=== PATIENT | female | born 1940 | race Caucasian/White ===

== ENCOUNTER → 2016-07-21 | Outpatient (CLI) | payer MEDICARE, BC ==
[2016-07-21 13:58] LABS: Anisocytosis Moderate; CH 28.4; CHCM 31.3; HCT 41.1 % (34.0-46.0); HGB 12.7 gm/dL (11.4-16.0); Hypochromasia Slight; MCH 28.1 pg (25.0-35.0); Mean Platelet Volume 7.2; RBC 4.53 m/uL (3.80-5.40); RDW 21.1 % (11.5-15.5); WBC 4.5 k/uL (3.8-10.6)
[2016-07-21 14:01] LABS: MCV 90.6 fL (80.0-100.0)
[2016-07-21 14:02] LABS: Appearance,Urine Clear (Clear); Bilirubin,Urine Negative (Negative); Glucose,Urine (UA) Negative (Negative); Ketones,Urine Negative (Negative); Leukocyte Esterase,Urine Negative (Negative); Nitrite,Urine Negative (Negative); PH, Urine 5.5 (5.0-8.0); Protein,Urine Trace (Negative); Specific Gravity,Urine 1.018 (1.001-1.035); UA Billing (MACRO vs. MICRO) CHEM; Urobilinogen,Urine <2.0 mg/dL (<2.0)
[2016-07-21 14:42] LABS: Anion Gap 10 mmol/L; Blood Urea Nitrogen 15 mg/dL (7-17); Calcium 9.6 mg/dL (8.4-10.2); Carbon Dioxide 27 mmol/L (22-30); Chloride 108 mmol/L (98-107); Glucose 127 mg/dL (74-99); Iron 68 ug/dL (37-170); Magnesium 2.1 mg/dL (1.6-2.3); Non-African American GFR(MDRD) >60 (>60 ml/min/1.73 sqM); Phosphorous 3.3 mg/dL (2.5-4.5); Sodium 145 mmol/L (137-145); Uric Acid 4.8 mg/dL (3.7-7.4)
[2016-07-21 14:51] LABS: Total Iron Binding Capacity 200 ug/dL (265-497)
== END | disposition home or self-care (01) ==
LOC: LABWHC1 13:11
PROVIDERS: ATTEND Internal Medicine Nephrology
DX: I50.22 Chronic systolic (congestive) heart failure (principal); N18.3 Chronic kidney disease, stage 3 (moderate); N25.81 Secondary hyperparathyroidism of renal origin; N39.0 Urinary tract infection, site not specified; E55.9 Vitamin D deficiency, unspecified; M10.9 Gout, unspecified
CPT/HCPCS: 36415; 80048; 81003; 82306; 82728; 83540; 83550; 83735; 83970; 84100; 84550; 85027

== ENCOUNTER → 2016-08-09 | Outpatient (CLI) | payer MEDICARE, BC ==
[2016-08-09 14:51] LABS: Anion Gap 8 mmol/L; Blood Urea Nitrogen 15 mg/dL (7-17); Calcium 8.7 mg/dL (8.4-10.2); Carbon Dioxide 29 mmol/L (22-30); Chloride 108 mmol/L (98-107); Glucose 129 mg/dL (74-99); Non-African American GFR(MDRD) >60 (>60 ml/min/1.73 sqM); Potassium 4.2 mmol/L (3.5-5.1); Sodium 145 mmol/L (137-145)
== END | disposition home or self-care (01) ==
LOC: LABWHC1 14:22
PROVIDERS: ATTEND Internal Medicine Cardiovascular Disease
DX: I50.32 Chronic diastolic (congestive) heart failure (principal)
CPT/HCPCS: 36415; 80048

== ENCOUNTER → 2016-09-13 | Outpatient (CLI) | payer MEDICARE, BC ==
[2016-09-13 12:28] LABS: Anion Gap 8 mmol/L; Blood Urea Nitrogen 16 mg/dL (7-17); Calcium 9.1 mg/dL (8.4-10.2); Carbon Dioxide 28 mmol/L (22-30); Chloride 106 mmol/L (98-107); Glucose 147 mg/dL (74-99); Non-African American GFR(MDRD) 58 (>60 ml/min/1.73 sqM); Potassium 4.6 mmol/L (3.5-5.1); Sodium 142 mmol/L (137-145)
== END | disposition home or self-care (01) ==
LOC: LABWHC1 11:22
PROVIDERS: ATTEND Nurse Practitioner Adult Health
DX: I50.32 Chronic diastolic (congestive) heart failure (principal)
CPT/HCPCS: 36415; 80048

== ENCOUNTER → 2016-10-06 | Outpatient (CLI) | payer MEDICARE, BC ==
[2016-10-06 16:35] LABS: Anion Gap 8 mmol/L; Blood Urea Nitrogen 13 mg/dL (7-17); Carbon Dioxide 28 mmol/L (22-30); Chloride 103 mmol/L (98-107); Glucose 176 mg/dL (74-99); Non-African American GFR(MDRD) 54 (>60 ml/min/1.73 sqM); Potassium 4.5 mmol/L (3.5-5.1); Sodium 139 mmol/L (137-145)
== END | disposition home or self-care (01) ==
LOC: LABWHC1 15:42
PROVIDERS: ATTEND Internal Medicine Cardiovascular Disease
DX: I50.32 Chronic diastolic (congestive) heart failure (principal)
CPT/HCPCS: 36415; 80048

== ENCOUNTER → 2016-11-04 | Outpatient (CLI) | payer MEDICARE, BC ==
[2016-11-04 12:41] LABS: Anion Gap 6 mmol/L; Blood Urea Nitrogen 15 mg/dL (7-17); Carbon Dioxide 28 mmol/L (22-30); Chloride 107 mmol/L (98-107); Glucose 119 mg/dL (74-99); Non-African American GFR(MDRD) >60 (>60 ml/min/1.73 sqM); Potassium 4.1 mmol/L (3.5-5.1); Sodium 141 mmol/L (137-145)
== END ==
LOC: LABWHC1 12:08
PROVIDERS: ATTEND Internal Medicine Cardiovascular Disease
DX: I50.32 Chronic diastolic (congestive) heart failure (principal)
CPT/HCPCS: 36415; 80048

== ENCOUNTER 2016-11-21 15:37 | Emergency (ER) | payer MEDICARE, BC ==
[2016-11-21] MEDS ORDERED: HYDROcodone/APAP 5-325MG 1 EACH TAB PO STA (16:43)
[2016-11-21 17:12] LABS: Basophils % (A) 1 %; CH 32.7; CHCM 34.7; Eosinophils # (A) 0.2 k/uL (0-0.7); Eosinophils % (A) 2 %; HCT 38.8 % (34.0-46.0); HGB 13.2 gm/dL (11.4-16.0); Luc # (Auto) 0.15; Luc % (Auto) 2; Lymphocytes # (A) 1.2 k/uL (1.0-4.8); Lymphocytes % (A) 20 %; MCH 32.3 pg (25.0-35.0); MCHC 34.1 g/dL (31.0-37.0); MCV 94.6 fL (80.0-100.0); Mean Platelet Volume 7.1; Monocytes # (A) 0.4 k/uL (0-1.0); Monocytes % (A) 6 %; Neutrophils # (A) 4.4 k/uL (1.3-7.7); Neutrophils % (A) 69 %; RDW 14.8 % (11.5-15.5); WBC 6.3 k/uL (3.8-10.6); WBC (Perox) 5.73
[2016-11-21 17:21] LABS: Calcium 8.8 mg/dL (8.4-10.2); Potassium 4.2 mmol/L (3.5-5.1)
--- NOTE | 2016-11-21 17:48 | XR ---
EXAMINATION TYPE: XR chest 2V DATE OF EXAM: 11/21/2016 5:35 PM COMPARISON: 03/06/2016 HISTORY: Chest pain TECHNIQUE: Frontal and lateral views of the chest are obtained. FINDINGS: Heart is enlarged. There is mild pulmonary congestion. There are no hilar masses. Thoracic aorta is atheromatous. There is no pleural effusion. IMPRESSION: Cardiomegaly with mild congestion. No overt heart failure. No change compared to last ex am.
[2016-11-21 18:16] VITALS: BP 179/83
[2016-11-21] MEDS ORDERED: CIPROFLOXACIN HCL 500 MG TAB PO STA (19:30)
[2016-11-21 19:33] VITALS: PULSE 65; RESP 16; TEMP 97.8
--- NOTE | 2016-11-21 19:33 | ED ---
General Adult HPI - General Chief complaint: Skin/Abscess/Foreign Body Stated complaint: R leg irritation Source: patient Mode of arrival: ambulatory Limitations: no limitations - History of Present Illness Initial comments: 76-year-old female with a past medical history of atrial flutter, asthma, heart failure, COPD, CVA/TIA, DM, fiber myalgia, HTN, thyroid disorder, psoriasis on scalp, migraines, constipation, gout, anemia, cholecystectomy, heart catheterization, hysterectomy, Arnaud-en-Y presented for evaluation of right lower extremity discomfort and erythema. She states that this is been developing over the last 2-3 days and is worse when palpated and improved when left alone. She states a history of recurrent lower extremity cellulitis and that this feels similar. However there has been more swelling and she feels as though there may be some deeper symptoms as well. She went online improvement in her symptoms and is concerned that there may also be a blood clot. She denies any breaks in the skin that could lead to the cellulitis and that she has been treated previously with Cipro with good effect. - Related Data Home Medications Medication Instructions Recorded Confirmed Allopurinol [Zyloprim] 100 mg PO BID 10/19/14 11/21/16 Clopidogrel [Plavix] 75 mg PO DAILY 10/19/14 11/21/16 HYDROcodone/APAP 5-325MG [[place] 1 tab PO Q6HR PRN 10/19/14 11/21/16 5-325] Levothyroxine Sodium [Synthroid] 175 mcg PO DAILY 10/19/14 11/21/16 Temazepam [Restoril] 15 mg PO HS 10/19/14 11/21/16 Ergocalciferol [Vitamin D2 50,000 units PO MOFR 03/06/16 11/21/16 (DRISDOL)] Gabapentin 600 mg PO HS 03/06/16 11/21/16 Furosemide 240 mg IVP TH 03/07/16 11/21/16 Furosemide [Lasix] 40 mg PO DAILY PRN 03/07/16 11/21/16 Gabapentin [Neurontin] 300 mg PO QAM 04/28/16 11/21/16 Sertraline [Zoloft] 150 mg PO QAM 04/28/16 11/21/16 rOPINIRole HCL [Requip] 0.25 mg PO HS PRN 04/28/16 11/21/16 Calcitriol [Rocaltrol] 0.25 mcg PO MO 11/21/16 11/21/16 Insulin Detemir [Levemir] 19 unit SQ HS 11/21/16 11/21/16 Isosorbide Mononitrate ER [Imdur] 30 mg PO DAILY 11/21/16 11/21/16 Lisinopril [Zestril] 10 mg PO BID 11/21/16 11/21/16 Nitroglycerin Sl Tabs [Nitrostat] 0.4 mg SUBLINGUAL Q5M PRN 11/21/16 11/21/16 Ondansetron [Zofran ODT] 4 mg PO Q8HR PRN 11/21/16 11/21/16 Potassium Chloride ER [K-Dur 10] 5 meq PO W/BRKFST 11/21/16 11/21/16 Potassium Chloride ER [K-Dur 10] 10 meq PO W/SUPPER 11/21/16 11/21/16 Sennosides-Docusate Sodium 2 tab PO BID 11/21/16 11/21/16 [Senokot-S] amLODIPine [Norvasc] 5 mg PO DAILY 11/21/16 11/21/16 lamoTRIgine [LaMICtal] 25 mg PO BID 11/21/16 11/21/16 oxyCODONE ER [OxyCONTIN 15MG E.R] 15 mg PO Q12HR 11/21/16 11/21/16 rOPINIRole HCL [Requip] 0.5 mg PO HS PRN 11/21/16 11/21/16 Previous Rx's Medication Instructions Recorded Ciprofloxacin HCl [Cipro] 500 mg PO Q12HR #20 tablet 11/21/16 Allergies Allergy/AdvReac Type Severity Reaction Status Date / Time Penicillins Allergy Rash/Hives Verified 11/21/16 16:29 metolazone [From Zaroxolyn] AdvReac Severe Vertigo Verified 11/21/16 16:57 celecoxib [From Celebrex] AdvReac Nausea & Verified 11/21/16 16:29 Vomiting colchicine AdvReac Nausea & Verified 11/21/16 16:29 Vomiting Review of Systems ROS Statement: Those systems with pertinent positive or pertinent negative responses have been documented in the HPI. ROS Other: All systems not noted in ROS Statement are negative. Constitutional: Denies: fever, chills Eyes: Denies: eye pain, eye discharge, vision change ENT: Denies: ear pain, throat pain Respiratory: Denies: cough, dyspnea Cardiovascular: Denies: chest pain, palpitations, dyspnea on exertion, orthopnea Endocrine: Denies: fatigue, polydipsia, polyuria Gastrointestinal: Denies: abdominal pain, nausea, vomiting Genitourinary: Denies: urgency, dysuria Musculoskeletal: Denies: back pain, arthralgia, myalgia Skin: Reports: lesions. Denies: rash Neurological: Denies: headache, weakness Psychiatric: Denies: anxiety, depression Hematological/Lymphatic: Denies: easy bleeding, easy bruising Past Medical History Past Medical History: Atrial Flutter, Asthma, Heart Failure, COPD, CVA/TIA, Diabetes Mellitus, Fibromyalgia, Hypertension, Sleep Apnea/CPAP/BIPAP, Thyroid Disorder Additional Past Medical History / Comment(s): neuropathy, ENLARGED HEART, heart MURMUR,TIA'S, psoriasis ON SCALP, hx migraines, constipation, gout, anemia History of Any Multi-Drug Resistant Organisms: None Reported Past Surgical History: Cholecystectomy, Heart Catheterization, Hysterectomy, Orthopedic Surgery Additional Past Surgical History / Comment(s): gastroplasty THEN 4 YEARS LATER HAS ROUEN Y,vein stripping, LASER SX for glaucoma and denton CATRARACT, PARATHYRODECTOMY heel spur left foot Past Anesthesia/Blood Transfusion Reactions: No Reported Reaction Past Psychological History: Anxiety Smoking Status: Former smoker Past Alcohol Use History: None Reported Additional Past Alcohol Use History / Comment(s): STARTED TO SMOKE AT AGE 36 QUIT AT AGE 27 Past Drug Use History: None Reported - Past Family History Father Family Medical History: CVA/TIA, Myocardial Infarction ([place]) Additional Family Medical History / Comment(s): AT AGE 59 Mother Family Medical History: No Reported History Additional Family Medical History / Comment(s): AT AGE 85 General Exam Limitations: no limitations General appearance: alert, in no apparent distress Head exam: Present: atraumatic, normocephalic, normal inspection Eye exam: Present: normal appearance, PERRL, EOMI. Absent: scleral icterus, conjunctival injection, periorbital swelling ENT exam: Present: normal exam, mucous membranes moist Neck exam: Present: normal inspection. Absent: tenderness, meningismus, lymphadenopathy Respiratory exam: Present: normal lung sounds bilaterally. Absent: respiratory distress, wheezes, rales, rhonchi, stridor Cardiovascular Exam: Present: regular rate, normal rhythm, normal heart sounds. Absent: systolic murmur, diastolic murmur, rubs, gallop, clicks GI/Abdominal exam: Present: soft, normal bowel sounds. Absent: distended, tenderness, guarding, rebound, rigid Rectal exam: Present: deferred Extremities exam: Present: normal inspection, full ROM, normal capillary refill , calf tenderness (right-sided). Absent: tenderness, pedal edema, joint swelling Back exam: Present: normal inspection Neurological exam: Present: alert, oriented X3, CN II-XII intact Psychiatric exam: Present: normal affect, normal mood Skin exam: Present: warm, dry, intact, erythema (with associated warmth to palpation). Absent: rash Course Vital Signs 11/21/16 11/21/16 11/21/16 15:39 16:42 18:00 Temperature 98.1 F Pulse Rate 72 63 61 Respiratory 20 18 18 Rate Blood Pressure 140/62 179/75 179/83 O2 Sat by Pulse 98 99 99 Oximetry 11/21/16 19:32 Temperature 97.8 F Pulse Rate 65 Respiratory 16 Rate Blood Pressure 179/83 O2 Sat by Pulse 100 Oximetry EKG Findings - EKG Comments: EKG Findings:: Assessment urticaria with ventricular rate of 58, BACILIO 208, QRS 94 , QT/QTc 446/437. Medical Decision Making - Medical Decision Making 76-year-old female presented for evaluation of right lower extremity erythema developing over the last 2-3 days. She has a history of recurrent cellulitis and believes that this is the likely etiology although she has had deeper pain into the leg and is concerned about a DVT. On physical examination she does have erythema to the leg with some overlying skin changes but there is no definitive induration. The remainder of her physical exam is benign. Given that the patient is markedly obese and ultrasound will be technically difficult. We'll obtain a d-dimer initially as well as basic labs. labs revealed no significant abnormalities including a negative d-dimer.chest x- ray showed mild congestion but unchanged since previous exam. The patient was reevaluated and had no change in her exam. SHe was given cipro for cellulitis and informed she would be discharged with a prescription for Cipro and instructions to follow-up with her primary care physician for cellulitis. She was further advised to return to this facility if her symptoms should worsen or persist. She acknowledged an understanding of this information and agreed with this plan of care. - Lab Data Result diagrams: 11/21/16 17:04 11/21/16 17:04 Lab Results 11/21/16 11/21/16 11/21/16 Range/Units 17:04 17:04 17:04 WBC 6.3 (3.8-10.6) k/uL RBC 4.10 (3.80-5.40) m/uL Hgb 13.2 (11.4-16.0) gm/dL Hct 38.8 (34.0-46.0) % MCV 94.6 (80.0-100.0) fL MCH 32.3 (25.0-35.0) pg MCHC 34.1 (31.0-37.0) g/dL RDW 14.8 (11.5-15.5) % Plt Count 154 (150-450) k/uL Neutrophils % 69 % Lymphocytes % 20 % Monocytes % 6 % Eosinophils % 2 % Basophils % 1 % Neutrophils # 4.4 (1.3-7.7) k/uL Lymphocytes # 1.2 (1.0-4.8) k/uL Monocytes # 0.4 (0-1.0) k/uL Eosinophils # 0.2 (0-0.7) k/uL Basophils # 0.0 (0-0.2) k/uL D-Dimer (<0.60) mg/L FEU Sodium 140 (137-145) mmol/L Potassium 4.2 (3.5-5.1) mmol/L Chloride 103 (98-107) mmol/L Carbon Dioxide 28 (22-30) mmol/L Anion Gap 9 mmol/L BUN 16 (7-17) mg/dL Creatinine 1.10 H (0.52-1.04) mg/dL Est GFR (MDRD) Af Amer 59 (>60 ml/min/1.73 sqM) Est GFR (MDRD) Non-Af 49 (>60 ml/min/1.73 sqM) Glucose 172 H (74-99) mg/dL Calcium 8.8 (8.4-10.2) mg/dL Troponin I (0.000-0.034) ng/mL NT-Pro-B Natriuret Pep 173 pg/mL 11/21/16 11/21/16 Range/Units 17:04 17:04 WBC (3.8-10.6) k/uL RBC (3.80-5.40) m/uL Hgb (11.4-16.0) gm/dL Hct (34.0-46.0) % MCV (80.0-100.0) fL MCH (25.0-35.0) pg MCHC (31.0-37.0) g/dL RDW (11.5-15.5) % Plt Count (150-450) k/uL Neutrophils % % Lymphocytes % % Monocytes % % Eosinophils % % Basophils % % Neutrophils # (1.3-7.7) k/uL Lymphocytes # (1.0-4.8) k/uL Monocytes # (0-1.0) k/uL Eosinophils # (0-0.7) k/uL Basophils # (0-0.2) k/uL D-Dimer 0.33 (<0.60) mg/L FEU Sodium (137-145) mmol/L Potassium (3.5-5.1) mmol/L Chloride (98-107) mmol/L Carbon Dioxide (22-30) mmol/L Anion Gap mmol/L BUN (7-17) mg/dL Creatinine (0.52-1.04) mg/dL Est GFR (MDRD) Af Amer (>60 ml/min/1.73 sqM) Est GFR (MDRD) Non-Af (>60 ml/min/1.73 sqM) Glucose (74-99) mg/dL Calcium (8.4-10.2) mg/dL Troponin I <0.012 (0.000-0.034) ng/mL NT-Pro-B Natriuret Pep pg/mL Disposition Clinical Impression: Cellulitis Disposition: HOME SELF-CARE Instructions: Cellulitis (ED) Additional Instructions: Please use medication as discussed. Please follow up with family doctor if symptoms have not improved over the next two days. Please return to the emergency room if your symptoms increase or worsen or for any other concerns. Prescriptions: Ciprofloxacin HCl [Cipro] 500 mg PO Q12HR #20 tablet Referrals: Taran Julian MD [Primary Care Provider] - 1-2 days Time of Disposition: 19:32
== END 2016-11-21 19:45 | disposition home or self-care (01) ==
LOC: EC 15:37
DX: L03.115 Cellulitis of right lower limb (principal); I11.0 Hypertensive heart disease with heart failure; I50.9 Heart failure, unspecified; E07.9 Disorder of thyroid, unspecified; E11.9 Type 2 diabetes mellitus without complications; M79.7 Fibromyalgia; M10.9 Gout, unspecified; F41.9 Anxiety disorder, unspecified; Z86.73 Personal history of transient ischemic attack (TIA), and cerebral infarction without residual deficits; Z87.891 Personal history of nicotine dependence; Z79.01 Long term (current) use of anticoagulants; Z79.4 Long term (current) use of insulin; Z79.891 Long term (current) use of opiate analgesic; Z79.899 Other long term (current) drug therapy; Z88.0 Allergy status to penicillin; Z88.6 Allergy status to analgesic agent; Z88.8 Allergy status to other drugs, medicaments and biological substances
CPT/HCPCS: 36415; 71020; 80048; 83880; 84484; 85025; 85379; 93005; 99284

== ENCOUNTER → 2016-12-15 | Outpatient (CLI) | payer MEDICARE, BC ==
[2016-12-15 13:53] LABS: Anion Gap 8 mmol/L; Blood Urea Nitrogen 16 mg/dL (7-17); Calcium 8.7 mg/dL (8.4-10.2); Carbon Dioxide 26 mmol/L (22-30); Chloride 105 mmol/L (98-107); Glucose 325 mg/dL (74-99); Non-African American GFR(MDRD) 52 (>60 ml/min/1.73 sqM); Potassium 4.2 mmol/L (3.5-5.1); Sodium 139 mmol/L (137-145)
== END | disposition home or self-care (01) ==
LOC: LABWHC1 13:15
PROVIDERS: ATTEND Nurse Practitioner Adult Health
DX: I50.32 Chronic diastolic (congestive) heart failure (principal)
CPT/HCPCS: 36415; 80048

== ENCOUNTER → 2016-12-30 | Outpatient (CLI) | payer MEDICARE, BC ==
[2016-12-30 12:54] LABS: Anion Gap 8 mmol/L; Blood Urea Nitrogen 17 mg/dL (7-17); Carbon Dioxide 29 mmol/L (22-30); Chloride 105 mmol/L (98-107); Glucose 130 mg/dL (74-99); Non-African American GFR(MDRD) 58 (>60 ml/min/1.73 sqM); Potassium 4.5 mmol/L (3.5-5.1); Sodium 142 mmol/L (137-145)
== END | disposition home or self-care (01) ==
LOC: LABWHC1 12:03
PROVIDERS: ATTEND Internal Medicine Cardiovascular Disease
DX: I50.32 Chronic diastolic (congestive) heart failure (principal)
CPT/HCPCS: 36415; 80048

== ENCOUNTER → 2017-01-24 | Outpatient (CLI) | payer MEDICARE, BC ==
[2017-01-24 08:38] LABS: CH 32.3; CHCM 33.6; HCT 42.5 % (34.0-46.0); HDW 3.12; HGB 14.1 gm/dL (11.4-16.0); MCH 32.2 pg (25.0-35.0); MCHC 33.3 g/dL (31.0-37.0); MCV 96.7 fL (80.0-100.0); RBC 4.39 m/uL (3.80-5.40); RDW 14.8 % (11.5-15.5); WBC 6.7 k/uL (3.8-10.6)
[2017-01-24 09:00] LABS: Anion Gap 8 mmol/L; Blood Urea Nitrogen 18 mg/dL (7-17); Calcium 8.9 mg/dL (8.4-10.2); Carbon Dioxide 31 mmol/L (22-30); Chloride 102 mmol/L (98-107); Glucose 146 mg/dL (74-99); Magnesium 1.9 mg/dL (1.6-2.3); Non-African American GFR(MDRD) 52 (>60 ml/min/1.73 sqM); Phosphorous 3.4 mg/dL (2.5-4.5); Potassium 3.9 mmol/L (3.5-5.1); Sodium 141 mmol/L (137-145); Uric Acid 5.4 mg/dL (3.7-7.4)
[2017-01-24 09:31] LABS: Hepatitis B Surface Ag Index 0.08
[2017-01-24 09:37] LABS: Hepatitis B Core IgM Index 0.05
[2017-01-24 09:49] LABS: Hepatitis C Virus IgG Ab Negative (Negative); Hepatitis C Virus IgG Index 0.02
[2017-01-24 12:03] LABS: Iron 71 ug/dL (37-170)
[2017-01-24 12:14] LABS: % Iron Saturation 33.3 % (20-50); Total Iron Binding Capacity 213 ug/dL (265-497)
[2017-01-24 13:37] LABS: ALT 29 U/L (9-52); AST 26 U/L (14-36); Alkaline Phosphatase 113 U/L (38-126); Total Bilirubin 0.5 mg/dL (0.2-1.3); Total Protein 5.9 g/dL (6.3-8.2)
[2017-01-24 13:44] LABS: Prealbumin 19 mg/dL (18-36)
[2017-01-24 16:35] LABS: ANA w/Reflex to Titer POSITIVE (NEGATIVE)
[2017-01-25 14:31] LABS: C-ANCA <1:20 Titer (<1:20); P-ANCA <1:20 Titer (<1:20)
[2017-01-26 06:30] LABS: Complement Total (CH50) 92 U/mL (42 - 95)
== END | disposition home or self-care (01) ==
LOC: LABWHC1 08:08
PROVIDERS: ATTEND Nurse Practitioner Family
DX: N18.3 Chronic kidney disease, stage 3 (moderate) (principal); R80.9 Proteinuria, unspecified; D64.9 Anemia, unspecified; N39.0 Urinary tract infection, site not specified; E21.3 Hyperparathyroidism, unspecified; E55.9 Vitamin D deficiency, unspecified; M10.9 Gout, unspecified
CPT/HCPCS: 36415; 80053; 80074; 82306; 82728; 83516; 83540; 83550; 83735; 83883; 83970; 84100; 84134; 84550; 85027; 86038; 86039; 86160; 86162; 86225; 86255; 86334

== ENCOUNTER → 2017-02-15 | Outpatient (CLI) | payer MEDICARE, BC ==
--- NOTE | 2017-02-15 23:01 | US ---
EXAMINATION TYPE: US kidneys/renal and bladder DATE OF EXAM: 02/15/2017 COMPARISON: NONE CLINICAL HISTORY: 76-year-old female N18.3 Chronic Kidney Disease Stage 3. TECHNIQUE: Multiple sonographic images of the kidneys and bladder were obtained. FINDINGS: Right Kidney: 8.2 x 3.8 x 4.6 cm Left Kidney: 9.3 x 4.6 x 4.0 cm No hydronephrosis on either side. There is bilateral renal cortical thinning. Nondistention of the bladder limits evaluation. Incidentally, there is echogenic appearance to the liver. IMPRESSION: 1. No hydronephrosis. 2. Changes of chronic medical renal disease. 3. Incidental: Suspect underlying hepatic steatosis.
== END ==
LOC: RADUSMAIN 17:27
PROVIDERS: ATTEND Nurse Practitioner Family
DX: N18.3 Chronic kidney disease, stage 3 (moderate) (principal)
CPT/HCPCS: 76770

== ENCOUNTER → 2017-03-17 | Outpatient (CLI) | payer MEDICARE, BC ==
[2017-03-17 17:34] LABS: Calcium 9.3 mg/dL (8.4-10.2); Potassium 5.3 mmol/L (3.5-5.1)
== END | disposition home or self-care (01) ==
LOC: LABWHC1 16:53
PROVIDERS: ATTEND Internal Medicine Cardiovascular Disease
DX: I50.32 Chronic diastolic (congestive) heart failure (principal)
CPT/HCPCS: 36415; 80048; 83880

== ENCOUNTER → 2017-04-07 | Outpatient (CLI) | payer MEDICARE, BC ==
[2017-04-07 15:50] LABS: Calcium 8.9 mg/dL (8.4-10.2); Potassium 4.7 mmol/L (3.5-5.1)
== END | disposition home or self-care (01) ==
LOC: LABWHC1 15:14
PROVIDERS: ATTEND Internal Medicine Cardiovascular Disease
DX: I50.32 Chronic diastolic (congestive) heart failure (principal)
CPT/HCPCS: 36415; 80048

== ENCOUNTER 2017-04-09 13:27 | Emergency (ER) | payer MEDICARE, BC ==
[2017-04-09] MEDS ORDERED: ONDANSETRON 4 MG/2 ML VIAL IVP STA ×2 (13:56→15:42)
[2017-04-09] MEDS ORDERED: SODIUM CHLORIDE 0.9% 500 ML IV STA ×2 (13:56→15:40)
--- NOTE | 2017-04-09 14:10 | ED ---
General Adult HPI - General Chief complaint: Nausea/Vomiting/Diarrhea Stated complaint: N & V Time Seen by Provider: 04/09/17 13:46 Source: patient, RN notes reviewed Mode of arrival: wheelchair Limitations: no limitations - History of Present Illness Initial comments: 76-year-old female presents to the emergency department with a chief complaint of nausea. Patient states she's had nausea and dry heaves for the past 3 or 4 days. She went to his doctor prescribed Reglan meet her feel her to stop taking it. Patient states that she goes in weekly to have IV Lasix help it some fluid off because she cannot tolerate oral Lasix. Patient states she did skip this due to dehydration as well. Patient states that she has been more short of breath over the last month or so but not worse over the last few days. Patient states she is here because she just did not feel like she is getting better so she thought that she should be evaluated. Patient denies any recent fever, chills, shortness of breath, chest pain, back pain, abdominal pain, vomiting, numbness or tingling, dysuria or hematuria, constipation or diarrhea, headaches or visual changes, or any other current symptoms. - Related Data Home Medications Medication Instructions Recorded Confirmed Allopurinol [Zyloprim] 100 mg PO BID 10/19/14 04/09/17 Clopidogrel [Plavix] 75 mg PO DAILY 10/19/14 04/09/17 HYDROcodone/APAP 5-325MG [[place] 1 tab PO Q6HR PRN 10/19/14 04/09/17 5-325] Levothyroxine Sodium [Synthroid] 175 mcg PO DAILY 10/19/14 04/09/17 Temazepam [Restoril] 15 mg PO HS 10/19/14 04/09/17 Ergocalciferol [Vitamin D2 50,000 units PO MOFR 03/06/16 04/09/17 (DRISDOL)] Gabapentin 600 mg PO HS 03/06/16 04/09/17 Furosemide 250 mg IVP TH 03/07/16 04/09/17 Gabapentin [Neurontin] 300 mg PO QAM 04/28/16 04/09/17 rOPINIRole HCL [Requip] 0.25 mg PO HS 04/28/16 04/09/17 Calcitriol [Rocaltrol] 0.25 mcg PO MOFR 11/21/16 04/09/17 Insulin Detemir [Levemir] 19 unit SQ HS 11/21/16 04/09/17 Isosorbide Mononitrate ER [Imdur] 30 mg PO DAILY 11/21/16 04/09/17 Lisinopril [Zestril] 10 mg PO BID 11/21/16 04/09/17 Nitroglycerin Sl Tabs [Nitrostat] 0.4 mg SUBLINGUAL Q5M PRN 11/21/16 04/09/17 Ondansetron [Zofran ODT] 4 mg PO Q8HR PRN 11/21/16 04/09/17 amLODIPine [Norvasc] 5 mg PO DAILY 11/21/16 04/09/17 oxyCODONE ER [OxyCONTIN 15MG E.R] 15 mg PO Q12HR 11/21/16 04/09/17 Atorvastatin Calcium [Lipitor] 20 mg PO HS 04/09/17 04/09/17 Metoclopramide [Reglan] 10 mg PO TID PRN 04/09/17 04/09/17 Sennosides [Senna] 8.6 mg PO QAM 04/09/17 04/09/17 Sennosides [Senna] 17.2 mg PO HS 04/09/17 04/09/17 Spironolactone [Aldactone] 12.5 mg PO Q48H 04/09/17 04/09/17 Spironolactone [Aldactone] 25 mg PO Q48H 04/09/17 04/09/17 lamoTRIgine [LaMICtal] 150 mg PO BID 04/09/17 04/09/17 Previous Rx's Medication Instructions Recorded Ondansetron Odt [Zofran ODT] 4 mg PO Q8HR PRN #20 tab 04/09/17 Allergies Allergy/AdvReac Type Severity Reaction Status Date / Time Penicillins Allergy Rash/Hives Verified 04/09/17 14:32 metolazone [From Zaroxolyn] AdvReac Severe Vertigo Verified 04/09/17 14:32 celecoxib [From Celebrex] AdvReac Nausea & Verified 04/09/17 14:32 Vomiting colchicine AdvReac Nausea & Verified 04/09/17 14:32 Vomiting metoclopramide [From Reglan] AdvReac TREMORS Verified 04/09/17 14:32 Review of Systems ROS Statement: Those systems with pertinent positive or pertinent negative responses have been documented in the HPI. ROS Other: All systems not noted in ROS Statement are negative. Past Medical History Past Medical History: Atrial Fibrillation, Heart Failure, COPD, CVA/TIA, Diabetes Mellitus, Fibromyalgia, Hypertension, Skin Disorder, Sleep Apnea/CPAP/ BIPAP, Thyroid Disorder Additional Past Medical History / Comment(s): WOUND ON ABDOMINAL FLAP, ALSO "BOIL" ON RT BUTTOCK, HAS HAD LARGE AMOUNT OF DRAINAGE IN PAST, OPEN HOLE IN ABDOMEN, neuropathy, ENLARGED HEART, heart MURMUR,TIA'S, states no residual effects, psoriasis ON SCALP, hx migraines, constipation, gout, HX anemia, SEE DR ARTEAGA TO WATCH KIDNEYS R/T LARGE AMT OF LASIX GIVEN FOR CHF History of Any Multi-Drug Resistant Organisms: None Reported Past Surgical History: Bariatric Surgery, Cholecystectomy, Heart Catheterization , Hysterectomy, Orthopedic Surgery Additional Past Surgical History / Comment(s): gastroplasty THEN 4 YEARS LATER HAS BECCA-N-Y,vein stripping, LASER SX for glaucoma and denton CATRARACT, PARATHYRODECTOMY, heel spur left foot Past Anesthesia/Blood Transfusion Reactions: No Reported Reaction Past Psychological History: Anxiety, Depression Smoking Status: Never smoker Past Alcohol Use History: None Reported Past Drug Use History: None Reported - Past Family History Sister(s) Family Medical History: Deep Vein Thrombosis (DVT) Father Family Medical History: CVA/TIA, Myocardial Infarction ([place]) Additional Family Medical History / Comment(s): AT AGE 59 Mother Family Medical History: No Reported History Additional Family Medical History / Comment(s): AT AGE 85 General Exam - General Exam Comments Initial Comments: General: The patient is awake and alert, in no distress, and does not appear acutely ill. Eye: Pupils are equal, round and reactive to light, extra-ocular movements are intact; there is normal conjunctiva bilaterally. No signs of icterus. Ears, nose, mouth and throat: There are moist mucous membranes and no oral lesions. Neck: The neck is supple, there is no tenderness. Cardiovascular: There is a regular rate and rhythm. No murmur, rub or gallop is appreciated. Respiratory: Lungs are clear to auscultation, respirations are non-labored, breath sounds are equal. No wheezes, stridor, rales, or rhonchi. Gastrointestinal: Soft, non-distended, non-tender abdomen without masses or organomegaly noted. There is no rebound or guarding present. No CVA tenderness. Bowel sounds are unremarkable. Back: There is no tenderness to palpation in the midline. There is no obvious deformity. No rashes noted. Musculoskeletal: Normal ROM, no tenderness, There is no pedal edema. There is no calf tenderness or swelling. Sensation intact. Pulses equal bilaterally 2+. Neurological: CN II-XII intact, There are no obvious motor or sensory deficits. Coordination appears grossly intact. Speech is normal. Skin: Skin is warm and dry and no rashes or lesions are noted. Psychiatric: Cooperative, appropriate mood & affect, normal judgment. Limitations: no limitations Course Vital Signs 04/09/17 04/09/17 04/09/17 13:32 14:45 15:45 Temperature 97.9 F Pulse Rate 55 L 55 L 62 Respiratory 18 20 20 Rate Blood Pressure 134/63 156/67 148/67 O2 Sat by Pulse 97 100 100 Oximetry EKG Findings - EKG Comments: EKG Findings:: Sinus bradycardia 52 bpm, normal axis, no atopy, no S-T depressions or elevations, Medical Decision Making - Medical Decision Making 76-year-old female presents to the emergency department with a chief complaint of nausea and dry heaves of dehydration. This time patient's lab work is been reviewed. BNP is stable and does not appear to be fluid on the lungs. This time patient has had no dry heaving here and is feeling better. We will switch the patient to [facility] for home. We did discuss follow-up and return parameters for the patient and close follow-up with her doctor this week. Patient stated that she understood and she is in agreement with plan. All questions have been answered. She'll be discharged. - Lab Data Result diagrams: 04/09/17 14:40 04/09/17 14:40 Lab Results 04/09/17 04/09/17 04/09/17 Range/Units 14:40 14:40 14:40 WBC 6.5 (3.8-10.6) k/uL RBC 3.87 (3.80-5.40) m/uL Hgb 13.0 (11.4-16.0) gm/dL Hct 39.2 (34.0-46.0) % MCV 101.5 H (80.0-100.0) fL MCH 33.6 (25.0-35.0) pg MCHC 33.1 (31.0-37.0) g/dL RDW 15.8 H (11.5-15.5) % Plt Count 167 (150-450) k/uL Neutrophils % 65 % Lymphocytes % 24 % Monocytes % 5 % Eosinophils % 4 % Basophils % 1 % Neutrophils # 4.2 (1.3-7.7) k/uL Lymphocytes # 1.6 (1.0-4.8) k/uL Monocytes # 0.3 (0-1.0) k/uL Eosinophils # 0.3 (0-0.7) k/uL Basophils # 0.0 (0-0.2) k/uL Macrocytosis Slight PT (9.0-12.0) sec INR (<1.2) APTT (22.0-30.0) sec Sodium 140 (137-145) mmol/L Potassium 4.3 (3.5-5.1) mmol/L Chloride 106 (98-107) mmol/L Carbon Dioxide 26 (22-30) mmol/L Anion Gap 8 mmol/L BUN 15 (7-17) mg/dL Creatinine 1.08 H (0.52-1.04) mg/dL Est GFR (MDRD) Af Amer >60 (>60 ml/min/1.73 sqM) Est GFR (MDRD) Non-Af 50 (>60 ml/min/1.73 sqM) Glucose 164 H (74-99) mg/dL Calcium 8.5 (8.4-10.2) mg/dL Magnesium 1.8 (1.6-2.3) mg/dL Total Bilirubin 0.4 (0.2-1.3) mg/dL AST 27 (14-36) U/L ALT 29 (9-52) U/L Alkaline Phosphatase 88 (38-126) U/L Total Creatine Kinase <20 L (30-135) U/L CK-MB (CK-2) 0.3 (0.0-2.4) ng/mL CK-MB (CK-2) Rel Index Troponin I <0.012 (0.000-0.034) ng/mL NT-Pro-B Natriuret Pep pg/mL Total Protein 5.7 L (6.3-8.2) g/dL Albumin 2.8 L (3.5-5.0) g/dL Amylase <30 L (30-110) U/L Lipase 57 (23-300) U/L Urine Color Urine Appearance (Clear) Urine pH (5.0-8.0) Ur Specific [place] (1.001-1.035) Urine Protein (Negative) Urine Glucose (UA) (Negative) Urine Ketones (Negative) Urine Blood (Negative) Urine Nitrite (Negative) Urine Bilirubin (Negative) Urine Urobilinogen (<2.0) mg/dL Ur Leukocyte Esterase (Negative) 04/09/17 04/09/17 04/09/17 Range/Units 14:40 14:40 17:01 WBC (3.8-10.6) k/uL RBC (3.80-5.40) m/uL Hgb (11.4-16.0) gm/dL Hct (34.0-46.0) % MCV (80.0-100.0) fL MCH (25.0-35.0) pg MCHC (31.0-37.0) g/dL RDW (11.5-15.5) % Plt Count (150-450) k/uL Neutrophils % % Lymphocytes % % Monocytes % % Eosinophils % % Basophils % % Neutrophils # (1.3-7.7) k/uL Lymphocytes # (1.0-4.8) k/uL Monocytes # (0-1.0) k/uL Eosinophils # (0-0.7) k/uL Basophils # (0-0.2) k/uL Macrocytosis PT 10.7 (9.0-12.0) sec INR 1.1 (<1.2) APTT 25.8 (22.0-30.0) sec Sodium (137-145) mmol/L Potassium (3.5-5.1) mmol/L Chloride (98-107) mmol/L Carbon Dioxide (22-30) mmol/L Anion Gap mmol/L BUN (7-17) mg/dL Creatinine (0.52-1.04) mg/dL Est GFR (MDRD) Af Amer (>60 ml/min/1.73 sqM) Est GFR (MDRD) Non-Af (>60 ml/min/1.73 sqM) Glucose (74-99) mg/dL Calcium (8.4-10.2) mg/dL Magnesium (1.6-2.3) mg/dL Total Bilirubin (0.2-1.3) mg/dL AST (14-36) U/L ALT (9-52) U/L Alkaline Phosphatase (38-126) U/L Total Creatine Kinase (30-135) U/L CK-MB (CK-2) (0.0-2.4) ng/mL CK-MB (CK-2) Rel Index Troponin I (0.000-0.034) ng/mL NT-Pro-B Natriuret Pep 471 pg/mL Total Protein (6.3-8.2) g/dL Albumin (3.5-5.0) g/dL Amylase (30-110) U/L Lipase (23-300) U/L Urine Color Yellow Urine Appearance Clear (Clear) Urine pH 5.5 (5.0-8.0) Ur Specific [place] 1.016 (1.001-1.035) Urine Protein Trace H (Negative) Urine Glucose (UA) Negative (Negative) Urine Ketones Negative (Negative) Urine Blood Negative (Negative) Urine Nitrite Negative (Negative) Urine Bilirubin Negative (Negative) Urine Urobilinogen 2.0 (<2.0) mg/dL Ur Leukocyte Esterase Negative (Negative) - Radiology Data Radiology results: report reviewed, image reviewed Disposition Clinical Impression: Dehydration, Nausea Disposition: HOME SELF-CARE Condition: Stable Instructions: Dehydration (ED) Additional Instructions: Please use medication as discussed. Please follow up with family doctor if symptoms have not improved over the next two days. Please return to the emergency room if your symptoms increase or worsen or for any other concerns. Prescriptions: Ondansetron Odt [Zofran ODT] 4 mg PO Q8HR PRN #20 tab PRN Reason: Nausea Referrals: Taran Julian MD [Primary Care Provider] - 1-2 days Time of Disposition: 17:15
--- NOTE | 2017-04-09 14:42 | XR ---
EXAMINATION TYPE: XR chest 2V DATE OF EXAM: 04/09/2017 COMPARISON: NONE INDICATION: Chest pain dry heaves dehydration TECHNIQUE: Frontal and lateral views of the chest are obtained. FINDINGS: The heart size is enlarged. The pulmonary vasculature is normal. There is streak opacity in the right base compatible some right atelectasis. Lungs are otherwise asa r. The right perihilar infiltrate is not excluded. Follow-up is recommended. IMPRESSION: 1. Plate atelectasis right midlung. 2. Right perihilar infiltrate. Follow-up chest study is recommended.
[2017-04-09 14:56] LABS: Basophils % (A) 1 %; CH 34.1; CHCM 33.8; Eosinophils # (A) 0.3 k/uL (0-0.7); Eosinophils % (A) 4 %; HCT 39.2 % (34.0-46.0); Luc % (Auto) 2; Lymphocytes # (A) 1.6 k/uL (1.0-4.8); Lymphocytes % (A) 24 %; MCH 33.6 pg (25.0-35.0); MCHC 33.1 g/dL (31.0-37.0); MCV 101.5 fL (80.0-100.0); Macrocytosis Slight; Mean Platelet Volume 7.4; Monocytes # (A) 0.3 k/uL (0-1.0); Monocytes % (A) 5 %; Neutrophils # (A) 4.2 k/uL (1.3-7.7); Neutrophils % (A) 65 %; RBC 3.87 m/uL (3.80-5.40); RDW 15.8 % (11.5-15.5); WBC 6.5 k/uL (3.8-10.6); WBC (Perox) 6.58
[2017-04-09 15:05] LABS: ALT 29 U/L (9-52); AST 27 U/L (14-36); Alkaline Phosphatase 88 U/L (38-126); Amylase <30 U/L (30-110); Anion Gap 8 mmol/L; Blood Urea Nitrogen 15 mg/dL (7-17); Calcium 8.5 mg/dL (8.4-10.2); Carbon Dioxide 26 mmol/L (22-30); Chloride 106 mmol/L (98-107); Glucose 164 mg/dL (74-99); Magnesium 1.8 mg/dL (1.6-2.3); Non-African American GFR(MDRD) 50 (>60 ml/min/1.73 sqM); Potassium 4.3 mmol/L (3.5-5.1); Sodium 140 mmol/L (137-145); Total Bilirubin 0.4 mg/dL (0.2-1.3); Total Protein 5.7 g/dL (6.3-8.2)
[2017-04-09 15:08] LABS: INR 1.1 (<1.2); Partial Thromboplastin Time 25.8 sec (22.0-30.0); Prothrombin Time 10.7 sec (9.0-12.0)
[2017-04-09 15:18] LABS: Creatine Kinase <20 U/L (30-135)
[2017-04-09 15:31] LABS: Creatine Kinase MB 0.3 ng/mL (0.0-2.4); Troponin I <0.012 ng/mL (0.000-0.034)
[2017-04-09 16:30] VITALS: RESP 20
[2017-04-09 17:10] LABS: Appearance,Urine Clear (Clear); Bilirubin,Urine Negative (Negative); Glucose,Urine (UA) Negative (Negative); Ketones,Urine Negative (Negative); Leukocyte Esterase,Urine Negative (Negative); Nitrite,Urine Negative (Negative); PH, Urine 5.5 (5.0-8.0); Protein,Urine Trace (Negative); Specific Gravity,Urine 1.016 (1.001-1.035); UA Billing (MACRO vs. MICRO) CHEM
[2017-04-09 17:29] VITALS: BP 153/68; PULSE 55; TEMP 97.4
== END 2017-04-09 17:45 | disposition home or self-care (01) ==
LOC: EC 13:27
DX: E86.0 Dehydration (principal); R11.0 Nausea; R06.02 Shortness of breath; I11.0 Hypertensive heart disease with heart failure; I50.9 Heart failure, unspecified; E11.40 Type 2 diabetes mellitus with diabetic neuropathy, unspecified; K59.00 Constipation, unspecified; M10.9 Gout, unspecified; E07.9 Disorder of thyroid, unspecified; M79.7 Fibromyalgia; F32.9 Major depressive disorder, single episode, unspecified; F41.9 Anxiety disorder, unspecified; Z79.02 Long term (current) use of antithrombotics/antiplatelets; Z79.4 Long term (current) use of insulin; Z79.891 Long term (current) use of opiate analgesic; Z79.899 Other long term (current) drug therapy; Z88.0 Allergy status to penicillin; Z88.6 Allergy status to analgesic agent; Z88.8 Allergy status to other drugs, medicaments and biological substances; Z86.73 Personal history of transient ischemic attack (TIA), and cerebral infarction without residual deficits
CPT/HCPCS: 36415; 93005; 83880; 80053; 82150; 82550; 82553; 83690; 83735; 84484; 85025; 85610; 85730; 81003; 71020; 99284; 96374; 96376; 96361 ×3; J2405

== ENCOUNTER 2017-04-16 04:10 | Observation (INO) | payer MEDICARE, BC ==
--- NOTE | 2017-04-16 04:55 | ED ---
Chest Pain HPI - General Chief Complaint: Chest Pain Stated Complaint: Chest Pain Time Seen by Provider: 04/16/17 04:11 Source: EMS Mode of arrival: EMS Limitations: physical limitation - History of Present Illness Initial Comments: This patient is a 76-year-old woman who presents to be evaluated for nausea, dry heaves, and substernal chest pain. The patient relates that she has been having episodes of nausea and dry heaves going back for years intermittently. She states she occasionally goes a few months without having symptoms but this episode is definitely been present a little over 2 weeks now. Tonight about 8: 00 she developed some pressure in the upper substernal area. She describes as moderate, constant, she has not noted any worsening or relieving factors. She did try nitroglycerin but it didn't change this after one tablet. The patient has not had any symptoms associated with the chest pain. MD Complaint: chest pain Onset/Timin -: hour(s) (9) Onset: during rest Pain Location: substernal Pain Radiation: none Severity: moderate Quality: heaviness Consistency: constant Improves With: nothing Worsens With: nothing Anginal Symptoms: nausea, vomiting Treatments Prior to Arrival: nitroglycerin, oxygen - Related Data Home Medications Medication Instructions Recorded Confirmed Allopurinol [Zyloprim] 100 mg PO BID 10/19/14 04/09/17 Clopidogrel [Plavix] 75 mg PO DAILY 10/19/14 04/09/17 HYDROcodone/APAP 5-325MG [[place] 1 tab PO Q6HR PRN 10/19/14 04/09/17 5-325] Levothyroxine Sodium [Synthroid] 175 mcg PO DAILY 10/19/14 04/09/17 Temazepam [Restoril] 15 mg PO HS 10/19/14 04/09/17 Ergocalciferol [Vitamin D2 50,000 units PO MOFR 03/06/16 04/09/17 (DRISDOL)] Gabapentin 600 mg PO HS 03/06/16 04/09/17 Furosemide 250 mg IVP TH 03/07/16 04/09/17 Gabapentin [Neurontin] 300 mg PO QAM 04/28/16 04/09/17 rOPINIRole HCL [Requip] 0.25 mg PO HS 04/28/16 04/09/17 Calcitriol [Rocaltrol] 0.25 mcg PO MOFR 11/21/16 04/09/17 Insulin Detemir [Levemir] 19 unit SQ HS 11/21/16 04/09/17 Isosorbide Mononitrate ER [Imdur] 30 mg PO DAILY 11/21/16 04/09/17 Lisinopril [Zestril] 10 mg PO BID 11/21/16 04/09/17 Nitroglycerin Sl Tabs [Nitrostat] 0.4 mg SUBLINGUAL Q5M PRN 11/21/16 04/09/17 Ondansetron [Zofran ODT] 4 mg PO Q8HR PRN 11/21/16 04/09/17 amLODIPine [Norvasc] 5 mg PO DAILY 11/21/16 04/09/17 oxyCODONE ER [OxyCONTIN 15MG E.R] 15 mg PO Q12HR 11/21/16 04/09/17 Atorvastatin Calcium [Lipitor] 20 mg PO HS 04/09/17 04/09/17 Metoclopramide [Reglan] 10 mg PO TID PRN 04/09/17 04/09/17 Sennosides [Senna] 8.6 mg PO QAM 04/09/17 04/09/17 Sennosides [Senna] 17.2 mg PO HS 04/09/17 04/09/17 Spironolactone [Aldactone] 12.5 mg PO Q48H 04/09/17 04/09/17 Spironolactone [Aldactone] 25 mg PO Q48H 04/09/17 04/09/17 lamoTRIgine [LaMICtal] 150 mg PO BID 04/09/17 04/09/17 Previous Rx's Medication Instructions Recorded Ondansetron Odt [Zofran ODT] 4 mg PO Q8HR PRN #20 tab 04/09/17 Allergies Allergy/AdvReac Type Severity Reaction Status Date / Time Penicillins Allergy Rash/Hives Verified 04/09/17 14:32 metolazone [From Zaroxolyn] AdvReac Severe Vertigo Verified 04/09/17 14:32 celecoxib [From Celebrex] AdvReac Nausea & Verified 04/09/17 14:32 Vomiting colchicine AdvReac Nausea & Verified 04/09/17 14:32 Vomiting metoclopramide [From Reglan] AdvReac TREMORS Verified 04/09/17 14:32 Review of Systems ROS Statement: Those systems with pertinent positive or pertinent negative responses have been documented in the HPI. ROS Other: All systems not noted in ROS Statement are negative. Constitutional: Denies: fever, chills Respiratory: Denies: cough, dyspnea Cardiovascular: Reports: as per HPI, chest pain. Denies: palpitations, edema, syncope Gastrointestinal: Reports: as per HPI, nausea, vomiting. Denies: abdominal pain , diarrhea, melena, hematochezia Genitourinary: Denies: dysuria Musculoskeletal: Denies: back pain Skin: Denies: rash Neurological: Denies: headache EKG Findings - EKG Results: EKG: interpreted by BECK, sinus rhythm, normal axis, normal QRS EKG shows: bradycardia (Rate 58 bpm) - Blocks, [place], Hypertrophy, ST Abn: Repolarization changes or abnormalities: nonspecific abnormality, ST segment, and/or T wave Past Medical History Past Medical History: Atrial Fibrillation, Heart Failure, COPD, CVA/TIA, Diabetes Mellitus, Fibromyalgia, Hypertension, Skin Disorder, Sleep Apnea/CPAP/ BIPAP, Thyroid Disorder Additional Past Medical History / Comment(s): WOUND ON ABDOMINAL FLAP, ALSO "BOIL" ON RT BUTTOCK, HAS HAD LARGE AMOUNT OF DRAINAGE IN PAST, OPEN HOLE IN ABDOMEN, neuropathy, ENLARGED HEART, heart MURMUR,TIA'S, states no residual effects, psoriasis ON SCALP, hx migraines, constipation, gout, HX anemia, SEE DR ARTEAGA TO WATCH KIDNEYS R/T LARGE AMT OF LASIX GIVEN FOR CHF History of Any Multi-Drug Resistant Organisms: None Reported Past Surgical History: Bariatric Surgery, Cholecystectomy, Heart Catheterization , Hysterectomy, Orthopedic Surgery Additional Past Surgical History / Comment(s): gastroplasty THEN 4 YEARS LATER HAS BECCA-N-Y,vein stripping, LASER SX for glaucoma and [place]on CATRARACT, PARATHYRODECTOMY, heel spur left foot Past Anesthesia/Blood Transfusion Reactions: No Reported Reaction Past Psychological History: Anxiety, Depression Smoking Status: Never smoker Past Alcohol Use History: None Reported Past Drug Use History: None Reported - Past Family History Sister(s) Family Medical History: Deep Vein Thrombosis (DVT) Father Family Medical History: CVA/TIA, Myocardial Infarction ([place]) Additional Family Medical History / Comment(s): AT AGE 59 Mother Family Medical History: No Reported History Additional Family Medical History / Comment(s): AT AGE 85 General Exam Limitations: physical limitation General appearance: alert, in no apparent distress, obese Head exam: Present: atraumatic, normocephalic Eye exam: Present: normal appearance. Absent: scleral icterus, conjunctival injection Respiratory exam: Present: normal lung sounds bilaterally. Absent: respiratory distress, wheezes, rales, rhonchi, stridor, chest wall tenderness Cardiovascular Exam: Present: regular rate, normal rhythm, systolic murmur ( Grade 2/6 systolic ejection murmur, consistent with aortic stenosis.). Absent: normal heart sounds, diastolic murmur, rubs, gallop GI/Abdominal exam: Present: soft. Absent: distended, tenderness, guarding, rebound, mass Extremities exam: Present: normal inspection, normal capillary refill. Absent: pedal edema, calf tenderness Skin exam: Present: warm, dry, intact, normal color. Absent: rash Course Vital Signs 04/16/17 04/16/17 04/16/17 04:16 04:25 04:59 Temperature 99.2 F Pulse Rate 80 58 L Respiratory 22 18 18 Rate Blood Pressure 135/62 135/62 O2 Sat by Pulse 94 L 98 Oximetry 04/16/17 06:12 Temperature Pulse Rate 61 Respiratory 18 Rate Blood Pressure 138/64 O2 Sat by Pulse 98 Oximetry Disposition Clinical Impression: Chest pain Disposition: HOME SELF-CARE Condition: Fair
[2017-04-16] MEDS ORDERED: MAG HYDROX/AL HYDROX/SIMETH 30 ML, HYOSCYAMINE ELIXIR 10 ML, CIMETIDINE HCL 300 MG, LID... PO STA ×4 (05:21)
[2017-04-16 05:23] LABS: Basophils % (A) 0 %; CH 33.7; CHCM 33.1; Eosinophils # (A) 0.3 k/uL (0-0.7); Eosinophils % (A) 4 %; HCT 40.8 % (34.0-46.0); HDW 2.83; HGB 13.3 gm/dL (11.4-16.0); Luc % (Auto) 3; Lymphocytes # (A) 1.9 k/uL (1.0-4.8); Lymphocytes % (A) 29 %; MCH 33.4 pg (25.0-35.0); MCHC 32.6 g/dL (31.0-37.0); MCV 102.4 fL (80.0-100.0); Macrocytosis Slight; Mean Platelet Volume 6.9; Monocytes # (A) 0.4 k/uL (0-1.0); Monocytes % (A) 5 %; Neutrophils # (A) 3.8 k/uL (1.3-7.7); Neutrophils % (A) 58 %; RBC 3.98 m/uL (3.80-5.40); WBC 6.5 k/uL (3.8-10.6); WBC (Perox) 6.92
[2017-04-16 05:27] LABS: INR 1.1 (<1.2); Partial Thromboplastin Time 25.6 sec (22.0-30.0); Prothrombin Time 10.9 sec (9.0-12.0)
--- NOTE | 2017-04-16 05:29 | XR ---
EXAM: XR Chest, 1 View CLINICAL HISTORY: Chest pain TECHNIQUE: Frontal view of the chest. COMPARISON: 04/09/2017. FINDINGS: Lungs: Minimal/mild bilateral perihilar infiltrates are seen suggesting minimal/mild CHF, interval improvement since prior study is suggested. Right basilar linear atelectasis is again seen, interval improvement since prior study. Pleural space: Unremarkable. No pneumothorax. Heart: The heart is again noted to be enlarged, stable from prior study. Mediastinum: Unchanged Bones/joints: Unchanged IMPRESSION: Cardiomegaly with findings suggestive of minimal/mild CHF, interval improvement since prior study. Interval improvement of right basilar linear atelectasis.
[2017-04-16 05:42] LABS: ALT 31 U/L (9-52); AST 21 U/L (14-36); Alkaline Phosphatase 114 U/L (38-126); Amylase <30 U/L (30-110); Anion Gap 8 mmol/L; Blood Urea Nitrogen 24 mg/dL (7-17); Carbon Dioxide 27 mmol/L (22-30); Chloride 104 mmol/L (98-107); Glucose 118 mg/dL (74-99); Magnesium 1.4 mg/dL (1.6-2.3); Non-African American GFR(MDRD) 40 (>60 ml/min/1.73 sqM); Potassium 4.3 mmol/L (3.5-5.1); Sodium 139 mmol/L (137-145); Total Bilirubin 0.5 mg/dL (0.2-1.3); Total Protein 5.4 g/dL (6.3-8.2)
[2017-04-16 05:51] LABS: Creatine Kinase <20 U/L (30-135)
[2017-04-16 06:03] LABS: Creatine Kinase MB 0.3 ng/mL (0.0-2.4); Troponin I <0.012 ng/mL (0.000-0.034)
[2017-04-16] MEDS ORDERED: NITROGLYCERIN SL TABS 0.4 MG TAB SUBLINGUAL PRN ×2 (06:25→08:55)
[2017-04-16 07:52] VITALS: BMI 52.1
[2017-04-16] MEDS ORDERED: HYDROcodone/APAP 5-325MG 1 EACH TAB PO PRN (08:55)
[2017-04-16] MEDS ORDERED: oxyCODONE ER 15 MG TAB.ER.12H PO SCH (09:00)
[2017-04-16] MEDS: oxyCODONE ER 15 MG TAB.ER.12H PO SCH ×2 (09:08→20:28)
[2017-04-16] MEDS ORDERED: ISOSORBIDE MONONITRATE ER 30 MG TAB.ER.24H PO SCH (09:15)
--- NOTE | 2017-04-16 10:10 | CONS ---
CONSULTATION Mrs. Abel is a 76-year-old female with a known history of diastolic dysfunction, heart failure, history of aortic stenosis, history of diabetes, hypertension, hyperlipidemia, who has been followed by Dr. Crystal on a regular basis, received intravenous IV Lasix on a weekly basis and that has stabilized her status. She has nausea and dry heaves going on for the last few months. She had similar finding about a year ago. She has been followed by Dr. Sara Vazquez in that regard and she is scheduled to see her again soon. She presented with symptoms of chest discomfort going on for the last couple days, yesterday worse. The discomfort is a trist and substernal, lasting for 15-20 minutes and not associated with any other symptoms. The patient has underwent cardiac catheterization in the past, most recently in 2004 and had no evidence of significant obstructive disease. She has underwent an echocardiogram in December of this year that revealed a preserved ventricular size and systolic function with moderate aortic stenosis with a mean gradient of 27 mm Hg with mild to moderate tricuspid regurgitation and right-sided pressure of 42 mmHg. She is quite limited in her physical activity. She has peripheral edema depending on her Lasix dose. She has no clear symptoms of PND. No dizziness or palpitation or syncope. Her coronary risk factors are positive for history of hypertension, hyperlipidemia, and diabetes. She is a non smoker. MEDICATION: Include: 1. Ropinirole. 2. OxyContin. 3. Lamictal. 4. Norvasc. 5. Aldactone. 6. Zofran. 7. Zestril 10 mg twice a day. 8. Isosorbide mononitrate 30 mg daily. 9. Insulin. 10.Gabapentin. 11.Furosemide on once a week 250 mg a day. 12.Plavix 75 mg daily. 13.Lipitor 20 mg daily. 14.Zyloprim. 15.In addition to calcitriol. REVIEW OF SYSTEMS: RESPIRATORY system: She has chronic dyspnea on exertion. Occasional wheezing. No recent fever or cough. GI system she had the nausea, the dry heaves, the abdominal pain, but no GI bleeding. System: No dysuria, hematuria. Nervous system she has a remote history of TIA. PHYSICAL EXAMINATION: She is a 76-year-old female, alert, oriented, in no apparent distress. Morbidly obese. Blood pressure 154/60, earlier in the 130s, heart rate in 60s. HEAD: Normocephalic. Eyes sclerae anicteric. Neck good upstroke. No bruit. No jugular venous distention. LUNGS: Clear to auscultation. HEART: Regular rhythm S1, S2. No S3 with systolic murmur 3/6 heard at the base, mid peaking. No diastolic murmur. No rub. ABDOMEN: Soft, obese, nontender. Positive bowel sounds. Extremities no significant edema. LAB DATA: BUN creatinine 24 and 1.3. Troponin less than 0.012. Amylase less than 30. Lipase 45, potassium 4.3, hemoglobin 13.3, white blood cell of 6.5. Her magnesium is 1.4. Her D-dimer is 0.66. EKG revealed a sinus mechanism, rate of 58, normal axis and intervals and with nonspecific ST changes. IMPRESSION: 1. Chest discomfort of unclear etiology. No clear evidence to suggest acute coronary syndrome. Patient has no prior history of ischemic heart disease. Could be related to gastrointestinal tract. 2. History of chronic diastolic heart failure, receiving intravenous diuretic infusion once a week. 3. History of morbid obesity. 4. Aortic stenosis, moderate by recent echocardiogram. 5. Hypertension. 6. Hyperlipidemia. 7. Diabetes mellitus. 8. Renal function abnormality. RECOMMENDATION: From the cardiac standpoint, I will increase her dose of nitrate for possible disease. We will review the rest of her cardiac enzymes. If there is no evidence of significant abnormality, then I expect she should be able to be discharged home and follow up as an outpatient with Dr. Crystal. If she has abnormal cardiac enzymes, then further cardiac workup will be needed. Thank you for this consult. We will follow with you. MMODL / IJN: [id number] /
--- NOTE | 2017-04-16 12:00 | NM ---
EXAMINATION TYPE: NM pul vent and perfuse DATE OF EXAM: 04/16/2017 COMPARISON: NONE HISTORY: Chest pain TECHNIQUE: Utilizing inhalation of 72.3 mCi Tc 99m DTPA aerosol and intravenous injection of 5.5 mCi of Tc 99m MAA, ventilation and perfusion images are acquired post injection in multiple projections. FINDINGS: Normal radiotracer distribution is noted in the lungs. There is no evidence of mismatched defects. IMPRESSION: THIS EXAMINATION IS LOW PROBABILITY FOR PULMONARY EMBOLUS.
[2017-04-16 12:01] LABS: Glucose,Whole Blood 162 mg/dL (75-99)
[2017-04-16] MEDS: ALLOPURINOL 100 MG TAB PO SCH ×2 (12:15→20:27)
[2017-04-16] MEDS: amLODIPine 5 MG TAB PO SCH (12:15)
[2017-04-16] MEDS: CLOPIDOGREL 75 MG TAB PO SCH (12:15)
[2017-04-16] MEDS: GABAPENTIN 300 MG CAP PO SCH ×2 (12:16→20:28)
[2017-04-16] MEDS: lamoTRIgine 100 MG TAB PO SCH ×2 (12:17→20:28)
[2017-04-16] MEDS: LEVOTHYROXINE 100 MCG TAB PO SCH (12:18)
[2017-04-16] MEDS: SENNOSIDES 8.6 MG TAB PO SCH (12:18)
[2017-04-16] MEDS: LISINOPRIL 10 MG TAB PO SCH ×2 (12:18→20:28)
[2017-04-16] MEDS: SPIRONOLACTONE 25 MG TAB PO SCH (12:19)
[2017-04-16] MEDS: ISOSORBIDE MONONITRATE ER 60 MG TAB.ER.24H PO SCH (12:19)
[2017-04-16] MEDS: LEVOTHYROXINE 75 MCG TAB PO SCH (12:20)
[2017-04-16] MEDS: ONDANSETRON 4 MG/2 ML VIAL IVP PRN (12:21)
[2017-04-16 12:44] LABS: Creatine Kinase <20 U/L (30-135)
--- NOTE | 2017-04-16 12:49 | HP ---
HISTORY AND PHYSICAL CHIEF COMPLAINT: Chest pain. HISTORY OF PRESENT ILLNESS: 76-year-old female presents to the emergency room by ambulance with complaint of severe chest pain across the low back. It felt like somebody was sitting on her chest, tightness sensation. No associated diaphoresis or shortness of breath. She had some associated dry heaves and retching off and on and some nausea. The patient for the past couple weeks has been having some episodes of increased nausea, retching, and occasional vomiting. The patient was placed on Reglan in the outpatient to which she did not feel well. She was seen in the emergency room. Evaluation negative and was subsequently placed on Zofran with some help. The patient was seen a couple days prior to this admission. The patient was feeling better. The patient also does follow with a hardware trainer. She gets weekly IV Lasix for chronic right-sided failure with diastolic dysfunction. The patient is also noted to have aortic stenosis, moderate to severe and planned for further evaluation. The patient has had no history of coronary artery disease. She does follow with a hardware trainer as mentioned above. She also has recently had some bleeding from under her fat abdominal apron where she had an abrasion from friction as well as a friction blood blister which bled. The patient had significant bleeding probably related to venous hypertension in the lower extremities. The patient was seen in the wound center and this is almost healed. The patient denied any other associated symptoms of cough, hemoptysis. PAST MEDICAL HISTORY: Significant for obesity, hypertension, chronic kidney disease, stage 3 due to diabetes mellitus and history of diabetes mellitus. History of morbid obesity. She has chronic venous and lymphangitic stasis in both upper and lower extremities with intermittent admissions with cellulitis. The patient also has history of obstructive sleep apnea. She uses CPAP at night. She does use oxygen intermittently. PAST SURGICAL HISTORY: Significant for gastric bypass surgery. Has a failed surgery. This was done many years ago. PERSONAL HISTORY: Nonsmoker. No alcohol. Diet: She has been eating a significant amount of tomatoes lately. SOCIAL HISTORY: Patient is , lives with spouse. FAMILY MEDICAL HISTORY: Noncontributory. MEDICATIONS AT HOME: 1. Requip 0.25 mg bedtime. 2. OxyContin 15 mg b.i.d. 3. Lamictal 150 mg b.i.d. 4. Norvasc 5 mg daily. 5. Restoril 15 mg at bedtime. 6. Aldactone 25 mg every other day and 12.5 mg every other day. 7. Senna S one in the morning, two at night. 8. Zofran p.r.n. 4 mg q.8 hours. 9. Nitroglycerin sublingual p.r.n. 10.Reglan she is not taking. 11.Lisinopril 10 mg b.i.d. 12.Levothyroxine 175 mcg daily. 13.Isosorbide 30 mg daily. 14.Levemir 19 units at bedtime. 15.[place] 05/325 q6h p.r.n. 16.Neurontin 300 mg in the morning and 600 at bedtime. 17.Lasix 250 mg IV push every . 18.Vitamin D2 04777 units on Mondays and Fridays. 19.Plavix 75 mg daily. 20.Rocaltrol 0.25 mcg p.o. every Tuesday and Tuesday. 21.Lipitor 20 mg at bedtime. 22.Allopurinol 100 mg b.i.d. ALLERGIES: PENICILLIN, CELEBREX. NON TOLERANT TO METOLAZONE, COLCHICINE, METOPROLOL and REGLAN. REVIEW OF SYSTEMS: Neuro: Denies any headaches, dizziness. No double vision, blurred vision. No symptoms of TIA, syncope, seizures. Psych no anxiety, depression. Cardiac: Present complaint of chest pain. No palpitation, shortness of breath, PND or orthopnea. GI nausea, intermittent dry heaves, epigastric pain at times. No diarrhea, constipation, hematochezia, melena. no symptoms of dysuria, hematuria, urgency, frequency. Extremities chronic edema, chronic pain. Constitutional: No fever or chills. PHYSICAL EXAMINATION: Pleasant 76-year-old present. VITAL SIGNS: Temperature 97.6, pulse 54, respirations 18, blood pressure 136/75, pulse ox 96% on 2 L. HEENT: Normocephalic. NECK: Supple. Pupils reactive nostrils clear. Oral cavity is moist. Neck reveals no JVD, carotid bruits, or thyromegaly. Chest examination is clear to auscultation percussion. Cardiac normal S1, S2 with no gallops. Systolic murmur 2/6 right 2nd intercostal space in apex, no diastolic murmur appreciated. Abdomen grossly obese, nontender. Bowel sounds are active. Extremities reveal significant 4 to 5+ nonpitting edema both lower legs. Neurological awake, alert, oriented x3 with well-coordinated movements. She was able to stand up out of her wheelchair on her own and with the help of a walker walk to the bed and laid down. LABORATORY ASSESSMENT: CBC which was essentially normal. PT/PTT is normal. D-dimer was elevated at 2.66. Electrolytes normal. BUN 24, creatinine 1.3, GFR 40, blood sugar 162. Magnesium was low at 1.4. CPK is normal. Troponins normal. Albumin 2.7. Amylase less than 30. Lipase 45. Chest x-ray reveals cardiomegaly. Mild CHF interval improvement compared to prior study. EKG reveals nonspecific changes with sinus bradycardia. ASSESSMENT: 1. Chest pain, suspect most likely gastric or esophageal pain with other associated symptoms. 2. History of aortic stenosis and chronic congestive cardiac failure secondary to diastolic dysfunction, predominantly right-sided. 3. Low probability of pulmonary embolism. 4. Diabetes mellitus. 5. Chronic kidney disease Stage 3 associated with diabetes mellitus. 6. Depression. 7. Obstructive sleep apnea. PLAN: The patient at present stable. If the cardiac enzymes are negative, I will request Gastroenterology to do an upper endoscopy. She did have a V/Q scan which suggests low probability. She has been seen by Cardiology. The patient's condition discussed with the patient and spouse. Recommended to modify diet with diet has suggested. MMODL / IJN: [id number] /
[2017-04-16 12:56] LABS: Creatine Kinase MB 0.3 ng/mL (0.0-2.4); Troponin I <0.012 ng/mL (0.000-0.034)
[2017-04-16] MEDS: HEPARIN SODIUM,PORCINE 5,000 UNIT/ML 1 ML VIAL SQ SCH ×2 (16:19→18:17)
[2017-04-16 17:30] LABS: Creatine Kinase <20 U/L (30-135)
[2017-04-16 17:44] LABS: Creatine Kinase MB 0.3 ng/mL (0.0-2.4); Troponin I <0.012 ng/mL (0.000-0.034)
[2017-04-16] MEDS: ATORVASTATIN 20 MG TAB PO SCH (20:27)
[2017-04-16] MEDS: INSULIN DETEMIR 100 UNIT/ML 10 ML VIAL SQ SCH (20:28)
[2017-04-16] MEDS: TEMAZEPAM 15 MG CAP PO SCH (20:30)
[2017-04-16] MEDS: PANTOPRAZOLE 40 MG/10 ML VIAL IVP SCH (21:22)
[2017-04-17] MEDS: HEPARIN SODIUM,PORCINE 5,000 UNIT/ML 1 ML VIAL SQ SCH ×3 (01:48→17:29)
[2017-04-17 03:31] LABS: Cholesterol 111 mg/dL (<200); HDL Cholesterol 36 mg/dL (40-60)
[2017-04-17] MEDS: ONDANSETRON 4 MG/2 ML VIAL IVP PRN ×2 (04:18→10:58)
[2017-04-17] MEDS: LEVOTHYROXINE 100 MCG TAB PO SCH (05:57)
[2017-04-17] MEDS: LEVOTHYROXINE 75 MCG TAB PO SCH (05:57)
[2017-04-17 06:26] LABS: CH 34.3; CHCM 32.9; HCT 36.9 % (34.0-46.0); HDW 2.81; HGB 11.7 gm/dL (11.4-16.0); MCH 33.1 pg (25.0-35.0); MCHC 31.6 g/dL (31.0-37.0); MCV 104.8 fL (80.0-100.0); Macrocytosis Moderate; Mean Platelet Volume 7.7; RBC 3.52 m/uL (3.80-5.40); RDW 15.7 % (11.5-15.5); WBC 7.7 k/uL (3.8-10.6)
[2017-04-17 06:34] LABS: Calcium 8.3 mg/dL (8.4-10.2); Potassium 4.6 mmol/L (3.5-5.1)
[2017-04-17] MEDS: oxyCODONE ER 15 MG TAB.ER.12H PO SCH ×2 (08:20→22:00)
[2017-04-17] MEDS: LISINOPRIL 10 MG TAB PO SCH ×2 (08:24→22:00)
[2017-04-17] MEDS: PANTOPRAZOLE 40 MG/10 ML VIAL IVP SCH (08:24)
[2017-04-17] MEDS: ALLOPURINOL 100 MG TAB PO SCH ×2 (08:24→21:59)
[2017-04-17] MEDS: lamoTRIgine 100 MG TAB PO SCH ×2 (08:25→21:59)
[2017-04-17] MEDS: ASPIRIN 325 MG TAB PO SCH (08:25)
[2017-04-17] MEDS: CLOPIDOGREL 75 MG TAB PO SCH ×2 (08:25→09:07)
[2017-04-17] MEDS: amLODIPine 5 MG TAB PO SCH (08:25)
[2017-04-17] MEDS: ISOSORBIDE MONONITRATE ER 60 MG TAB.ER.24H PO SCH (08:26)
[2017-04-17] MEDS: GABAPENTIN 300 MG CAP PO SCH ×2 (08:26→21:59)
[2017-04-17] MEDS: SENNOSIDES 8.6 MG TAB PO SCH (08:27)
[2017-04-17] MEDS ORDERED: SCOPOLAMINE 1.5MG/72HR PATCH TRANSDERM SCH (10:30)
--- NOTE | 2017-04-17 11:01 | P.PN ---
Subjective Progress Note Date: 04/17/17 Principal diagnosis: Chest pain This 76-year-old female was admitted to the hospital with chest pain. Pain is retrosternal heaviness and tightness with significant discomfort associated with retching and nausea. DC has been ruled out patient does have a history of aortic stenosis. Is moderate in nature. She does have a history of previous gastric bypass surgeries twice and has had recurrent symptoms of her upper GI. She was seen by GI yesterday consultation report pending recommended by them to stop the Plavix so that he could subsequently do an EGD. Meanwhile patient did well yesterday however during the night she had again some retching and felt pretty sick. She has Zofran on board. We will attach trans-scopolamine patch. Pulmonary embolism was ruled out myocardial infarction was ruled out. She is in no arrhythmia. She is morbidly obese has a history of obstructive sleep apnea. She spends more time in bed or up in the chair. REVIEW OF SYSTEMS: Neuro: Denies any headaches dizziness. Psych: Denies anxiety depression feels oriented. Cardiac: Intermittent chest pain retrosternal Elian Respiratory: Denies shortness of breath cough. GI: Persistent nausea with intermittent retching but no true vomiting : Denies dysuria hematuria. Extremities: Chronic nonpitting edema both legs Skin: Intact. Constitutional: No fever, chills. Objective - Vital Signs Vital signs: Vital Signs Temp 98 F 04/17/17 08:00 Pulse 64 04/17/17 08:00 Resp 18 04/17/17 08:00 BP 126/74 04/17/17 08:00 Pulse Ox 95 04/17/17 08:00 Intake & Output 04/16/17 04/17/17 04/17/17 18:59 06:59 18:59 Intake Total 660 120 236 Balance 660 120 236 Weight 123.6 kg 127 kg Intake: Oral 660 120 236 Other: Voiding Method Toilet Toilet # Voids 1 PHYSICAL EXAMINATION: Cooperative, at present in no acute distress. HEENT: Neck supple. No JVD. Chest: Clear to auscultation percussion. Cardiac: Normal S1-S2 no gallops no murmur . Abdomen: Soft morbidly obese abdomen bowel sounds present. Extremities: Chronic nonpitting edema no tenderness Neurologically: Awake, alert, oriented with well-coordinated movements. - Labs CBC & Chem 7: 04/17/17 05:36 04/17/17 05:36 Labs: Abnormal Lab Results - Last 24 Hours (Table) 04/16/17 04/16/17 04/16/17 Range/Units 04:43 11:56 12:01 RBC (3.80-5.40) m/uL MCV (80.0-100.0) fL RDW (11.5-15.5) % BUN (7-17) mg/dL Creatinine (0.52-1.04) mg/dL Glucose (74-99) mg/dL POC Glucose (mg/dL) 162 H (75-99) mg/dL Calcium (8.4-10.2) mg/dL Total Creatine Kinase <20 L (30-135) U/L HDL Cholesterol 36 L (40-60) mg/dL 04/16/17 04/17/17 04/17/17 Range/Units 16:43 05:36 05:36 RBC 3.52 L (3.80-5.40) m/uL MCV 104.8 H (80.0-100.0) fL RDW 15.7 H (11.5-15.5) % BUN 25 H (7-17) mg/dL Creatinine 1.60 H (0.52-1.04) mg/dL Glucose 140 H (74-99) mg/dL POC Glucose (mg/dL) (75-99) mg/dL Calcium 8.3 L (8.4-10.2) mg/dL Total Creatine Kinase <20 L (30-135) U/L HDL Cholesterol (40-60) mg/dL Assessment and Plan Plan: ASSESSMENT: 1. Chest pain, gastroesophageal symptoms. 2. [Intermittent nausea and retching]. 3. [Morbid obesity]. 4. [Failed gastric bypass]. 5. [Diabetes mellitus]. 6. [Chronic kidney disease stage III]. 7. [Chronic lymph /venous stasis lower legs]. 8. [Obstructive sleep apnea]. PLAN: [Continue present medical regimen Plavix be held patient is seen by GI again trans-scopolamine patch to help symptoms of nausea and retching. The patient be continued on protonix].
--- NOTE | 2017-04-17 12:22 | P.PN ---
Subjective Progress Note Date: 04/17/17 The patient has a known history of congestive heart failure with diastolic dysfunction, chronic kidney disease as well as aortic valve disease. She presented with abdominal pain, retching and nausea. She has no further chest pain since yesterday but continues to be retching and nauseated. She has no dizziness or palpitation. She feels dyspneic. Her Plavix was stopped for possible endoscopy by Dr. Davidson. On the monitor she has no evidence of tachycardia or bradycardia arrhythmia. Objective - Vital Signs Vital signs: Vital Signs Temp 98 F 04/17/17 08:00 Pulse 64 04/17/17 08:00 Resp 18 04/17/17 08:00 BP 126/74 04/17/17 08:00 Pulse Ox 95 04/17/17 08:00 Intake & Output 04/16/17 04/17/17 04/17/17 18:59 06:59 18:59 Intake Total 660 120 236 Balance 660 120 236 Weight 123.6 kg 127 kg Intake: Oral 660 120 236 Other: Voiding Method Toilet Toilet # Voids 1 2 - Exam Head: Normocephalic. Eyes: Sclerae nonicteric . Neck: Good carotid upstroke, no bruit, . Lungs: Clear to auscultation. Heart: Regular rate and rhythm, S1-S2, no S3, systolic murmur at the base, 3/6, mid peaking. Abdomen: Soft nontender, positive bowel sounds obese. Extremities: No edema, intact distal pulses. - Labs CBC & Chem 7: 04/17/17 05:36 04/17/17 05:36 Labs: Abnormal Lab Results - Last 24 Hours (Table) 04/16/17 04/16/17 04/16/17 Range/Units 04:43 12:01 16:43 RBC (3.80-5.40) m/uL MCV (80.0-100.0) fL RDW (11.5-15.5) % BUN (7-17) mg/dL Creatinine (0.52-1.04) mg/dL Glucose (74-99) mg/dL Calcium (8.4-10.2) mg/dL Total Creatine Kinase <20 L <20 L (30-135) U/L HDL Cholesterol 36 L (40-60) mg/dL 04/17/17 04/17/17 Range/Units 05:36 05:36 RBC 3.52 L (3.80-5.40) m/uL MCV 104.8 H (80.0-100.0) fL RDW 15.7 H (11.5-15.5) % BUN 25 H (7-17) mg/dL Creatinine 1.60 H (0.52-1.04) mg/dL Glucose 140 H (74-99) mg/dL Calcium 8.3 L (8.4-10.2) mg/dL Total Creatine Kinase (30-135) U/L HDL Cholesterol (40-60) mg/dL Assessment and Plan Plan: Impression: 1. Abdominal pain with nausea and retching, etiology unclear. 2. Congestive heart failure with preserved systolic function. 3. Chronic kidney disease. 4. Aortic stenosis, moderate 5. Morbid obesity. Plan: We will continue on the present medical regimen, followed the renal function and await further input from the GI service.
[2017-04-17] MEDS: INSULIN DETEMIR 100 UNIT/ML 10 ML VIAL SQ SCH (21:59)
[2017-04-17] MEDS: ATORVASTATIN 20 MG TAB PO SCH (21:59)
[2017-04-17] MEDS: TEMAZEPAM 15 MG CAP PO SCH (22:01)
[2017-04-18] MEDS: PANTOPRAZOLE 40 MG/10 ML VIAL IVP SCH ×3 (00:06→13:28)
[2017-04-18] MEDS: HEPARIN SODIUM,PORCINE 5,000 UNIT/ML 1 ML VIAL SQ SCH ×3 (00:06→18:26)
--- NOTE | 2017-04-18 01:30 | P.CONS ---
History of Present Illness - Reason for Consult Consult date: 04/16/17 Nausea, chest pain - History of Present Illness The patient is a 76-year-old female who was admitted to the hospital because of chest pain as well as dry heaves/retching and occasional vomiting. The patient was evaluated in the emergency room April 09 for nausea and has not been feeling well for around 2 weeks with nausea, dry heaves and occasional vomiting. Her cardiac enzymes where not elevated and a NM ventilation/perfusion scan showed low probability for PE. We were asked to see the patient for consideration for an upper endoscopy. The patient has multiple medical problems including diabetes mellitus and secondary stage III chronic kidney disease, obesity, hypertension, chronic venous and lymphangitic stasis in both lower extremities and obstructive sleep apnea. She also has congestive heart failure with diastolic dysfunction and aortic valve disease. She has been maintained on Plavix. The patient had gastric bypass surgery years back and in April of last year she underwent upper endoscopy that showed mild esophagitis. She denied dysphagia, odynophagia or any hematemesis. No change of the color of her stools. No hemoptysis. Review of Systems 12-point review of systems is otherwise not revealing except as mentioned under present illness above. Past Medical History Past Medical History: Atrial Fibrillation, Heart Failure, COPD, CVA/TIA, Diabetes Mellitus, Fibromyalgia, Hypertension, Skin Disorder, Sleep Apnea/CPAP/ BIPAP, Thyroid Disorder Additional Past Medical History / Comment(s): WOUND ON ABDOMINAL FLAP, ALSO "BOIL" ON RT BUTTOCK, HAS HAD LARGE AMOUNT OF DRAINAGE IN PAST, OPEN HOLE IN ABDOMEN, neuropathy, ENLARGED HEART, heart MURMUR,TIA'S, states no residual effects, psoriasis ON SCALP, hx migraines, constipation, gout, HX anemia, SEE DR ARTEAGA TO WATCH KIDNEYS R/T LARGE AMT OF LASIX GIVEN FOR CHF History of Any Multi-Drug Resistant Organisms: None Reported Past Surgical History: Bariatric Surgery, Cholecystectomy, Heart Catheterization , Hysterectomy, Orthopedic Surgery Additional Past Surgical History / Comment(s): gastroplasty THEN 4 YEARS LATER HAS BECCA-N-Y,vein stripping, LASER SX for glaucoma and denton CATRARACT, PARATHYRODECTOMY, heel spur left foot Past Anesthesia/Blood Transfusion Reactions: No Reported Reaction Past Psychological History: Anxiety, Depression Smoking Status: Never smoker Past Alcohol Use History: None Reported Additional Past Alcohol Use History / Comment(s): STARTED TO SMOKE AT AGE 36 QUIT AT AGE 27 Past Drug Use History: None Reported - Past Family History Sister(s) Family Medical History: Deep Vein Thrombosis (DVT) Father Family Medical History: CVA/TIA, Myocardial Infarction (DE) Additional Family Medical History / Comment(s): AT AGE 59 Mother Family Medical History: No Reported History Additional Family Medical History / Comment(s): AT AGE 85 Medications and Allergies Home Medications Medication Instructions Recorded Confirmed Type Allopurinol [Zyloprim] 100 mg PO BID 10/19/14 04/16/17 History Clopidogrel [Plavix] 75 mg PO DAILY 10/19/14 04/16/17 History HYDROcodone/APAP 5-325MG [[place] 1 tab PO Q6HR PRN 10/19/14 04/16/17 History 5-325] Levothyroxine Sodium [Synthroid] 175 mcg PO DAILY 10/19/14 04/16/17 History Temazepam [Restoril] 15 mg PO HS 10/19/14 04/16/17 History Ergocalciferol [Vitamin D2 50,000 units PO MOFR 03/06/16 04/16/17 History (DRISDOL)] Gabapentin 600 mg PO HS 03/06/16 04/16/17 History Furosemide 250 mg IVP TH 03/07/16 04/16/17 History Gabapentin [Neurontin] 300 mg PO QAM 04/28/16 04/16/17 History rOPINIRole HCL [Requip] 0.25 mg PO HS 04/28/16 04/16/17 History Calcitriol [Rocaltrol] 0.25 mcg PO MOFR 11/21/16 04/16/17 History Insulin Detemir [Levemir] 19 unit SQ HS 11/21/16 04/16/17 History Isosorbide Mononitrate ER [Imdur] 30 mg PO DAILY 11/21/16 04/16/17 History Lisinopril [Zestril] 10 mg PO BID 11/21/16 04/16/17 History Nitroglycerin Sl Tabs [Nitrostat] 0.4 mg SUBLINGUAL Q5M PRN 11/21/16 04/16/17 History amLODIPine [Norvasc] 5 mg PO DAILY 11/21/16 04/16/17 History oxyCODONE ER [OxyCONTIN 15MG E.R] 15 mg PO Q12HR 11/21/16 04/16/17 History Atorvastatin Calcium [Lipitor] 20 mg PO HS 04/09/17 04/16/17 History Ondansetron Odt [Zofran ODT] 4 mg PO Q8HR PRN #20 tab 04/09/17 04/16/17 Rx Sennosides [Senna] 8.6 mg PO QAM 04/09/17 04/16/17 History Sennosides [Senna] 17.2 mg PO HS 04/09/17 04/16/17 History Spironolactone [Aldactone] 12.5 mg PO Q48H 04/09/17 04/16/17 History Spironolactone [Aldactone] 25 mg PO Q48H 04/09/17 04/16/17 History lamoTRIgine [LaMICtal] 150 mg PO BID 04/09/17 04/16/17 History Sertraline [Zoloft] 100 mg PO DAILY 04/16/17 04/16/17 History Allergies Allergy/AdvReac Type Severity Reaction Status Date / Time Penicillins Allergy Rash/Hives Verified 04/16/17 12:13 metolazone [From Zaroxolyn] AdvReac Severe Vertigo Verified 04/16/17 12:13 celecoxib [From Celebrex] AdvReac Nausea & Verified 04/16/17 12:13 Vomiting colchicine AdvReac Nausea & Verified 04/16/17 12:13 Vomiting metoclopramide [From Reglan] AdvReac TREMORS Verified 04/16/17 12:13 Physical Exam Vitals: Vital Signs Temp Pulse Pulse Pulse Resp BP BP 04/16/17 16:01 04/16/17 16:00 69 04/16/17 15:37 98.0 F 69 18 04/16/17 12:05 97.6 F 56 L 18 136/75 04/16/17 10:04 80 18 04/16/17 08:00 98.1 F 64 18 04/16/17 07:20 62 18 04/16/17 06:12 61 18 138/64 04/16/17 04:59 58 L 18 135/62 04/16/17 04:25 18 04/16/17 04:16 99.2 F 80 22 135/62 BP Pulse Ox 10/07/17 16:01 96 04/16/17 16:00 04/16/17 15:37 109/53 96 04/16/17 12:05 96 04/16/17 10:04 04/16/17 08:00 154/65 100 04/16/17 07:20 04/16/17 06:12 98 04/16/17 04:59 98 04/16/17 04:25 04/16/17 04:16 94 L Intake and Output 04/16/17 04/16/17 04/16/17 06:59 14:59 22:59 Intake Total 660 Balance 660 Intake: Oral 660 Other: Weight 129.274 kg 123.6 kg Patient Weight 04/17/17 06:59 Weight 123.6 kg General: Appeared stated age, very pleasant in no acute distress Head and neck: Normocephalic and atraumatic, conjunctivae pink and sclerae not icteric. Mucous membranes moist and pink. No masses and an echo tracheal shifts Lungs: Clear to auscultation with no dullness to percussion Heart: Regular, grade 2/6 systolic murmur no gallops or friction rubs Abdomen: Obese but soft no masses or organomegalies or tenderness bowel sounds present Extremities: 3+ pretibial and pedal edema Neurologic: Alert and oriented 3, cranial nerves grossly intact, no gross sensory or motor abnormalities Results CBC & Chem 7: 04/17/17 05:36 04/17/17 05:36 Labs: Abnormal Lab Results - Last 24 Hours (Table) 04/16/17 04/16/17 04/16/17 Range/Units 04:43 04:43 04:43 MCV 102.4 H (80.0-100.0) fL D-Dimer (<0.60) mg/L FEU BUN 24 H (7-17) mg/dL Creatinine 1.30 H (0.52-1.04) mg/dL Glucose 118 H (74-99) mg/dL POC Glucose (mg/dL) (75-99) mg/dL Calcium 8.0 L (8.4-10.2) mg/dL Magnesium 1.4 L (1.6-2.3) mg/dL Total Creatine Kinase <20 L (30-135) U/L Total Protein 5.4 L (6.3-8.2) g/dL Albumin 2.7 L (3.5-5.0) g/dL Amylase <30 L (30-110) U/L 04/16/17 04/16/17 04/16/17 Range/Units 04:43 11:56 12:01 MCV (80.0-100.0) fL D-Dimer 0.66 H (<0.60) mg/L FEU BUN (7-17) mg/dL Creatinine (0.52-1.04) mg/dL Glucose (74-99) mg/dL POC Glucose (mg/dL) 162 H (75-99) mg/dL Calcium (8.4-10.2) mg/dL Magnesium (1.6-2.3) mg/dL Total Creatine Kinase <20 L (30-135) U/L Total Protein (6.3-8.2) g/dL Albumin (3.5-5.0) g/dL Amylase (30-110) U/L 04/16/17 Range/Units 16:43 MCV (80.0-100.0) fL D-Dimer (<0.60) mg/L FEU BUN (7-17) mg/dL Creatinine (0.52-1.04) mg/dL Glucose (74-99) mg/dL POC Glucose (mg/dL) (75-99) mg/dL Calcium (8.4-10.2) mg/dL Magnesium (1.6-2.3) mg/dL Total Creatine Kinase <20 L (30-135) U/L Total Protein (6.3-8.2) g/dL Albumin (3.5-5.0) g/dL Amylase (30-110) U/L Assessment and Plan Plan: 76-year-old female with multiple medical problems presenting with chest pains and other upper GI complaints including nausea, dry heaving and vomiting. The possibility of esophagitis or other gastrointestinal and upper abdominal issues would be considered in the absence of new cardiac findings. Agree with your suggestion for an upper endoscopy. I will hold her plavix over the weekend and consider upper endoscopy early in the week after I discuss with you and cardiology. Further plans can be made based on the findings.
--- NOTE | 2017-04-18 01:39 | P.PN ---
Progress Note - Text Progress Note Date: 04/17/17 Patient is feeling fine at this time. She was feeling sick and was retching overnight. On PPI and trans-scopolamine patch. Will be off plavix day 3 tomorrow. I will be planning an EGD tomorrow. I will discuss with you.
[2017-04-18 06:52] LABS: Calcium 7.9 mg/dL (8.4-10.2); Potassium 4.4 mmol/L (3.5-5.1)
[2017-04-18] MEDS ORDERED: CALCITRIOL 0.25 MCG CAP PO SCH (12:00)
[2017-04-18] MEDS ORDERED: ERGOCALCIFEROL 50,000 UNIT CAP PO SCH (12:00)
--- NOTE | 2017-04-18 12:56 | P.PN ---
Subjective Progress Note Date: 04/18/17 Principal diagnosis: nausea, vomiting, abdominal pain This is a pleasant 76-year-old female who follows with Dr. Crystal in the office. She has a known history of diastolic congestive heart failure, hypertension, hypothyroidism, diabetes and neuropathy. Presented to the hospital with complaints of abdominal pain with nausea and vomiting. Her abdominal pain has subsided however she continues to have the retching and nausea. She is anticipating upper endoscopy by Dr. Davidson today. Objective - Vital Signs Vital signs: Vital Signs Temp 98 F 04/18/17 08:00 Pulse 52 L 04/18/17 08:00 Resp 18 04/18/17 08:00 BP 118/88 04/18/17 08:00 Pulse Ox 98 04/18/17 08:00 Intake & Output 04/17/17 04/18/17 04/18/17 18:59 06:59 18:59 Intake Total 652 120 Output Total 300 Balance 652 120 -300 Weight 129 kg Intake: Oral 652 120 Output: Urine 300 Other: Voiding Method Toilet Toilet # Voids 1 1 # Bowel Movements 1 - Exam PHYSICAL EXAMINATION: HEENT: Head is atraumatic, normocephalic. Pupils equal, round. Neck is supple. There is no elevated jugular venous pressure. HEART EXAMINATION: Heart sounds regular, S1 and S2 with a systolic murmur. CHEST EXAMINATION: Lungs are clear to auscultation and precussion. No chest wall tenderness is noted on palpation or with deep breathing. ABDOMEN: Soft, obese. Bowel sounds are heard. No organomegaly noted. EXTREMITIES: 1+ peripheral pulses with evidence of +1 peripheral edema and no calf tenderness noted. NEUROLOGIC patient is awake, alert and oriented x3. . - Labs CBC & Chem 7: 04/17/17 05:36 04/18/17 05:38 Labs: Abnormal Lab Results - Last 24 Hours (Table) 04/18/17 Range/Units 05:38 BUN 27 H (7-17) mg/dL Creatinine 1.54 H (0.52-1.04) mg/dL Glucose 102 H (74-99) mg/dL Calcium 7.9 L (8.4-10.2) mg/dL Assessment and Plan Plan: Assessment and plan #1 abdominal pain with nausea and vomiting #2 chronic diastolic congestive heart failure #3 aortic valve disease #4 diabetes #5 hypertension #6 hyperlipidemia From cardiology's perspective , medications were reviewed will continue the same. Further recommendations to follow depending on outcome of EGD. DIRECTOR MOBILE note has been reviewed, I agree with a documented findings and plan of care. Patient was seen and examined.
[2017-04-18] MEDS: ONDANSETRON 4 MG/2 ML VIAL IVP PRN (14:00)
[2017-04-18] MEDS: ALLOPURINOL 100 MG TAB PO SCH ×2 (14:20→20:26)
[2017-04-18] MEDS: LISINOPRIL 10 MG TAB PO SCH ×2 (14:21→20:27)
[2017-04-18] MEDS: lamoTRIgine 100 MG TAB PO SCH ×2 (14:21→20:27)
[2017-04-18] MEDS: GABAPENTIN 300 MG CAP PO SCH ×2 (14:22→20:26)
[2017-04-18] MEDS ORDERED: IV FLUID CONTINUATION 1,000 ML IV ONE (15:15)
[2017-04-18] MEDS ORDERED: PROPOFOL 10 MG/ML 20 ML VIAL IV ONE (15:19)
[2017-04-18] MEDS: LEVOTHYROXINE 75 MCG TAB PO SCH (15:44)
[2017-04-18] MEDS: LEVOTHYROXINE 100 MCG TAB PO SCH (15:44)
--- NOTE | 2017-04-18 15:46 | P.PCN ---
Date of Procedure: 04/18/17 Procedure(s) Performed: Procedure: Esophagogastroduodenoscopy and biopsy. Preoperative diagnosis: Chest pain and GERD and recurrent nausea and dry heaving. Postoperative diagnosis: 1. S/P prior gastric bypass surgery with no obvious abnormalities in the esophagus, gastric remnant or small intestine. 2. Multiple biopsies obtained. Preparation and sedation: Was provided by anesthesia. Brief clinical history: The patient is a 76-year-old female who was admitted to the hospital because of chest pain as well as dry heaves/retching and occasional vomiting. The patient was evaluated in the emergency room April 09 for nausea and has not been feeling well for around 2 weeks with nausea, dry heaves and occasional vomiting. Her cardiac enzymes where not elevated and a NM ventilation/perfusion scan showed low probability for PE. We were asked to see the patient for consideration for an upper endoscopy. The patient has multiple medical problems including diabetes mellitus and secondary stage III chronic kidney disease, obesity, hypertension, chronic venous and lymphangitic stasis in both lower extremities and obstructive sleep apnea. She also has congestive heart failure with diastolic dysfunction and aortic valve disease. She has been maintained on Plavix. The patient had gastric bypass surgery years back and in April of last year she underwent upper endoscopy that showed mild esophagitis. She denied dysphagia, odynophagia or any hematemesis. No change of the color of her stools. No hemoptysis. Other details as summarized in the history and physical and dictated consultation and progress notes. Procedure: With the patient on her left lateral decubitus position and after informed consent and adequate sedation, I passed the Olympus-GIF 160 video upper endoscope through the cricopharyngeus down the esophagus. GE junction was around 40 cm from the incisors. The esophagus did not show any obvious inflammation or any strictures or Pierce's esophagus. The endoscope was then passed into the gastric remnant and into the small intestine. The patient had prior Arnaud-en-Y anastomosis and there was no evidence of bile reflux or any significant secretions in the intestine, gastric remnant or the esophagus. There was no stricture at the anastomotic site or any marginal ulcers or other pathology. I obtained biopsies from the small intestine, gastric remnant and esophagus then the endoscope was withdrawn. The patient tolerated the procedure well. Plan: The patient was reassured. Will await biopsy results. Further plans will be made based on her course and biopsy results.
[2017-04-18] MEDS: SENNOSIDES 8.6 MG TAB PO SCH (17:30)
[2017-04-18] MEDS: PANTOPRAZOLE 40 MG TABLET PO SCH (18:25)
[2017-04-18] MEDS: ISOSORBIDE MONONITRATE ER 60 MG TAB.ER.24H PO SCH (18:33)
[2017-04-18] MEDS: oxyCODONE ER 15 MG TAB.ER.12H PO SCH ×2 (18:33→20:28)
[2017-04-18] MEDS: SPIRONOLACTONE 25 MG TAB PO SCH (18:33)
[2017-04-18] MEDS: amLODIPine 5 MG TAB PO SCH (18:33)
[2017-04-18] MEDS: ATORVASTATIN 20 MG TAB PO SCH (20:26)
[2017-04-18] MEDS: TEMAZEPAM 15 MG CAP PO SCH (20:36)
[2017-04-18 20:40] VITALS: RESP 18
[2017-04-18] MEDS: INSULIN DETEMIR 100 UNIT/ML 10 ML VIAL SQ SCH (22:06)
[2017-04-18 22:16] LABS: Glucose,Whole Blood 213 mg/dL (75-99)
[2017-04-19] MEDS: ONDANSETRON 4 MG/2 ML VIAL IVP PRN (00:19)
[2017-04-19] MEDS: HEPARIN SODIUM,PORCINE 5,000 UNIT/ML 1 ML VIAL SQ SCH ×2 (00:20→08:11)
[2017-04-19 05:48] LABS: Glucose,Whole Blood 84 mg/dL (75-99)
[2017-04-19] MEDS: LEVOTHYROXINE 100 MCG TAB PO SCH (05:54)
[2017-04-19] MEDS: LEVOTHYROXINE 75 MCG TAB PO SCH (05:54)
[2017-04-19] MEDS: PANTOPRAZOLE 40 MG TABLET PO SCH (05:55)
--- NOTE | 2017-04-19 06:13 | PN ---
PROGRESS NOTE ATTENDING PHYSICIAN: Dr. Julain CHIEF COMPLAINT: Re-evaluation. HISTORY OF PRESENT ILLNESS: This is an elderly female, 76-year-old who was admitted to the hospital with chest pain. Acute cardiac insult been ruled out. No pulmonary embolism. The patient's symptoms are strongly suggestive of GI etiology. She gets retching and some discomfort. The patient has problems with esophageal spasms. She has been seen by Cardiology and GI. The patient is scheduled for an EGD today. REVIEW OF SYSTEMS: NEURO: Denies any headaches, dizziness. PSYCH: No anxiety. Did sleep through the night. GI: Did have some nausea. Patient's nausea has been adequately controlled. She did have some retching, which is better. No diarrhea, constipation. : No dysuria, hematuria, urgency, frequency. EXTREMITIES: No pain. Does have chronic edema. CONSTITUTIONAL: No fever, chills. PHYSICAL EXAMINATION: This is an elderly female, 76-year-old at present in no distress. Vital signs of temperature 98, pulse 52, respirations 18, blood pressure 118/88, pulse ox 98% on 3 L. HEENT: Normocephalic. NECK: Difficult to assess for any JVD. CHEST: Clear to auscultation. CARDIAC: Normal S1, S2 with no gallops. Systolic murmur 2/6 left sternal border. ABDOMEN: Soft. Bowel sounds present. EXTREMITIES: Reveal chronic edema with no tenderness. NEUROLOGICAL: Awake, alert, oriented with well-coordinated movements. LABORATORY ASSESSMENT: Electrolytes normal. BUN 27, creatinine 1.54. ASSESSMENT: 1. Chest pain. 2. Aortic stenosis. 3. Chronic congestive cardiac failure secondary to diastolic dysfunction. 4. Pulmonary hypertension. 5. Diabetes mellitus. 6. Chronic kidney disease stage 3. 7. Morbid obesity. 8. Previous history of gastric bypass surgeries. PLAN: Patient is stable. Continue present medical regimen. Patient is scheduled for EGD. The patient did have an EGD according to the report everything seemed to be adequately unremarkable. The patient's condition will be discussed with the patient and potential discharge with reassurance and continued antiemetics at home. MMODL / IJN: [id number] /
[2017-04-19] MEDS: amLODIPine 5 MG TAB PO SCH (08:11)
[2017-04-19] MEDS: SENNOSIDES 8.6 MG TAB PO SCH (08:11)
[2017-04-19] MEDS: GABAPENTIN 300 MG CAP PO SCH (08:11)
[2017-04-19] MEDS: ISOSORBIDE MONONITRATE ER 60 MG TAB.ER.24H PO SCH (08:11)
[2017-04-19] MEDS: LISINOPRIL 10 MG TAB PO SCH (08:11)
[2017-04-19] MEDS: ASPIRIN 325 MG TAB PO SCH (08:11)
[2017-04-19] MEDS: lamoTRIgine 100 MG TAB PO SCH (08:11)
[2017-04-19] MEDS: oxyCODONE ER 15 MG TAB.ER.12H PO SCH (08:12)
[2017-04-19] MEDS: ALLOPURINOL 100 MG TAB PO SCH (08:12)
[2017-04-19 08:57] VITALS: TEMP 97.2
[2017-04-19 11:19] VITALS: BP 117/55; PULSE 61
[2017-04-19 11:23] LABS: Glucose,Whole Blood 178 mg/dL (75-99)
--- NOTE | 2017-04-19 15:26 | P.PN ---
Subjective Progress Note Date: 04/19/17 Principal diagnosis: Nausea and vomiting, abdominal pain The patient has a known history of congestive heart failure with diastolic dysfunction, chronic kidney disease as well as aortic valve disease. She presented with abdominal pain, retching and nausea. She has no further chest pain since yesterday but continues to be retching and nauseated. She has no dizziness or palpitation. She feels dyspneic. She underwent a endoscopy by Dr. Padron which did not have any significant findings. Biopsies were obtained. Patient will be discharged today. She will come to her weekly appointments at the office for IV Lasix injections and follow-up with Dr. israel Tellez. Objective - Vital Signs Vital signs: Vital Signs Temp 97.2 F L 04/19/17 08:00 Pulse 61 04/19/17 11:18 Resp 18 04/19/17 11:18 BP 117/55 04/19/17 11:18 Pulse Ox 95 04/19/17 11:18 Intake & Output 04/18/17 04/19/17 04/19/17 18:59 06:59 18:59 Intake Total 150 100 660 Output Total 300 Balance -150 100 660 Weight 123 kg Intake: IV 150 Oral 100 660 Output: Urine 300 Other: Voiding Method Toilet Toilet Bedside Commode # Voids 1 1 # Bowel Movements 0 - Exam PHYSICAL EXAMINATION: HEENT: Head is atraumatic, normocephalic. Pupils equal, round. Neck is supple. There is no elevated jugular venous pressure. HEART EXAMINATION: Heart S1, S2 normal. No murmur or gallop heard.] CHEST EXAMINATION:[ Lungs are clear to auscultation and precussion. No chest wall tenderness is noted on palpation or with deep breathing.] ABDOMEN: [ Soft, nontender. Bowel sounds are heard. No organomegaly noted]. EXTREMITIES:[ 2+ peripheral pulses with no evidence of peripheral edema and no calf tenderness noted]. NEUROLOGIC [patient is awake, alert and oriented -3.] . - Labs CBC & Chem 7: 04/17/17 05:36 04/18/17 05:38 Labs: Abnormal Lab Results - Last 24 Hours (Table) 04/18/17 04/19/17 Range/Units 22:06 11:19 POC Glucose (mg/dL) 213 H 178 H (75-99) mg/dL Assessment and Plan Plan: Assessment and Plan Plan: Impression: 1. Abdominal pain with nausea and retching, etiology unclear. 2. Congestive heart failure with preserved systolic function. 3. Chronic kidney disease. 4. Aortic stenosis, moderate 5. Morbid obesity. Follow-up appointment will be made with Dr. Crystal in the office. DNP note has been reviewed, I agree with a documented findings and plan of care. Patient was seen and examined.
[2017-04-21] MEDS ORDERED: FUROSEMIDE 10 MG/ML 10 ML VIAL IVP SCH (12:00)
== END 2017-04-19 13:20 | disposition home or self-care (01) ==
LOC: EC 04:10 → 3OBS 06:26 → 6SEL 18:13
PROVIDERS: ADMIT Internal Medicine; ATTEND Internal Medicine
DX: R07.89 Other chest pain (principal); K21.9 Gastro-esophageal reflux disease without esophagitis; E11.22 Type 2 diabetes mellitus with diabetic chronic kidney disease; I13.0 Hypertensive heart and chronic kidney disease with heart failure and stage 1 through stage 4 chronic kidney disease, or unspecified chronic kidney disease; N18.3 Chronic kidney disease, stage 3 (moderate); I50.32 Chronic diastolic (congestive) heart failure; M79.7 Fibromyalgia; J44.9 Chronic obstructive pulmonary disease, unspecified; I48.91 Unspecified atrial fibrillation; G47.33 Obstructive sleep apnea (adult) (pediatric); E11.40 Type 2 diabetes mellitus with diabetic neuropathy, unspecified; E03.9 Hypothyroidism, unspecified; L40.9 Psoriasis, unspecified; G43.909 Migraine, unspecified, not intractable, without status migrainosus; M10.9 Gout, unspecified; F41.9 Anxiety disorder, unspecified; F32.9 Major depressive disorder, single episode, unspecified; R11.2 Nausea with vomiting, unspecified; R01.1 Cardiac murmur, unspecified; I27.20 Pulmonary hypertension, unspecified; I87.8 Other specified disorders of veins; I89.8 Other specified noninfective disorders of lymphatic vessels and lymph nodes; E66.01 Morbid (severe) obesity due to excess calories; E78.5 Hyperlipidemia, unspecified; I35.0 Nonrheumatic aortic (valve) stenosis; Z98.84 Bariatric surgery status; Z99.89 Dependence on other enabling machines and devices; Z79.02 Long term (current) use of antithrombotics/antiplatelets; Z79.899 Other long term (current) drug therapy; Z79.4 Long term (current) use of insulin; Z79.891 Long term (current) use of opiate analgesic; Z88.0 Allergy status to penicillin; Z88.8 Allergy status to other drugs, medicaments and biological substances; Z86.73 Personal history of transient ischemic attack (TIA), and cerebral infarction without residual deficits; Z82.49 Family history of ischemic heart disease and other diseases of the circulatory system; Z68.42 Body mass index [BMI] 45.0-49.9, adult; Z87.891 Personal history of nicotine dependence
CPT/HCPCS: 96376 ×3; 96372 ×3; 96374; 96375; 99285; 36415; 94760; 93005; 85379; 88305; 80061; 80053; 80048 ×2; 82150; 82550; 82553; 83690; 83735; 84484; 85025; 85027; 85610; 85730; 71010; 78582; 43239; G0378 ×4; A9540; A9567; J1644 ×3; J2405 ×4; J2704; C9113 ×3

== ENCOUNTER 2017-08-29 12:01 | Emergency (ER) | payer MEDICARE, BC ==
[2017-08-29] MEDS ORDERED: SODIUM CHLORIDE 0.9% 1,000 ML IV ONE (12:55)
--- NOTE | 2017-08-29 13:00 | ED ---
General Adult HPI - General Chief complaint: Recheck/Abnormal Lab/Rx Stated complaint: Weakness Time Seen by Provider: 08/29/17 12:01 Source: patient, family, RN notes reviewed Mode of arrival: EMS Limitations: no limitations - History of Present Illness Initial comments: This is a 77-year-old female who presents by EMS with complaints of weakness some confusion. She states that she had a low blood sugar last night and 73 she also states however that she's had shaking for last several days in fact she did spill or is used on her apparently twice in last couple days because of the shaking of her hands. Per her she was confused last evening he would talk to her and she was started talking about other subjects that nothing to do with her conversation. She denies any headache dizziness or blurry vision. She states she is thirsty all time she denies any polyuria. Denies any head neck chest and abdominal pain no focal loss of function to her upper or lower extremities. She has of a history of TIAs she is not believe she has any issues with that at this time she states her last episode was 12 years ago. She does have chronic numbness to her feet she states from her neuropathy. - Related Data Home Medications Medication Instructions Recorded Confirmed Clopidogrel [Plavix] 75 mg PO HS 10/19/14 08/29/17 HYDROcodone/APAP 5-325MG [[place] 1 tab PO Q6HR PRN 10/19/14 08/29/17 5-325] Levothyroxine Sodium [Synthroid] 175 mcg PO DAILY 10/19/14 08/29/17 Temazepam [Restoril] 15 mg PO HS 10/19/14 08/29/17 Ergocalciferol [Vitamin D2 50,000 units PO MOFR 03/06/16 08/29/17 (DRISDOL)] Gabapentin 600 mg PO DAILY 03/06/16 08/29/17 rOPINIRole HCL [Requip] 0.25 mg PO BID 04/28/16 08/29/17 Calcitriol [Rocaltrol] 0.25 mcg PO MOFR 11/21/16 08/29/17 Insulin Detemir [Levemir] 15 unit SQ HS 11/21/16 08/29/17 oxyCODONE ER [OxyCONTIN] 15 mg PO BID 11/21/16 08/29/17 Sennosides [Senna] 17.2 mg PO BID 04/09/17 08/29/17 Spironolactone [Aldactone] 25 mg PO DAILY 04/09/17 08/29/17 DULoxetine HCL [Cymbalta] 30 mg PO BID 08/29/17 08/29/17 Furosemide [Lasix] 20 mg PO DAILY 08/29/17 08/29/17 Gabapentin [Neurontin] 300 mg PO HS 08/29/17 08/29/17 Ondansetron [Zofran ODT] 8 mg PO Q8HR PRN 08/29/17 08/29/17 Pantoprazole Sodium [Protonix] 40 mg PO DAILY 08/29/17 08/29/17 Potassium Chloride ER [K-Dur 10] 10 meq PO DAILY 08/29/17 08/29/17 Allergies Allergy/AdvReac Type Severity Reaction Status Date / Time Penicillins Allergy Rash/Hives Verified 08/29/17 12:33 metolazone [From Zaroxolyn] AdvReac Severe Vertigo Verified 08/29/17 12:33 celecoxib [From Celebrex] AdvReac Nausea & Verified 08/29/17 12:33 Vomiting colchicine AdvReac Nausea & Verified 08/29/17 12:33 Vomiting metoclopramide [From Reglan] AdvReac TREMORS Verified 08/29/17 12:33 Review of Systems ROS Statement: Those systems with pertinent positive or pertinent negative responses have been documented in the HPI. ROS Other: All systems not noted in ROS Statement are negative. Past Medical History Past Medical History: Atrial Fibrillation, Heart Failure, COPD, CVA/TIA, Diabetes Mellitus, Fibromyalgia, Hypertension, Skin Disorder, Sleep Apnea/CPAP/ BIPAP, Thyroid Disorder Additional Past Medical History / Comment(s): WOUND ON ABDOMINAL FLAP, ALSO "BOIL" ON RT BUTTOCK, HAS HAD LARGE AMOUNT OF DRAINAGE IN PAST, OPEN HOLE IN ABDOMEN, neuropathy, ENLARGED HEART, heart MURMUR,TIA'S, states no residual effects, psoriasis ON SCALP, hx migraines, constipation, gout, HX anemia, SEE DR ARTEAGA TO WATCH KIDNEYS R/T LARGE AMT OF LASIX GIVEN FOR CHF History of Any Multi-Drug Resistant Organisms: None Reported Past Surgical History: Bariatric Surgery, Cholecystectomy, Heart Catheterization , Hysterectomy, Orthopedic Surgery Additional Past Surgical History / Comment(s): gastroplasty THEN 4 YEARS LATER HAS BECCA-N-Y,vein stripping, LASER SX for glaucoma and denton CATRARACT, PARATHYRODECTOMY, heel spur left foot Past Anesthesia/Blood Transfusion Reactions: No Reported Reaction Past Psychological History: Anxiety, Depression Smoking Status: Never smoker Past Alcohol Use History: None Reported Past Drug Use History: None Reported - Past Family History Sister(s) Family Medical History: Deep Vein Thrombosis (DVT) Father Family Medical History: CVA/TIA, Myocardial Infarction ([place]) Additional Family Medical History / Comment(s): AT AGE 59 Mother Family Medical History: No Reported History Additional Family Medical History / Comment(s): AT AGE 85 General Exam - General Exam Comments Initial Comments: This a well-developed well-nourished awake alert oriented 3 female Limitations: no limitations General appearance: alert, in no apparent distress Head exam: Present: atraumatic, normocephalic, normal inspection Eye exam: Present: normal appearance, PERRL, EOMI. Absent: scleral icterus, conjunctival injection, periorbital swelling ENT exam: Present: mucous membranes dry Neck exam: Present: normal inspection. Absent: tenderness, meningismus, lymphadenopathy Respiratory exam: Present: normal lung sounds bilaterally. Absent: respiratory distress, wheezes, rales, rhonchi, stridor Cardiovascular Exam: Present: regular rate, normal rhythm, normal heart sounds. Absent: systolic murmur, diastolic murmur, rubs, gallop, clicks GI/Abdominal exam: Present: soft, normal bowel sounds, other (Obese abdomen no bruits no pulsatile masses). Absent: distended, tenderness, guarding, rebound, rigid Extremities exam: Present: normal inspection, full ROM, normal capillary refill. Absent: tenderness, pedal edema, joint swelling, calf tenderness Back exam: Present: normal inspection Neurological exam: Present: alert, oriented X3, CN II-XII intact, other (During the exam the patient was noted have several episodes of generalized muscle twitching to the upper back and shoulders.) Psychiatric exam: Present: normal affect, normal mood Skin exam: Present: warm, dry, intact, normal color. Absent: rash Course Vital Signs 08/29/17 08/29/17 12:13 14:47 Temperature 97.0 F L Pulse Rate 94 92 Respiratory 18 20 Rate Blood Pressure 129/67 124/60 O2 Sat by Pulse 95 100 Oximetry - Reevaluation(s) Reevaluation #1: 08/29/17 16:17 Reevaluation patient I did discuss the findings with the family the patient's states she still having episodes where she is answering appropriately EKG Findings - EKG Results: EKG: interpreted by BECK, sinus rhythm (EKG shows normal sinus rhythm a rate 92. Interval 184 QRS duration 86 daily since QTC of 394/[address]-T wave changes.) Medical Decision Making - Medical Decision Making I did discuss the findings with Dr. Julian and with the family the patient is demonstrating some dehydration her glucose maintains within normal limits at this time. She'll be discharged home she is be followed up by the visiting physician. - Lab Data Result diagrams: 08/29/17 13:04 08/29/17 13:04 Lab Results 08/29/17 08/29/17 08/29/17 Range/Units 13:04 13:04 13:04 WBC 18.1 H (3.8-10.6) k/uL RBC 5.08 (3.80-5.40) m/uL Hgb 15.8 (11.4-16.0) gm/dL Hct 47.3 H (34.0-46.0) % MCV 93.2 (80.0-100.0) fL MCH 31.1 (25.0-35.0) pg MCHC 33.4 (31.0-37.0) g/dL RDW 12.6 (11.5-15.5) % Plt Count 208 (150-450) k/uL Neutrophils % 85 % Lymphocytes % 8 % Monocytes % 4 % Eosinophils % 1 % Basophils % 0 % Neutrophils # 15.4 H (1.3-7.7) k/uL Lymphocytes # 1.5 (1.0-4.8) k/uL Monocytes # 0.7 (0-1.0) k/uL Eosinophils # 0.2 (0-0.7) k/uL Basophils # 0.1 (0-0.2) k/uL PT (9.0-12.0) sec INR (<1.2) APTT (22.0-30.0) sec Sodium 137 (137-145) mmol/L Potassium 4.7 (3.5-5.1) mmol/L Chloride 97 L (98-107) mmol/L Carbon Dioxide 30 (22-30) mmol/L Anion Gap 10 mmol/L BUN 29 H (7-17) mg/dL Creatinine 1.40 H (0.52-1.04) mg/dL Est GFR (MDRD) Af Amer 44 (>60 ml/min/1.73 sqM) Est GFR (MDRD) Non-Af 37 (>60 ml/min/1.73 sqM) Glucose 93 (74-99) mg/dL POC Glucose (mg/dL) (75-99) mg/dL POC Glu Slitter Scorer ID Calcium 9.1 (8.4-10.2) mg/dL Magnesium 1.8 (1.6-2.3) mg/dL Total Bilirubin 0.7 (0.2-1.3) mg/dL AST 54 H (14-36) U/L ALT 33 (9-52) U/L Alkaline Phosphatase 116 (38-126) U/L Total Creatine Kinase <20 L (30-135) U/L CK-MB (CK-2) 1.1 (0.0-2.4) ng/mL CK-MB (CK-2) Rel Index Troponin I 0.020 (0.000-0.034) ng/mL Total Protein 5.6 L (6.3-8.2) g/dL Albumin 2.7 L (3.5-5.0) g/dL TSH 0.581 (0.465-4.680) mIU/L Urine Color Urine Appearance (Clear) Urine pH (5.0-8.0) Ur Specific Br[place] (1.001-1.035) Urine Protein (Negative) Urine Glucose (UA) (Negative) Urine Ketones (Negative) Urine Blood (Negative) Urine Nitrite (Negative) Urine Bilirubin (Negative) Urine Urobilinogen (<2.0) mg/dL Ur Leukocyte Esterase (Negative) Urine RBC (0-5) /hpf Urine WBC (0-5) /hpf Hyaline Casts (0-2) /lpf Urine Mucus (None) /hpf Urine Opiates Screen (NotDetected) Ur Oxycodone Screen (NotDetected) Urine Methadone Screen (NotDetected) Ur Propoxyphene Screen (NotDetected) Ur Barbiturates Screen (NotDetected) U Tricyclic Antidepress (NotDetected) Ur Phencyclidine Scrn (NotDetected) Ur Amphetamines Screen (NotDetected) U Methamphetamines Scrn (NotDetected) U Benzodiazepines Scrn (NotDetected) Urine Cocaine Screen (NotDetected) U Marijuana (THC) Screen (NotDetected) 08/29/17 08/29/17 08/29/17 Range/Units 13:04 13:09 15:00 WBC (3.8-10.6) k/uL RBC (3.80-5.40) m/uL Hgb (11.4-16.0) gm/dL Hct (34.0-46.0) % MCV (80.0-100.0) fL MCH (25.0-35.0) pg MCHC (31.0-37.0) g/dL RDW (11.5-15.5) % Plt Count (150-450) k/uL Neutrophils % % Lymphocytes % % Monocytes % % Eosinophils % % Basophils % % Neutrophils # (1.3-7.7) k/uL Lymphocytes # (1.0-4.8) k/uL Monocytes # (0-1.0) k/uL Eosinophils # (0-0.7) k/uL Basophils # (0-0.2) k/uL PT 11.2 (9.0-12.0) sec INR 1.2 H (<1.2) APTT 24.3 (22.0-30.0) sec Sodium (137-145) mmol/L Potassium (3.5-5.1) mmol/L Chloride (98-107) mmol/L Carbon Dioxide (22-30) mmol/L Anion Gap mmol/L BUN (7-17) mg/dL Creatinine (0.52-1.04) mg/dL Est GFR (MDRD) Af Amer (>60 ml/min/1.73 sqM) Est GFR (MDRD) Non-Af (>60 ml/min/1.73 sqM) Glucose (74-99) mg/dL POC Glucose (mg/dL) 96 (75-99) mg/dL POC Glu Slitter Scorer ID Dorothea Welsh Calcium (8.4-10.2) mg/dL Magnesium (1.6-2.3) mg/dL Total Bilirubin (0.2-1.3) mg/dL AST (14-36) U/L ALT (9-52) U/L Alkaline Phosphatase (38-126) U/L Total Creatine Kinase (30-135) U/L CK-MB (CK-2) (0.0-2.4) ng/mL CK-MB (CK-2) Rel Index Troponin I (0.000-0.034) ng/mL Total Protein (6.3-8.2) g/dL Albumin (3.5-5.0) g/dL TSH (0.465-4.680) mIU/L Urine Color Yellow Urine Appearance Clear (Clear) Urine pH 5.5 (5.0-8.0) Ur Specific [place] 1.016 (1.001-1.035) Urine Protein Negative (Negative) Urine Glucose (UA) Negative (Negative) Urine Ketones Negative (Negative) Urine Blood Negative (Negative) Urine Nitrite Negative (Negative) Urine Bilirubin Negative (Negative) Urine Urobilinogen 3.0 (<2.0) mg/dL Ur Leukocyte Esterase Trace H (Negative) Urine RBC <1 (0-5) /hpf Urine WBC 1 (0-5) /hpf Hyaline Casts 14 H (0-2) /lpf Urine Mucus Rare H (None) /hpf Urine Opiates Screen Not Detected (NotDetected) Ur Oxycodone Screen Detected H (NotDetected) Urine Methadone Screen Not Detected (NotDetected) Ur Propoxyphene Screen Not Detected (NotDetected) Ur Barbiturates Screen Not Detected (NotDetected) U Tricyclic Antidepress Not Detected (NotDetected) Ur Phencyclidine Scrn Not Detected (NotDetected) Ur Amphetamines Screen Not Detected (NotDetected) U Methamphetamines Scrn Not Detected (NotDetected) U Benzodiazepines Scrn Detected H (NotDetected) Urine Cocaine Screen Not Detected (NotDetected) U Marijuana (THC) Screen Not Detected (NotDetected) - Radiology Data Radiology results: report reviewed (Did review the imaging and reports no acute findings.), image reviewed Disposition Clinical Impression: Dehydration, Hypoglycemia Disposition: HOME SELF-CARE Condition: Good Instructions: Dehydration (ED), Hypoglycemia in a Person with Diabetes (ED) Referrals: Taran Julian MD [Primary Care Provider] - 1-2 days
[2017-08-29 13:12] LABS: Glucose,Whole Blood 96 mg/dL (75-99)
[2017-08-29 13:18] LABS: Basophils # (A) 0.1 k/uL (0-0.2); Basophils % (A) 0 %; Eosinophils # (A) 0.2 k/uL (0-0.7); Eosinophils % (A) 1 %; HCT 47.3 % (34.0-46.0); HGB 15.8 gm/dL (11.4-16.0); Lymphocytes # (A) 1.5 k/uL (1.0-4.8); Lymphocytes % (A) 8 %; MCH 31.1 pg (25.0-35.0); MCHC 33.4 g/dL (31.0-37.0); MCV 93.2 fL (80.0-100.0); Mean Platelet Volume 7.2; Monocytes # (A) 0.7 k/uL (0-1.0); Monocytes % (A) 4 %; Neutrophils # (A) 15.4 k/uL (1.3-7.7); Neutrophils % (A) 85 %; Platelet Count 208 k/uL (150-450); RBC 5.08 m/uL (3.80-5.40); RDW 12.6 % (11.5-15.5); WBC 18.1 k/uL (3.8-10.6)
[2017-08-29 13:26] LABS: Albumin 2.7 g/dL (3.5-5.0); Calcium 9.1 mg/dL (8.4-10.2); INR 1.2 (<1.2); Magnesium 1.8 mg/dL (1.6-2.3); Partial Thromboplastin Time 24.3 sec (22.0-30.0); Potassium 4.7 mmol/L (3.5-5.1); Prothrombin Time 11.2 sec (9.0-12.0); Total Bilirubin 0.7 mg/dL (0.2-1.3); Total Protein 5.6 g/dL (6.3-8.2)
[2017-08-29 13:39] LABS: Creatine Kinase <20 U/L (30-135)
[2017-08-29 13:51] LABS: Creatine Kinase MB 1.1 ng/mL (0.0-2.4)
--- NOTE | 2017-08-29 14:29 | XR ---
EXAMINATION TYPE: XR chest 2V DATE OF EXAM: 08/29/2017 COMPARISON: 04/16/2017 TECHNIQUE: PA and lateral views submitted. HISTORY: Altered mental status FINDINGS: Heart is enlarged and there is right basilar subsegmental consolidation similar appearance to the zac or exam. Atherosclerotic change aorta. No pneumothorax. Diffuse osteopenia and arthropathy of the natalie ulder. IMPRESSION: 1. Cardiomegaly with stable right basilar atelectasis or infiltrate unchanged from exam of 04/16/2017.
--- NOTE | 2017-08-29 14:36 | CT ---
EXAMINATION TYPE: CT brain wo con DATE OF EXAM: 08/29/2017 COMPARISON: 10/15/2010 HISTORY: Patient complains of generalized weakness. CT DLP: 835.8 mGycm Automated exposure control for dose reduction was used. FINDINGS: Mild to moderate generalized degenerative change. Faint periventricular low attenuation is nonspecifi c. No acute intracranial hemorrhage or mass effect. No midline shift. IMPRESSION: DEGENERATIVE AND NONSPECIFIC WHITE MATTER CHANGES. REMOTE MICROVASCULAR ISCHEMIA MOST LIKELY ETIOLOGY . IF THERE IS CONCERN FOR ACUTE ISCHEMIA CORRELATE WITH MRI CLINICALLY WARRANTED.
[2017-08-29 15:10] LABS: Appearance,Urine Clear (Clear); Bilirubin,Urine Negative (Negative); Blood,Urine Negative (Negative); Color,Urine Yellow; Glucose,Urine (UA) Negative (Negative); Hyaline Casts,Urine 14 /lpf (0-2); Ketones,Urine Negative (Negative); Leukocyte Esterase,Urine Trace (Negative); Mucus,Urine Rare /hpf; Nitrite,Urine Negative (Negative); PH, Urine 5.5 (5.0-8.0); Protein,Urine Negative (Negative); RBC,Urine <1 /hpf (0-5); Specific Gravity,Urine 1.016 (1.001-1.035); WBC,Urine 1 /hpf (0-5)
[2017-08-29 15:34] LABS: Amphetamine Screen,Urine Not Detected (NotDetected); Barbiturate Screen,Urine Not Detected (NotDetected); Benzodiazepines Screen,Urine Detected (NotDetected); Cocaine Screen,Urine Not Detected (NotDetected); Methadone Screen, Urine Not Detected (NotDetected); Opiate Screen,Urine Not Detected (NotDetected); Oxycodone Screen, Urine Detected (NotDetected); Phencyclidine Screen,Urine Not Detected (NotDetected); Tricyclic Antidepressant,Urine Not Detected (NotDetected); Urn Cannabinoid Scrn Not Detected (NotDetected)
[2017-08-29] MEDS ORDERED: SODIUM CHLORIDE 0.9% 1,000 ML IV STA (16:30)
[2017-08-29 17:33] VITALS: BP 144/64; PULSE 96; RESP 18; TEMP 99
== END 2017-08-29 18:23 | disposition home or self-care (01) ==
LOC: EC 12:01
DX: E86.0 Dehydration (principal); E11.649 Type 2 diabetes mellitus with hypoglycemia without coma; R25.3 Fasciculation; I11.0 Hypertensive heart disease with heart failure; I50.9 Heart failure, unspecified; E11.40 Type 2 diabetes mellitus with diabetic neuropathy, unspecified; E07.9 Disorder of thyroid, unspecified; G47.30 Sleep apnea, unspecified; M79.7 Fibromyalgia; F32.9 Major depressive disorder, single episode, unspecified; Z79.02 Long term (current) use of antithrombotics/antiplatelets; Z79.4 Long term (current) use of insulin; Z79.891 Long term (current) use of opiate analgesic; Z79.899 Other long term (current) drug therapy; Z88.0 Allergy status to penicillin; Z88.6 Allergy status to analgesic agent; Z88.8 Allergy status to other drugs, medicaments and biological substances; Z86.73 Personal history of transient ischemic attack (TIA), and cerebral infarction without residual deficits; Z99.89 Dependence on other enabling machines and devices; Z87.19 Personal history of other diseases of the digestive system
CPT/HCPCS: 36415; 70450; 71046; 80053; 80306; 81001; 82550; 82553; 83735; 84443; 84484; 85025; 85610; 85730; 93005; 96360; 96361; 99285

== ENCOUNTER 2017-12-08 10:51 | Inpatient (IN) | payer MEDICARE, BC ==
--- NOTE | 2017-12-08 11:08 | ED ---
General Adult HPI - General Chief complaint: Weakness Stated complaint: SOB Time Seen by Provider: 12/08/17 10:52 Source: patient, EMS, RN notes reviewed Mode of arrival: EMS Limitations: physical limitation - History of Present Illness Initial comments: 77-year-old female with history of both COPD and congestive heart failure presents with a one-week history of worsening dyspnea. Patient does wear supplement oxygen at home, she wears a CPAP machine at night which she has been wearing it during the day secondary to her worsening dyspnea. She does have a baseline cough which is unchanged. No fever or chills. No significant chest pain. She reports that her legs are more swollen and this has been progressive over approximately one week. She is bed bound, she was evaluated by her in- home physician today and sent to the emergency department for evaluation. - Related Data Home Medications Medication Instructions Recorded Confirmed Clopidogrel [Plavix] 75 mg PO HS 10/19/14 12/08/17 HYDROcodone/APAP 5-325MG [[place] 1 tab PO Q6HR PRN 10/19/14 12/08/17 5-325] Levothyroxine Sodium [Synthroid] 175 mcg PO DAILY 10/19/14 12/08/17 Temazepam [Restoril] 15 mg PO HS 10/19/14 12/08/17 Ergocalciferol [Vitamin D2 50,000 units PO MO 03/06/16 12/08/17 (DRISDOL)] Gabapentin 300 mg PO BID 03/06/16 12/08/17 rOPINIRole HCL [Requip] 0.25 - 0.5 mg PO HS 04/28/16 12/08/17 Insulin Detemir [Levemir] 5 unit SQ HS 11/21/16 12/08/17 oxyCODONE ER [OxyCONTIN] 15 mg PO BID 11/21/16 12/08/17 Sennosides [Senna] 17.2 mg PO BID 04/09/17 12/08/17 Spironolactone [Aldactone] 25 mg PO Q48H 04/09/17 12/08/17 Furosemide [Lasix] 20 mg PO Q48H 08/29/17 12/08/17 Pantoprazole Sodium [Protonix] 40 mg PO DAILY 08/29/17 12/08/17 Potassium Chloride ER [K-Dur 10] 10 meq PO DAILY 08/29/17 12/08/17 DULoxetine HCL [Cymbalta] 60 mg PO BID 12/08/17 12/08/17 Midodrine HCl [ProAmatine] 10 mg PO TID 12/08/17 12/08/17 Ondansetron HCl [Zofran] 8 mg PO BID 12/08/17 12/08/17 Ondansetron Odt [Zofran Odt] 4 mg PO Q8H PRN 12/08/17 12/08/17 Allergies Allergy/AdvReac Type Severity Reaction Status Date / Time Penicillins Allergy Rash/Hives Verified 12/08/17 11:48 metolazone [From Zaroxolyn] AdvReac Severe Vertigo Verified 12/08/17 11:48 celecoxib [From Celebrex] AdvReac Nausea & Verified 12/08/17 11:48 Vomiting colchicine AdvReac Nausea & Verified 12/08/17 11:48 Vomiting metoclopramide [From Reglan] AdvReac TREMORS Verified 12/08/17 11:48 Review of Systems ROS Statement: Those systems with pertinent positive or pertinent negative responses have been documented in the HPI. ROS Other: All systems not noted in ROS Statement are negative. Past Medical History Past Medical History: Atrial Fibrillation, Heart Failure, COPD, CVA/TIA, Diabetes Mellitus, Fibromyalgia, Hypertension, Skin Disorder, Sleep Apnea/CPAP/ BIPAP, Thyroid Disorder Additional Past Medical History / Comment(s): WOUND ON ABDOMINAL FLAP, ALSO "BOIL" ON RT BUTTOCK, HAS HAD LARGE AMOUNT OF DRAINAGE IN PAST, OPEN HOLE IN ABDOMEN, neuropathy, ENLARGED HEART, heart MURMUR,TIA'S, states no residual effects, psoriasis ON SCALP, hx migraines, constipation, gout, HX anemia, SEE DR ARTEAGA TO WATCH KIDNEYS R/T LARGE AMT OF LASIX GIVEN FOR CHF History of Any Multi-Drug Resistant Organisms: None Reported Past Surgical History: Bariatric Surgery, Cholecystectomy, Heart Catheterization , Hysterectomy, Orthopedic Surgery Additional Past Surgical History / Comment(s): gastroplasty THEN 4 YEARS LATER HAS BECCA-N-Y,vein stripping, LASER SX for glaucoma and denton CATRARACT, PARATHYRODECTOMY, heel spur left foot Past Anesthesia/Blood Transfusion Reactions: No Reported Reaction Past Psychological History: Anxiety, Depression Smoking Status: Never smoker Past Alcohol Use History: None Reported Past Drug Use History: None Reported - Past Family History Sister(s) Family Medical History: Deep Vein Thrombosis (DVT) Father Family Medical History: CVA/TIA, Myocardial Infarction ([place]) Additional Family Medical History / Comment(s): AT AGE 59 Mother Family Medical History: No Reported History Additional Family Medical History / Comment(s): AT AGE 85 General Exam Limitations: physical limitation General appearance: alert, in no apparent distress Head exam: Present: atraumatic, normocephalic Eye exam: Present: normal appearance. Absent: PERRL, EOMI Neck exam: Present: normal inspection. Absent: tenderness, meningismus Respiratory exam: Present: rales, decreased breath sounds, prolonged expiratory. Absent: respiratory distress Cardiovascular Exam: Present: regular rate, normal rhythm GI/Abdominal exam: Present: soft. Absent: distended, tenderness, guarding Extremities exam: Present: pedal edema Neurological exam: Present: alert, oriented X3, CN II-XII intact. Absent: motor sensory deficit Psychiatric exam: Present: normal affect, normal mood Skin exam: Present: warm, dry. Absent: cyanosis, diaphoretic Course Vital Signs 12/08/17 12/08/17 10:53 12:28 Temperature 97.7 F 97.8 F Pulse Rate 66 62 Respiratory 22 20 Rate Blood Pressure 154/87 159/72 O2 Sat by Pulse 100 100 Oximetry EKG Findings - EKG Comments: EKG Findings:: EKG: Normal sinus rhythm, ventricular rate is 61, CT interval 170 , QRS duration 80, QTc 477, no definitive signs of acute ischemia Medical Decision Making - Medical Decision Making 77-year-old female with history of congestive heart failure presenting with worsening dyspnea and increasing need for supplemental oxygen as well as bilateral lower extremity pain and swelling. On exam patient has bilateral Rales and scattered wheezing. She has diminished bilaterally. She has 2+ pitting edema in the lower extremities. Laboratory studies reveal normal CBC, normal CMP. Troponin is negative. BNP is elevated at 1930 which is increased from previous of 471. Chest x-ray bilateral basilar atelectasis. No emma congestive heart failure. Given the elevated BNP, worsening dyspnea and requirements of increased respiratory support including CPAP patient will be admitted for IV diuresis. Case discussed with Dr. Morales will accept admission - Lab Data Result diagrams: 12/08/17 11:23 12/08/17 11:23 Lab Results 12/08/17 12/08/17 12/08/17 Range/Units 11:23 11:23 11:23 WBC 5.8 (3.8-10.6) k/uL RBC 4.90 (3.80-5.40) m/uL Hgb 15.5 (11.4-16.0) gm/dL Hct 44.5 (34.0-46.0) % MCV 90.8 (80.0-100.0) fL MCH 31.6 (25.0-35.0) pg MCHC 34.8 (31.0-37.0) g/dL RDW 14.3 (11.5-15.5) % Plt Count 183 (150-450) k/uL Neutrophils % 64 % Lymphocytes % 28 % Monocytes % 5 % Eosinophils % 1 % Basophils % 1 % Neutrophils # 3.7 (1.3-7.7) k/uL Lymphocytes # 1.6 (1.0-4.8) k/uL Monocytes # 0.3 (0-1.0) k/uL Eosinophils # 0.1 (0-0.7) k/uL Basophils # 0.0 (0-0.2) k/uL PT (9.0-12.0) sec INR (<1.2) APTT (22.0-30.0) sec Sodium 141 (137-145) mmol/L Potassium 4.3 (3.5-5.1) mmol/L Chloride 104 (98-107) mmol/L Carbon Dioxide 29 (22-30) mmol/L Anion Gap 8 mmol/L BUN 14 (7-17) mg/dL Creatinine 0.98 (0.52-1.04) mg/dL Est GFR (CKD-EPI)AfAm 65 (>60 ml/min/1.73 sqM) Est GFR (CKD-EPI)NonAf 57 (>60 ml/min/1.73 sqM) Glucose 89 (74-99) mg/dL Calcium 8.7 (8.4-10.2) mg/dL Magnesium 1.7 (1.6-2.3) mg/dL Total Bilirubin 1.0 (0.2-1.3) mg/dL AST 47 H (14-36) U/L ALT 39 (9-52) U/L Alkaline Phosphatase 96 (38-126) U/L Total Creatine Kinase 22 L (30-135) U/L CK-MB (CK-2) 1.2 (0.0-2.4) ng/mL CK-MB (CK-2) Rel Index 5.5 Troponin I <0.012 (0.000-0.034) ng/mL NT-Pro-B Natriuret Pep pg/mL Total Protein 5.0 L (6.3-8.2) g/dL Albumin 2.4 L (3.5-5.0) g/dL 12/08/17 12/08/17 Range/Units 11:23 11:23 WBC (3.8-10.6) k/uL RBC (3.80-5.40) m/uL Hgb (11.4-16.0) gm/dL Hct (34.0-46.0) % MCV (80.0-100.0) fL MCH (25.0-35.0) pg MCHC (31.0-37.0) g/dL RDW (11.5-15.5) % Plt Count (150-450) k/uL Neutrophils % % Lymphocytes % % Monocytes % % Eosinophils % % Basophils % % Neutrophils # (1.3-7.7) k/uL Lymphocytes # (1.0-4.8) k/uL Monocytes # (0-1.0) k/uL Eosinophils # (0-0.7) k/uL Basophils # (0-0.2) k/uL PT 10.8 (9.0-12.0) sec INR 1.1 (<1.2) APTT 23.5 (22.0-30.0) sec Sodium (137-145) mmol/L Potassium (3.5-5.1) mmol/L Chloride (98-107) mmol/L Carbon Dioxide (22-30) mmol/L Anion Gap mmol/L BUN (7-17) mg/dL Creatinine (0.52-1.04) mg/dL Est GFR (CKD-EPI)AfAm (>60 ml/min/1.73 sqM) Est GFR (CKD-EPI)NonAf (>60 ml/min/1.73 sqM) Glucose (74-99) mg/dL Calcium (8.4-10.2) mg/dL Magnesium (1.6-2.3) mg/dL Total Bilirubin (0.2-1.3) mg/dL AST (14-36) U/L ALT (9-52) U/L Alkaline Phosphatase (38-126) U/L Total Creatine Kinase (30-135) U/L CK-MB (CK-2) (0.0-2.4) ng/mL CK-MB (CK-2) Rel Index Troponin I (0.000-0.034) ng/mL NT-Pro-B Natriuret Pep 1930 pg/mL Total Protein (6.3-8.2) g/dL Albumin (3.5-5.0) g/dL Disposition Clinical Impression: CHF exacerbation Disposition: ADMITTED IP TO THIS HOSP Condition: Stable Is patient prescribed a controlled substance at d/c from ED?: No Referrals: David Acevedo MD [Primary Care Provider] - 1-2 days Decision to Admit Reason: Admit from EC Decision Date: 12/08/17 Decision Time: 12:56
[2017-12-08 11:41] LABS: Basophils % (A) 1 %; Eosinophils # (A) 0.1 k/uL (0-0.7); Eosinophils % (A) 1 %; HCT 44.5 % (34.0-46.0); HGB 15.5 gm/dL (11.4-16.0); Lymphocytes # (A) 1.6 k/uL (1.0-4.8); Lymphocytes % (A) 28 %; MCH 31.6 pg (25.0-35.0); MCHC 34.8 g/dL (31.0-37.0); MCV 90.8 fL (80.0-100.0); Mean Platelet Volume 6.6; Monocytes # (A) 0.3 k/uL (0-1.0); Monocytes % (A) 5 %; Neutrophils # (A) 3.7 k/uL (1.3-7.7); Neutrophils % (A) 64 %; Platelet Count 183 k/uL (150-450); RDW 14.3 % (11.5-15.5); WBC 5.8 k/uL (3.8-10.6)
[2017-12-08 11:48] LABS: Albumin 2.4 g/dL (3.5-5.0); Calcium 8.7 mg/dL (8.4-10.2); Magnesium 1.7 mg/dL (1.6-2.3); Potassium 4.3 mmol/L (3.5-5.1)
--- NOTE | 2017-12-08 11:50 | XR ---
EXAMINATION TYPE: XR chest 2V DATE OF EXAM: 12/08/2017 COMPARISON: 08/29/2017 HISTORY: Weakness and shortness of breath TECHNIQUE: Frontal and lateral views of the chest are obtained. FINDINGS: Bibasilar subsegmental linear platelike atelectasis is seen. There is persistent right hem idiaphragm elevation in comparison to the prior. Cardia mediastinal fluid is enlarged. Degenerative c hanges of the shoulders are noted. No pneumothorax. IMPRESSION: Similar-appearing bibasilar atelectasis in comparison the prior of 08/29/2017. No new foc al consolidation.
[2017-12-08 12:02] LABS: Creatine Kinase 22 U/L (30-135)
[2017-12-08 12:13] LABS: INR 1.1 (<1.2); Partial Thromboplastin Time 23.5 sec (22.0-30.0); Prothrombin Time 10.8 sec (9.0-12.0)
[2017-12-08 12:15] LABS: Creatine Kinase MB 1.2 ng/mL (0.0-2.4); Troponin I <0.012 ng/mL (0.000-0.034)
[2017-12-08] MEDS ORDERED: FUROSEMIDE 10 MG/ML 4 ML VIAL IV STA (12:46)
[2017-12-08] MEDS ORDERED: IPRATROPIUM-ALBUTEROL 3 ML NEB INHALATION STA (12:46)
[2017-12-08] MEDS ORDERED: ACETAMINOPHEN TAB 325 MG TAB PO PRN (12:52)
[2017-12-08] MEDS ORDERED: NALOXONE 0.4 MG/ML 1 ML VIAL IV PRN (12:52)
[2017-12-08] MEDS ORDERED: MORPHINE SULFATE 2 MG/ML SYRINGE IV PRN (12:52)
[2017-12-08] MEDS ORDERED: ONDANSETRON ODT 4 MG TAB PO PRN (17:04)
[2017-12-08 17:33] LABS: Glucose,Whole Blood 102 mg/dL (75-99)
[2017-12-08 20:40] LABS: Glucose,Whole Blood 202 mg/dL (75-99)
[2017-12-08] MEDS: MIDODRINE 5 MG TAB PO SCH (20:44)
[2017-12-08] MEDS: SENNOSIDES 8.6 MG TAB PO SCH (20:53)
[2017-12-08] MEDS: DULoxetine HCL 60 MG CAPSULE.DR PO SCH (20:53)
[2017-12-08] MEDS: CLOPIDOGREL 75 MG TAB PO SCH (20:53)
[2017-12-08] MEDS: FUROSEMIDE 10 MG/ML 4 ML VIAL IV SCH (20:54)
[2017-12-08] MEDS: oxyCODONE ER 15 MG TAB.ER.12H PO SCH (20:55)
[2017-12-08] MEDS: TEMAZEPAM 15 MG CAP PO SCH (20:57)
[2017-12-08] MEDS: ONDANSETRON 4 MG TAB PO SCH (20:59)
[2017-12-08] MEDS ORDERED: GABAPENTIN 300 MG CAP PO SCH (21:00)
[2017-12-08] MEDS ORDERED: INSULIN DETEMIR 100 UNIT/ML 10 ML VIAL SQ SCH (21:00)
[2017-12-08] MEDS: PREGABALIN 75 MG CAP PO SCH (23:49)
[2017-12-09] MEDS: HYDROcodone/APAP 5-325MG 1 EACH TAB PO PRN ×2 (00:43→17:01)
--- NOTE | 2017-12-09 00:48 | CT ---
EXAMINATION TYPE: CT angio chest DATE OF EXAM: 12/09/2017 12:39 AM COMPARISON: NONE HISTORY: sob, r/o pe CT DLP: 653.60 mGycm Automated exposure control for dose reduction was used. CONTRAST: CTA scan of the thorax is performed with IV Contrast, patient injected with 70 mL of Isovue 370, pulm onary embolism protocol. There are 3-D post processed images.. FINDINGS: There is mild linear density in the right middle lobe. There are small areas of linear density at the posterior lung bases. There is no evidence of a pulmonary mass. There is atelectasis at the right nola ng base. There is small pericardial effusion. I see no filling defect in the pulmonary arteries. There is no mediastinal adenopathy. Thoracic aorta is atheromatous. There is no evidence of aneurysm or dissection. The ascending aorta measures 3.5 cm . Bony thorax is intact. There is no mediastinal adenopathy. IMPRESSION: MILD ATELECTASIS AT THE LUNG BASES. SMALL PERICARDIAL EFFUSION. NO EVIDENCE OF PULMONARY EMBOLISM.
--- NOTE | 2017-12-09 03:11 | HP ---
HISTORY AND PHYSICAL DATE OF ADMISSION: 12/08/17 PRESENTING COMPLAINT: Short of breath. HISTORY OF PRESENTING COMPLAINT: Pleasant 77-year-old patient of Dr. Acevedo from [facility]. The patient has rather extensive medical history. Chronic stable medical conditions include aortic stenosis, congestive heart failure from diastolic dysfunction, atrial fibrillation, COPD, fibromyalgia, GERD, hypertension, hyperlipidemia, osteoarthritis, obstructive sleep apnea, home oxygen 3-4 L, painful peripheral neuropathy, venous insufficiency. The patient presented with worsening short of breath for 1 week. Slight cough, decreased appetite, some edema. No fever, chills, tired and run down. The patient also being bothered by her feet gets really painful at times and cold a number of times. The patient has seen vascular in the remote past. First saw Dr. Wong and then saw Dr. Hatch. Does not remember what she was told. The patient normally uses a scooter to get about. The patient is felt to have CHF exacerbation when she presented. REVIEW OF SYSTEMS: Constitutional: Tired. HEENT none. Respiratory as above. Cardiovascular: No chest pain. Gastrointestinal: As above. Genitourinary none. Musculoskeletal: Aches and pains in the joints. Dermatological and hematologic, lymphatic none. Psychiatry none. Neurological: Numbness and tingling in the feet. PAST MEDICAL HISTORY: Atrial fibrillation, heart failure, COPD, diabetes, fibromyalgia, GERD, hyperlipidemia, hypertension, osteoarthritis, sleep apnea, chronic hypoxic respiratory failure on 3-4 L at home, obstructive sleep apnea with CPAP, enlarged heart 2005, stroke with no residual, diabetes type 2, neuropathy hand and feet, sometimes difficulty swallowing, CKD, anemia, of the buttocks, chronic venous and lymphangitis stasis of the arms and legs. Cellulitis in the legs, ulcerative colitis, psoriasis scalp, migraines, constipation, vertebral fracture, bilateral eye glaucoma. PAST SURGICAL HISTORY: Bariatric surgery, cholecystectomy, cardiac catheterization, hysterectomy, gastroplasty, then Arnaud-en-Y, cardiac cath intervention, laser eye surgery, bilateral eyes glaucoma, cataract removal with lens implants bilaterally, EGD, colonoscopy, rectal fissure repair, D and C, right leg mole removal, left heel spur surgery, varicose vein stripping. PSYCH HISTORY: Anxiety and depression. SOCIAL HISTORY: Lives with his spouse. Has a caregiver. assist to walk with, walk 1 step, has a scooter. The patient smoked for 12 years, stopped in 1967. Alcohol none. FAMILY HISTORY: Myocardial infarction. Father at age of 59 from a stroke. HOME MEDICATIONS: 1. Requip 0.25-0.5 p.o. q.h.s. 2. OxyContin 50 mg p.o. b.i.d. 3. Restoril 50 mg q.h.s. 4. Aldactone 25 p.o. q.48 hours. 5. Senna 17.2 p.o. b.i.d. 6. Potassium 10 mEq a day. 7. Protonix 40 mg a day. 8. Zofran 4 mg q.8h p.r.n. 8 mg b.i.d. 9. Midodrine 10 mg p.o. t.i.d. 10.Synthroid 125 mcg a day. 11.Levemir 5 units subcu q.h.s. 12.Porum 5 one tab q.6h p.r.n. 13.Neurontin 300 mg b.i.d. 14.Lasix 20 mg q.48 hours. 15.Vitamin D2 50,000 units subcu Tuesday. 16.Cymbalta 60 mg p.o. b.i.d. 17.Plavix 75 mg p.o. q.h.s. ALLERGIES: PENICILLIN, ZAROXOLYN, CELEBREX, COLCHICINE, REGLAN. PHYSICAL EXAMINATION: VITAL SIGNS: On examination temperature 97.4, pulse 87, respirations 16, blood pressure 154/79, pulse ox 99% on 2 L. GENERAL APPEARANCE: Well built, BMI 47.9, lying in bed, using a BiPAP. EYES: Pupils are equal. Conjunctivae normal. HEENT: External appearance of nose and ears normal. Oral cavity normal. NECK: JVD not raised. Mass not palpable. RESPIRATORY: Effort increased. LUNGS: Decreased breath sounds. CARDIOVASCULAR: 1st and second sounds normal. Some nonpitting edema. ABDOMEN: Soft, nontender. Liver and spleen not palpable. LYMPHATICS: No lymph nodes palpable in the neck and axilla. PSYCHIATRY: Alert and oriented x3. Mood and affect anxious-appearing. NEUROLOGICAL: Pupils equal. Cranial nerves grossly intact. Power: Decreased sensation distally. INVESTIGATIONS: White count 5.8, hemoglobin 15.5, potassium 4.3. ProBNP 1930. Chest x-ray cardiomegaly. Right diaphragm elevated. ASSESSMENT: 1. Possible acute on chronic congestive heart failure exacerbation. 2. Paroxysmal atrial fibrillation currently in sinus rhythm. 3. Chronic fibromyalgia. 4. Gastroesophageal reflux disease. 5. Hyperlipidemia. 6. Essential hypertension. 7. Obstructive sleep apnea. 8. Painful peripheral neuropathy. 9. Chronic lower extremity venous insufficiency. 10.Primary osteoarthritis multiple joints. 11.Diabetes mellitus type 2, chronically on insulin. 12.Morbid obesity, BMI 40.7. 13.Medical debility, uses a scooter to get about. PLAN: Home medications are resumed. Cardiology was consulted. Will order a chest CTA to rule out any PE. The patient also put on IV Lasix. We will get a vascular opinion. Will DC patient's Neurontin, switch to Lyrica as that has not been very helpful. Care was discussed with the patient. Questions were answered. Copy to visiting physician Dr. Acevedo. LEROY / LILY: [id number] /
[2017-12-09] MEDS: LEVOTHYROXINE 75 MCG TAB PO SCH (06:24)
[2017-12-09] MEDS: PANTOPRAZOLE 40 MG TABLET PO SCH (06:24)
[2017-12-09] MEDS: MIDODRINE 5 MG TAB PO SCH ×3 (06:24→16:58)
[2017-12-09] MEDS: LEVOTHYROXINE 100 MCG TAB PO SCH (06:24)
[2017-12-09 06:43] LABS: Glucose,Whole Blood 90 mg/dL (75-99)
[2017-12-09] MEDS: ONDANSETRON 4 MG TAB PO SCH ×2 (08:11→21:32)
[2017-12-09] MEDS: POTASSIUM CHLORIDE ER 10 MEQ TAB.ER.PRT PO SCH (08:11)
[2017-12-09] MEDS: DULoxetine HCL 60 MG CAPSULE.DR PO SCH ×3 (08:11→20:41)
[2017-12-09] MEDS: SENNOSIDES 8.6 MG TAB PO SCH ×3 (08:12→20:41)
[2017-12-09] MEDS: oxyCODONE ER 15 MG TAB.ER.12H PO SCH ×2 (08:12→20:47)
[2017-12-09] MEDS: FUROSEMIDE 10 MG/ML 4 ML VIAL IV SCH ×2 (08:12→19:50)
[2017-12-09] MEDS: PREGABALIN 75 MG CAP PO SCH ×2 (08:13→21:28)
[2017-12-09] MEDS ORDERED: SPIRONOLACTONE 25 MG TAB PO SCH (09:00)
[2017-12-09 11:26] LABS: Glucose,Whole Blood 104 mg/dL (75-99)
[2017-12-09 13:07] VITALS: BMI 43.9
[2017-12-09 16:44] LABS: Glucose,Whole Blood 100 mg/dL (75-99)
[2017-12-09] MEDS: CLOPIDOGREL 75 MG TAB PO SCH (19:49)
[2017-12-09 20:50] LABS: Glucose,Whole Blood 106 mg/dL (75-99)
[2017-12-09 20:59] LABS: Calcium 8.2 mg/dL (8.4-10.2); Potassium 3.7 mmol/L (3.5-5.1)
--- NOTE | 2017-12-09 21:09 | PN ---
PROGRESS NOTE DATE OF SERVICE: 12/09/2017 PRESENTING COMPLAINT: Short of breath. INTERVAL HISTORY: This patient presented with CHF exacerbation. Breathing is doing much better. The patient has also got painful peripheral neuropathy, was started on Lyrica last night, which she is doing much better. The patient's was present and the nurse from [facility] is also present, sent in by her visiting physician, Dr. Acevedo. The patient overall looks more perky. Breathing is better. REVIEW OF SYSTEMS: Done for constitutional, cardiovascular, GI, pulmonary, neuro; relevant findings as above. CURRENT MEDICATIONS: Reviewed that include: 1. IV Lasix. 2. Lyrica. EXAMINATION: Temperature 97.5 pulse 71, respirations 18, blood pressure 177/73, pulse ox 99% on 2L. GENERAL APPEARANCE: Lying in bed, awake, more perky. EYES: Pupils equal. Conjunctivae normal. HEENT: External nose and ears normal. Oral cavity normal. NECK: JVD unable to assess. Mass not palpable. RESPIRATORY: Effort increased. LUNGS: Decreased breath sounds. CARDIOVASCULAR: First and second heart sounds normal. Some nonpitting edema. ABDOMEN: Soft, nontender. Liver and spleen not palpable. PSYCHIATRY: Alert and oriented x3. Mood and affect anxious. INVESTIGATIONS: Accu-Cheks are noted. ASSESSMENT: 1. Acute on chronic congestive heart failure exacerbation. 2D pending. Clinically improved. 2. Paroxysmal atrial fibrillation, currently in sinus rhythm. 3. Chronic fibromyalgia. 4. Gastroesophageal reflux disease. 5. Hyperlipidemia. 6. Essential hypertension. 7. Obstructive sleep apnea. 8. Painful peripheral neuropathy, responding well to Lyrica. 9. Chronic lower extremity venous insufficiency. 10.Primary osteoarthritis on multiple joints. 11.Diabetes mellitus type 2, chronically on insulin. 12.Morbid obesity, BMI 40.7. 13.Medical debility, uses a scooter to get about. PLAN: I had a lengthy talk with the patient's , patient and the nurse from [facility]. The patient's pain in lower extremity is much improved. I also discussed with Dr. Hatch from vascular. Nothing at present to be done. Patient had followup with Dr. Wong in the past. We will get PT, OT involved, cut back in diuretics, get a 2D echocardiogram, repeat electrolytes. Total time spent today was about 40 minutes with over 25 minutes of discussion. MMODL / IJN: [id number] /
[2017-12-09] MEDS: TEMAZEPAM 15 MG CAP PO SCH (21:28)
[2017-12-09 23:31] LABS: Glucose,Whole Blood 140 mg/dL (75-99)
[2017-12-10 06:06] LABS: Glucose,Whole Blood 112 mg/dL (75-99)
[2017-12-10] MEDS: LEVOTHYROXINE 75 MCG TAB PO SCH (06:06)
[2017-12-10] MEDS: LEVOTHYROXINE 100 MCG TAB PO SCH (06:07)
[2017-12-10] MEDS: PANTOPRAZOLE 40 MG TABLET PO SCH (06:35)
[2017-12-10] MEDS: MIDODRINE 5 MG TAB PO SCH ×3 (06:35→17:10)
[2017-12-10 07:00] LABS: Calcium 8.6 mg/dL (8.4-10.2); Potassium 3.4 mmol/L (3.5-5.1)
[2017-12-10] MEDS: DULoxetine HCL 60 MG CAPSULE.DR PO SCH ×2 (08:14→19:56)
[2017-12-10] MEDS: POTASSIUM CHLORIDE ER 10 MEQ TAB.ER.PRT PO SCH (08:15)
[2017-12-10] MEDS: SENNOSIDES 8.6 MG TAB PO SCH ×2 (08:15→19:57)
[2017-12-10] MEDS: SPIRONOLACTONE 25 MG TAB PO SCH (08:15)
[2017-12-10] MEDS ORDERED: FUROSEMIDE 40 MG TAB PO SCH (09:00)
[2017-12-10] MEDS: oxyCODONE ER 15 MG TAB.ER.12H PO SCH ×2 (09:06→21:11)
[2017-12-10] MEDS: ONDANSETRON 4 MG TAB PO SCH ×2 (09:07→20:00)
[2017-12-10] MEDS: PREGABALIN 75 MG CAP PO SCH ×2 (09:07→19:55)
--- NOTE | 2017-12-10 11:45 | ECHOF ---
Referral Reason:chf MEASUREMENTS -------- HEIGHT: 157.5 cm WEIGHT: 104.8 kg BP: 141/93 IVSd: 1.2 cm (0.6 - 1.1) LVIDd: 4.0 cm (3.9 - 5.3) LVPWd: 1.8 cm (0.6 - 1.1) IVSs: 2.0 cm LVIDs: 1.7 cm LVPWs: 1.9 cm Ao Diam: 2.8 cm (2.0 - 3.7) AV Cusp: 1.5 cm (1.5 - 2.6) LA Diam: 2.8 cm (2.7 - 3.8) MV EXCURSION: 10.759 mm (> 18.000) MV EF SLOPE: 38 mm/s (70 - 150) EPSS: 0.3 cm MV E Roderick: 0.53 m/s MV DecT: 218 ms MV A Roderick: 1.10 m/s MV E/A Ratio: 0.48 AV maxP.81 mmHg AV meanP.11 mmHg RAP: 5.00 mmHg RVSP: 10.17 mmHg FINDINGS -------- Sinus rhythm with extra systolic beats. This was a technically adequate study. The left ventricular size is normal. There is moderate concentric left ventricular hypertrophy. O verall left ventricular systolic function is normal with, an EF between 55 - 60 %. The right ventricle is normal in size and function. The left atrial size is normal. The right atrium is normal in size. Aortic valve is trileaflet and is moderately thickened. There is moderate aortic stenosis present. Peak/mean gradient across the Aortic Valve is 35.81mmHg / 20.11mmHg. The mitral valve leaflets are mildly thickened. Mild mitral annular calcification present. Mild m itral regurgitation is present. Mild tricuspid regurgitation present. The right ventricular systolic pressure, as measured by Doppl er, is 10.17mmHg. Pulmonic valve appears structurally normal. The aortic root size is normal. Normal inferior vena cava with normal inspiratory collapse consistent with estimated right atrial pre ssure of 5 mmHg. Echo free space indicative of a pericardial fat pad. CONCLUSIONS -------- 1. Sinus rhythm with extra systolic beats. 2. This was a technically adequate study. 3. The left ventricular size is normal. 4. There is moderate concentric left ventricular hypertrophy. 5. Overall left ventricular systolic function is normal with, an EF between 55 - 60 %. 6. The right ventricle is normal in size and function. 7. The left atrial size is normal. 8. The right atrium is normal in size. 9. Aortic valve is trileaflet and is moderately thickened. 10. There is moderate aortic stenosis present. 11. Peak/mean gradient across the Aortic Valve is 35.81mmHg / 20.11mmHg. 12. The mitral valve leaflets are mildly thickened. 13. Mild mitral annular calcification present. 14. Mild mitral regurgitation is present. 15. Mild tricuspid regurgitation present. 16. The right ventricular systolic pressure, as measured by Doppler, is 10.17mmHg. 17. Pulmonic valve appears structurally normal. 18. The aortic root size is normal. 19. Normal inferior vena cava with normal inspiratory collapse consistent with estimated right atrial pressure of 5 mmHg. 20. Echo free space indicative of a pericardial fat pad. RATING SPECIALIST: Zoey Elena RDCS
[2017-12-10 12:26] LABS: Glucose,Whole Blood 126 mg/dL (75-99)
[2017-12-10 16:43] LABS: Glucose,Whole Blood 101 mg/dL (75-99)
[2017-12-10] MEDS: CLOPIDOGREL 75 MG TAB PO SCH (19:55)
[2017-12-10 21:04] LABS: Glucose,Whole Blood 179 mg/dL (75-99)
[2017-12-10] MEDS: TEMAZEPAM 15 MG CAP PO SCH (22:30)
[2017-12-11 06:06] LABS: Glucose,Whole Blood 93 mg/dL (75-99)
[2017-12-11 06:19] LABS: Potassium 4.2 mmol/L (3.5-5.1)
[2017-12-11] MEDS: MIDODRINE 5 MG TAB PO SCH ×3 (06:44→17:28)
[2017-12-11] MEDS: LEVOTHYROXINE 100 MCG TAB PO SCH (06:44)
[2017-12-11] MEDS: PANTOPRAZOLE 40 MG TABLET PO SCH (06:44)
[2017-12-11] MEDS: LEVOTHYROXINE 75 MCG TAB PO SCH (06:44)
[2017-12-11] MEDS: oxyCODONE ER 15 MG TAB.ER.12H PO SCH ×2 (09:00→21:24)
[2017-12-11] MEDS: PREGABALIN 75 MG CAP PO SCH ×2 (09:01→20:04)
[2017-12-11] MEDS: SENNOSIDES 8.6 MG TAB PO SCH ×2 (09:02→20:04)
[2017-12-11] MEDS: ONDANSETRON 4 MG TAB PO SCH ×2 (09:02→21:20)
[2017-12-11] MEDS: POTASSIUM CHLORIDE ER 10 MEQ TAB.ER.PRT PO SCH (09:02)
[2017-12-11] MEDS: SPIRONOLACTONE 25 MG TAB PO SCH (09:02)
[2017-12-11] MEDS: DULoxetine HCL 60 MG CAPSULE.DR PO SCH ×2 (09:02→20:04)
[2017-12-11 12:07] LABS: Glucose,Whole Blood 115 mg/dL (75-99)
--- NOTE | 2017-12-11 14:22 | PN ---
PROGRESS NOTE DATE OF SERVICE: 12/11/2017. PRESENTING COMPLAINT: Short of breath. INTERVAL HISTORY: The patient admitted with CHF exacerbation, painful peripheral neuropathy, and also got orthostatic hypertension. The patient does get bouts of perspiration and it is all fitting into the picture, having autonomic dysfunction, tolerating a diet well. REVIEW OF SYSTEMS: Done for constitutional, cardiovascular, GI, pulmonary; relevant findings as above. CURRENT MEDICATIONS: Reviewed. The patient is on Aldactone 50. Lasix was discontinued. PHYSICAL EXAMINATION: Temperature 98.3, pulse 81, respiratory 20, blood pressure 138/77, pulse ox 97% on 2 L. GENERAL APPEARANCE: Sitting up, awake. EYES: Pupils are equal. Conjunctivae normal. HEENT: External appearance of nose and ears normal. Oral cavity normal. NECK: JVD not raised. Mass not palpable. RESPIRATORY: Effort normal. LUNGS: Decreased breath sounds. CARDIOVASCULAR: 1st and second sounds normal. Nonpitting edema. ABDOMEN: Soft, nontender. Liver and spleen not palpable. PSYCHIATRY: Alert and oriented x3. Mood and affect normal. INVESTIGATIONS: Accu-Cheks 106, 140, 112, proBNP 1740. ASSESSMENT: 1. Acute on chronic congestive heart failure from diastolic dysfunction. Ejection fraction 55-60%. 2. Hypertensive heart disease. 3. Moderate aortic stenosis, nonrheumatic. 4. Paroxysmal atrial fibrillation currently in sinus rhythm. 5. Chronic fibromyalgia. 6. Gastroesophageal reflux disease. 7. Hyperlipidemia. 8. Essential hypertension. 9. Obstructive sleep apnea. 10.Painful peripheral neuropathy, responding to Lyrica. 11.Autonomic dysfunction. 12.Chronic lower extremity venous insufficiency. 13.Primary osteoarthritis in multiple joints. 14.Diabetes mellitus type 2, chronically on insulin. 15.Morbid obesity BMI 40.7. 16.Medical debility. Patient uses a scooter to get about. PLAN: Romulo wrap is in place. We will add Florinef for orthostatic hypertension. Overall, patient is doing better. Looking at probably the patient to go home with physical therapy support. MMODL / IJN: [id number] /
--- NOTE | 2017-12-11 14:37 | PN ---
PROGRESS NOTE DATE OF SERVICE: 12/10/17 PRESENTING COMPLAINT: Short of breath. INTERVAL HISTORY: This patient presented with CHF exacerbation. Seen by me yesterday. Breathing has gotten better. Also had painful peripheral neuropathy. Started on Lyrica. Somewhat better. The patient did work with physical therapy. The patient also got orthostatic hypertension. Romulo wraps were ordered. REVIEW OF SYSTEMS: Done for constitutional, cardiovascular, GI, pulmonary; relevant findings as above. CURRENT MEDICATIONS: Reviewed. EXAMINATION: Temperature 97.2, pulse 74, respiration 16, blood pressure 142/80, pulse ox 100% on 3 L. GENERAL APPEARANCE: Sitting in bed, awake. EYES: Pupils equal. Conjunctivae normal. HEENT: External nose and ears normal. Oral cavity normal. NECK: JVD not raised. Mass not palpable. RESPIRATORY: Effort increased. Lungs, decreased breath sounds. CARDIOVASCULAR: First and second sounds normal. Nonpitting edema. ABDOMEN: Soft, nontender. Liver and spleen not palpable. PSYCHIATRY: Alert and oriented x3. Mood and affect normal. INVESTIGATIONS: Potassium 3.4, BUN 13, creatinine 1.10. ASSESSMENT: 1. Acute on chronic congestive heart failure exacerbation from diastolic dysfunction. Ejection fraction 55-60%. 2. Moderate aortic stenosis, nonrheumatic. 3. Hypertensive heart disease. 4. Paroxysmal atrial fibrillation in sinus rhythm. 5. Chronic fibromyalgia. 6. Gastroesophageal reflux disease. 7. Hyperlipidemia. 8. Essential hypertension. 9. Obstructive sleep apnea. 10.Painful peripheral neuropathy started on Lyrica. 11.Chronic lower extremity venous insufficiency. 12.Primary osteoarthritis multiple joints. 13.Diabetes mellitus type 2, chronically on insulin. 14.Morbid obesity, BMI 40.7. 15.Medical debility, uses a scooter to get about. PLAN: Care was discussed the patient. Insulin was discontinued. We will see how the sugars do. Await input from physical therapy. Follow. MMODL / IJN: [id number] /
[2017-12-11] MEDS: FLUDROCORTISONE 0.1 MG TAB PO SCH ×2 (15:44→20:04)
[2017-12-11] MEDS: PYRIDOXINE 50 MG TAB PO SCH (15:45)
[2017-12-11 17:24] LABS: Glucose,Whole Blood 109 mg/dL (75-99)
[2017-12-11] MEDS: CLOPIDOGREL 75 MG TAB PO SCH (20:04)
[2017-12-11 20:44] LABS: Glucose,Whole Blood 157 mg/dL (75-99)
[2017-12-11] MEDS: TAMSULOSIN 0.4 MG CAP.ER.24H PO SCH (21:25)
[2017-12-11] MEDS: TEMAZEPAM 15 MG CAP PO SCH (23:33)
[2017-12-12] MEDS: LEVOTHYROXINE 100 MCG TAB PO SCH (05:48)
[2017-12-12] MEDS: LEVOTHYROXINE 75 MCG TAB PO SCH (05:48)
[2017-12-12 05:52] LABS: Glucose,Whole Blood 125 mg/dL (75-99)
[2017-12-12 06:33] LABS: Calcium 8.2 mg/dL (8.4-10.2); Potassium 3.6 mmol/L (3.5-5.1)
[2017-12-12] MEDS: MIDODRINE 5 MG TAB PO SCH ×3 (06:35→17:15)
[2017-12-12] MEDS: PANTOPRAZOLE 40 MG TABLET PO SCH (06:35)
[2017-12-12] MEDS: DULoxetine HCL 60 MG CAPSULE.DR PO SCH ×2 (08:25→20:18)
[2017-12-12] MEDS: FLUDROCORTISONE 0.1 MG TAB PO SCH ×2 (08:26→20:19)
[2017-12-12] MEDS: SPIRONOLACTONE 25 MG TAB PO SCH (08:27)
[2017-12-12] MEDS: PYRIDOXINE 50 MG TAB PO SCH (08:27)
[2017-12-12] MEDS: SENNOSIDES 8.6 MG TAB PO SCH ×2 (08:27→20:19)
[2017-12-12] MEDS: POTASSIUM CHLORIDE ER 10 MEQ TAB.ER.PRT PO SCH (08:27)
[2017-12-12] MEDS: ONDANSETRON 4 MG TAB PO SCH ×2 (08:31→20:23)
[2017-12-12] MEDS: PREGABALIN 75 MG CAP PO SCH ×2 (08:31→20:20)
[2017-12-12] MEDS: oxyCODONE ER 15 MG TAB.ER.12H PO SCH ×2 (08:31→20:20)
[2017-12-12 11:35] LABS: Glucose,Whole Blood 207 mg/dL (75-99)
[2017-12-12 16:18] LABS: Glucose,Whole Blood 135 mg/dL (75-99)
[2017-12-12] MEDS: TAMSULOSIN 0.4 MG CAP.ER.24H PO SCH (17:15)
--- NOTE | 2017-12-12 17:35 | PN ---
PROGRESS NOTE DATE OF SERVICE: December 12, 2017. PRESENTING COMPLAINT: Dizzy. INTERVAL HISTORY: This patient presented with CHF exacerbation, painful peripheral neuropathy, and patient is now found to have severe autonomic dysfunction manifesting as severe bouts of perspiration, orthostatic. The patient also having trouble with urine retention, started on Flomax. Wishes to have a urological opinion before she gets discharged. REVIEW OF SYSTEMS: Done for constitutional, cardiovascular, GI, pulmonary, relevant findings as above. CURRENT MEDICATIONS: Reviewed. EXAMINATION: Temperature 97.6, pulse 96, respiratory 20, blood pressure 98/50, pulse ox 99% on room air. GENERAL APPEARANCE: Lying in bed awake. EYES: Pupils are equal. Conjunctivae normal. HEENT: External appearance of nose and ears normal. Oral oral cavity normal. NECK: JVD not raised. Mass not palpable. RESPIRATORY: Effort normal. Lungs fair entry. CARDIOVASCULAR: 1st and second sounds normal. Nonpitting edema. ABDOMEN: Soft, nontender. Liver and spleen not palpable. PSYCHIATRY: Alert and oriented x3. Mood and affect normal. INVESTIGATIONS: Potassium 3.6, BUN and creatinine normal. Accu-Cheks are noted. ASSESSMENT: 1. Acute on chronic congestive heart failure exacerbation from diastolic dysfunction. Ejection fraction 55-60% stabilized. 2. Hypertensive heart disease. 3. Moderate aortic stenosis, nonrheumatic. 4. Paroxysmal atrial fibrillation currently in sinus rhythm. 5. Chronic fibromyalgia. 6. Gastroesophageal reflux disease. 7. Hyperlipidemia. 8. Essential hypertension. 9. Obstructive sleep apnea. 10.Painful peripheral neuropathy on Lasix. Pain is better controlled. 11.Severe autonomic dysfunction, getting episodes of severe orthostatic hypotension, bouts of perspiration. 12.Chronic lower extremity venous insufficiency. 13.Primary osteoarthritis multiple joints. 14.Diabetes mellitus type 2, chronically on insulin now discontinued because sugars are better controlled. 15.Morbid obesity BMI 40.7. 16.Medical debility. Patient uses a scooter to get about. PLAN: The patient is already on Florinef and Romulo wraps. I did tell the patient that she has rather severe autonomic dysfunction and she just has to remain careful about the same. Because of urine retention, she wants to get a urological opinion. sees Dr. Jenkins. She would like to see him. Hence a consult is being put in for the same. In the meantime, patient has also been put on Flomax. Did tell the nurse to check residuals, one time it came back to be high. The patient's discharge has been held for that reason. MMODL / IJN: [id number] /
[2017-12-12] MEDS: CLOPIDOGREL 75 MG TAB PO SCH (20:18)
[2017-12-12] MEDS: TEMAZEPAM 15 MG CAP PO SCH (20:20)
[2017-12-12 20:35] LABS: Glucose,Whole Blood 150 mg/dL (75-99)
[2017-12-12] MEDS: INSULIN ASPART 100 UNIT/ML 1 ML 10 ML VIAL SQ SCH (20:41)
[2017-12-13] MEDS: LEVOTHYROXINE 100 MCG TAB PO SCH (06:21)
[2017-12-13] MEDS: LEVOTHYROXINE 75 MCG TAB PO SCH (06:21)
[2017-12-13 07:11] LABS: Glucose,Whole Blood 102 mg/dL (75-99)
[2017-12-13] MEDS: INSULIN ASPART 100 UNIT/ML 1 ML 10 ML VIAL SQ SCH ×3 (07:15→17:31)
[2017-12-13] MEDS: MIDODRINE 5 MG TAB PO SCH ×3 (07:53→17:32)
[2017-12-13] MEDS: PANTOPRAZOLE 40 MG TABLET PO SCH (07:53)
[2017-12-13 08:01] LABS: Calcium 8.3 mg/dL (8.4-10.2)
[2017-12-13 08:15] LABS: Potassium 4.1 mmol/L (3.5-5.1)
[2017-12-13] MEDS: POTASSIUM CHLORIDE ER 10 MEQ TAB.ER.PRT PO SCH (08:41)
[2017-12-13] MEDS: PYRIDOXINE 50 MG TAB PO SCH (08:41)
[2017-12-13] MEDS: PREGABALIN 75 MG CAP PO SCH (08:41)
[2017-12-13] MEDS: oxyCODONE ER 15 MG TAB.ER.12H PO SCH (08:41)
[2017-12-13] MEDS: SPIRONOLACTONE 25 MG TAB PO SCH (08:41)
[2017-12-13] MEDS: DULoxetine HCL 60 MG CAPSULE.DR PO SCH (08:41)
[2017-12-13] MEDS: FLUDROCORTISONE 0.1 MG TAB PO SCH (08:41)
[2017-12-13] MEDS: ONDANSETRON 4 MG TAB PO SCH (08:41)
[2017-12-13] MEDS: SENNOSIDES 8.6 MG TAB PO SCH (08:41)
[2017-12-13 11:08] LABS: Glucose,Whole Blood 162 mg/dL (75-99)
[2017-12-13 14:32] VITALS: BP 121/66; PULSE 71; RESP 20; TEMP 97.7
--- NOTE | 2017-12-13 16:27 | DS ---
DISCHARGE SUMMARY DATE OF ADMISSION: 12/08/17. DATE OF DISCHARGE: 12/13/17. FINAL DIAGNOSES: 1. Acute on chronic congestive heart failure exacerbation from diastolic dysfunction. Ejection fraction 55-60%. 2. Hypertensive heart disease. 3. Moderate aortic stenosis, nonrheumatic. 4. Paroxysmal atrial fibrillation currently in sinus rhythm. High risk of fall. 5. Chronic fibromyalgia. 6. Gastroesophageal reflux disease. 7. Hyperlipidemia. 8. Essential hypertension. 9. Obstructive sleep apnea, apnea. 10.Painful peripheral neuropathy on Lyrica. 11.Severe autonomic dysfunction getting episodes of severe orthostatic hypertension, bouts of perspiration, chronic lower extremity venous insufficiency. 12.Primary osteoarthritis, multiple joints. 13.Diabetes mellitus type 2, chronically on insulin, now discontinued because sugars of better control off the same. 14.Morbid obesity, BMI 40.7. 15.Medical debility. Patient uses a wheelchair/scooter. 16.Urine retention, bladder dysfunction, could be a part of autonomic dysfunction. Patient requiring a Kimble catheter. HOSPITAL COURSE: This patient presents with CHF exacerbation, received Lasix. 2D echo showed preserved LV function. The patient has severe autonomic dysfunction. On standing up, gets dizzy lightheaded, perspires. Florinef and midodrine were added. The patient will remain a risk fall at all times. The patient also got urinary retention and Dr. Damon ordered a Kimble catheter to be discharged on. I had a long talk with the patient and today stating that some of these problems from autonomic dysfunction really cannot be treated. Symptoms often times have to be dealt with understanding the condition. I did explain about the Romulo wrap and medications that she is on and how the fall risk. The patient has decided to go to rehab. EXAM: Lungs are clear. Cardiovascular: First and second sounds normal. Psych: AO x3. Discussion and discharge planning more than 35 minutes. DISCHARGE MEDICATIONS: 1. Plavix 75 mg q.h.s. 2. Synthroid 135 mcg p.o. daily. 3. Senna 17.2 mg p.o. b.i.d. 4. Protonix 40 mg p.o. daily. 5. Cymbalta 60 mg b.i.d. 6. Midodrine 10 mg p.o. t.i.d. 7. Zofran 4 mg q.8h p.r.n. 8. Florinef 0.1 mg p.o. b.i.d. 9. [place] 5 one tablet q.6h p.r.n. 10.Lyrica 75 mg p.o. b.i.d., new medication started. 11.Vitamin B6 50 mg p.o. daily, new medication. 12.Aldactone 50 mg p.o. daily, new dose. 13.Flomax 0.4 mg with supper, new medication. 14.Restoril 50 mg q.h.s. 15.OxyContin ER 50 mg p.o. b.i.d. 16.Requip 0.5 mg p.o. q.h.s. Follow up with Dr. Davis at the [facility], follow with Dr. Jenkins in 10 days. Follow up with Dr. Acevedo from [facility] after discharge from [facility]. DISPOSITION: [facility]. Kimble catheter has been placed and will be followed up by Dr. Jenkins. The patient to institute fall precautions. Accu-Chek daily in the morning. Copy to visiting physician, Dr. Acevedo. MMMATEO / LILY: [id number] /
[2017-12-13] MEDS: TAMSULOSIN 0.4 MG CAP.ER.24H PO SCH (17:32)
== END 2017-12-13 18:31 | DRG 291 ==
LOC: SUPCPDRO 10:51 → EC 10:51 → 6SEL 12:52 → 5MS5E 12-12 21:35
PROVIDERS: ADMIT Hospitalist; ATTEND Hospitalist
DX: I13.0 Hypertensive heart and chronic kidney disease with heart failure and stage 1 through stage 4 chronic kidney disease, or unspecified chronic kidney disease (principal); I50.33 Acute on chronic diastolic (congestive) heart failure; J96.11 Chronic respiratory failure with hypoxia; J98.11 Atelectasis; K51.90 Ulcerative colitis, unspecified, without complications; Z68.41 Body mass index [BMI] 40.0-44.9, adult; E11.22 Type 2 diabetes mellitus with diabetic chronic kidney disease; E11.43 Type 2 diabetes mellitus with diabetic autonomic (poly)neuropathy; E66.01 Morbid (severe) obesity due to excess calories; E78.5 Hyperlipidemia, unspecified; G47.33 Obstructive sleep apnea (adult) (pediatric); H40.9 Unspecified glaucoma; I35.0 Nonrheumatic aortic (valve) stenosis; I48.0 Paroxysmal atrial fibrillation; I87.2 Venous insufficiency (chronic) (peripheral); I95.1 Orthostatic hypotension; J44.9 Chronic obstructive pulmonary disease, unspecified; K21.9 Gastro-esophageal reflux disease without esophagitis; M15.9 Polyosteoarthritis, unspecified; M79.7 Fibromyalgia; N18.9 Chronic kidney disease, unspecified; Z74.01 Bed confinement status; Z79.4 Long term (current) use of insulin; Z79.899 Other long term (current) drug therapy; Z82.3 Family history of stroke; Z82.49 Family history of ischemic heart disease and other diseases of the circulatory system; Z86.73 Personal history of transient ischemic attack (TIA), and cerebral infarction without residual deficits; Z87.891 Personal history of nicotine dependence; Z90.710 Acquired absence of both cervix and uterus; Z91.81 History of falling; Z96.1 Presence of intraocular lens; Z99.81 Dependence on supplemental oxygen; Z98.42 Cataract extraction status, left eye; Z98.41 Cataract extraction status, right eye; Z98.84 Bariatric surgery status; R13.10 Dysphagia, unspecified; Z79.02 Long term (current) use of antithrombotics/antiplatelets; Z79.891 Long term (current) use of opiate analgesic; R33.9 Retention of urine, unspecified; G43.909 Migraine, unspecified, not intractable, without status migrainosus
CPT/HCPCS: 36415; 71046; 71275; 80048; 80053; 82550; 82553; 83735; 83880; 84484; 85025; 85610; 85730; 87040; 93306; 94640; 94760; 96374; 99285

== ENCOUNTER 2018-03-29 22:24 | Emergency (ER) | payer MEDICARE, BC ==
[2018-03-29] MEDS ORDERED: MORPHINE SULFATE 4 MG/ML SYRINGE IVP STA (22:47)
--- NOTE | 2018-03-29 23:21 | ED ---
Fall HPI - General Chief Complaint: Fall Stated Complaint: FALL Time Seen by Provider: 03/29/18 22:34 Source: patient, EMS, RN notes reviewed Mode of arrival: EMS Limitations: physical limitation - History of Present Illness Initial Comments: 77-year-old female presents emergency from via EMS from [facility] for a fall. She states that she was on her scooter went to lean forward to pecan picker a bag and states that she fell. Patient went of right knee right foot pain, low back pain and neck discomfort. She states that she did not hit her head or pass out. Patient denies any patient denies any upper extremity injury. Patient states she does take Gaviscon for chronic pain states that she still is in severe pain. Patient denies any blurred vision, focal weakness. - Related Data Home Medications Medication Instructions Recorded Confirmed Clopidogrel [Plavix] 75 mg PO HS@2100 10/19/14 03/29/18 Levothyroxine Sodium [Synthroid] 175 mcg PO MOWEFR@0600 10/19/14 03/29/18 Sennosides [Senna] 17.2 mg PO BID@04/09/17 03/29/18 DULoxetine HCL [Cymbalta] 60 mg PO BID@,12/08/17 03/29/18 Allopurinol [Zyloprim] 200 mg PO DAILY@89903/29/18 03/29/18 Bethanechol Chloride [Urecholine] 25 mg PO QID@00,06,,03/29/18 03/29/18 Fludrocortisone [Florinef] 0.1 mg PO BID@,03/29/18 03/29/18 Furosemide [Lasix] 40 mg PO BID@,03/29/18 03/29/18 HYDROcodone/APAP 5-325MG [[place] 1 tab PO Q6HR PRN 03/29/18 03/29/18 5-325] Levothyroxine Sodium [Synthroid] 150 mcg PO SUTUTHSA@59903/29/18 03/29/18 Midodrine HCl [ProAmatine] 10 mg PO TID@,,03/29/18 03/29/18 Ondansetron [Zofran] 4 mg PO DAILY@59903/29/18 03/29/18 Ondansetron [Zofran] 4 mg PO Q8H PRN 03/29/18 03/29/18 Pantoprazole Sodium [Protonix] 20 mg PO DAILY@89903/29/18 03/29/18 Potassium Chloride ER [K-Dur 10] 10 meq PO HS@209903/29/18 03/29/18 Potassium Chloride ER [K-Dur 10] 20 meq PO DAILY@89903/29/18 03/29/18 Pregabalin [Lyrica] 75 mg PO BID@03/29/18 03/29/18 Pyridoxine [Vitamin B-6] 50 mg PO DAILY@89903/29/18 03/29/18 Spironolactone [Aldactone] 50 mg PO DAILY@59903/29/18 03/29/18 Tamsulosin [Flomax] 0.4 mg PO HS@209903/29/18 03/29/18 Temazepam 7.5 mg PO HS@229903/29/18 03/29/18 methylPREDNISolone Dose Pack See Taper PO DIRECTED 03/29/18 03/29/18 [Medrol Dose Pack] oxyCODONE ER [OxyCONTIN] 15 mg PO BID@03/29/18 03/29/18 rOPINIRole HCL [Requip] 0.75 mg PO HS@209903/29/18 03/29/18 Allergies Allergy/AdvReac Type Severity Reaction Status Date / Time Penicillins Allergy Rash/Hives Verified 03/29/18 22:29 metolazone [From Zaroxolyn] AdvReac Severe Vertigo Verified 03/29/18 22:29 celecoxib [From Celebrex] AdvReac Nausea & Verified 03/29/18 22:29 Vomiting colchicine AdvReac Nausea & Verified 03/29/18 22:29 Vomiting metoclopramide [From Reglan] AdvReac TREMORS Verified 03/29/18 22:29 Review of Systems ROS Statement: Those systems with pertinent positive or pertinent negative responses have been documented in the HPI. ROS Other: All systems not noted in ROS Statement are negative. Past Medical History Past Medical History: Atrial Fibrillation, Asthma, Heart Failure, COPD, CVA/TIA , Diabetes Mellitus, Fibromyalgia, GERD/Reflux, Hyperlipidemia, Hypertension, Osteoarthritis (OA), Pneumonia, Renal Disease, Respiratory Disorder, Skin Disorder, Sleep Apnea/CPAP/BIPAP, Syncope, Thyroid Disorder Additional Past Medical History / Comment(s): Chronic respiratory failure with home O2 at 3-4L/NC, CAMILA with CPap, enlarged heart, murmur, 2004 CVA-no residual , TIAs, IDDM type II, neuropathy bilateral hands at times and feet, difficulty swallowing and has had testing done-told d/t prior gastroplasty, CKD-has seen Dr. Meyer in the past, anemia, past abdominal flap wound recently healed, gets "blood blisters" on buttocks, chronic venous and lymphagitis stasis arms/legs with recurrent cellulitis in legs-worse on R leg, ulcerative colitis, psoriaisis R scalp, migraines, constipation-takes Rx, past low back vertebral fracture, bilateral eye glaucoma with laser surgery. History of Any Multi-Drug Resistant Organisms: MRSA Date of last positivie culture/infection: 01/09/18 MDRO Source:: MRSA URINE Past Surgical History: Bariatric Surgery, Cholecystectomy, Heart Catheterization , Hysterectomy, Orthopedic Surgery Additional Past Surgical History / Comment(s): Gastroplasty, then Arnaud-en-Y, cardiac cath-no intervention, laser eye surgery bilateral eyes for glaucoma, cataracts removed with lens implants bilaterally, EGDs, colonoscopies-benign polypectomy, rectal fissure repair, D&C x2, R leg mole removal, L heel spur surgery, varicose vein stripping. Past Anesthesia/Blood Transfusion Reactions: No Reported Reaction Past Psychological History: Anxiety, Depression Smoking Status: Former smoker - Past Family History Sister(s) Family Medical History: Deep Vein Thrombosis (DVT) Father Family Medical History: CVA/TIA, Myocardial Infarction ([place]) Additional Family Medical History / Comment(s): Father of a [place] at the age of 59yrs. Mother Family Medical History: No Reported History Additional Family Medical History / Comment(s): AT AGE 85 General Exam Limitations: physical limitation General appearance: alert, in no apparent distress Eye exam: Present: normal appearance, PERRL, EOMI. Absent: scleral icterus, conjunctival injection, periorbital swelling ENT exam: Present: normal exam, normal oropharynx, mucous membranes moist Neck exam: Present: normal inspection, tenderness, full ROM. Absent: meningismus, lymphadenopathy Respiratory exam: Present: normal lung sounds bilaterally. Absent: respiratory distress, wheezes, rales, rhonchi, stridor, chest wall tenderness Cardiovascular Exam: Present: regular rate, normal rhythm, normal heart sounds. Absent: systolic murmur, diastolic murmur, rubs, gallop, clicks GI/Abdominal exam: Present: soft, normal bowel sounds. Absent: distended, tenderness, guarding, rebound, rigid Extremities exam: Present: normal inspection, tenderness (Tenderness to the right knee, right foot in the last deformity neurovascular intact, upper extremity exam within normal limits). Absent: full ROM Back exam: Present: normal inspection, tenderness, paraspinal tenderness. Absent: full ROM, vertebral tenderness Neurological exam: Present: alert, oriented X3, CN II-XII intact, reflexes normal. Absent: motor sensory deficit Skin exam: Present: warm, dry, intact, normal color. Absent: rash Course Vital Signs 03/29/18 03/30/18 22:30 00:37 Temperature 98.3 F Pulse Rate 75 76 Respiratory 17 18 Rate Blood Pressure 208/97 194/92 O2 Sat by Pulse 100 100 Oximetry Medical Decision Making - Medical Decision Making 77-year-old female presented emergency department chief complaint of fall. Patient had CT of brain, C-spine, lumbar spine, lower extremities. Patient images were reviewed there are no acute fractures. Patient is stable to be discharged back to [facility] and return parameters were discussed. Disposition Clinical Impression: Fall, Back pain, Leg pain Disposition: HOME SELF-CARE Condition: Stable Instructions: Fall Prevention for Older Adults (ED) Additional Instructions: Please return to the Emergency Department if symptoms worsen or any other concerns. Is patient prescribed a controlled substance at d/c from ED?: No Referrals: Luke Davis MD [Primary Care Provider] - 1-2 days Time of Disposition: 00:50
--- NOTE | 2018-03-30 00:06 | CT ---
EXAMINATION TYPE: CT lumbar spine wo con DATE OF EXAM: 03/29/2018 11:50 PM COMPARISON: None HISTORY: fall from wheelchair, evaluate for trauma, most pain to back near waist CT DLP: 2609.60 mGycm Automated exposure control for dose reduction was used. Unenhanced CT of the lumbar spine was performed. Bone and soft tissue window settings are submitted as well as coronal and sagittal reconstructions. There is osteopenia. There is narrowing of the L4-5 disc space. Abdominal aorta is atheromatous. Ther e is no compression fracture. The sacroiliac joints appear intact. Exam is limited slightly by motion artifact. There is probably L4-5 bony spinal stenosis. There is probably L3-4 bony spinal stenosis. There is no lumbar paraspinal mass. IMPRESSION: Moderate spondylosis at L4-5. There is probably some bony spinal stenosis at L3-4 L4-5. No compressio n fracture seen.
--- NOTE | 2018-03-30 00:10 | CT ---
EXAMINATION TYPE: CT brain howie durand DATE OF EXAM: 03/29/2018 COMPARISON: 08/29/2017 HISTORY: fall from wheelchair, evaluate for trauma, most pain to back near waist CT DLP: 1605.60 mGycm Automated exposure control for dose reduction was used. TECHNIQUE: CT scan of the head and cervical spine are performed without contrast. FINDINGS: There is cerebral cortical atrophy. There is no mass effect nor midline shift. There is n o sign of intracranial hemorrhage. The calvarium is intact. There is some straightening of the cervical spine. There is disc space narrowing at C4-5 C5-6 C6-7 wi th spurring of the endplates. There is hypertrophic facet arthropathy throughout the cervical spine. The skull base appears intact. IMPRESSION: Moderate spondylosis in the mid and lower cervical spine. No fracture. Cerebral cortical atrophy. No acute intracranial abnormality. Brain appears unchanged compared to 08/11.
--- NOTE | 2018-03-30 00:11 | XR ---
EXAMINATION TYPE: XR foot complete RT DATE OF EXAM: 03/29/2018 COMPARISON: NONE HISTORY: Right foot pain TECHNIQUE: 3 views FINDINGS: There is soft tissue swelling of the forefoot. There is a plantar calcaneal spur. There is mild hammertoe deformity. I see no fracture nor dislocation. IMPRESSION: Soft tissue swelling. No fracture seen.
--- NOTE | 2018-03-30 00:13 | XR ---
EXAMINATION TYPE: XR knee limited bilateral DATE OF EXAM: 03/29/2018 COMPARISON: NONE HISTORY: Knee pain TECHNIQUE: 4 views 2 views each knee. FINDINGS: There is moderate narrowing of the medial joint space. There is spurring of the medial femo ral and tibial condyles. There is more severe narrowing of the medial joint space of the right knee. I see no fracture. There is no sign of a joint effusion. There is narrowing of patellofemoral joint s pace. IMPRESSION: Osteoarthritic hypertrophic changes that are worse in the right knee. No fracture.
[2018-03-30 00:39] VITALS: BP 194/92; PULSE 76; RESP 18
[2018-03-30] MEDS ORDERED: MORPHINE SULFATE 4 MG/ML SYRINGE IVP STA (00:52)
[2018-03-30 01:27] VITALS: TEMP 97.9
== END 2018-03-30 01:26 | disposition home or self-care (01) ==
LOC: EC 22:24
DX: M54.5 Low back pain (principal); M25.561 Pain in right knee; M79.671 Pain in right foot; N18.9 Chronic kidney disease, unspecified; I13.0 Hypertensive heart and chronic kidney disease with heart failure and stage 1 through stage 4 chronic kidney disease, or unspecified chronic kidney disease; I50.9 Heart failure, unspecified; E11.22 Type 2 diabetes mellitus with diabetic chronic kidney disease; J96.10 Chronic respiratory failure, unspecified whether with hypoxia or hypercapnia; E11.40 Type 2 diabetes mellitus with diabetic neuropathy, unspecified; K51.90 Ulcerative colitis, unspecified, without complications; K21.9 Gastro-esophageal reflux disease without esophagitis; E07.9 Disorder of thyroid, unspecified; F32.9 Major depressive disorder, single episode, unspecified; G47.33 Obstructive sleep apnea (adult) (pediatric); M19.90 Unspecified osteoarthritis, unspecified site; F41.9 Anxiety disorder, unspecified; Z87.891 Personal history of nicotine dependence; Z88.0 Allergy status to penicillin; Z88.6 Allergy status to analgesic agent; Z88.8 Allergy status to other drugs, medicaments and biological substances; Z79.02 Long term (current) use of antithrombotics/antiplatelets; Z79.52 Long term (current) use of systemic steroids; Z79.891 Long term (current) use of opiate analgesic; Z79.899 Other long term (current) drug therapy; Z86.14 Personal history of Methicillin resistant Staphylococcus aureus infection; Z86.73 Personal history of transient ischemic attack (TIA), and cerebral infarction without residual deficits; Z99.81 Dependence on supplemental oxygen; Z99.89 Dependence on other enabling machines and devices; W05.0XXA Fall from non-moving wheelchair, initial encounter; Y93.89 Activity, other specified; Y92.129 Unspecified place in nursing home as the place of occurrence of the external cause
CPT/HCPCS: 73560; 73630; 72125; 72131; 70450; 99284; 96374; 96376; J2270 ×2

== ENCOUNTER 2018-06-15 07:39 | Emergency (ER) | payer MEDICARE, BC ==
[2018-06-15 07:44] LABS: Glucose,Whole Blood 92 mg/dL (75-99)
[2018-06-15 07:53] VITALS: RESP 20
--- NOTE | 2018-06-15 07:54 | ED ---
General Adult HPI - General Stated complaint: hypoglycemia Time Seen by Provider: 06/15/18 07:40 Source: RN notes reviewed - History of Present Illness Initial comments: This is a 77-year-old female who presents to the emergency department by EMS. Patient was at a us[facility] when she was found unresponsive they did a blood sugar and it was extremely low at which point in time she was given a glucagon injection and by the time EMS arrived she was alert and oriented 4 with a sugar of 69. Patient in route had a repeat sugar goes over 100. Patient currently has no complaints however EMS thought she had a little gargling and because she was foaming at the mouth according to the staff they were concerned that she had aspiration. Patient currently denies any chest pain difficulty breathing or shortness of breath. Patient denies any cough. Patient states lying in bed here she has no complaints at all. Patient denies any abdominal pain. Patient denies nausea vomiting diarrhea. Patient states she did not eat a snack last night after dinner and that is why she probably has a little sugar according to her. - Related Data Home Medications Medication Instructions Recorded Confirmed Clopidogrel [Plavix] 75 mg PO HS@209910/19/14 06/15/18 Sennosides [Senna] 17.2 mg PO BID@0900,2100 04/09/17 06/15/18 DULoxetine HCL [Cymbalta] 60 mg PO BID@0900,1700 12/08/17 06/15/18 Allopurinol [Zyloprim] 200 mg PO DAILY@0900 03/29/18 06/15/18 Bethanechol Chloride [Urecholine] 25 mg PO QID@00,0600,,03/29/18 06/15/18 Fludrocortisone [Florinef] 0.1 mg PO BID@0900,1700 03/29/18 06/15/18 Furosemide [Lasix] 40 mg PO BID@0900,1400 03/29/18 06/15/18 HYDROcodone/APAP 5-325MG [[place] 1 tab PO Q6HR PRN 03/29/18 06/15/18 5-325] Levothyroxine Sodium [Synthroid] 150 mcg PO SUTUTHSA@0600 03/29/18 06/15/18 Midodrine HCl [ProAmatine] 10 mg PO TID@0900,1300,2100 19/18 12/06/18 Ondansetron [Zofran] 4 mg PO DAILY@59903/29/18 06/15/18 Ondansetron [Zofran] 4 mg PO Q8H PRN 03/29/18 06/15/18 Pantoprazole Sodium [Protonix] 20 mg PO DAILY@89903/29/18 06/15/18 Potassium Chloride ER [K-Dur 10] 10 meq PO HS@209903/29/18 06/15/18 Potassium Chloride ER [K-Dur 10] 20 meq PO DAILY@89903/29/18 06/15/18 Pregabalin [Lyrica] 75 mg PO BID@09,209903/29/18 06/15/18 Pyridoxine [Vitamin B-6] 50 mg PO DAILY@89903/29/18 06/15/18 Spironolactone [Aldactone] 50 mg PO DAILY@59903/29/18 06/15/18 Tamsulosin [Flomax] 0.4 mg PO HS@209903/29/18 06/15/18 Temazepam 7.5 mg PO HS@229903/29/18 06/15/18 INSULIN LISPRO (HumaLOG) [HumaLOG] 3 unit SQ BID 06/15/18 06/15/18 Insulin Detemir [Levemir] 12 unit SQ HS@209906/15/18 06/15/18 Levothyroxine Sodium [Synthroid] 125 mcg PO MOWEFR@59906/15/18 06/15/18 Morphine Sulfate ER [Ms Contin] 15 mg PO BID@09,209906/15/18 06/15/18 rOPINIRole HCL [Requip] 1 mg PO HS@209906/15/18 06/15/18 Allergies Allergy/AdvReac Type Severity Reaction Status Date / Time Penicillins Allergy Rash/Hives Verified 06/15/18 08:22 metolazone [From Zaroxolyn] AdvReac Severe Vertigo Verified 06/15/18 08:22 celecoxib [From Celebrex] AdvReac Nausea & Verified 06/15/18 08:22 Vomiting colchicine AdvReac Nausea & Verified 06/15/18 08:22 Vomiting metoclopramide [From Reglan] AdvReac TREMORS Verified 06/15/18 08:22 Review of Systems ROS Statement: Those systems with pertinent positive or pertinent negative responses have been documented in the HPI. ROS Other: All systems not noted in ROS Statement are negative. Past Medical History Past Medical History: Atrial Fibrillation, Asthma, Heart Failure, COPD, CVA/TIA , Diabetes Mellitus, Fibromyalgia, GERD/Reflux, Hyperlipidemia, Hypertension, Osteoarthritis (OA), Pneumonia, Renal Disease, Respiratory Disorder, Skin Disorder, Sleep Apnea/CPAP/BIPAP, Syncope, Thyroid Disorder Additional Past Medical History / Comment(s): Chronic respiratory failure with home O2 at 3-4L/NC, CAMILA with CPap, enlarged heart, murmur, 2004 CVA-no residual , TIAs, IDDM type II, neuropathy bilateral hands at times and feet, difficulty swallowing and has had testing done-told d/t prior gastroplasty, CKD-has seen Dr. Meyer in the past, anemia, past abdominal flap wound recently healed, gets "blood blisters" on buttocks, chronic venous and lymphagitis stasis arms/legs with recurrent cellulitis in legs-worse on R leg, ulcerative colitis, psoriaisis R scalp, migraines, constipation-takes Rx, past low back vertebral fracture, bilateral eye glaucoma with laser surgery. History of Any Multi-Drug Resistant Organisms: MRSA Date of last positivie culture/infection: 01/09/18 MDRO Source:: MRSA URINE Past Surgical History: Bariatric Surgery, Cholecystectomy, Heart Catheterization , Hysterectomy, Orthopedic Surgery Additional Past Surgical History / Comment(s): Gastroplasty, then Arnaud-en-Y, cardiac cath-no intervention, laser eye surgery bilateral eyes for glaucoma, cataracts removed with lens implants bilaterally, EGDs, colonoscopies-benign polypectomy, rectal fissure repair, D&C x2, R leg mole removal, L heel spur surgery, varicose vein stripping. Past Anesthesia/Blood Transfusion Reactions: No Reported Reaction Past Psychological History: Anxiety, Depression Smoking Status: Former smoker - Past Family History Sister(s) Family Medical History: Deep Vein Thrombosis (DVT) Father Family Medical History: CVA/TIA, Myocardial Infarction ([place]) Additional Family Medical History / Comment(s): Father of a [place] at the age of 59yrs. Mother Family Medical History: No Reported History Additional Family Medical History / Comment(s): AT AGE 85 General Exam - General Exam Comments Initial Comments: GENERAL: Patient is well-developed and well-nourished. Patient is nontoxic and well- hydrated and is in no acute distress. ENT: Neck is soft and supple. No significant lymphadenopathy is noted. Oropharynx is clear. Moist mucous membranes. Neck has full range of motion without eliciting any pain. EYES: The sclera were anicteric and conjunctiva were pink and moist. Extraocular movements were intact and pupils were equal round and reactive to light. Eyelids were unremarkable. PULMONARY: Unlabored respirations. Good breath sounds bilaterally. No audible rales rhonchi or wheezing was noted. CARDIOVASCULAR: There is a regular rate and rhythm without any murmurs gallops or rubs. ABDOMEN: Soft and nontender with normal bowel sounds. Morbidly obese SKIN: Skin is clear with no lesions or rashes and otherwise unremarkable. NEUROLOGIC: Patient is alert and oriented x3. Cranial nerves II through XII are grossly intact. Patient moves both of her legs and states this is her baseline movement. Normal speech, volume and content. Symmetrical smile. MUSCULOSKELETAL: Patient moves all 4 extremities. 2+ edema LYMPHATICS: No significant lymphadenopathy is noted PSYCHIATRIC: Normal psychiatric evaluation. Course Vital Signs 06/15/18 06/15/18 07:45 08:19 Temperature 97.1 F L Pulse Rate 70 Respiratory 20 20 Rate Blood Pressure 116/71 O2 Sat by Pulse 97 Oximetry Medical Decision Making - Medical Decision Making EKG shows a sinus rhythm at 70 bpm RI interval is 186 QRS is 94 Q-T intervals 428 QTC is 487. Patient's EKG shows occasional PACs. Chest x-ray shows no acute abnormality. Patient remained asymptomatic throughout the ED stay. - Lab Data Result diagrams: 06/15/18 08:05 06/15/18 08:05 Lab Results 06/15/18 06/15/18 06/15/18 Range/Units 07:42 08:05 08:05 WBC 9.5 (3.8-10.6) k/uL RBC 4.35 (3.80-5.40) m/uL Hgb 12.8 (11.4-16.0) gm/dL Hct 40.3 (34.0-46.0) % MCV 92.5 (80.0-100.0) fL MCH 29.3 (25.0-35.0) pg MCHC 31.7 (31.0-37.0) g/dL RDW 16.0 H (11.5-15.5) % Plt Count 182 (150-450) k/uL Neutrophils % 85 % Lymphocytes % 9 % Monocytes % 3 % Eosinophils % 1 % Basophils % 0 % Neutrophils # 8.1 H (1.3-7.7) k/uL Lymphocytes # 0.9 L (1.0-4.8) k/uL Monocytes # 0.3 (0-1.0) k/uL Eosinophils # 0.1 (0-0.7) k/uL Basophils # 0.0 (0-0.2) k/uL PT (9.0-12.0) sec INR (<1.2) APTT (22.0-30.0) sec Sodium (137-145) mmol/L Potassium (3.5-5.1) mmol/L Chloride (98-107) mmol/L Carbon Dioxide (22-30) mmol/L Anion Gap mmol/L BUN (7-17) mg/dL Creatinine (0.52-1.04) mg/dL Est GFR (CKD-EPI)AfAm (>60 ml/min/1.73 sqM) Est GFR (CKD-EPI)NonAf (>60 ml/min/1.73 sqM) Glucose (74-99) mg/dL POC Glucose (mg/dL) 92 (75-99) mg/dL POC Glu Stuffed Casing Tier ID Braden Bensonn Calcium (8.4-10.2) mg/dL Magnesium (1.6-2.3) mg/dL Total Bilirubin (0.2-1.3) mg/dL AST (14-36) U/L ALT (9-52) U/L Alkaline Phosphatase (38-126) U/L Total Creatine Kinase <20 L (30-135) U/L CK-MB (CK-2) 0.9 (0.0-2.4) ng/mL CK-MB (CK-2) Rel Index Troponin I <0.012 (0.000-0.034) ng/mL NT-Pro-B Natriuret Pep pg/mL Total Protein (6.3-8.2) g/dL Albumin (3.5-5.0) g/dL Urine Color Urine Appearance (Clear) Urine pH (5.0-8.0) Ur Specific [place] (1.001-1.035) Urine Protein (Negative) Urine Glucose (UA) (Negative) Urine Ketones (Negative) Urine Blood (Negative) Urine Nitrite (Negative) Urine Bilirubin (Negative) Urine Urobilinogen (<2.0) mg/dL Ur Leukocyte Esterase (Negative) 06/15/18 06/15/18 06/15/18 Range/Units 08:05 08:05 08:05 WBC (3.8-10.6) k/uL RBC (3.80-5.40) m/uL Hgb (11.4-16.0) gm/dL Hct (34.0-46.0) % MCV (80.0-100.0) fL MCH (25.0-35.0) pg MCHC (31.0-37.0) g/dL RDW (11.5-15.5) % Plt Count (150-450) k/uL Neutrophils % % Lymphocytes % % Monocytes % % Eosinophils % % Basophils % % Neutrophils # (1.3-7.7) k/uL Lymphocytes # (1.0-4.8) k/uL Monocytes # (0-1.0) k/uL Eosinophils # (0-0.7) k/uL Basophils # (0-0.2) k/uL PT 10.6 (9.0-12.0) sec INR 1.0 (<1.2) APTT 27.3 (22.0-30.0) sec Sodium 139 (137-145) mmol/L Potassium 3.8 (3.5-5.1) mmol/L Chloride 104 (98-107) mmol/L Carbon Dioxide 30 (22-30) mmol/L Anion Gap 5 mmol/L BUN 30 H (7-17) mg/dL Creatinine 1.08 H (0.52-1.04) mg/dL Est GFR (CKD-EPI)AfAm 58 (>60 ml/min/1.73 sqM) Est GFR (CKD-EPI)NonAf 50 (>60 ml/min/1.73 sqM) Glucose 99 (74-99) mg/dL POC Glucose (mg/dL) (75-99) mg/dL POC Glu Stuffed Casing Tier ID Calcium 8.4 (8.4-10.2) mg/dL Magnesium 1.5 L (1.6-2.3) mg/dL Total Bilirubin 0.6 (0.2-1.3) mg/dL AST 29 (14-36) U/L ALT 36 (9-52) U/L Alkaline Phosphatase 114 (38-126) U/L Total Creatine Kinase (30-135) U/L CK-MB (CK-2) (0.0-2.4) ng/mL CK-MB (CK-2) Rel Index Troponin I (0.000-0.034) ng/mL NT-Pro-B Natriuret Pep 840 pg/mL Total Protein 5.3 L (6.3-8.2) g/dL Albumin 2.3 L (3.5-5.0) g/dL Urine Color Urine Appearance (Clear) Urine pH (5.0-8.0) Ur Specific [place] (1.001-1.035) Urine Protein (Negative) Urine Glucose (UA) (Negative) Urine Ketones (Negative) Urine Blood (Negative) Urine Nitrite (Negative) Urine Bilirubin (Negative) Urine Urobilinogen (<2.0) mg/dL Ur Leukocyte Esterase (Negative) 06/15/18 Range/Units 08:05 WBC (3.8-10.6) k/uL RBC (3.80-5.40) m/uL Hgb (11.4-16.0) gm/dL Hct (34.0-46.0) % MCV (80.0-100.0) fL MCH (25.0-35.0) pg MCHC (31.0-37.0) g/dL RDW (11.5-15.5) % Plt Count (150-450) k/uL Neutrophils % % Lymphocytes % % Monocytes % % Eosinophils % % Basophils % % Neutrophils # (1.3-7.7) k/uL Lymphocytes # (1.0-4.8) k/uL Monocytes # (0-1.0) k/uL Eosinophils # (0-0.7) k/uL Basophils # (0-0.2) k/uL PT (9.0-12.0) sec INR (<1.2) APTT (22.0-30.0) sec Sodium (137-145) mmol/L Potassium (3.5-5.1) mmol/L Chloride (98-107) mmol/L Carbon Dioxide (22-30) mmol/L Anion Gap mmol/L BUN (7-17) mg/dL Creatinine (0.52-1.04) mg/dL Est GFR (CKD-EPI)AfAm (>60 ml/min/1.73 sqM) Est GFR (CKD-EPI)NonAf (>60 ml/min/1.73 sqM) Glucose (74-99) mg/dL POC Glucose (mg/dL) (75-99) mg/dL POC Glu Stuffed Casing Tier ID Calcium (8.4-10.2) mg/dL Magnesium (1.6-2.3) mg/dL Total Bilirubin (0.2-1.3) mg/dL AST (14-36) U/L ALT (9-52) U/L Alkaline Phosphatase (38-126) U/L Total Creatine Kinase (30-135) U/L CK-MB (CK-2) (0.0-2.4) ng/mL CK-MB (CK-2) Rel Index Troponin I (0.000-0.034) ng/mL NT-Pro-B Natriuret Pep pg/mL Total Protein (6.3-8.2) g/dL Albumin (3.5-5.0) g/dL Urine Color Yellow Urine Appearance Clear (Clear) Urine pH 5.0 (5.0-8.0) Ur Specific [place] 1.010 (1.001-1.035) Urine Protein Negative (Negative) Urine Glucose (UA) Negative (Negative) Urine Ketones Negative (Negative) Urine Blood Negative (Negative) Urine Nitrite Negative (Negative) Urine Bilirubin Negative (Negative) Urine Urobilinogen <2.0 (<2.0) mg/dL Ur Leukocyte Esterase Negative (Negative) Disposition Clinical Impression: Hypoglycemia Disposition: HOME SELF-CARE Condition: Good Instructions: Hypoglycemia in a Person with Diabetes (ED) Additional Instructions: Patient needs to eat meals on a regular basis and snacks as scheduled. Is patient prescribed a controlled substance at d/c from ED?: No Referrals: Luke Davis MD [Primary Care Provider] - 1-2 days Time of Disposition: 09:32
[2018-06-15 08:41] LABS: Basophils % (A) 0 %; Eosinophils # (A) 0.1 k/uL (0-0.7); Eosinophils % (A) 1 %; HCT 40.3 % (34.0-46.0); HGB 12.8 gm/dL (11.4-16.0); Lymphocytes # (A) 0.9 k/uL (1.0-4.8); Lymphocytes % (A) 9 %; MCH 29.3 pg (25.0-35.0); MCHC 31.7 g/dL (31.0-37.0); MCV 92.5 fL (80.0-100.0); Monocytes # (A) 0.3 k/uL (0-1.0); Monocytes % (A) 3 %; Neutrophils # (A) 8.1 k/uL (1.3-7.7); Neutrophils % (A) 85 %; Platelet Count 182 k/uL (150-450); RBC 4.35 m/uL (3.80-5.40); WBC 9.5 k/uL (3.8-10.6)
[2018-06-15 08:42] LABS: Appearance,Urine Clear (Clear); Bilirubin,Urine Negative (Negative); Blood,Urine Negative (Negative); Color,Urine Yellow; Glucose,Urine (UA) Negative (Negative); Ketones,Urine Negative (Negative); Leukocyte Esterase,Urine Negative (Negative); Nitrite,Urine Negative (Negative); Protein,Urine Negative (Negative); Urobilinogen,Urine <2.0 mg/dL (<2.0)
[2018-06-15 08:51] LABS: Partial Thromboplastin Time 27.3 sec (22.0-30.0); Prothrombin Time 10.6 sec (9.0-12.0)
[2018-06-15 08:52] LABS: Albumin 2.3 g/dL (3.5-5.0); Calcium 8.4 mg/dL (8.4-10.2); Magnesium 1.5 mg/dL (1.6-2.3); Potassium 3.8 mmol/L (3.5-5.1); Total Bilirubin 0.6 mg/dL (0.2-1.3); Total Protein 5.3 g/dL (6.3-8.2)
[2018-06-15 09:01] LABS: Creatine Kinase <20 U/L (30-135)
--- NOTE | 2018-06-15 09:09 | XR ---
EXAMINATION TYPE: XR chest 2V DATE OF EXAM: 06/15/2018 COMPARISON: Prior chest x-ray 12/08/2017 HISTORY: Difficulty breathing TECHNIQUE: Frontal and lateral views of the chest are obtained. FINDINGS: The heart is enlarged. Patient is rotated. No evident pleural effusion or pneumothorax. Pa tchy basilar density is present, interstitium is prominent. IMPRESSION: Correlate to exclude interstitial edema. Rotated exam, cardiomegaly. Probable basilar at electasis. Follow-up PA and lateral chest x-ray may be of benefit.
[2018-06-15 09:14] LABS: Creatine Kinase MB 0.9 ng/mL (0.0-2.4); Troponin I <0.012 ng/mL (0.000-0.034)
[2018-06-15 10:16] VITALS: BP 122/61; PULSE 82; TEMP 97.2
== END 2018-06-15 10:45 | disposition home or self-care (01) ==
LOC: EC 07:39
DX: E11.649 Type 2 diabetes mellitus with hypoglycemia without coma (principal); I48.91 Unspecified atrial fibrillation; I13.0 Hypertensive heart and chronic kidney disease with heart failure and stage 1 through stage 4 chronic kidney disease, or unspecified chronic kidney disease; N18.9 Chronic kidney disease, unspecified; E11.22 Type 2 diabetes mellitus with diabetic chronic kidney disease; I50.9 Heart failure, unspecified; J44.9 Chronic obstructive pulmonary disease, unspecified; M79.7 Fibromyalgia; K21.9 Gastro-esophageal reflux disease without esophagitis; E78.5 Hyperlipidemia, unspecified; M19.90 Unspecified osteoarthritis, unspecified site; E11.40 Type 2 diabetes mellitus with diabetic neuropathy, unspecified; G43.909 Migraine, unspecified, not intractable, without status migrainosus; F41.9 Anxiety disorder, unspecified; F32.9 Major depressive disorder, single episode, unspecified; G47.33 Obstructive sleep apnea (adult) (pediatric); Z99.89 Dependence on other enabling machines and devices; Z86.73 Personal history of transient ischemic attack (TIA), and cerebral infarction without residual deficits; Z86.14 Personal history of Methicillin resistant Staphylococcus aureus infection; Z95.818 Presence of other cardiac implants and grafts; Z87.891 Personal history of nicotine dependence; Z79.02 Long term (current) use of antithrombotics/antiplatelets; Z79.52 Long term (current) use of systemic steroids; Z79.4 Long term (current) use of insulin; Z79.891 Long term (current) use of opiate analgesic; Z88.0 Allergy status to penicillin; Z88.6 Allergy status to analgesic agent; Z88.8 Allergy status to other drugs, medicaments and biological substances
CPT/HCPCS: 36415; 71046; 80053; 81003; 82550; 82553; 83735; 83880; 84484; 85025; 85610; 85730; 93005; 99284

== ENCOUNTER 2018-07-11 04:25 | Inpatient (IN) | payer MEDICARE, BC ==
--- NOTE | 2018-07-11 04:39 | ED ---
Altered Mental Status HPI - General Stated Complaint: altered LOC Time Seen by Provider: 07/11/18 04:32 - History of Present Illness Initial Comments: This is a 77-year-old female with a history of CHF, chronic hypoxic respiratory failure on 3-4 L nasal cannula, CPAP dependence at night with CAMILA, paroxysmal A. fib on Plavix who presents emergency department for mental status changes. The patient reportedly had a fall yesterday however refused any imaging. She has gradually become more altered and lethargic throughout the day. Apparently around 2:30 this morning the patient stopped responding to staff and would not answer questions. The patient did not reportedly have any complaints throughout the day otherwise. She had some type of x-ray of her spine which was reportedly negative. Blood sugar in route was 120s. The patient would arouse to sternal rub per EMS and follow some commands. Patient will not respond to questioning at this time and no other history is able to be obtained. The patient is a DO NOT RESUSCITATE. - Related Data Home Medications Medication Instructions Recorded Confirmed Clopidogrel [Plavix] 75 mg PO HS@209910/19/14 06/15/18 Sennosides [Senna] 17.2 mg PO BID@0900,2100 04/09/17 06/15/18 DULoxetine HCL [Cymbalta] 60 mg PO BID@0900,1700 12/08/17 06/15/18 Allopurinol [Zyloprim] 200 mg PO DAILY@0900 03/29/18 06/15/18 Bethanechol Chloride [Urecholine] 25 mg PO QID@00,0600,,03/29/18 06/15/18 Fludrocortisone [Florinef] 0.1 mg PO BID@0900,1700 03/29/18 06/15/18 Furosemide [Lasix] 40 mg PO BID@0900,1400 03/29/18 06/15/18 HYDROcodone/APAP 5-325MG [Sidney 1 tab PO Q6HR PRN 03/29/18 06/15/18 5-325] Levothyroxine Sodium [Synthroid] 150 mcg PO SUTUTHSA@0600 03/29/18 06/15/18 Midodrine HCl [ProAmatine] 10 mg PO TID@0900,1300,2100 03/29/18 06/15/18 Ondansetron [Zofran] 4 mg PO DAILY@59903/29/18 06/15/18 Ondansetron [Zofran] 4 mg PO Q8H PRN 03/29/18 06/15/18 Pantoprazole Sodium [Protonix] 20 mg PO DAILY@89903/29/18 06/15/18 Potassium Chloride ER [K-Dur 10] 10 meq PO HS@209903/29/18 06/15/18 Potassium Chloride ER [K-Dur 10] 20 meq PO DAILY@89903/29/18 06/15/18 Pregabalin [Lyrica] 75 mg PO BID@899,209903/29/18 06/15/18 Pyridoxine [Vitamin B-6] 50 mg PO DAILY@89903/29/18 06/15/18 Spironolactone [Aldactone] 50 mg PO DAILY@59903/29/18 06/15/18 Tamsulosin [Flomax] 0.4 mg PO HS@209903/29/18 06/15/18 Temazepam 7.5 mg PO HS@229903/29/18 06/15/18 INSULIN LISPRO (HumaLOG) [HumaLOG] 3 unit SQ BID 06/15/18 06/15/18 Insulin Detemir [Levemir] 12 unit SQ HS@209906/15/18 06/15/18 Levothyroxine Sodium [Synthroid] 125 mcg PO MOWEFR@59906/15/18 06/15/18 Morphine Sulfate ER [Ms Contin] 15 mg PO BID@899,209906/15/18 06/15/18 rOPINIRole HCL [Requip] 1 mg PO HS@209906/15/18 06/15/18 Allergies Allergy/AdvReac Type Severity Reaction Status Date / Time Penicillins Allergy Rash/Hives Verified 06/15/18 08:22 metolazone [From Zaroxolyn] AdvReac Severe Vertigo Verified 06/15/18 08:22 celecoxib [From Celebrex] AdvReac Nausea & Verified 06/15/18 08:22 Vomiting colchicine AdvReac Nausea & Verified 06/15/18 08:22 Vomiting metoclopramide [From Reglan] AdvReac TREMORS Verified 06/15/18 08:22 Review of Systems ROS Statement: Those systems with pertinent positive or pertinent negative responses have been documented in the HPI. ROS Other: All systems not noted in ROS Statement are negative. Past Medical History Past Medical History: Atrial Fibrillation, Asthma, Heart Failure, COPD, CVA/TIA , Diabetes Mellitus, Fibromyalgia, GERD/Reflux, Hyperlipidemia, Hypertension, Osteoarthritis (OA), Pneumonia, Renal Disease, Respiratory Disorder, Skin Disorder, Sleep Apnea/CPAP/BIPAP, Syncope, Thyroid Disorder Additional Past Medical History / Comment(s): Chronic respiratory failure with home O2 at 3-4L/NC, CAMILA with CPap, enlarged heart, murmur, 2004 CVA-no residual , TIAs, IDDM type II, neuropathy bilateral hands at times and feet, difficulty swallowing and has had testing done-told d/t prior gastroplasty, CKD-has seen Dr. Meyer in the past, anemia, past abdominal flap wound recently healed, gets "blood blisters" on buttocks, chronic venous and lymphagitis stasis arms/legs with recurrent cellulitis in legs-worse on R leg, ulcerative colitis, psoriaisis R scalp, migraines, constipation-takes Rx, past low back vertebral fracture, bilateral eye glaucoma with laser surgery. History of Any Multi-Drug Resistant Organisms: MRSA Date of last positivie culture/infection: 01/09/18 MDRO Source:: MRSA URINE Past Surgical History: Bariatric Surgery, Cholecystectomy, Heart Catheterization , Hysterectomy, Orthopedic Surgery Additional Past Surgical History / Comment(s): Gastroplasty, then Arnaud-en-Y, cardiac cath-no intervention, laser eye surgery bilateral eyes for glaucoma, cataracts removed with lens implants bilaterally, EGDs, colonoscopies-benign polypectomy, rectal fissure repair, D&C x2, R leg mole removal, L heel spur surgery, varicose vein stripping. Past Anesthesia/Blood Transfusion Reactions: No Reported Reaction Past Psychological History: Anxiety, Depression Smoking Status: Former smoker - Past Family History Sister(s) Family Medical History: Deep Vein Thrombosis (DVT) Father Family Medical History: CVA/TIA, Myocardial Infarction ([place]) Additional Family Medical History / Comment(s): Father of a [place] at the age of 59yrs. Mother Family Medical History: No Reported History Additional Family Medical History / Comment(s): AT AGE 85 General Exam - General Exam Comments Initial Comments: Constitutional: Somnolent Appears comfortable Head: Normocephalic atraumatic Eyes: no conjunctival injection No scleral icterus EOMI, pupils are 3 mm and reactive bilaterally, the patient will look at me when I open her eyelids Neck: No JVD Supple Heart: Regular rate rhythm normal S1-S2 no murmurs Lungs: Clear to auscultation bilaterally No wheezing No rales Abdomen: Soft nondistended nontender, obese Extremities: Non edematous DP pulses intact Radial pulses intact Neuro: The patient is somnolent and will not open her eyes however does appear to be blinking, she will squeeze my hands when asked and attempt to lift her legs up when asked however will not respond to questioning verbally No focal neurologic deficits Psych: Appropriate mood and affect Course Vital Signs 07/11/18 07/11/18 04:29 06:43 Temperature 98.3 F Pulse Rate 87 87 Respiratory 18 19 Rate Blood Pressure 129/77 O2 Sat by Pulse 97 96 Oximetry EKG showing normal sinus rhythm with a rate of 89. There is no abnormal ST segment changes. There is T-wave inversions in V2 and T-wave flattening in V3. QTC is 489. Other intervals normal. There is one PVC present. Medical Decision Making - Medical Decision Making This is a 77-year-old female who presents emergency department for encephalopathy. The patient became more unresponsive throughout the day. The patient was found to have a CO2 of 62. On known baseline however her bicarbonate was also elevated. My suspicion is that the patient has had progressive bleeding worsening hypercapnic respiratory failure and possibly CO2 narcosis. CT of the head was unremarkable. Chest x-ray did show what appeared to be a developing infiltrate and patient was started on antibiotics. The at bedside does state that the patient has been having a significant cough over the last few days. The patient was started on BiPAP which did seem to improve her mental status slightly. However still her encephalopathy is still unclear as to the etiology. I'm going to admit her to the hospital for further evaluation and workup. Dr. Gomez accepts the admission. - Lab Data Result diagrams: 07/11/18 05:00 07/11/18 05:00 Lab Results 07/11/18 07/11/18 07/11/18 Range/Units 05:00 05:00 05:00 WBC 9.0 (3.8-10.6) k/uL RBC 4.14 (3.80-5.40) m/uL Hgb 12.5 (11.4-16.0) gm/dL Hct 38.6 (34.0-46.0) % MCV 93.4 (80.0-100.0) fL MCH 30.1 (25.0-35.0) pg MCHC 32.3 (31.0-37.0) g/dL RDW 15.5 (11.5-15.5) % Plt Count 151 (150-450) k/uL Neutrophils % 71 % Lymphocytes % 22 % Monocytes % 5 % Eosinophils % 1 % Basophils % 0 % Neutrophils # 6.4 (1.3-7.7) k/uL Lymphocytes # 2.0 (1.0-4.8) k/uL Monocytes # 0.4 (0-1.0) k/uL Eosinophils # 0.1 (0-0.7) k/uL Basophils # 0.0 (0-0.2) k/uL APTT (22.0-30.0) sec VBG pH (7.31-7.41) VBG pCO2 (37-51) mmHg VBG HCO3 (24-28) mmol/L Sodium 137 (137-145) mmol/L Potassium 3.5 (3.5-5.1) mmol/L Chloride 92 L (98-107) mmol/L Carbon Dioxide 41 H* (22-30) mmol/L Anion Gap 4 mmol/L BUN 24 H (7-17) mg/dL Creatinine 1.34 H (0.52-1.04) mg/dL Est GFR (CKD-EPI)AfAm 45 (>60 ml/min/1.73 sqM) Est GFR (CKD-EPI)NonAf 39 (>60 ml/min/1.73 sqM) Glucose 110 H (74-99) mg/dL Plasma Lactic Acid Dionicio (0.7-2.0) mmol/L Calcium 7.5 L (8.4-10.2) mg/dL Magnesium 1.4 L (1.6-2.3) mg/dL Total Bilirubin 0.6 (0.2-1.3) mg/dL AST 27 (14-36) U/L ALT 38 (9-52) U/L Alkaline Phosphatase 112 (38-126) U/L Ammonia (<30) umol/L CK-MB (CK-2) (0.0-2.4) ng/mL Troponin I (0.000-0.034) ng/mL NT-Pro-B Natriuret Pep pg/mL Total Protein 5.1 L (6.3-8.2) g/dL Albumin 2.2 L (3.5-5.0) g/dL Lipase 34 (23-300) U/L Urine Color Urine Appearance (Clear) Urine pH (5.0-8.0) Ur Specific [place] (1.001-1.035) Urine Protein (Negative) Urine Glucose (UA) (Negative) Urine Ketones (Negative) Urine Blood (Negative) Urine Nitrite (Negative) Urine Bilirubin (Negative) Urine Urobilinogen (<2.0) mg/dL Ur Leukocyte Esterase (Negative) Urine RBC (0-5) /hpf Urine WBC Clumps (None) /hpf Urine Bacteria (None) /hpf Hyaline Casts (0-2) /lpf Urine Mucus (None) /hpf Salicylates <1.0 mg/dL Blood Type O Negative Blood Type Confirm Blood Type Recheck CABO Indicated Antibody Screen NEGATIVE Spec Expiration Date 07/14/2018 - 229907/11/18 07/11/18 07/11/18 Range/Units 05:00 05:00 05:00 WBC (3.8-10.6) k/uL RBC (3.80-5.40) m/uL Hgb (11.4-16.0) gm/dL Hct (34.0-46.0) % MCV (80.0-100.0) fL MCH (25.0-35.0) pg MCHC (31.0-37.0) g/dL RDW (11.5-15.5) % Plt Count (150-450) k/uL Neutrophils % % Lymphocytes % % Monocytes % % Eosinophils % % Basophils % % Neutrophils # (1.3-7.7) k/uL Lymphocytes # (1.0-4.8) k/uL Monocytes # (0-1.0) k/uL Eosinophils # (0-0.7) k/uL Basophils # (0-0.2) k/uL APTT 22.4 (22.0-30.0) sec VBG pH (7.31-7.41) VBG pCO2 (37-51) mmHg VBG HCO3 (24-28) mmol/L Sodium (137-145) mmol/L Potassium (3.5-5.1) mmol/L Chloride (98-107) mmol/L Carbon Dioxide (22-30) mmol/L Anion Gap mmol/L BUN (7-17) mg/dL Creatinine (0.52-1.04) mg/dL Est GFR (CKD-EPI)AfAm (>60 ml/min/1.73 sqM) Est GFR (CKD-EPI)NonAf (>60 ml/min/1.73 sqM) Glucose (74-99) mg/dL Plasma Lactic Acid Dionicio (0.7-2.0) mmol/L Calcium (8.4-10.2) mg/dL Magnesium (1.6-2.3) mg/dL Total Bilirubin (0.2-1.3) mg/dL AST (14-36) U/L ALT (9-52) U/L Alkaline Phosphatase (38-126) U/L Ammonia (<30) umol/L CK-MB (CK-2) 0.3 (0.0-2.4) ng/mL Troponin I <0.012 (0.000-0.034) ng/mL NT-Pro-B Natriuret Pep 2060 pg/mL Total Protein (6.3-8.2) g/dL Albumin (3.5-5.0) g/dL Lipase (23-300) U/L Urine Color Urine Appearance (Clear) Urine pH (5.0-8.0) Ur Specific [place] (1.001-1.035) Urine Protein (Negative) Urine Glucose (UA) (Negative) Urine Ketones (Negative) Urine Blood (Negative) Urine Nitrite (Negative) Urine Bilirubin (Negative) Urine Urobilinogen (<2.0) mg/dL Ur Leukocyte Esterase (Negative) Urine RBC (0-5) /hpf Urine WBC Clumps (None) /hpf Urine Bacteria (None) /hpf Hyaline Casts (0-2) /lpf Urine Mucus (None) /hpf Salicylates mg/dL Blood Type Blood Type Confirm Blood Type Recheck Antibody Screen Spec Expiration Date 07/11/18 07/11/18 07/11/18 Range/Units 05:06 05:18 05:18 WBC (3.8-10.6) k/uL RBC (3.80-5.40) m/uL Hgb (11.4-16.0) gm/dL Hct (34.0-46.0) % MCV (80.0-100.0) fL MCH (25.0-35.0) pg MCHC (31.0-37.0) g/dL RDW (11.5-15.5) % Plt Count (150-450) k/uL Neutrophils % % Lymphocytes % % Monocytes % % Eosinophils % % Basophils % % Neutrophils # (1.3-7.7) k/uL Lymphocytes # (1.0-4.8) k/uL Monocytes # (0-1.0) k/uL Eosinophils # (0-0.7) k/uL Basophils # (0-0.2) k/uL APTT (22.0-30.0) sec VBG pH 7.41 (7.31-7.41) VBG pCO2 62 H (37-51) mmHg VBG HCO3 38 H (24-28) mmol/L Sodium (137-145) mmol/L Potassium (3.5-5.1) mmol/L Chloride (98-107) mmol/L Carbon Dioxide (22-30) mmol/L Anion Gap mmol/L BUN (7-17) mg/dL Creatinine (0.52-1.04) mg/dL Est GFR (CKD-EPI)AfAm (>60 ml/min/1.73 sqM) Est GFR (CKD-EPI)NonAf (>60 ml/min/1.73 sqM) Glucose (74-99) mg/dL Plasma Lactic Acid Dionicio 1.6 (0.7-2.0) mmol/L Calcium (8.4-10.2) mg/dL Magnesium (1.6-2.3) mg/dL Total Bilirubin (0.2-1.3) mg/dL AST (14-36) U/L ALT (9-52) U/L Alkaline Phosphatase (38-126) U/L Ammonia 19 (<30) umol/L CK-MB (CK-2) (0.0-2.4) ng/mL Troponin I (0.000-0.034) ng/mL NT-Pro-B Natriuret Pep pg/mL Total Protein (6.3-8.2) g/dL Albumin (3.5-5.0) g/dL Lipase (23-300) U/L Urine Color Urine Appearance (Clear) Urine pH (5.0-8.0) Ur Specific [place] (1.001-1.035) Urine Protein (Negative) Urine Glucose (UA) (Negative) Urine Ketones (Negative) Urine Blood (Negative) Urine Nitrite (Negative) Urine Bilirubin (Negative) Urine Urobilinogen (<2.0) mg/dL Ur Leukocyte Esterase (Negative) Urine RBC (0-5) /hpf Urine WBC Clumps (None) /hpf Urine Bacteria (None) /hpf Hyaline Casts (0-2) /lpf Urine Mucus (None) /hpf Salicylates mg/dL Blood Type Blood Type Confirm O Negative Blood Type Recheck Antibody Screen Spec Expiration Date 07/11/18 Range/Units 07:07 WBC (3.8-10.6) k/uL RBC (3.80-5.40) m/uL Hgb (11.4-16.0) gm/dL Hct (34.0-46.0) % MCV (80.0-100.0) fL MCH (25.0-35.0) pg MCHC (31.0-37.0) g/dL RDW (11.5-15.5) % Plt Count (150-450) k/uL Neutrophils % % Lymphocytes % % Monocytes % % Eosinophils % % Basophils % % Neutrophils # (1.3-7.7) k/uL Lymphocytes # (1.0-4.8) k/uL Monocytes # (0-1.0) k/uL Eosinophils # (0-0.7) k/uL Basophils # (0-0.2) k/uL APTT (22.0-30.0) sec VBG pH (7.31-7.41) VBG pCO2 (37-51) mmHg VBG HCO3 (24-28) mmol/L Sodium (137-145) mmol/L Potassium (3.5-5.1) mmol/L Chloride (98-107) mmol/L Carbon Dioxide (22-30) mmol/L Anion Gap mmol/L BUN (7-17) mg/dL Creatinine (0.52-1.04) mg/dL Est GFR (CKD-EPI)AfAm (>60 ml/min/1.73 sqM) Est GFR (CKD-EPI)NonAf (>60 ml/min/1.73 sqM) Glucose (74-99) mg/dL Plasma Lactic Acid Dionicio (0.7-2.0) mmol/L Calcium (8.4-10.2) mg/dL Magnesium (1.6-2.3) mg/dL Total Bilirubin (0.2-1.3) mg/dL AST (14-36) U/L ALT (9-52) U/L Alkaline Phosphatase (38-126) U/L Ammonia (<30) umol/L CK-MB (CK-2) (0.0-2.4) ng/mL Troponin I (0.000-0.034) ng/mL NT-Pro-B Natriuret Pep pg/mL Total Protein (6.3-8.2) g/dL Albumin (3.5-5.0) g/dL Lipase (23-300) U/L Urine Color Yellow Urine Appearance Cloudy H (Clear) Urine pH 8.0 (5.0-8.0) Ur Specific [place] 1.014 (1.001-1.035) Urine Protein 1+ H (Negative) Urine Glucose (UA) Negative (Negative) Urine Ketones Negative (Negative) Urine Blood Trace H (Negative) Urine Nitrite Positive H (Negative) Urine Bilirubin Negative (Negative) Urine Urobilinogen 2.0 (<2.0) mg/dL Ur Leukocyte Esterase Large H (Negative) Urine RBC 4 (0-5) /hpf Urine WBC Clumps Occasional H (None) /hpf Urine Bacteria Many H (None) /hpf Hyaline Casts 4 H (0-2) /lpf Urine Mucus Occasional H (None) /hpf Salicylates mg/dL Blood Type Blood Type Confirm Blood Type Recheck Antibody Screen Spec Expiration Date Disposition Clinical Impression: HCAP (healthcare-associated pneumonia), Encephalopathy, Hypercapnic respiratory failure Disposition: ADMITTED IP TO THIS [facility] Condition: Serious Referrals: Luke Davis MD [Primary Care Provider] - 1-2 days
[2018-07-11] MEDS ORDERED: SODIUM CHLORIDE 0.9% 1,000 ML IV SCH (04:45)
[2018-07-11 05:19] LABS: Basophils % (A) 0 %; Eosinophils # (A) 0.1 k/uL (0-0.7); Eosinophils % (A) 1 %; HCT 38.6 % (34.0-46.0); HGB 12.5 gm/dL (11.4-16.0); Lymphocytes % (A) 22 %; MCH 30.1 pg (25.0-35.0); MCHC 32.3 g/dL (31.0-37.0); MCV 93.4 fL (80.0-100.0); Mean Platelet Volume 7.2; Monocytes # (A) 0.4 k/uL (0-1.0); Monocytes % (A) 5 %; Neutrophils # (A) 6.4 k/uL (1.3-7.7); Neutrophils % (A) 71 %; Platelet Count 151 k/uL (150-450); RBC 4.14 m/uL (3.80-5.40); RDW 15.5 % (11.5-15.5)
[2018-07-11 05:35] LABS: VBG PH 7.41 (7.31-7.41)
[2018-07-11 05:35] LABS: ALT 38 U/L (9-52); AST 27 U/L (14-36); Albumin 2.2 g/dL (3.5-5.0); Alkaline Phosphatase 112 U/L (38-126); Blood Urea Nitrogen 24 mg/dL (7-17); Calcium 7.5 mg/dL (8.4-10.2); Chloride 92 mmol/L (98-107); Glucose 110 mg/dL (74-99); Lipase 34 U/L (23-300); Magnesium 1.4 mg/dL (1.6-2.3); Potassium 3.5 mmol/L (3.5-5.1); Salicylate <1.0 mg/dL; Sodium 137 mmol/L (137-145); Total Bilirubin 0.6 mg/dL (0.2-1.3); Total Protein 5.1 g/dL (6.3-8.2)
[2018-07-11 05:41] LABS: Anion Gap 4 mmol/L
--- NOTE | 2018-07-11 05:42 | CT ---
EXAM: CT Head Without Intravenous Contrast CLINICAL HISTORY: ITS.REASON CT Reason: AMS TECHNIQUE: Axial computed tomography images of the head/brain without intravenous contrast. CTDI is 49.1 mGy and DLP is 1056 mGy-cm. This CT exam was performed using one or more of the following dose reduction techniques: automated exposure control, adjustment of the mA and/or kV according to patient size, and/or use of iterative reconstruction technique. COMPARISON: CT head 03/29/2018. FINDINGS: Brain: Mild global parenchymal volume loss with chronic microvascular ischemic changes. No hemorrhage. Ventricles: Unremarkable. No ventriculomegaly. Bones/joints: Unremarkable. No acute fracture. Soft tissues: Unremarkable. Sinuses: Air-fluid levels in the maxillary sinuses. Mastoid air cells: Unremarkable as visualized. No mastoid effusion. Orbits: Bilateral lens replacement. IMPRESSION: 1. No intracranial hemorrhage or other acute intracranial abnormality. 2. Mild global parenchymal volume loss with chronic microvascular ischemic changes. 3. Air-fluid levels in the maxillary sinuses. Recommend correlation for acute sinusitis.
[2018-07-11 05:45] LABS: Carbon Dioxide 41 mmol/L (22-30)
[2018-07-11 05:46] LABS: Lactic Acid, Venous 1.6 mmol/L (0.7-2.0)
[2018-07-11 05:58] LABS: Creatine Kinase MB 0.3 ng/mL (0.0-2.4); Troponin I <0.012 ng/mL (0.000-0.034)
--- NOTE | 2018-07-11 06:35 | XR ---
EXAM: XR Chest, 1 View CLINICAL HISTORY: Its. reason XR Reason: AMS TECHNIQUE: Frontal view of the chest. COMPARISON: 06/15/18 FINDINGS: Lungs: Increasing streaky density in the right lung base. Prominent interstitial markings, overall improved. Low lung volumes accentuate lung markings. Pleural space: Unremarkable. No pneumothorax. Heart: Enlarged cardiopericardial silhouette, unchanged. Mediastinum: Unremarkable. Bones/joints: Unremarkable. Vasculature: Tortuous calcified thoracic aorta is seen. IMPRESSION: Slight worsening right basilar atelectasis versus developing infiltrate. Slight improvement of edema/congestion. Stable cardiomegaly
[2018-07-11] MEDS ORDERED: CEFEPIME 1 GM in SODIUM CHLORIDE 0.9% 50 ML IVPB STA (07:08)
[2018-07-11] MEDS ORDERED: VANCOMYCIN IV PER PHARMACY 1 EACH MISC MISCELLANE PRN (07:08)
[2018-07-11] MEDS ORDERED: VANCOMYCIN 1,750 MG in SODIUM CHLORIDE 0.9% 500 ML 500 ML IVPB ONE (07:30)
[2018-07-11 07:34] LABS: Appearance,Urine Cloudy (Clear); Bacteria,Urine Many /hpf; Bilirubin,Urine Negative (Negative); Blood,Urine Trace (Negative); Color,Urine Yellow; Glucose,Urine (UA) Negative (Negative); Hyaline Casts,Urine 4 /lpf (0-2); Ketones,Urine Negative (Negative); Leukocyte Esterase,Urine Large (Negative); Mucus,Urine Occasional /hpf; Nitrite,Urine Positive (Negative); Protein,Urine 1+ (Negative); RBC,Urine 4 /hpf (0-5); Specific Gravity,Urine 1.014 (1.001-1.035)
[2018-07-11] MEDS ORDERED: NALOXONE 0.4 MG/ML 1 ML VIAL IV PRN (07:40)
[2018-07-11] MEDS: MAGNESIUM SULFATE-D5W PMX 1 GM in DEXTROSE/WATER 1 100ML.BAG IVPB SCH ×2 (09:04→10:19)
[2018-07-11 13:10] LABS: Creatine Kinase 23 U/L (30-135)
[2018-07-11 13:22] LABS: Creatine Kinase MB <0.2 ng/mL (0.0-2.4); Troponin I <0.012 ng/mL (0.000-0.034)
[2018-07-11] MEDS: FLUDROCORTISONE 0.1 MG TAB PO SCH (17:30)
[2018-07-11] MEDS: DULoxetine HCL 60 MG CAPSULE.DR PO SCH (17:30)
[2018-07-11] MEDS: LEVOTHYROXINE 125 MCG TAB PO SCH (17:30)
[2018-07-11 19:02] LABS: Creatine Kinase <20 U/L (30-135)
[2018-07-11 19:16] LABS: Creatine Kinase MB <0.2 ng/mL (0.0-2.4); Troponin I <0.012 ng/mL (0.000-0.034)
[2018-07-11 20:52] LABS: Glucose,Whole Blood 89 mg/dL (75-99)
[2018-07-11] MEDS: INSULIN ASPART 100 UNIT/ML 1 ML 10 ML VIAL SQ SCH (20:53)
[2018-07-11] MEDS: CEFEPIME 1 GM in SODIUM CHLORIDE 0.9% 50 ML IVPB SCH (21:20)
[2018-07-11] MEDS: CLOPIDOGREL 75 MG TAB PO SCH (21:22)
[2018-07-11] MEDS: MIDODRINE 5 MG TAB PO SCH (21:22)
[2018-07-11] MEDS: PREGABALIN 75 MG CAP PO SCH (21:22)
[2018-07-11] MEDS: POTASSIUM CHLORIDE ER 10 MEQ TAB.ER.PRT PO SCH (21:22)
[2018-07-11] MEDS: TEMAZEPAM 7.5 MG CAP PO SCH (21:22)
[2018-07-11] MEDS: TAMSULOSIN 0.4 MG CAP.ER.24H PO SCH (21:22)
[2018-07-11] MEDS: SENNOSIDES 8.6 MG TAB PO SCH (21:22)
[2018-07-12] MEDS ORDERED: MAGNESIUM SULFATE-D5W PMX 1 GM in DEXTROSE/WATER 1 100ML.BAG IVPB SCH (00:15)
--- NOTE | 2018-07-12 00:21 | P.HPIM ---
History of Present Illness H&P Date: 07/11/18 Chief Complaint: Shortness of breath Patient is a 77-year-old female with a history of CHF, chronic hypoxic respiratory failure on 3-4 L nasal cannula, CPAP dependence at night with CAMILA, paroxysmal A. fib on Plavix who presents emergency department for mental status changes. The patient reportedly had a fall yesterday however refused any imaging. She has gradually become more altered and lethargic throughout the day. Apparently around 2:30 this morning the patient stopped responding to staff and would not answer questions. The patient did not reportedly have any complaints throughout the day otherwise. She had some type of x-ray of her spine which was reportedly negative. Blood sugar in route was 120s. The patient would arouse to sternal rub per EMS and follow some commands. Patient will not respond to questioning at this time and no other history is able to be obtained. The patient is a DO NOT RESUSCITATE. Patient is currently on BiPAP machine. Chest x-ray showed slight worsening right basilar atelectasis versus developing infiltrate. Slight improvement of edema/congestion. Stable cardiomegaly. CT head showed no intracranial hemorrhage or acute intracranial abnormality mild global parenchymal loss with chronic microvascular ischemic changes. Air fluid levels in the maxillary sinus. Correlate for sinusitis Review of Systems Review of systems could not be obtained from the patient. Past Medical History Past Medical History: Atrial Fibrillation, Asthma, Heart Failure, COPD, CVA/TIA , Diabetes Mellitus, Fibromyalgia, GERD/Reflux, Hyperlipidemia, Hypertension, Osteoarthritis (OA), Pneumonia, Renal Disease, Respiratory Disorder, Skin Disorder, Sleep Apnea/CPAP/BIPAP, Syncope, Thyroid Disorder Additional Past Medical History / Comment(s): Chronic respiratory failure with home O2 at 3-4L/NC, CAMILA with CPap, enlarged heart, murmur, 2004 CVA-no residual , TIAs, IDDM type II, neuropathy bilateral hands at times and feet, difficulty swallowing and has had testing done-told d/t prior gastroplasty, CKD-has seen Dr. Meyer in the past, anemia, past abdominal flap wound recently healed, gets "blood blisters" on buttocks, chronic venous and lymphagitis stasis arms/legs with recurrent cellulitis in legs-worse on R leg, ulcerative colitis, psoriaisis R scalp, migraines, constipation-takes Rx, past low back vertebral fracture, bilateral eye glaucoma with laser surgery. History of Any Multi-Drug Resistant Organisms: MRSA Date of last positivie culture/infection: 01/09/18 MDRO Source:: MRSA URINE Past Surgical History: Bariatric Surgery, Cholecystectomy, Heart Catheterization , Hysterectomy, Orthopedic Surgery Additional Past Surgical History / Comment(s): Gastroplasty, then Arnaud-en-Y, cardiac cath-no intervention, laser eye surgery bilateral eyes for glaucoma, cataracts removed with lens implants bilaterally, EGDs, colonoscopies-benign polypectomy, rectal fissure repair, D&C x2, R leg mole removal, L heel spur surgery, varicose vein stripping. Past Anesthesia/Blood Transfusion Reactions: No Reported Reaction Past Psychological History: Anxiety, Depression Smoking Status: Former smoker - Past Family History Sister(s) Family Medical History: Deep Vein Thrombosis (DVT) Father Family Medical History: CVA/TIA, Myocardial Infarction ([facility]) Additional Family Medical History / Comment(s): Father of a [facility] at the age of 59yrs. Mother Family Medical History: No Reported History Additional Family Medical History / Comment(s): AT AGE 85 Medications and Allergies Home Medications Medication Instructions Recorded Confirmed Type Clopidogrel [Plavix] 75 mg PO HS@2100 10/19/14 07/11/18 History Sennosides [Senna] 17.2 mg PO BID@0900,2100 04/09/17 07/11/18 History DULoxetine HCL [Cymbalta] 60 mg PO BID@0900,1700 12/08/17 07/11/18 History Allopurinol [Zyloprim] 200 mg PO DAILY@0900 03/29/18 07/11/18 History Bethanechol Chloride [Urecholine] 25 mg PO QID@00,0600,12,18 03/29/18 07/11/18 History Fludrocortisone [Florinef] 0.1 mg PO BID@0900,1700 03/29/18 07/11/18 History Furosemide [Lasix] 40 mg PO BID@0900,1400 03/29/18 07/11/18 History HYDROcodone/APAP 5-325MG [Carrier 1 tab PO Q6HR PRN 03/29/18 07/11/18 History 5-325] Levothyroxine Sodium [Synthroid] 150 mcg PO MOWEFR 03/29/18 07/11/18 History Midodrine HCl [ProAmatine] 10 mg PO TID@0900,1300,209903/29/18 07/11/18 History Ondansetron [Zofran] 4 mg PO DAILY@0603/29/18 07/11/18 History Ondansetron [Zofran] 4 mg PO Q8H PRN 03/29/18 07/11/18 History Potassium Chloride ER [K-Dur 10] 10 meq PO HS@209903/29/18 07/11/18 History Potassium Chloride ER [K-Dur 10] 20 meq PO DAILY@89903/29/18 07/11/18 History Pregabalin [Lyrica] 75 mg PO BID@0900,209903/29/18 07/11/18 History Pyridoxine [Vitamin B-6] 50 mg PO DAILY@89903/29/18 07/11/18 History Spironolactone [Aldactone] 50 mg PO DAILY@0603/29/18 07/11/18 History Tamsulosin [Flomax] 0.4 mg PO HS@209903/29/18 07/11/18 History Temazepam 7.5 mg PO HS@229903/29/18 07/11/18 History INSULIN LISPRO (HumaLOG) [HumaLOG] 3 unit SQ BID 06/15/18 07/11/18 History Levothyroxine Sodium [Synthroid] 125 mcg PO SUTUTHSA 06/15/18 07/11/18 History Morphine Sulfate ER [Ms Contin] 15 mg PO BID@0900,2100 06/15/18 07/11/18 History rOPINIRole HCL [Requip] 1 mg PO HS@209906/15/18 07/11/18 History Albuterol Nebulized [Ventolin 2.5 mg INHALATION RT-Q6H PRN 07/11/18 07/11/18 History Nebulized] Famotidine [Pepcid] 20 mg PO DAILY 07/11/18 07/11/18 History Levofloxacin [Levaquin] 250 mg PO DAILY 07/11/18 07/11/18 History methylPREDNISolone [Medrol] 4 mg PO DAILY 07/11/18 07/11/18 History Allergies Allergy/AdvReac Type Severity Reaction Status Date / Time Penicillins Allergy Rash/Hives Verified 07/11/18 10:12 metolazone [From Zaroxolyn] AdvReac Severe Vertigo Verified 07/11/18 10:12 celecoxib [From Celebrex] AdvReac Nausea & Verified 07/11/18 10:12 Vomiting colchicine AdvReac Nausea & Verified 07/11/18 10:12 Vomiting metoclopramide [From Reglan] AdvReac TREMORS Verified 07/11/18 10:12 Physical Exam Vitals: Vital Signs Temp Pulse Resp BP Pulse Ox 07/11/18 11:49 87 16 133/89 96 07/11/18 10:20 87 16 135/59 96 07/11/18 08:15 98 18 131/95 97 07/11/18 06:43 87 19 129/77 96 07/11/18 04:29 98.3 F 87 18 97 Intake and Output 07/11/18 07/11/18 07/11/18 06:59 14:59 22:59 Other: Weight 104.326 kg PHYSICAL EXAMINATION: Patient is lying in the bed comfortably, mild distress . Lethargic and currently on BiPAP. HEENT: Normocephalic. Neck is supple. Pupils reactive. Nostrils clear. Oral cavity is moist. Ears reveal no drainage. Neck reveals no JVD, carotid bruits, or thyromegaly. CHEST EXAMINATION: Trachea is central. Symmetrical expansion. Bibasilar crackles and diminished air entry basilar. CARDIAC: Normal S1, S2 with no gallops. No murmurs ABDOMEN: Soft. Bowel sounds normal. No organomegaly. No abdominal bruits. Extremities: 2+. No clubbing or cyanosis Neurologically patient currently is very lethargic and currently on BiPAP patient.. No focal deficits noted Skin: No rash or skin lesions. Psychiatric: Could not be assessed Musculoskeletal: No joint swelling or deformity. Results CBC & Chem 7: 07/11/18 05:00 07/11/18 05:00 Labs: Abnormal Lab Results - Last 24 Hours (Table) 07/11/18 07/11/18 07/11/18 Range/Units 05:00 05:18 07:07 VBG pCO2 62 H (37-51) mmHg VBG HCO3 38 H (24-28) mmol/L Chloride 92 L (98-107) mmol/L Carbon Dioxide 41 H* (22-30) mmol/L BUN 24 H (7-17) mg/dL Creatinine 1.34 H (0.52-1.04) mg/dL Glucose 110 H (74-99) mg/dL Calcium 7.5 L (8.4-10.2) mg/dL Magnesium 1.4 L (1.6-2.3) mg/dL Total Creatine Kinase (30-135) U/L Total Protein 5.1 L (6.3-8.2) g/dL Albumin 2.2 L (3.5-5.0) g/dL Urine Appearance Cloudy H (Clear) Urine Protein 1+ H (Negative) Urine Blood Trace H (Negative) Urine Nitrite Positive H (Negative) Ur Leukocyte Esterase Large H (Negative) Urine WBC 158 H (0-5) /hpf Urine WBC Clumps Occasional H (None) /hpf Urine Bacteria Many H (None) /hpf Hyaline Casts 4 H (0-2) /lpf Urine Mucus Occasional H (None) /hpf 07/11/18 Range/Units 11:34 VBG pCO2 (37-51) mmHg VBG HCO3 (24-28) mmol/L Chloride (98-107) mmol/L Carbon Dioxide (22-30) mmol/L BUN (7-17) mg/dL Creatinine (0.52-1.04) mg/dL Glucose (74-99) mg/dL Calcium (8.4-10.2) mg/dL Magnesium (1.6-2.3) mg/dL Total Creatine Kinase 23 L (30-135) U/L Total Protein (6.3-8.2) g/dL Albumin (3.5-5.0) g/dL Urine Appearance (Clear) Urine Protein (Negative) Urine Blood (Negative) Urine Nitrite (Negative) Ur Leukocyte Esterase (Negative) Urine WBC (0-5) /hpf Urine WBC Clumps (None) /hpf Urine Bacteria (None) /hpf Hyaline Casts (0-2) /lpf Urine Mucus (None) /hpf Thrombosis Risk Factor Assmnt - DVT/VTE Prophylaxis DVT/VTE Prophylaxis: Pharmacologic Prophylaxis ordered Assessment and Plan Assessment: Acute pulmonary respiratory failure secondary to pneumonia Healthcare associated pneumonia Acute on chronic hypoxic Respiratory failure. Currently on BiPAP Status post fall past night Obstructive sleep apnea on CPAP at home History of CVA with no residual weakness Insulin-dependent diabetes mellitus Diabetic peripheral neuropathy Chronic kidney disease stage III Hypothyroidism Chronic bilateral lower activity venostasis History of ulcerative colitis Psoriasis History of migraine headaches GERD Orthostatic hypotension on Fludrocortisone and Midodrin Morbid obesity BMI 40.7 Fibromyalgia COPD Chronic CHF with ejection fraction unknown Osteoarthritis DVT prophylaxis with heparin subcu Anxiety/depression History of gastroplasty History of colonoscopy and benign polypectomy Varicose vein stripping history Paroxysmal atrial fibrillation. Currently in sinus rhythm Plan: Patient will be continued on antibiotics now on vancomycin and cefepime. Continue with breathing treatments and CPAP patient. Continue with Lasix. Continue with insulin sliding scale. Continue the home medications and follow up closely. Clinical condition of the patient has been discussed with the family in detail at bedside. Prognosis is poor. Family at bedside. CODE STATUS is DO NOT RESUSCITATE/DO NOT INTUBATE Time with Patient: Greater than 30
[2018-07-12] MEDS: SPIRONOLACTONE 25 MG TAB PO SCH (06:09)
[2018-07-12] MEDS: LEVOTHYROXINE 75 MCG TAB PO SCH (06:09)
[2018-07-12 06:14] LABS: Glucose,Whole Blood 99 mg/dL (75-99)
[2018-07-12 07:19] LABS: Basophils % (A) 0 %; Eosinophils % (A) 0 %; HCT 39.4 % (34.0-46.0); HGB 11.9 gm/dL (11.4-16.0); Lymphocytes # (A) 1.1 k/uL (1.0-4.8); Lymphocytes % (A) 12 %; MCH 28.6 pg (25.0-35.0); MCV 95.1 fL (80.0-100.0); Mean Platelet Volume 7.3; Monocytes # (A) 0.4 k/uL (0-1.0); Monocytes % (A) 5 %; Neutrophils # (A) 7.7 k/uL (1.3-7.7); Neutrophils % (A) 81 %; Platelet Count 156 k/uL (150-450); RBC 4.14 m/uL (3.80-5.40); RDW 15.4 % (11.5-15.5); WBC 9.5 k/uL (3.8-10.6)
[2018-07-12 07:27] LABS: Calcium 7.6 mg/dL (8.4-10.2); Potassium 3.8 mmol/L (3.5-5.1); Total Bilirubin 0.9 mg/dL (0.2-1.3); Total Protein 4.8 g/dL (6.3-8.2)
[2018-07-12] MEDS: INSULIN ASPART 100 UNIT/ML 1 ML 10 ML VIAL SQ SCH ×2 (08:51→22:20)
[2018-07-12] MEDS: FAMOTIDINE 20 MG TAB PO SCH (08:58)
[2018-07-12] MEDS: MIDODRINE 5 MG TAB PO SCH ×3 (08:58→20:59)
[2018-07-12] MEDS: FUROSEMIDE 40 MG TAB PO SCH ×2 (08:58→12:40)
[2018-07-12] MEDS: POTASSIUM CHLORIDE ER 20 MEQ TAB.ER PO SCH (08:58)
[2018-07-12] MEDS: DULoxetine HCL 60 MG CAPSULE.DR PO SCH ×2 (08:58→17:57)
[2018-07-12] MEDS: ALLOPURINOL 100 MG TAB PO SCH (08:58)
[2018-07-12] MEDS: PREGABALIN 75 MG CAP PO SCH ×2 (08:58→20:59)
[2018-07-12] MEDS: SENNOSIDES 8.6 MG TAB PO SCH ×2 (09:00→20:59)
[2018-07-12] MEDS ORDERED: VANCOMYCIN 1,750 MG in SODIUM CHLORIDE 0.9% 500 ML 500 ML IVPB SCH (09:00)
[2018-07-12] MEDS: HEPARIN SODIUM,PORCINE 5,000 UNIT/ML 1 ML VIAL SQ SCH ×2 (09:05→17:57)
--- NOTE | 2018-07-12 10:44 | CDI ---
Documentation Clarification Form Date: 07/12/2018 10:25:06 AM From: Bhakti Warner RN, CCDS Admit Date: 07/11/2018 7:42:00 AM Patient Name: Tiana Abel Visit Number: [id number] ATTENTION: The Clinical Documentation Specialists (CDI) and [facility] Coding Staff appreciate your assistance in clarifying documentation. Please respond to the clarification below the line at the bottom and electronically sign. The CDI & [facility] Coding staff will review the response and follow-up if needed. Please note: Queries are made part of the Legal Health Record. If you have any questions, please contact the author of this message via ITS. Dr. Tiffanie Gomez Pneumonia was documented in your H&P and requires further specificity. History/Risk Factors: Chronic hypoxic respiratory failure on 3-4l nasal cannula, fall with mental status changes with increasing lethargy from [facility], Asthma, COPD, pneumonia, CAMILA, IDDM2, CKD, anemia, Clinical Indicators: Vital signs: Temp 98.3, Hr 87, RR 18, B/P 120/97, spo2 97% 2l NC WBC: 9/9.5 Left shift:6.4/7.7 CXR: "Slight worsening right basilar atelectasis versus developing infiltrate. Slight improvement of edema/congestion. Stable cardiomegaly." Lung/Breathing assessment: "Patient is lying in the bed comfortably, mild distress .Lethargic and currently on BiPAP. Trachea is central. Symmetrical expansion. Bibasilar crackles and diminished air entry basilar." Treatment: Antibiotics: IV vanco 2 gm q 24 hrs, Iv [id number] ivpb q 12 hrs O2: alternating between 3L NC and 30% bipap Breathing TX: none ordered In order to capture the severity of condition, please clarify if the condition signifies and you are treating for: Aspiration Pneumonia, identify if: Due to solids or liquids Bacterial Pneumonia, specify causal organism (if known) Gram Negative Pneumonia Due to Strep Due to Staph Due to E. coli Other bacteria (please specify) Viral Pneumonia, specify casual organism (if known) Other, please specify Unable to determine (Last Revision: October 2017) not mine- nerusu or sheet MTDD
[2018-07-12 11:27] LABS: Glucose,Whole Blood 138 mg/dL (75-99)
[2018-07-12] MEDS: CEFEPIME 1 GM in SODIUM CHLORIDE 0.9% 50 ML IVPB SCH ×2 (12:39→21:49)
[2018-07-12] MEDS: PYRIDOXINE 50 MG TAB PO SCH (12:39)
[2018-07-12] MEDS: FLUDROCORTISONE 0.1 MG TAB PO SCH ×2 (12:39→17:51)
[2018-07-12 17:29] LABS: Glucose,Whole Blood 117 mg/dL (75-99)
--- NOTE | 2018-07-12 17:49 | P.PN ---
Subjective Patient is a 77-year-old female with a history of CHF, chronic hypoxic respiratory failure on 3-4 L nasal cannula, CPAP dependence at night with CAMILA, paroxysmal A. fib on Plavix who presents emergency department for mental status changes. The patient reportedly had a fall yesterday however refused any imaging. She has gradually become more altered and lethargic throughout the day. Apparently around 2:30 this morning the patient stopped responding to staff and would not answer questions. The patient did not reportedly have any complaints throughout the day otherwise. She had some type of x-ray of her spine which was reportedly negative. Blood sugar in route was 120s. The patient would arouse to sternal rub per EMS and follow some commands. Patient will not respond to questioning at this time and no other history is able to be obtained. The patient is a DO NOT RESUSCITATE. Patient is currently on BiPAP machine. Chest x-ray showed slight worsening right basilar atelectasis versus developing infiltrate. Slight improvement of edema/congestion. Stable cardiomegaly. CT head showed no intracranial hemorrhage or acute intracranial abnormality mild global parenchymal loss with chronic microvascular ischemic changes. Air fluid levels in the maxillary sinus. Correlate for sinusitis 07/12/2018 Patient was lying in bed, answer some questions and follow simple commands however she remains confused. She is in the tachypneic. No more fever, her blood pressure is stable. She is saturating 95% on 3 L oxygen via nasal cannula. No leukocytosis. And BMP was unremarkable with creatinine 0.9. Which is improving. Sugar controlled. Her urine analysis was suspicious for infection, urine culture: Pending. Patient remains on broad-spectrum antibiotics with cefepime and vancomycin. Since the patient looks like mostly have UTI. Will call infectious disease for consult. Objective - Vital Signs Vital signs: Vital Signs Temp 98.3 F 07/11/18 04:29 Pulse 85 07/12/18 12:00 Resp 16 07/12/18 16:00 BP 130/60 07/12/18 12:00 Pulse Ox 95 07/12/18 12:00 Intake & Output 07/11/18 07/12/18 07/12/18 18:59 06:59 18:59 Intake Total 30 222 Output Total 1 Balance 30 221 Weight 104.326 kg 107 kg 107 kg Intake: Oral 30 222 Output: Urine 1 Other: Voiding Method Diaper Diaper # Voids 1 - Exam -GENERAL: The patient is alert and confused, not in any acute distress. HEENT: Pupils are round and equally reacting to light. EOMI. No scleral icterus. No conjunctival pallor. Normocephalic, atraumatic. No pharyngeal erythema. No thyromegaly. CARDIOVASCULAR: S1 and S2 present. No murmurs, rubs, or gallops. PULMONARY: Chest is clear to auscultation, no wheezing or crackles. ABDOMEN: Soft, nontender, nondistended, normoactive bowel sounds. No palpable organomegaly. MUSCULOSKELETAL: No joint swelling or deformity. EXTREMITIES: No cyanosis, clubbing, or pedal edema. NEUROLOGICAL: Gross neurological examination did not reveal any focal deficits. SKIN: No rashes. - Labs CBC & Chem 7: 07/12/18 06:27 07/12/18 06:27 Labs: Abnormal Lab Results - Last 24 Hours (Table) 07/11/18 07/12/18 07/12/18 Range/Units 18:04 06:27 06:27 MCHC 30.0 L (31.0-37.0) g/dL Carbon Dioxide 36 H (22-30) mmol/L BUN 20 H (7-17) mg/dL Glucose 100 H (74-99) mg/dL POC Glucose (mg/dL) (75-99) mg/dL Calcium 7.6 L (8.4-10.2) mg/dL Total Creatine Kinase <20 L (30-135) U/L Total Protein 4.8 L (6.3-8.2) g/dL Albumin 2.0 L (3.5-5.0) g/dL 07/12/18 07/12/18 Range/Units 11:17 17:09 MCHC (31.0-37.0) g/dL Carbon Dioxide (22-30) mmol/L BUN (7-17) mg/dL Glucose (74-99) mg/dL POC Glucose (mg/dL) 138 H 117 H (75-99) mg/dL Calcium (8.4-10.2) mg/dL Total Creatine Kinase (30-135) U/L Total Protein (6.3-8.2) g/dL Albumin (3.5-5.0) g/dL Microbiology - Last 24 Hours (Table) 07/11/18 07:07 Urine Culture - Preliminary Urine,Voided Assessment and Plan Assessment: Urinary tract infection Possible pneumonia. 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 Currently in sinus rhythm Plan: Patient will be continued on antibiotics now on vancomycin and cefepime. Continue with breathing treatments and CPAP patient. Call infectious disease consult. Continue with Lasix. Continue with insulin sliding scale. Continue the home medications and follow up closely. Clinical condition of the patient has been discussed with the family at bedside. Prognosis is poor. Family at bedside. CODE STATUS is DO NOT RESUSCITATE/DO NOT INTUBATE
[2018-07-12] MEDS: POTASSIUM CHLORIDE ER 10 MEQ TAB.ER.PRT PO SCH (20:59)
[2018-07-12] MEDS: TAMSULOSIN 0.4 MG CAP.ER.24H PO SCH (20:59)
[2018-07-12] MEDS: HYDROcodone/APAP 5-325MG 1 EACH TAB PO PRN (21:00)
[2018-07-12] MEDS: CLOPIDOGREL 75 MG TAB PO SCH (21:01)
[2018-07-12 21:07] LABS: Glucose,Whole Blood 136 mg/dL (75-99)
[2018-07-12] MEDS: TEMAZEPAM 7.5 MG CAP PO SCH (22:20)
[2018-07-13] MEDS: HEPARIN SODIUM,PORCINE 5,000 UNIT/ML 1 ML VIAL SQ SCH ×4 (00:30→23:35)
[2018-07-13 05:46] LABS: Glucose,Whole Blood 99 mg/dL (75-99)
[2018-07-13] MEDS ORDERED: VANCOMYCIN 2,000 MG in SODIUM CHLORIDE 0.9% 500 ML 500 ML IVPB SCH (06:00)
[2018-07-13] MEDS: LEVOTHYROXINE 75 MCG TAB PO SCH (06:28)
[2018-07-13] MEDS: SPIRONOLACTONE 25 MG TAB PO SCH (06:28)
[2018-07-13] MEDS: LEVOTHYROXINE 125 MCG TAB PO SCH (06:55)
[2018-07-13] MEDS: MIDODRINE 5 MG TAB PO SCH ×3 (08:30→22:18)
[2018-07-13] MEDS: FAMOTIDINE 20 MG TAB PO SCH (08:30)
[2018-07-13] MEDS: PREGABALIN 75 MG CAP PO SCH ×2 (08:30→22:18)
[2018-07-13] MEDS: SENNOSIDES 8.6 MG TAB PO SCH ×2 (08:30→22:18)
[2018-07-13] MEDS: DULoxetine HCL 60 MG CAPSULE.DR PO SCH ×2 (08:30→16:36)
[2018-07-13] MEDS: HYDROcodone/APAP 5-325MG 1 EACH TAB PO PRN ×2 (08:31→22:18)
[2018-07-13] MEDS: POTASSIUM CHLORIDE ER 20 MEQ TAB.ER PO SCH (08:31)
[2018-07-13] MEDS: CEFEPIME 1 GM in SODIUM CHLORIDE 0.9% 50 ML IVPB SCH (08:32)
[2018-07-13] MEDS: FUROSEMIDE 40 MG TAB PO SCH ×2 (08:32→16:36)
[2018-07-13] MEDS: ALLOPURINOL 100 MG TAB PO SCH (08:32)
[2018-07-13] MEDS: INSULIN ASPART 100 UNIT/ML 1 ML 10 ML VIAL SQ SCH ×2 (08:32→22:20)
[2018-07-13 11:33] LABS: Glucose,Whole Blood 87 mg/dL (75-99)
--- NOTE | 2018-07-13 14:18 | P.PN ---
Subjective Patient is a 77-year-old female with a history of CHF, chronic hypoxic respiratory failure on 3-4 L nasal cannula, CPAP dependence at night with CAMILA, paroxysmal A. fib on Plavix who presents emergency department for mental status changes. The patient reportedly had a fall yesterday however refused any imaging. She has gradually become more altered and lethargic throughout the day. Apparently around 2:30 this morning the patient stopped responding to staff and would not answer questions. The patient did not reportedly have any complaints throughout the day otherwise. She had some type of x-ray of her spine which was reportedly negative. Blood sugar in route was 120s. The patient would arouse to sternal rub per EMS and follow some commands. Patient will not respond to questioning at this time and no other history is able to be obtained. The patient is a DO NOT RESUSCITATE. Patient is currently on BiPAP machine. Chest x-ray showed slight worsening right basilar atelectasis versus developing infiltrate. Slight improvement of edema/congestion. Stable cardiomegaly. CT head showed no intracranial hemorrhage or acute intracranial abnormality mild global parenchymal loss with chronic microvascular ischemic changes. Air fluid levels in the maxillary sinus. Correlate for sinusitis 07/12/2018 Patient was lying in bed, answer some questions and follow simple commands however she remains confused. She is in the tachypneic. No more fever, her blood pressure is stable. She is saturating 95% on 3 L oxygen via nasal cannula. No leukocytosis. And BMP was unremarkable with creatinine 0.9. Which is improving. Sugar controlled. Her urine analysis was suspicious for infection, urine culture: Pending. Patient remains on broad-spectrum antibiotics with cefepime and vancomycin. Since the patient looks like mostly have UTI. Will call infectious disease for consult. 07/13/2018 Patient still treating with cefepime for gram-negative bacilli urinary tract infection. Final culture result is still pending. DC vancomycin. Patient is afebrile, no leukocytosis and her Vitas looks stable. ID team are following the patient. I had long discussion with the patient and explained the reason for hospitalization and the management plan and she verbalized understanding and acceptance. Objective - Vital Signs Vital signs: Vital Signs Temp 98.1 F 07/13/18 08:00 Pulse 75 07/13/18 12:00 Resp 16 07/13/18 12:00 BP 140/77 07/13/18 12:00 Pulse Ox 95 01/03/19 12:00 Intake & Output 07/12/18 07/13/18 07/13/18 18:59 06:59 18:59 Intake Total 444 480 Output Total 801 350 Balance -357 -350 480 Weight 107 kg 108 kg Intake: Oral 444 480 Output: Urine 801 350 Other: Voiding Method Diaper Diaper Diaper # Voids 3 1 1 - Exam -GENERAL: The patient is alert and confused, not in any acute distress. HEENT: Pupils are round and equally reacting to light. EOMI. No scleral icterus. No conjunctival pallor. Normocephalic, atraumatic. No pharyngeal erythema. No thyromegaly. CARDIOVASCULAR: S1 and S2 present. No murmurs, rubs, or gallops. PULMONARY: Chest is clear to auscultation, no wheezing or crackles. ABDOMEN: Soft, nontender, nondistended, normoactive bowel sounds. No palpable organomegaly. MUSCULOSKELETAL: No joint swelling or deformity. EXTREMITIES: No cyanosis, clubbing, or pedal edema. NEUROLOGICAL: Gross neurological examination did not reveal any focal deficits. SKIN: No rashes. - Labs CBC & Chem 7: 07/12/18 06:27 07/12/18 06:27 Labs: Abnormal Lab Results - Last 24 Hours (Table) 07/12/18 07/12/18 Range/Units 17:09 21:05 POC Glucose (mg/dL) 117 H 136 H (75-99) mg/dL Microbiology - Last 24 Hours (Table) 07/11/18 07:07 Urine Culture - Preliminary Urine,Voided Gram Neg Bacilli Assessment and Plan Assessment: Urinary tract infection Possible pneumonia. 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 Currently in sinus rhythm Plan: Patient will be continued on antibiotics now on vancomycin and cefepime. Continue with breathing treatments and CPAP patient. Call infectious disease consult. Continue with Lasix. Continue with insulin sliding scale. Continue the home medications and follow up closely. Clinical condition of the patient has been discussed with the family at bedside. Prognosis is poor. Family at bedside. CODE STATUS is DO NOT RESUSCITATE/DO NOT INTUBATE
[2018-07-13 14:32] LABS: Calcium 7.7 mg/dL (8.4-10.2); Potassium 4.2 mmol/L (3.5-5.1)
[2018-07-13] MEDS: FLUDROCORTISONE 0.1 MG TAB PO SCH ×2 (16:16→16:36)
[2018-07-13] MEDS: PYRIDOXINE 50 MG TAB PO SCH (16:17)
[2018-07-13 16:44] LABS: Glucose,Whole Blood 92 mg/dL (75-99)
[2018-07-13] MEDS: ERTAPENEM 1 GM in SODIUM CHLORIDE 0.9% 50 ML IVPB SCH (20:55)
[2018-07-13 21:19] LABS: Glucose,Whole Blood 97 mg/dL (75-99)
[2018-07-13] MEDS: POTASSIUM CHLORIDE ER 10 MEQ TAB.ER.PRT PO SCH (22:17)
[2018-07-13] MEDS: TAMSULOSIN 0.4 MG CAP.ER.24H PO SCH (22:17)
[2018-07-13] MEDS: CLOPIDOGREL 75 MG TAB PO SCH (22:17)
[2018-07-13] MEDS: TEMAZEPAM 7.5 MG CAP PO SCH (22:20)
[2018-07-14 01:25] LABS: Glucose,Whole Blood 74 mg/dL (75-99)
[2018-07-14] MEDS: HEPARIN SODIUM,PORCINE 5,000 UNIT/ML 1 ML VIAL SQ SCH ×3 (01:43→16:04)
[2018-07-14] MEDS: LEVOTHYROXINE 75 MCG TAB PO SCH (05:36)
[2018-07-14] MEDS: SPIRONOLACTONE 25 MG TAB PO SCH (05:36)
--- NOTE | 2018-07-14 06:23 | CONS ---
CONSULTATION DATE OF SERVICE: 07/13/2018 REASON FOR CONSULTATION: 1. ESBL E coli urinary tract infection. 2. Pneumonia. HISTORY OF PRESENT ILLNESS: The patient is a 77-year-old female who is a [facility] local [facility]. The patient was brought into the ER at [facility] on 07/11/2018 with mental status changes. Apparently the patient did have a fall the day prior, however, the patient refused any imaging or evaluation. Over the next 24 hours, the patient became less responding to the staff and would not answer any question. Subsequently on arrival to the ER, the patient did not respond very well to the ER physician or the staff. The patient has been afebrile on arrival and throughout hospital her white count has been normal. The patient did have a positive UA with large leukocyte esterases, more than 158 WBCs. Also have a chest x-ray with right lower lobe infiltrate with urine culture finalized with ESBL E coli that prompted this infectious disease consultation. The patient is getting more awake, alert, since the patient has been admitted to the hospital. The patient knows that she is at [facility]. The patient denies any headache to me. No URI symptoms. No chest pain. She did have some shortness of breath and did have a cough, bringing up some dark sputum. No hemoptysis. No abdominal pain. The patient did have burning in addition to some incontinence but denies any suprapubic or flank pain or any diarrhea. REVIEW OF SYSTEMS: Positive points have been mentioned in history of present illness. The rest of the 14 systems are reviewed and negative. PAST MEDICAL HISTORY: Atrial fibrillation, heart failure, COPD, CVA, TIA, diabetes mellitus, fibromyalgia, hyperlipidemia, hypertension, osteoarthritis, pneumonia, renal disorder, sleep apnea, hypothyroidism, previous history of MRSA infection in the urine. PAST SURGICAL HISTORY: Bariatric surgery, cholecystectomy, heart catheterization, hysterectomy, gastroplasty. SOCIAL HISTORY: Remote history of smoking. No drinking or drug use. FAMILY HISTORY: Sister with history of DVT. Father with history of CVA, TIA who at age of 59 from an [place]. ALLERGIES: Allergies to PENICILLIN, METOLAZONE, CELECOXIB, COLCHICINE. MEDICATIONS: Medication include the patient is currently on [place], Zyloprim, Plavix, Cymbalta, Pepcid, Florinef, Lasix, heparin, sliding scale insulin, cefepime. PHYSICAL EXAMINATION: On examination, blood pressure is 143/76, pulse of 83, temperature of 98.8. She is 97% on 2 L nasal cannula. General description is an elderly female lying in bed in no distress. No tachypnea or accessory muscle of respiration use. HEENT examination shows slight pallor. No scleral icterus. Oral mucous membrane is dry. No pharyngeal erythema or thrush. NECK: Trachea central. No thyromegaly. LUNGS: Unlabored breathing with decreased breath sounds at the bases. No wheeze or crackle. HEART: S1, S2. Regular rate and rhythm. No added sounds. ABDOMEN: Soft, no tenderness. No guarding or rigidity. EXTREMITIES: edema of feet. SKIN EXAMINATION: No rash or mass palpable. NEUROLOGICAL: Patient is awake, alert, oriented x . Mood and affect normal. LABS: Hemoglobin 11.9, white count 9.5, BUN of 20, creatinine 1.03. The electrolytes have been normal. Liver enzymes are normal. Urine was positive with large leukocyte esterases, 158 WBCs. Chest x-ray with right lower lobe infiltrate. Urine culture finalized with ESBL Proteus mirabilis. DIAGNOSTIC IMPRESSION AND PLAN: Patient admitted to the hospital with mental status changes, decreased level of responsiveness, which is likely multifactorial in this patient who did have urinary symptoms of burning and incontinence with positive UA and urine culture positive for ESBL Proteus, likely a component of symptomatic urinary tract infection. The patient also has a congested cough with right lower lobe infiltrate, possible gram-negative pneumonia not entirely excluded. PLAN: 1. We will try to obtain sputum for Gram stain culture and sensitivity. 2. Repeat a chest x-ray PA and lateral in the morning. 3. Discontinue cefepime and start the patient on Invanz 1 gram daily. 4. We will follow her clinical condition and culture to further adjust medication if needed. Thank you for this consultation. We will follow this patient along with you. MMODL / IJN: [id number] /
[2018-07-14 07:15] LABS: Glucose,Whole Blood 90 mg/dL (75-99)
[2018-07-14 08:42] LABS: Potassium 3.7 mmol/L (3.5-5.1)
[2018-07-14] MEDS: INSULIN ASPART 100 UNIT/ML 1 ML 10 ML VIAL SQ SCH ×2 (10:45→21:31)
[2018-07-14] MEDS: FUROSEMIDE 40 MG TAB PO SCH ×2 (10:46→16:04)
[2018-07-14] MEDS: PREGABALIN 75 MG CAP PO SCH ×2 (10:46→21:35)
[2018-07-14] MEDS: ALLOPURINOL 100 MG TAB PO SCH (10:46)
[2018-07-14] MEDS: POTASSIUM CHLORIDE ER 20 MEQ TAB.ER PO SCH (10:46)
[2018-07-14] MEDS: SENNOSIDES 8.6 MG TAB PO SCH ×2 (10:46→21:34)
[2018-07-14] MEDS: DULoxetine HCL 60 MG CAPSULE.DR PO SCH ×2 (10:47→16:04)
[2018-07-14] MEDS: FAMOTIDINE 20 MG TAB PO SCH (10:47)
[2018-07-14] MEDS: FLUDROCORTISONE 0.1 MG TAB PO SCH ×2 (10:47→16:04)
[2018-07-14] MEDS: MIDODRINE 5 MG TAB PO SCH ×3 (10:47→21:34)
[2018-07-14] MEDS: PYRIDOXINE 50 MG TAB PO SCH (10:47)
[2018-07-14] MEDS: ERTAPENEM 1 GM in SODIUM CHLORIDE 0.9% 50 ML IVPB SCH (12:03)
[2018-07-14 13:30] VITALS: BMI 42.1
--- NOTE | 2018-07-14 14:23 | XR ---
EXAMINATION TYPE: XR chest 2V DATE OF EXAM: 07/14/2018 COMPARISON: 07/11/2018 INDICATION: Pneumonia right lower lobe TECHNIQUE: Frontal and lateral views of the chest are obtained. FINDINGS: The heart size is upper limits of normal. The pulmonary vasculature is normal. There is a mild right lower lobe infiltrate predominantly medially. This has improved from comparison . Continued follow-up is recommended.. IMPRESSION: 1. Improving right lower lobe pneumonia. Continued follow-up to clearing is recommended.
--- NOTE | 2018-07-14 16:20 | PN ---
PROGRESS NOTE DATE OF SERVICE: 07/14/2018 REASON FOR FOLLOWUP: ESBL Proteus mirabilis urinary tract infection and right lower lobe pneumonia. INTERVAL HISTORY: The patient is currently afebrile. She is breathing comfortably. The patient did have a cough and brought up some sputum. Sputum was collected but not sent to the lab. No chest pain. No abdominal pain and no diarrhea. PHYSICAL EXAMINATION: Blood pressure is 115/69 with a pulse of 62, temperature 98.2. She is 99% on 2.5 L nasal cannula. General description is an elderly female lying in bed in no distress. RESPIRATORY SYSTEM: Unlabored breathing with decreased breath sounds at the base. No wheeze. HEART: S1, S2. Regular rate and rhythm. ABDOMEN: Soft. No tenderness. LABS: BUN of 19, creatinine 1.15. Blood culture not done. Sputum not sent. Chest x-ray with improving right lower lobe pneumonia. DIAGNOSTIC IMPRESSION AND PLAN: Patient admitted to hospital with mental status changes, likely multifactorial. The patient did have ESBL Proteus mirabilis in the urine as well as right lower lobe pneumonia. The patient is currently covered with Invanz; to continue. She will likely need a midline for antibiotic to be continued in the custodial setting to cover for both the pneumonia as well as the UTI. Sputum should be sent. present at bedside. His questions and concerns were answered. MMODL / IJN: [id number] /
[2018-07-14] MEDS: HYDROcodone/APAP 5-325MG 1 EACH TAB PO PRN (16:58)
--- NOTE | 2018-07-14 19:43 | P.PN ---
Subjective Patient is a 77-year-old female with a history of CHF, chronic hypoxic respiratory failure on 3-4 L nasal cannula, CPAP dependence at night with CAMILA, paroxysmal A. fib on Plavix who presents emergency department for mental status changes. The patient reportedly had a fall yesterday however refused any imaging. She has gradually become more altered and lethargic throughout the day. Apparently around 2:30 this morning the patient stopped responding to staff and would not answer questions. The patient did not reportedly have any complaints throughout the day otherwise. She had some type of x-ray of her spine which was reportedly negative. Blood sugar in route was 120s. The patient would arouse to sternal rub per EMS and follow some commands. Patient will not respond to questioning at this time and no other history is able to be obtained. The patient is a DO NOT RESUSCITATE. Patient is currently on BiPAP machine. Chest x-ray showed slight worsening right basilar atelectasis versus developing infiltrate. Slight improvement of edema/congestion. Stable cardiomegaly. CT head showed no intracranial hemorrhage or acute intracranial abnormality mild global parenchymal loss with chronic microvascular ischemic changes. Air fluid levels in the maxillary sinus. Correlate for sinusitis 07/12/2018 Patient was lying in bed, answer some questions and follow simple commands however she remains confused. She is in the tachypneic. No more fever, her blood pressure is stable. She is saturating 95% on 3 L oxygen via nasal cannula. No leukocytosis. And BMP was unremarkable with creatinine 0.9. Which is improving. Sugar controlled. Her urine analysis was suspicious for infection, urine culture: Pending. Patient remains on broad-spectrum antibiotics with cefepime and vancomycin. Since the patient looks like mostly have UTI. Will call infectious disease for consult. 07/13/2018 Patient still treating with cefepime for gram-negative bacilli urinary tract infection. Final culture result is still pending. DC vancomycin. Patient is afebrile, no leukocytosis and her Vitas looks stable. ID team are following the patient. I had long discussion with the patient and explained the reason for hospitalization and the management plan and she verbalized understanding and acceptance. 07/14/2018 Patient with UTI secondary to Proteus Elena is resistant to many medication. However sensitive to ertapenem which was started by our infectious diseases specialist. PICC line was placed for prolonged IV antibiotic. and patient at bedside with updated and have length discussion with them and all their questions were answered to their satisfaction. Objective - Vital Signs Vital signs: Vital Signs Temp 98.2 F 07/14/18 15:00 Pulse 62 07/14/18 15:00 Resp 15 07/14/18 15:00 BP 115/69 07/14/18 15:00 Pulse Ox 99 07/14/18 15:00 Intake & Output 07/14/18 07/14/18 07/15/18 06:59 18:59 06:59 Output Total 1999 Balance -2000 Weight 108 kg Output: Urine 1999 Other: Voiding Method Diaper Diaper # Voids 1 # Bowel Movements 1 1 - Exam -GENERAL: The patient is alert and confused, not in any acute distress. HEENT: Pupils are round and equally reacting to light. EOMI. No scleral icterus. No conjunctival pallor. Normocephalic, atraumatic. No pharyngeal erythema. No thyromegaly. CARDIOVASCULAR: S1 and S2 present. No murmurs, rubs, or gallops. PULMONARY: Chest is clear to auscultation, no wheezing or crackles. ABDOMEN: Soft, nontender, nondistended, normoactive bowel sounds. No palpable organomegaly. MUSCULOSKELETAL: No joint swelling or deformity. EXTREMITIES: No cyanosis, clubbing, or pedal edema. NEUROLOGICAL: Gross neurological examination did not reveal any focal deficits. SKIN: No rashes. - Labs CBC & Chem 7: 07/12/18 06:27 07/14/18 06:51 Labs: Abnormal Lab Results - Last 24 Hours (Table) 07/14/18 07/14/18 Range/Units 01:23 06:51 Chloride 97 L (98-107) mmol/L Carbon Dioxide 38 H (22-30) mmol/L BUN 19 H (7-17) mg/dL Creatinine 1.15 H (0.52-1.04) mg/dL POC Glucose (mg/dL) 74 L (75-99) mg/dL Calcium 8.0 L (8.4-10.2) mg/dL Microbiology - Last 24 Hours (Table) 07/11/18 07:07 Urine Culture - Final Urine,Voided Proteus mirabilis Assessment and Plan Assessment: Urinary tract infection Possible pneumonia. 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 Currently in sinus rhythm Plan: Patient will be continued on antibiotics now on vancomycin and cefepime. Continue with breathing treatments and CPAP patient. Call infectious disease consult. Continue with Lasix. Continue with insulin sliding scale. Continue the home medications and follow up closely. Clinical condition of the patient has been discussed with the family at bedside. Prognosis is poor. Family at bedside. CODE STATUS is DO NOT RESUSCITATE/DO NOT INTUBATE
[2018-07-14 20:42] LABS: Glucose,Whole Blood 107 mg/dL (75-99)
[2018-07-14] MEDS: TAMSULOSIN 0.4 MG CAP.ER.24H PO SCH (21:34)
[2018-07-14] MEDS: POTASSIUM CHLORIDE ER 10 MEQ TAB.ER.PRT PO SCH (21:34)
[2018-07-14] MEDS: CLOPIDOGREL 75 MG TAB PO SCH (21:35)
[2018-07-14] MEDS: TEMAZEPAM 7.5 MG CAP PO SCH (23:02)
[2018-07-15] MEDS: HEPARIN SODIUM,PORCINE 5,000 UNIT/ML 1 ML VIAL SQ SCH ×4 (00:10→23:52)
[2018-07-15] MEDS: HYDROcodone/APAP 5-325MG 1 EACH TAB PO PRN ×2 (06:03→16:12)
[2018-07-15] MEDS: LEVOTHYROXINE 125 MCG TAB PO SCH (06:03)
[2018-07-15] MEDS: SPIRONOLACTONE 25 MG TAB PO SCH (06:05)
[2018-07-15 07:43] LABS: Glucose,Whole Blood 95 mg/dL (75-99)
[2018-07-15 09:41] LABS: Calcium 8.1 mg/dL (8.4-10.2); Potassium 3.7 mmol/L (3.5-5.1)
[2018-07-15 10:13] LABS: Basophils % (A) 1 %; Eosinophils # (A) 0.1 k/uL (0-0.7); Eosinophils % (A) 2 %; HCT 40.5 % (34.0-46.0); HGB 12.7 gm/dL (11.4-16.0); Lymphocytes # (A) 1.6 k/uL (1.0-4.8); Lymphocytes % (A) 23 %; MCH 29.7 pg (25.0-35.0); MCHC 31.4 g/dL (31.0-37.0); MCV 94.5 fL (80.0-100.0); Monocytes # (A) 0.2 k/uL (0-1.0); Monocytes % (A) 3 %; Neutrophils # (A) 4.6 k/uL (1.3-7.7); Neutrophils % (A) 68 %; Platelet Count 207 k/uL (150-450); RBC 4.28 m/uL (3.80-5.40); RDW 15.5 % (11.5-15.5); WBC 6.7 k/uL (3.8-10.6)
[2018-07-15] MEDS: INSULIN ASPART 100 UNIT/ML 1 ML 10 ML VIAL SQ SCH ×2 (11:37→21:16)
[2018-07-15] MEDS: ALLOPURINOL 100 MG TAB PO SCH (11:38)
[2018-07-15] MEDS: PREGABALIN 75 MG CAP PO SCH ×2 (11:38→21:16)
[2018-07-15] MEDS: MIDODRINE 5 MG TAB PO SCH ×3 (11:39→21:16)
[2018-07-15] MEDS: FLUDROCORTISONE 0.1 MG TAB PO SCH ×2 (11:39→16:21)
[2018-07-15] MEDS: POTASSIUM CHLORIDE ER 20 MEQ TAB.ER PO SCH (11:39)
[2018-07-15] MEDS: DULoxetine HCL 60 MG CAPSULE.DR PO SCH ×2 (11:39→16:11)
[2018-07-15] MEDS: FAMOTIDINE 20 MG TAB PO SCH (11:39)
[2018-07-15] MEDS: SENNOSIDES 8.6 MG TAB PO SCH ×2 (11:39→21:16)
[2018-07-15] MEDS: ERTAPENEM 1 GM in SODIUM CHLORIDE 0.9% 50 ML IVPB SCH (11:40)
[2018-07-15] MEDS: FUROSEMIDE 40 MG TAB PO SCH ×2 (11:40→16:11)
[2018-07-15] MEDS: PYRIDOXINE 50 MG TAB PO SCH (11:40)
[2018-07-15] MEDS: ALPRAZolam 0.25 MG TAB PO PRN ×2 (16:11→21:16)
--- NOTE | 2018-07-15 17:01 | P.PN ---
Subjective Patient is a 77-year-old female with a history of CHF, chronic hypoxic respiratory failure on 3-4 L nasal cannula, CPAP dependence at night with CAMILA, paroxysmal A. fib on Plavix who presents emergency department for mental status changes. The patient reportedly had a fall yesterday however refused any imaging. She has gradually become more altered and lethargic throughout the day. Apparently around 2:30 this morning the patient stopped responding to staff and would not answer questions. The patient did not reportedly have any complaints throughout the day otherwise. She had some type of x-ray of her spine which was reportedly negative. Blood sugar in route was 120s. The patient would arouse to sternal rub per EMS and follow some commands. Patient will not respond to questioning at this time and no other history is able to be obtained. The patient is a DO NOT RESUSCITATE. Patient is currently on BiPAP machine. Chest x-ray showed slight worsening right basilar atelectasis versus developing infiltrate. Slight improvement of edema/congestion. Stable cardiomegaly. CT head showed no intracranial hemorrhage or acute intracranial abnormality mild global parenchymal loss with chronic microvascular ischemic changes. Air fluid levels in the maxillary sinus. Correlate for sinusitis 07/12/2018 Patient was lying in bed, answer some questions and follow simple commands however she remains confused. She is in the tachypneic. No more fever, her blood pressure is stable. She is saturating 95% on 3 L oxygen via nasal cannula. No leukocytosis. And BMP was unremarkable with creatinine 0.9. Which is improving. Sugar controlled. Her urine analysis was suspicious for infection, urine culture: Pending. Patient remains on broad-spectrum antibiotics with cefepime and vancomycin. Since the patient looks like mostly have UTI. Will call infectious disease for consult. 07/13/2018 Patient still treating with cefepime for gram-negative bacilli urinary tract infection. Final culture result is still pending. DC vancomycin. Patient is afebrile, no leukocytosis and her Vitas looks stable. ID team are following the patient. I had long discussion with the patient and explained the reason for hospitalization and the management plan and she verbalized understanding and acceptance. 07/14/2018 Patient with UTI secondary to Proteus Marabilus is resistant to many medication. However sensitive to ertapenem which was started by our infectious diseases specialist. PICC line was placed for prolonged IV antibiotic. and patient at bedside with updated and have length discussion with them and all their questions were answered to their satisfaction. 07/15/2018 Patient lying in bed. She still was confused however she is able to understand and answer appropriately. He denies pain or dyspnea. No abdominal pain. 13 diet well. No diarrhea. She is pending PICC line placement for prolonged IV antibiotic. Patient will be going back to [facility] upon discharge. Patient and have all their questions answered to their satisfaction Objective - Vital Signs Vital signs: Vital Signs Temp 98.8 F 07/15/18 14:49 Pulse 88 07/15/18 14:49 Resp 20 07/15/18 14:49 BP 110/68 07/15/18 14:49 Pulse Ox 98 07/15/18 14:49 Intake & Output 07/14/18 07/15/18 07/15/18 18:59 06:59 18:59 Intake Total 300 520 Output Total 800 Balance -500 520 Weight 108 kg Intake: Oral 300 520 Output: Urine 800 Other: Voiding Method Diaper Diaper Diaper Incontinent Incontinent # Voids 1 # Bowel Movements 1 1 1 - Exam -GENERAL: The patient is alert and confused, not in any acute distress. HEENT: Pupils are round and equally reacting to light. EOMI. No scleral icterus. No conjunctival pallor. Normocephalic, atraumatic. No pharyngeal erythema. No thyromegaly. CARDIOVASCULAR: S1 and S2 present. No murmurs, rubs, or gallops. PULMONARY: Chest is clear to auscultation, no wheezing or crackles. ABDOMEN: Soft, nontender, nondistended, normoactive bowel sounds. No palpable organomegaly. MUSCULOSKELETAL: No joint swelling or deformity. EXTREMITIES: No cyanosis, clubbing, or pedal edema. NEUROLOGICAL: Gross neurological examination did not reveal any focal deficits. SKIN: No rashes. - Labs CBC & Chem 7: 07/15/18 08:49 07/15/18 08:49 Labs: Abnormal Lab Results - Last 24 Hours (Table) 07/14/18 07/15/18 Range/Units 20:29 08:49 Chloride 97 L (98-107) mmol/L Carbon Dioxide 38 H (22-30) mmol/L BUN 18 H (7-17) mg/dL Creatinine 1.06 H (0.52-1.04) mg/dL Glucose 109 H (74-99) mg/dL POC Glucose (mg/dL) 107 H (75-99) mg/dL Calcium 8.1 L (8.4-10.2) mg/dL Microbiology - Last 24 Hours (Table) 07/14/18 17:03 Gram Stain - Preliminary Sputum Assessment and Plan Assessment: Urinary tract infection Possible pneumonia. 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 Currently in sinus rhythm Plan: Patient will be continued on antibiotics now on vancomycin and cefepime. Continue with breathing treatments and CPAP patient. Call infectious disease consult. Continue with Lasix. Continue with insulin sliding scale. Continue the home medications and follow up closely. Clinical condition of the patient has been discussed with the family at bedside. Prognosis is poor. Family at bedside. CODE STATUS is DO NOT RESUSCITATE/DO NOT INTUBATE
[2018-07-15 19:43] LABS: Glucose,Whole Blood 153 mg/dL (75-99)
[2018-07-15] MEDS: TAMSULOSIN 0.4 MG CAP.ER.24H PO SCH (21:16)
[2018-07-15] MEDS: POTASSIUM CHLORIDE ER 10 MEQ TAB.ER.PRT PO SCH (21:16)
[2018-07-15] MEDS: CLOPIDOGREL 75 MG TAB PO SCH (21:16)
[2018-07-15] MEDS: TEMAZEPAM 7.5 MG CAP PO SCH (21:17)
[2018-07-16 07:13] LABS: Glucose,Whole Blood 83 mg/dL (75-99)
[2018-07-16] MEDS: ALBUTEROL NEBULIZED 2.5 MG/3 ML INHALATION PRN ×3 (09:00→21:33)
--- NOTE | 2018-07-16 09:28 | PN ---
PROGRESS NOTE DATE OF SERVICE: 07/15/2018 REASON FOR FOLLOWUP: ESBL Proteus mirabilis UTI and pneumonia. INTERVAL HISTORY: The patient is afebrile. She is breathing more comfortably. She did have a cough but not bringing up any sputum. No chest pain. No abdominal pain, no diarrhea. PHYSICAL EXAMINATION: Blood pressure 127/70 with a pulse of 65, temperature 98.2, she is 98% on 2 L nasal cannula. General description is an elderly female, lying in bed in no distress. Respiratory system: Unlabored breathing with decreased breath sounds in the bases. No wheeze. Heart S1, S2. Regular rate and rhythm, no tenderness. Extremities with 1+ edema feet. LABS: Hemoglobin is 12.7, white count 6.7, BUN of 18, creatinine 1.06. DIAGNOSTIC IMPRESSION AND PLAN: Patient with ESBL E coli Proteus mirabilis UTI along with right lower lobe pneumonia. Patient is currently covered with Invanz, to continue for another 7-10 days to finish course of therapy. Continue supportive care. MMODL / IJN: [id number] /
[2018-07-16 09:39] LABS: Calcium 8.3 mg/dL (8.4-10.2); Potassium 3.7 mmol/L (3.5-5.1)
[2018-07-16 09:48] LABS: Basophils # (A) 0.1 k/uL (0-0.2); Basophils % (A) 1 %; Eosinophils # (A) 0.1 k/uL (0-0.7); Eosinophils % (A) 2 %; HCT 42.5 % (34.0-46.0); HGB 12.8 gm/dL (11.4-16.0); Hypochromasia Slight; Lymphocytes # (A) 1.6 k/uL (1.0-4.8); Lymphocytes % (A) 28 %; MCH 29.3 pg (25.0-35.0); MCV 97.8 fL (80.0-100.0); Macrocytosis Slight; Mean Platelet Volume 6.8; Monocytes # (A) 0.3 k/uL (0-1.0); Monocytes % (A) 4 %; Neutrophils # (A) 3.6 k/uL (1.3-7.7); Neutrophils % (A) 62 %; Platelet Count 161 k/uL (150-450); RBC 4.35 m/uL (3.80-5.40); RDW 15.5 % (11.5-15.5); WBC 5.8 k/uL (3.8-10.6)
[2018-07-16] MEDS: ERTAPENEM 1 GM in SODIUM CHLORIDE 0.9% 50 ML IVPB SCH (11:34)
[2018-07-16] MEDS: INSULIN ASPART 100 UNIT/ML 1 ML 10 ML VIAL SQ SCH ×2 (11:37→20:57)
[2018-07-16] MEDS: FLUDROCORTISONE 0.1 MG TAB PO SCH ×2 (11:37→17:36)
[2018-07-16] MEDS: PYRIDOXINE 50 MG TAB PO SCH (11:37)
[2018-07-16] MEDS: SENNOSIDES 8.6 MG TAB PO SCH ×2 (11:37→19:54)
[2018-07-16] MEDS: MIDODRINE 5 MG TAB PO SCH ×3 (11:37→19:54)
[2018-07-16] MEDS: ALLOPURINOL 100 MG TAB PO SCH (11:38)
[2018-07-16] MEDS: DULoxetine HCL 60 MG CAPSULE.DR PO SCH ×2 (11:38→17:36)
[2018-07-16] MEDS: PREGABALIN 75 MG CAP PO SCH ×2 (11:38→19:54)
[2018-07-16] MEDS: LEVOTHYROXINE 125 MCG TAB PO SCH (11:38)
[2018-07-16] MEDS: POTASSIUM CHLORIDE ER 20 MEQ TAB.ER PO SCH (11:38)
[2018-07-16] MEDS: FUROSEMIDE 40 MG TAB PO SCH ×2 (11:39→17:36)
[2018-07-16] MEDS: FAMOTIDINE 20 MG TAB PO SCH (11:40)
[2018-07-16] MEDS: HEPARIN SODIUM,PORCINE 5,000 UNIT/ML 1 ML VIAL SQ SCH ×3 (11:40→23:09)
[2018-07-16] MEDS: SPIRONOLACTONE 25 MG TAB PO SCH (11:40)
[2018-07-16] MEDS ORDERED: MELATONIN 3 MG TABLET PO PRN (13:21)
[2018-07-16] MEDS: HYDROcodone/APAP 5-325MG 1 EACH TAB PO PRN (17:37)
[2018-07-16] MEDS ORDERED: ONDANSETRON 4 MG/2 ML VIAL IVP PRN (17:44)
[2018-07-16 19:42] LABS: Glucose,Whole Blood 114 mg/dL (75-99)
[2018-07-16] MEDS: ALPRAZolam 0.25 MG TAB PO SCH (19:53)
[2018-07-16] MEDS: CLOPIDOGREL 75 MG TAB PO SCH (19:53)
[2018-07-16] MEDS: TAMSULOSIN 0.4 MG CAP.ER.24H PO SCH (19:54)
[2018-07-16] MEDS: POTASSIUM CHLORIDE ER 10 MEQ TAB.ER.PRT PO SCH (19:54)
--- NOTE | 2018-07-16 22:46 | P.PN ---
Subjective call person hospitalist covering for Patient is a 77-year-old female with a history of CHF, chronic hypoxic respiratory failure on 3-4 L nasal cannula, CPAP dependence at night with CAMILA, paroxysmal A. fib on Plavix who presents emergency department for mental status changes. The patient reportedly had a fall yesterday however refused any imaging. She has gradually become more altered and lethargic throughout the day. Apparently around 2:30 this morning the patient stopped responding to staff and would not answer questions. The patient did not reportedly have any complaints throughout the day otherwise. She had some type of x-ray of her spine which was reportedly negative. Blood sugar in route was 120s. The patient would arouse to sternal rub per EMS and follow some commands. Patient will not respond to questioning at this time and no other history is able to be obtained. The patient is a DO NOT RESUSCITATE. Patient is currently on BiPAP machine. Chest x-ray showed slight worsening right basilar atelectasis versus developing infiltrate. Slight improvement of edema/congestion. Stable cardiomegaly. CT head showed no intracranial hemorrhage or acute intracranial abnormality mild global parenchymal loss with chronic microvascular ischemic changes. Air fluid levels in the maxillary sinus. Correlate for sinusitis 07/12/2018 Patient was lying in bed, answer some questions and follow simple commands however she remains confused. She is in the tachypneic. No more fever, her blood pressure is stable. She is saturating 95% on 3 L oxygen via nasal cannula. No leukocytosis. And BMP was unremarkable with creatinine 0.9. Which is improving. Sugar controlled. Her urine analysis was suspicious for infection, urine culture: Pending. Patient remains on broad-spectrum antibiotics with cefepime and vancomycin. Since the patient looks like mostly have UTI. Will call infectious disease for consult. 07/13/2018 Patient still treating with cefepime for gram-negative bacilli urinary tract infection. Final culture result is still pending. DC vancomycin. Patient is afebrile, no leukocytosis and her Vitas looks stable. ID team are following the patient. I had long discussion with the patient and explained the reason for hospitalization and the management plan and she verbalized understanding and acceptance. 07/14/2018 Patient with UTI secondary to Proteus Marabilus is resistant to many medication. However sensitive to ertapenem which was started by our infectious diseases specialist. PICC line was placed for prolonged IV antibiotic. and patient at bedside with updated and have length discussion with them and all their questions were answered to their satisfaction. 07/15/2018 Patient lying in bed. She still was confused however she is able to understand and answer appropriately. He denies pain or dyspnea. No abdominal pain. 13 diet well. No diarrhea. She is pending PICC line placement for prolonged IV antibiotic. Patient will be going back to [facility] upon discharge. Patient and have all their questions answered to their satisfaction 07/16/2018 Patient continued to improve, she is alert awake oriented and make sense in her conversation, however she looks a little bit confused to her for example regarding timing. Patient and family advised about reorientation. Most likely due to her infection and medication. Patient was started on small dose of Xanax 4 times a day, were going to lower this to twice a day. Change temazepam to melatonin for insomnia. Patient pending Placement, she will need prolonged IV antibiotic therapy will resume the care of the pt tomorrow Objective - Vital Signs Vital signs: Vital Signs Temp 97.4 F L 07/16/18 11:41 Pulse 77 07/16/18 11:41 Resp 16 07/16/18 11:41 BP 145/77 07/16/18 11:41 Pulse Ox 94 L 07/16/18 11:41 Intake & Output 07/15/18 07/16/18 07/16/18 18:59 06:59 18:59 Intake Total 520 440 240 Output Total 550 Balance 520 -110 240 Intake: Oral 520 440 240 Output: Urine 550 Other: Voiding Method Diaper Diaper Diaper Incontinent Incontinent Incontinent # Voids 1 # Bowel Movements 1 - Exam -GENERAL: The patient is alert and confused, not in any acute distress. HEENT: Pupils are round and equally reacting to light. EOMI. No scleral icterus. No conjunctival pallor. Normocephalic, atraumatic. No pharyngeal erythema. No thyromegaly. CARDIOVASCULAR: S1 and S2 present. No murmurs, rubs, or gallops. PULMONARY: Chest is clear to auscultation, no wheezing or crackles. ABDOMEN: Soft, nontender, nondistended, normoactive bowel sounds. No palpable organomegaly. MUSCULOSKELETAL: No joint swelling or deformity. EXTREMITIES: No cyanosis, clubbing, or pedal edema. NEUROLOGICAL: Gross neurological examination did not reveal any focal deficits. SKIN: No rashes. - Labs CBC & Chem 7: 07/16/18 08:57 07/16/18 08:57 Labs: Abnormal Lab Results - Last 24 Hours (Table) 07/15/18 07/16/18 07/16/18 Range/Units 19:40 08:57 08:57 MCHC 30.0 L (31.0-37.0) g/dL Carbon Dioxide 36 H (22-30) mmol/L Creatinine 1.08 H (0.52-1.04) mg/dL POC Glucose (mg/dL) 153 H (75-99) mg/dL Calcium 8.3 L (8.4-10.2) mg/dL Microbiology - Last 24 Hours (Table) 07/14/18 17:03 Gram Stain - Preliminary Sputum Assessment and Plan Assessment: Urinary tract infection Possible pneumonia. 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 Currently in sinus rhythm Plan: Patient will be continued on antibiotics now on vancomycin and cefepime. Continue with breathing treatments and CPAP patient. Call infectious disease consult. Continue with Lasix. Continue with insulin sliding scale. Continue the home medications and follow up closely. Clinical condition of the patient has been discussed with the family at bedside. Prognosis is poor. Family at bedside. CODE STATUS is DO NOT RESUSCITATE/DO NOT INTUBATE
--- NOTE | 2018-07-17 00:21 | PN ---
PROGRESS NOTE DATE OF SERVICE: 07/16/2018. REASON FOR FOLLOWUP: 1. ESBL Proteus mirabilis urinary tract infection. 2. Pneumonia. INTERVAL HISTORY: The patient is currently afebrile. She has been breathing comfortably. She did have a cough which is dry in nature. No nausea, no vomiting. No abdominal pain or diarrhea. PHYSICAL EXAMINATION: Blood pressure 115/67, pulse of 76, temperature 97.8, she is 98% on 2 L nasal cannula. GENERAL DESCRIPTION: An elderly female lying in bed in no distress. RESPIRATORY SYSTEM: Unlabored breathing. Decreased breath sounds in the bases. No wheeze. HEART: Heart S1, S2. Regular rate and rhythm. ABDOMEN: Soft. No tenderness. LABS: Hemoglobin is 12.8, white count 5.8. BUN of 15, creatinine 1.08. DIAGNOSTIC IMPRESSION AND PLAN: Patient with ESBL Proteus mirabilis urinary tract infection, also right lower lobe pneumonia. Patient is currently covered with Invanz. She will get midnight tomorrow to continue with Invanz 1 g daily for about a week to finish a course of therapy. Continue supportive care. MMODL / IJN: [id number] /
[2018-07-17 07:37] LABS: Glucose,Whole Blood 98 mg/dL (75-99)
[2018-07-17 08:00] VITALS: RESP 17
[2018-07-17] MEDS: POTASSIUM CHLORIDE ER 20 MEQ TAB.ER PO SCH (08:34)
[2018-07-17] MEDS: FUROSEMIDE 40 MG TAB PO SCH ×2 (08:34→15:27)
[2018-07-17] MEDS: FAMOTIDINE 20 MG TAB PO SCH (08:34)
[2018-07-17] MEDS: SPIRONOLACTONE 25 MG TAB PO SCH (08:34)
[2018-07-17] MEDS: SENNOSIDES 8.6 MG TAB PO SCH (08:34)
[2018-07-17] MEDS: LEVOTHYROXINE 75 MCG TAB PO SCH (08:34)
[2018-07-17] MEDS: DULoxetine HCL 60 MG CAPSULE.DR PO SCH (08:34)
[2018-07-17] MEDS: ALLOPURINOL 100 MG TAB PO SCH (08:34)
[2018-07-17] MEDS: ALPRAZolam 0.25 MG TAB PO SCH (08:35)
[2018-07-17] MEDS: MIDODRINE 5 MG TAB PO SCH ×2 (08:35→15:27)
[2018-07-17] MEDS: PREGABALIN 75 MG CAP PO SCH (08:35)
[2018-07-17] MEDS: FLUDROCORTISONE 0.1 MG TAB PO SCH (08:35)
[2018-07-17] MEDS: HEPARIN SODIUM,PORCINE 5,000 UNIT/ML 1 ML VIAL SQ SCH ×2 (08:43→15:27)
[2018-07-17] MEDS: INSULIN ASPART 100 UNIT/ML 1 ML 10 ML VIAL SQ SCH (08:43)
--- NOTE | 2018-07-17 09:18 | CDI ---
Documentation Clarification Form Date: 07/12/2018 10:25:00 AM Regenerated 07/17/18 From: Bhakti Warner RN, CCDS Admit Date: 07/11/2018 7:42:00 AM Patient Name: Tiana Abel Visit Number: [id number] ATTENTION: The Clinical Documentation Specialists (CDI) and [facility] Coding Staff appreciate your assistance in clarifying documentation. Please respond to the clarification below the line at the bottom and electronically sign. The CDI & [facility] Coding staff will review the response and follow-up if needed. Please note: Queries are made part of the Legal Health Record. If you have any questions, please contact the author of this message via ITS. Dr. Ash Dasilva Pneumonia was documented in your H&P and requires further specificity. History/Risk Factors: Chronic hypoxic respiratory failure on 3-4l nasal cannula, fall with mental status changes with increasing lethargy from [employer] care, Asthma, COPD, pneumonia, CAMILA, IDDM2, CKD, anemia, Clinical Indicators: Vital signs: Temp 98.3, Hr 87, RR 18, B/P 120/97, spo2 97% 2l NC WBC: 9/9.5 Left shift:6.4/7.7 CXR: "Slight worsening right basilar atelectasis versus developing infiltrate. Slight improvement of edema/congestion. Stable cardiomegaly." Lung/Breathing assessment: "Patient is lying in the bed comfortably, mild distress .Lethargic and currently on BiPAP. Trachea is central. Symmetrical expansion. Bibasilar crackles and diminished air entry basilar." Treatment: Antibiotics: IV Vanco 2 gm q 24 hrs, IV [id number] ivpb q 12 hrs O2: alternating between 3L NC and 30% bipap Breathing TX: none ordered In order to capture the severity of condition, please clarify if the condition signifies and you are treating for: Aspiration Pneumonia, identify if: Due to solids or liquids Bacterial Pneumonia, specify causal organism (if known) Gram Negative Pneumonia Due to Strep Due to Staph Due to E. coli Other bacteria (please specify) Viral Pneumonia, specify casual organism (if known) Other, please specify Unable to determine (Last Revision: October 2017) MTDD
[2018-07-17] MEDS: PYRIDOXINE 50 MG TAB PO SCH (09:59)
[2018-07-17] MEDS: ERTAPENEM 1 GM in SODIUM CHLORIDE 0.9% 50 ML IVPB SCH (10:52)
[2018-07-17 12:05] LABS: Glucose,Whole Blood 114 mg/dL (75-99)
[2018-07-17] MEDS: ALBUTEROL NEBULIZED 2.5 MG/3 ML INHALATION PRN (12:31)
--- NOTE | 2018-07-17 13:17 | DS ---
DISCHARGE SUMMARY DATE OF ADMISSION: July 11, 2018. DATE OF DISCHARGE: July 17, 2018. FINAL DIAGNOSES: 1. Pneumonia, possibly gram-negative organism, POA. 2. Acute urinary tract infection from the ESBL Proteus mirabilis, POA. 3. Acute metabolic encephalopathy from infection, POA. 4. Chronic congestive heart failure from diastolic dysfunction. Ejection fraction 50- 55 percent. 5. Hypertensive heart disease. 6. Moderate aortic stenosis, nonrheumatic. 7. Paroxysmal atrial fibrillation. 8. Chronic fibromyalgia. 9. Gastroesophageal reflux disease. 10.Hyperlipidemia. 11.Essential hypertension. 12.Obstructive sleep apnea. 13.Painful peripheral neuropathy on Lyrica. 14.Severe autonomic dysfunction. 15.Chronic lower extremity venous insufficiency. 16.Primary osteoarthritis multiple joints. 17.Diabetes mellitus type 2. 18.Morbid obesity BMI greater than 40. 19.Chronic medical debility patient at baseline uses a wheelchair and a scooter. 20.Chronic bladder dysfunction causing urinary retention. HOSPITAL COURSE: This patient presented to the [facility] with lethargy, found to have pneumonia and UTI with Proteus mirabilis with the ESBL. Antibiotics were coordinated by Dr. Fine. The patient is now doing better. Not much of an appetite though. Able to answer questions. Care was discussed at length with the patient and today. Did discuss given her multiple comorbidities. Patient overall prognosis is guarded. The patient's appetite is not very good. The patient is requiring oxygen. The patient during the hospital stay was seen by my colleague, Dr. Clarita Dasilva. Discussion and discharge planning more than 35 minutes. PHYSICAL EXAMINATION: Temperature 97.5, pulse 81, respirations 17, blood pressure 144/85. Pulse ox 97% on 2.5 L. LUNGS: Decreased breath sounds. Occasional crackles. The patient is able to answer simple questions. INVESTIGATIONS: White count 5.8, hemoglobin 12.8, potassium 3.7, BUN 15, creatinine 1.08. CONSULTATIONS: Dr. Fine from Infectious Disease. HOME GO MEDICATIONS: 1. Plavix 75 mg q.h.s. 2. Senna 17.2 mg p.o. b.i.d. 3. Cymbalta 60 mg b.i.d. 4. Allopurinol 200 mg p.o. daily. 5. Urecholine 25 mg q.i.d. 6. Florinef 0.1 mg p.o. b.i.d. 7. Lasix 40 mg b.i.d. 8. Synthroid 150 mcg p.o. Tuesday, Tuesday and Tuesday. 9. Midodrine 10 mg p.o. t.i.d. 10.Zofran 4 mg q.8h p.r.n. 11.Potassium 10 mEq at night and 20 mEq in the morning. 12.Lyrica 75 mg p.o. b.i.d. 13.Vitamin B6 50 mg p.o. daily. 14.Aldactone 50 mg p.o. daily. 15.Flomax 0.4 mg p.o. q.h.s. 16.Temazepam 7.5 mg p.o. q.h.s. 17.Humalog 3 units subcu b.i.d. 18.Synthroid 125 mcg Tuesday, Tuesday, , Tuesday. 19.Requip 1 mg p.o. q.h.s. 20.Pepcid 20 mg p.o. daily. 21.Ventolin 2.5 t.i.d. 22.Invanz 1 g IV piggyback for 7 days. Patient has a PICC line. 23.[place] 5 one tablet q.6h p.r.n. Discontinued medications include: MS Contin because patient was lethargic and Medrol. DISPOSITION: [facility]. FOLLOWUP: Follow up with Dr. Davis. CODE STATUS: DO NOT RESUSCITATE. Prognosis is guarded. Copy to Dr. Davis. MMMATEO / ANGUSN: [id number] /
[2018-07-17 16:17] VITALS: BP 130/75; PULSE 79; TEMP 97.6
[2018-07-17 16:43] LABS: Glucose,Whole Blood 123 mg/dL (75-99)
--- NOTE | 2018-07-17 17:49 | PN ---
PROGRESS NOTE DATE OF SERVICE: 07/17/2018 REASON FOR FOLLOW UP: An ESBL Proteus mirabilis UTI and pneumonia. INTERVAL HISTORY: The patient is currently afebrile. She is breathing more comfortably. The patient continues to have some cough. No chest pain. No abdominal pain, no diarrhea. PHYSICAL EXAMINATION: Blood pressure 130/75 with a pulse of 79, respiration 16, temperature 97.6, he is 98% on 2 L nasal cannula. General description is an elderly female lying in bed in no distress. Respiratory system: Unlabored breathing. Clear to auscultation anteriorly. Heart: S1, S2. Regular rate and rhythm. Abdomen soft. LABS: No new labs have been obtained today. Sputum showing Lulu glabrata. Urine with Proteus mirabilis. DIAGNOSTIC IMPRESSION AND PLAN: Patient with Proteus mirabilis ESBL urinary tract infection. Also, right lower lobe pneumonia. Patient responded to the Invanz, to [facility] for another [facility] for which the patient did get the med line and close outpatient follow up. Continue supportive care. MMODL / IJN: [id number] /
--- NOTE | 2018-07-18 17:57 | CDI ---
Documentation Clarification Form Date: 07/18/18 From: Latisha Ayush Umm Veronica, [employer] Operator Hours-8:30 am & 5 pm Loren Admit Date: 07/11/2018 7:42:00 AM Patient Name: Tiana Abel Visit Number: [id number] Discharge Date: 07/17/2018 5:06:00 PM ATTENTION: The Clinical Documentation Specialists (CDI) and [facility] Coding Staff appreciate your assistance in clarifying documentation. Please respond to the clarification below the line at the bottom and electronically sign. The CDI & [facility] Coding staff will review the response and follow-up if needed. Please note: Queries are made part of the Legal Health Record. If you have any questions, please contact the author of this message via ITS. Dr. Roger Morales A coccyx pressure ulcer, Stage II was documented in the nursing wound assessment. History/Risk Factors: gm neg pneumonia, UTI, HTN w chr diastolic CHF with Stage 3 renal failure and acute renal failure Location: coccyx Wound description: length 0.8cm, depth 0.3cm, moist, erythema Treatment: foam w/border Elements for accurate and compliant documentation of an ulcer: *The location/laterality of the ulcer *Etiology (decubitus/pressure, diabetic, PVD) *Stage I-IV, Unstageable, Suspected Deep Tissue Injury (To the deepest stage ) *If the ulcer was present at admission (POA) or occurred after admission In your professional opinion, can you please clarify the diagnosis, location, laterality and whether present on admission (POA): Stage 1 Pressure/Decubitus Ulcer (intact skin, non-blanching redness of local area) Stage 2 Pressure/Decubitus Ulcer (Partial thickness, loss of dermis, pink wound bed) Stage 3 Pressure/Decubitus Ulcer (Full thickness tissue loss) Stage 4 Pressure/Decubitus Ulcer (Full thickness tissue loss with exposed bone, tendon, or muscle. May have slough or eschar present) Unstageable Other condition, please specify Unable to determine Please indicate etiology of pressure ulcer (if known). stage 2 coccyx pressure ulcer, POA MTDD
== END 2018-07-17 17:06 | DRG 177 ==
LOC: EC 04:25 → 3SCARD 07:42 → 4SSUR 07-14 01:40
PROVIDERS: ADMIT Hospitalist; ATTEND Hospitalist
PROC: 5A09457 Assistance with Respiratory Ventilation, 24-96 Consecutive Hours, Continuous Positive Airway Pressure (ICD-10-PCS; principal; 2018-07-11)
DX: J15.6 Pneumonia due to other Gram-negative bacteria (principal); J96.21 Acute and chronic respiratory failure with hypoxia; J96.22 Acute and chronic respiratory failure with hypercapnia; G93.41 Metabolic encephalopathy; J44.0 Chronic obstructive pulmonary disease with (acute) lower respiratory infection; K51.90 Ulcerative colitis, unspecified, without complications; Z68.41 Body mass index [BMI] 40.0-44.9, adult; N39.0 Urinary tract infection, site not specified; I50.32 Chronic diastolic (congestive) heart failure; I13.0 Hypertensive heart and chronic kidney disease with heart failure and stage 1 through stage 4 chronic kidney disease, or unspecified chronic kidney disease; L89.152 Pressure ulcer of sacral region, stage 2; E11.22 Type 2 diabetes mellitus with diabetic chronic kidney disease; E11.42 Type 2 diabetes mellitus with diabetic polyneuropathy; I48.0 Paroxysmal atrial fibrillation; E66.01 Morbid (severe) obesity due to excess calories; G43.909 Migraine, unspecified, not intractable, without status migrainosus; Z66 Do not resuscitate; E11.43 Type 2 diabetes mellitus with diabetic autonomic (poly)neuropathy; N31.9 Neuromuscular dysfunction of bladder, unspecified; N18.3 Chronic kidney disease, stage 3 (moderate); I35.0 Nonrheumatic aortic (valve) stenosis; B96.4 Proteus (mirabilis) (morganii) as the cause of diseases classified elsewhere; Z16.12 Extended spectrum beta lactamase (ESBL) resistance; E03.9 Hypothyroidism, unspecified; I95.1 Orthostatic hypotension; G47.33 Obstructive sleep apnea (adult) (pediatric); I49.3 Ventricular premature depolarization; R32 Unspecified urinary incontinence; K21.9 Gastro-esophageal reflux disease without esophagitis; M79.7 Fibromyalgia; E78.5 Hyperlipidemia, unspecified; M19.91 Primary osteoarthritis, unspecified site; F41.9 Anxiety disorder, unspecified; G47.00 Insomnia, unspecified; F32.9 Major depressive disorder, single episode, unspecified; K59.00 Constipation, unspecified; I87.2 Venous insufficiency (chronic) (peripheral); H40.9 Unspecified glaucoma; L40.9 Psoriasis, unspecified; Y95 Nosocomial condition; Z99.81 Dependence on supplemental oxygen; Z71.3 Dietary counseling and surveillance; Z79.02 Long term (current) use of antithrombotics/antiplatelets; Z79.890 Hormone replacement therapy; Z79.4 Long term (current) use of insulin; Z79.52 Long term (current) use of systemic steroids; Z79.899 Other long term (current) drug therapy; Z86.73 Personal history of transient ischemic attack (TIA), and cerebral infarction without residual deficits; Z90.49 Acquired absence of other specified parts of digestive tract; Z90.710 Acquired absence of both cervix and uterus; Z87.01 Personal history of pneumonia (recurrent); Z86.14 Personal history of Methicillin resistant Staphylococcus aureus infection; Z87.891 Personal history of nicotine dependence; Z98.84 Bariatric surgery status; Z98.42 Cataract extraction status, left eye; Z98.41 Cataract extraction status, right eye; Z96.1 Presence of intraocular lens; Z87.19 Personal history of other diseases of the digestive system; Z99.89 Dependence on other enabling machines and devices; Z99.3 Dependence on wheelchair; Z88.0 Allergy status to penicillin; Z88.8 Allergy status to other drugs, medicaments and biological substances; Z83.2 Family history of diseases of the blood and blood-forming organs and certain disorders involving the immune mechanism; Z82.49 Family history of ischemic heart disease and other diseases of the circulatory system; Z82.3 Family history of stroke; W19.XXXA Unspecified fall, initial encounter
CPT/HCPCS: 36410; 36415; 70450; 71045; 71046; 76937; 80048; 80053; 81001; 82140; 82550; 82553; 82803; 83520; 83605; 83690; 83735; 83880; 84484; 85025; 85730; 86850; 86900; 86901; 87070; 87077; 87086; 87186; 87205; 93005; 94640; 94660; 96361; 96365; 96366; 96367; 99285

== ENCOUNTER 2019-02-07 20:01 | Emergency (ER) | payer MEDICARE, BC, OTHER ==
[2019-02-07 20:15] VITALS: TEMP 98.9
[2019-02-07] MEDS ORDERED: SODIUM CHLORIDE 0.9% 500 ML 500 ML IV ONE (20:24)
--- NOTE | 2019-02-07 20:31 | ED ---
Skin/Abscess/FB HPI - General Chief complaint: Skin/Abscess/Foreign Body Stated complaint: Leg Pain Time Seen by Provider: 02/07/19 20:02 Source: EMS Mode of arrival: EMS Limitations: no limitations - History of Present Illness Initial comments: 78-year-old female patient presents to the emergency department today for evaluation of swelling, erythema, and pain to the left lower extremity. Patient states over the last 2-3 days she is experiencing increasing redness to the left lower leg. Patient states that she started to have significant pain to the left posterior calf rate above the knee. Patient states that she has had cellulitis in the past. States she is currently being treated for urinary tract infection with Ceftin. States she is on antibiotics for the last 2 days. States last night she had shaking chills and felt feverish. She denies any nausea or vomiting with this. Denies any significant weakness. Denies any known injury to the leg. Patient denies any recent rash, shortness breath, chest pain, abdominal pain, diarrhea, constipation, back pain, numbness, tingling, dizziness, weakness, hematuria, dysuria, urinary urgency, urinary frequency, headache, visual changes, or any other complaints. - Related Data Home Medications Medication Instructions Recorded Confirmed Clopidogrel [Plavix] 75 mg PO HS@209910/19/14 02/07/19 Sennosides [Senna] 17.2 mg PO BID@0900,2100 04/09/17 02/07/19 Allopurinol [Zyloprim] 200 mg PO DAILY@0900 03/29/18 02/07/19 [place]chol Chloride [Urecholine] 25 mg PO QID 03/29/18 02/07/19 Fludrocortisone [Florinef] 0.1 mg PO BID@0900,1700 03/29/18 02/07/19 Furosemide [Lasix] 40 mg PO BID@0600,1400 03/29/18 02/07/19 Midodrine HCl [ProAmatine] 10 mg PO TID@0600,1400,2200 03/29/18 02/07/19 Ondansetron [Zofran] 4 mg PO Q8H PRN 03/29/18 02/07/19 Pregabalin [Lyrica] 75 mg PO BID@0900,2100 03/29/18 02/07/19 Pyridoxine [Vitamin B-6] 50 mg PO DAILY@0900 03/29/18 02/07/19 Spironolactone [Aldactone] 50 mg PO DAILY@59903/29/18 02/07/19 INSULIN LISPRO (HumaLOG) [humaLOG] 4 unit SQ BID@1200,1700 06/15/18 02/07/19 Levothyroxine Sodium [Synthroid] 125 mcg PO DAILY@0600 06/15/18 02/07/19 rOPINIRole HCL [Requip] 1 mg PO HS@209906/15/18 02/07/19 Famotidine [Pepcid] 20 mg PO DAILY@0600 07/11/18 02/07/19 Albuterol Nebulized [Ventolin 2.5 mg INHALATION RT-TID PRN 02/07/19 02/07/19 Nebulized] Cefuroxime [Ceftin] 250 mg PO BID@0900,209902/07/19 02/07/19 Cholecalciferol [Vitamin D3 (25 2,000 unit PO DAILY@0902/07/19 02/07/19 Mcg = 1000 Iu)] DULoxetine HCL [Cymbalta] 30 mg PO BID@0900,1700 02/07/19 02/07/19 Dulaglutide [Trulicity] 0.75 mg SQ 02/07/19 02/07/19 Gabapentin [Neurontin] 100 mg PO BID@0900,209902/07/19 02/07/19 Insulin Glargine,Hum.rec.anlog 18 unit SQ HS@209902/07/19 02/07/19 [Lantus Solostar] Potassium Chloride ER [K-Dur 20] 20 meq PO TID@0900,1300,209902/07/19 02/07/19 traZODone HCL 25 mg PO HS@209902/07/19 02/07/19 Previous Rx's Medication Instructions Recorded HYDROcodone/APAP 5-325MG [[place] 1 tab PO Q6HR PRN #10 tab 07/17/18 5-325] Ciprofloxacin [Cipro Susp] 500 mg PO BID #100 ml 02/07/19 Allergies Allergy/AdvReac Type Severity Reaction Status Date / Time Penicillins Allergy Rash/Hives Verified 02/07/19 21:45 metolazone [From Zaroxolyn] AdvReac Severe Vertigo Verified 02/07/19 21:45 celecoxib [From Celebrex] AdvReac Nausea & Verified 02/07/19 21:45 Vomiting colchicine AdvReac Nausea & Verified 02/07/19 21:45 Vomiting metoclopramide [From Reglan] AdvReac TREMORS Verified 02/07/19 21:45 Review of Systems ROS Statement: Those systems with pertinent positive or pertinent negative responses have been documented in the HPI. ROS Other: All systems not noted in ROS Statement are negative. Past Medical History Past Medical History: Atrial Fibrillation, Asthma, Heart Failure, COPD, CVA/TIA, Diabetes Mellitus, Fibromyalgia, GERD/Reflux, Hyperlipidemia, Hypertension, Osteoarthritis (OA), Pneumonia, Renal Disease, Respiratory Disorder, Skin Disorder, Sleep Apnea/CPAP/BIPAP, Syncope, Thyroid Disorder Additional Past Medical History / Comment(s): Chronic respiratory failure with home O2 at 3-4L/NC, CAMILA with CPap, enlarged heart, murmur, 2004 CVA-no residual, TIAs, IDDM type II, neuropathy bilateral hands at times and feet, difficulty swallowing and has had testing done-told d/t prior gastroplasty, CKD-has seen Dr. Meyer in the past, anemia, past abdominal flap wound recently healed, gets "blood blisters" on buttocks, chronic venous and lymphagitis stasis arms/legs with recurrent cellulitis in legs-worse on R leg, ulcerative colitis, psoriaisis R scalp, migraines, constipation-takes Rx, past low back vertebral fracture, bilateral eye glaucoma with laser surgery. History of Any Multi-Drug Resistant Organisms: ESBL, MRSA Date of last positivie culture/infection: 07/11/18 ESBL MDRO Source:: ESBL URINE MRSA 01/09/18 URINE Past Surgical History: Bariatric Surgery, Cholecystectomy, Heart Catheterization, Hysterectomy, Orthopedic Surgery Additional Past Surgical History / Comment(s): Gastroplasty, then Arnaud-en-Y, cardiac cath-no intervention, laser eye surgery bilateral eyes for glaucoma, cataracts removed with lens implants bilaterally, EGDs, colonoscopies-benign polypectomy, rectal fissure repair, D&C x2, R leg mole removal, L heel spur surgery, varicose vein stripping. Past Anesthesia/Blood Transfusion Reactions: No Reported Reaction Past Psychological History: Anxiety, Depression Smoking Status: Former smoker - Past Family History Sister(s) Family Medical History: Deep Vein Thrombosis (DVT) Father Family Medical History: CVA/TIA, Myocardial Infarction ([place]) Additional Family Medical History / Comment(s): Father of a [place] at the age of 59yrs. Mother Family Medical History: No Reported History Additional Family Medical History / Comment(s): AT AGE 85 General Exam Limitations: no limitations General appearance: alert, in no apparent distress, other (This is a well- developed, well-nourished elderly female patient in no acute distress. Vital signs upon presentation are temperature 98.9F, pulse 87, respirations 16, blood pressure 135/63, pulse ox 95% on 3 L nasal cannula.) Eye exam: Present: normal appearance, PERRL, EOMI. Absent: scleral icterus, conjunctival injection, periorbital swelling ENT exam: Present: normal exam, normal oropharynx, mucous membranes moist Respiratory exam: Present: normal lung sounds bilaterally. Absent: respiratory distress, wheezes, rales, rhonchi, stridor Cardiovascular Exam: Present: regular rate, normal rhythm, normal heart sounds, systolic murmur. Absent: diastolic murmur, rubs, gallop, clicks GI/Abdominal exam: Present: soft, normal bowel sounds. Absent: distended, tenderness, guarding, rebound, rigid Extremities exam: Present: full ROM, tenderness (Tenderness to the left posterior thigh above the knee), normal capillary refill, other (There is swelling, warmth, erythema noted to the left lower leg circumferentially extending from the knee to the ankle worse over the anterior aspect.). Absent: normal inspection, pedal edema, joint swelling, calf tenderness Neurological exam: Present: alert, oriented X3, CN II-XII intact Psychiatric exam: Present: normal affect, normal mood Skin exam: Present: warm, dry, intact, normal color. Absent: rash Course Vital Signs 02/07/19 02/07/19 20:02 22:27 Temperature 98.9 F Pulse Rate 87 80 Respiratory 16 20 Rate Blood Pressure 135/63 156/76 O2 Sat by Pulse 95 100 Oximetry Medical Decision Making - Medical Decision Making 78 year-old female patient presents to the emergency department today for evaluation of left leg pain and redness. Physical examination did reveal erythema noted to the left lower leg circumferential. Tenderness in the left posterior thigh. She is currently being treated for urinary tract infection with Ceftin. Patient's urine culture did come back positive for gram-negative bacilli. White blood cell count was normal. Other labs are unremarkable. Ultrasound venous Doppler duplex of the left lower trauma he was somewhat limited due to body habitus however no visualized vessels were free of DVT. Patient is currently taking Plavix. Patient has had previous cultures which were susceptible to Cipro. Patient is also said that her cellulitis has been treated with Cipro successfully in the past. We will switch patient from Ceftin to Cipro. She'll be instructed to follow-up with her primary care physician for recheck in 1-2 days. She is being discharged back to senior care facility so she will have close monitoring and follow-up. Return parameters were discussed in detail. Patient verbalizes understanding and agrees with this plan. - Lab Data Result diagrams: 02/07/19 20:28 02/07/19 20:28 Lab Results 02/07/19 02/07/19 02/07/19 Range/Units 20:28 20:28 20:28 WBC 7.6 (3.8-10.6) k/uL RBC 3.72 L (3.80-5.40) m/uL Hgb 11.0 L (11.4-16.0) gm/dL Hct 35.0 (34.0-46.0) % MCV 94.0 (80.0-100.0) fL MCH 29.6 (25.0-35.0) pg MCHC 31.5 (31.0-37.0) g/dL RDW 16.9 H (11.5-15.5) % Plt Count 146 L (150-450) k/uL Neutrophils % 75 % Lymphocytes % 17 % Monocytes % 5 % Eosinophils % 1 % Basophils % 0 % Neutrophils # 5.7 (1.3-7.7) k/uL Lymphocytes # 1.3 (1.0-4.8) k/uL Monocytes # 0.3 (0-1.0) k/uL Eosinophils # 0.1 (0-0.7) k/uL Basophils # 0.0 (0-0.2) k/uL Anisocytosis Slight Sodium 137 (137-145) mmol/L Potassium 4.0 (3.5-5.1) mmol/L Chloride 105 (98-107) mmol/L Carbon Dioxide 25 (22-30) mmol/L Anion Gap 7 mmol/L BUN 32 H (7-17) mg/dL Creatinine 1.11 H (0.52-1.04) mg/dL Est GFR (CKD-EPI)AfAm 56 (>60 ml/min/1.73 sqM) Est GFR (CKD-EPI)NonAf 49 (>60 ml/min/1.73 sqM) Glucose 266 H (74-99) mg/dL Plasma Lactic Acid Dionicio 1.6 (0.7-2.0) mmol/L Calcium 8.3 L (8.4-10.2) mg/dL Total Bilirubin 0.6 (0.2-1.3) mg/dL AST 20 (14-36) U/L ALT 14 (9-52) U/L Alkaline Phosphatase 89 (38-126) U/L Total Protein 5.3 L (6.3-8.2) g/dL Albumin 2.6 L (3.5-5.0) g/dL Urine Color Urine Appearance (Clear) Urine pH (5.0-8.0) Ur Specific [place] (1.001-1.035) Urine Protein (Negative) Urine Glucose (UA) (Negative) Urine Ketones (Negative) Urine Blood (Negative) Urine Nitrite (Negative) Urine Bilirubin (Negative) Urine Urobilinogen (<2.0) mg/dL Ur Leukocyte Esterase (Negative) Urine RBC (0-5) /hpf Urine WBC (0-5) /hpf Urine WBC Clumps (None) /hpf Ur Squamous Epith Cells (0-4) /hpf Urine Bacteria (None) /hpf Hyaline Casts (0-2) /lpf Urine Mucus (None) /hpf 02/07/19 Range/Units 22:15 WBC (3.8-10.6) k/uL RBC (3.80-5.40) m/uL Hgb (11.4-16.0) gm/dL Hct (34.0-46.0) % MCV (80.0-100.0) fL MCH (25.0-35.0) pg MCHC (31.0-37.0) g/dL RDW (11.5-15.5) % Plt Count (150-450) k/uL Neutrophils % % Lymphocytes % % Monocytes % % Eosinophils % % Basophils % % Neutrophils # (1.3-7.7) k/uL Lymphocytes # (1.0-4.8) k/uL Monocytes # (0-1.0) k/uL Eosinophils # (0-0.7) k/uL Basophils # (0-0.2) k/uL Anisocytosis Sodium (137-145) mmol/L Potassium (3.5-5.1) mmol/L Chloride (98-107) mmol/L Carbon Dioxide (22-30) mmol/L Anion Gap mmol/L BUN (7-17) mg/dL Creatinine (0.52-1.04) mg/dL Est GFR (CKD-EPI)AfAm (>60 ml/min/1.73 sqM) Est GFR (CKD-EPI)NonAf (>60 ml/min/1.73 sqM) Glucose (74-99) mg/dL Plasma Lactic Acid Dionicio (0.7-2.0) mmol/L Calcium (8.4-10.2) mg/dL Total Bilirubin (0.2-1.3) mg/dL AST (14-36) U/L ALT (9-52) U/L Alkaline Phosphatase (38-126) U/L Total Protein (6.3-8.2) g/dL Albumin (3.5-5.0) g/dL Urine Color Yellow Urine Appearance Cloudy H (Clear) Urine pH 5.0 (5.0-8.0) Ur Specific [place] 1.013 (1.001-1.035) Urine Protein Trace H (Negative) Urine Glucose (UA) Negative (Negative) Urine Ketones Negative (Negative) Urine Blood Negative (Negative) Urine Nitrite Positive H (Negative) Urine Bilirubin Negative (Negative) Urine Urobilinogen <2.0 (<2.0) mg/dL Ur Leukocyte Esterase Large H (Negative) Urine RBC 8 H (0-5) /hpf Urine WBC 150 H (0-5) /hpf Urine WBC Clumps Many H (None) /hpf Ur Squamous Epith Cells 1 (0-4) /hpf Urine Bacteria Moderate H (None) /hpf Hyaline Casts 6 H (0-2) /lpf Urine Mucus Rare H (None) /hpf - Radiology Data Radiology results: report reviewed, image reviewed Venous Doppler duplex of the left lower extremity was obtained. Report was reviewed in its entirety. Impression by Dr. Yesica Stack shows limited study as discussed but negative for left lower extremity DVT is seen. Disposition Clinical Impression: Left leg cellulitis, Urinary tract infection Disposition: HOME SELF-CARE Condition: Good Instructions (If sedation given, give patient instructions): Cellulitis (ED), Urinary Tract Infection in Older Adults (ED) Additional Instructions: Take medications as directed. Monitor for worsening cellulitis including in spite of redness, fever, chills, vomiting. Follow-up with your primary care physician for recheck in 1-2 days. Return to the emergency department immediately for any new, worsening, or concerning symptoms. Prescriptions: Ciprofloxacin [Cipro Susp] 500 mg PO BID #100 ml Is patient prescribed a controlled substance at d/c from ED?: No Referrals: Luke Davis MD [Primary Care Provider] - 1-2 days Time of Disposition: 22:48
[2019-02-07 20:58] LABS: Albumin 2.6 g/dL (3.5-5.0); Calcium 8.3 mg/dL (8.4-10.2); Total Bilirubin 0.6 mg/dL (0.2-1.3); Total Protein 5.3 g/dL (6.3-8.2)
[2019-02-07 21:08] LABS: Anisocytosis Slight; Basophils % (A) 0 %; Eosinophils # (A) 0.1 k/uL (0-0.7); Eosinophils % (A) 1 %; Lymphocytes # (A) 1.3 k/uL (1.0-4.8); Lymphocytes % (A) 17 %; MCH 29.6 pg (25.0-35.0); MCHC 31.5 g/dL (31.0-37.0); Mean Platelet Volume 7.9; Monocytes # (A) 0.3 k/uL (0-1.0); Monocytes % (A) 5 %; Neutrophils # (A) 5.7 k/uL (1.3-7.7); Neutrophils % (A) 75 %; Platelet Count 146 k/uL (150-450); RBC 3.72 m/uL (3.80-5.40); RDW 16.9 % (11.5-15.5); WBC 7.6 k/uL (3.8-10.6)
--- NOTE | 2019-02-07 22:00 | US ---
EXAMINATION TYPE: US venous doppler duplex LE LT DATE OF EXAM: 02/07/2019 9:44 PM COMPARISON: NONE CLINICAL HISTORY: Pain. Pain and redness left leg x 3 days. Swelling. No hx DVT. SIDE PERFORMED: Left TECHNIQUE: The lower extremity deep venous system is examined utilizing real time linear array sonog kendrick with graded compression, doppler sonography and color-flow sonography. VESSELS IMAGED: Common Femoral Vein Deep Femoral Vein -limited. Greater Saphenous Vein * Femoral Vein Popliteal Vein (* superficial vessels) FINDINGS: Very limited study due to patient body habitus. Curved probe used for study. No evidence of DVT in vessels imaged, although limited. Could not evaluate popliteal vein in sagittal due to body habitus. Could not access groin well to vis ualize EIV. Limited evaluation of CFV and deep femoral vein. IMPRESSION: Limited study as discussed, but negative for left lower extremity DVT as seen.
[2019-02-07 22:27] VITALS: BP 156/76; PULSE 80; RESP 20
[2019-02-07 22:37] LABS: Appearance,Urine Cloudy (Clear); Bacteria,Urine Moderate /hpf; Bilirubin,Urine Negative (Negative); Blood,Urine Negative (Negative); Color,Urine Yellow; Glucose,Urine (UA) Negative (Negative); Hyaline Casts,Urine 6 /lpf (0-2); Ketones,Urine Negative (Negative); Leukocyte Esterase,Urine Large (Negative); Mucus,Urine Rare /hpf; Nitrite,Urine Positive (Negative); Protein,Urine Trace (Negative); RBC,Urine 8 /hpf (0-5); Specific Gravity,Urine 1.013 (1.001-1.035); Squamous Epithelial Cell,Urine 1 /hpf (0-4); Urobilinogen,Urine <2.0 mg/dL (<2.0); WBC,Urine 150 /hpf (0-5)
[2019-02-07] MEDS ORDERED: CIPROFLOXACIN HCL 500 MG TAB PO STA (22:41)
[2019-02-07] MEDS ORDERED: CIPROFLOXACIN HCL 500 MG TAB PO ONE (22:45)
== END 2019-02-07 23:30 | disposition home or self-care (01) ==
LOC: EC 20:01
DX: L03.116 Cellulitis of left lower limb (principal); N39.0 Urinary tract infection, site not specified; I48.91 Unspecified atrial fibrillation; J44.9 Chronic obstructive pulmonary disease, unspecified; J96.10 Chronic respiratory failure, unspecified whether with hypoxia or hypercapnia; I13.0 Hypertensive heart and chronic kidney disease with heart failure and stage 1 through stage 4 chronic kidney disease, or unspecified chronic kidney disease; N18.9 Chronic kidney disease, unspecified; E11.22 Type 2 diabetes mellitus with diabetic chronic kidney disease; E11.42 Type 2 diabetes mellitus with diabetic polyneuropathy; D63.1 Anemia in chronic kidney disease; M79.7 Fibromyalgia; K21.9 Gastro-esophageal reflux disease without esophagitis; M19.90 Unspecified osteoarthritis, unspecified site; G47.33 Obstructive sleep apnea (adult) (pediatric); K59.00 Constipation, unspecified; F32.9 Major depressive disorder, single episode, unspecified; F41.9 Anxiety disorder, unspecified; Z87.891 Personal history of nicotine dependence; Z88.0 Allergy status to penicillin; Z88.6 Allergy status to analgesic agent; Z88.8 Allergy status to other drugs, medicaments and biological substances; Z79.4 Long term (current) use of insulin; Z79.02 Long term (current) use of antithrombotics/antiplatelets; Z79.52 Long term (current) use of systemic steroids; Z79.890 Hormone replacement therapy; Z79.899 Other long term (current) drug therapy; Z86.73 Personal history of transient ischemic attack (TIA), and cerebral infarction without residual deficits; Z86.69 Personal history of other diseases of the nervous system and sense organs; Z98.890 Other specified postprocedural states; Z95.818 Presence of other cardiac implants and grafts; Z86.14 Personal history of Methicillin resistant Staphylococcus aureus infection; Z99.81 Dependence on supplemental oxygen; Z99.89 Dependence on other enabling machines and devices
CPT/HCPCS: 36415; 80053; 81001; 83605; 85025; 87040; 99284

== ENCOUNTER → 2019-03-07 | Outpatient (CLI) | payer MEDICARE, BC, OTHER ==
--- NOTE | 2019-03-07 17:20 | US ---
EXAMINATION TYPE: US kidneys/renal and bladder DATE OF EXAM: 03/07/2019 COMPARISON: US 02/15/2017 CLINICAL HISTORY: N18.3 CKD STAGE 3. Difficult study due to patient body habitus- morbidly obese EXAM MEASUREMENTS: Right Kidney: 8.3 x 4.2 x 3.4 cm Left Kidney: 9.5 x 4.8 x 3.9 cm Right Kidney: Measuring small. No hydronephrosis or masses seen Left Kidney: No hydronephrosis. Nodular contour Bladder: Not distended IMPRESSION: 1. Normal renal ultrasound
== END | disposition home or self-care (01) ==
LOC: RADUSWWP 13:46
PROVIDERS: ATTEND Internal Medicine Nephrology
DX: N18.3 Chronic kidney disease, stage 3 (moderate) (principal)
CPT/HCPCS: 76770

== ENCOUNTER 2019-07-27 07:55 | Day surgery (SDC) | payer MEDICARE, BC, OTHER ==
[2019-07-18 13:10] VITALS: BMI 43.3
[~2019-07-27 07:55] MED LIST: LACTATED RINGERS 1,000 ML IV SCH; LIDOCAINE 1% 20 ML VIAL (10MG/ML) FOR IV START INTRADERMA PRN
[2019-07-27 08:34] VITALS: TEMP 97.3
[2019-07-27 08:43] LABS: Glucose,Whole Blood 125 mg/dL (75-99)
[2019-07-27] MEDS ORDERED: LIDOCAINE 1% INJ 10MG/ML (20 ML MDV) ONE (08:56)
[2019-07-27] MEDS ORDERED: PROPOFOL 10 MG/ML 20 ML VIAL IV ONE (08:56)
--- NOTE | 2019-07-27 09:15 | P.GSHP ---
History of Present Illness H&P Date: 07/27/19 Chief Complaint: History of colon polyps This a 78-year-old female been safe for colonoscopy. Patient history of colonic polyps. Past Medical History Past Medical History: Atrial Fibrillation, Asthma, Heart Failure, COPD, CVA/TIA, Diabetes Mellitus, Fibromyalgia, GERD/Reflux, Hyperlipidemia, Hypertension, Osteoarthritis (OA), Pneumonia, Renal Disease, Respiratory Disorder, Skin Disorder, Sleep Apnea/CPAP/BIPAP, Syncope, Thyroid Disorder Additional Past Medical History / Comment(s): Chronic respiratory failure with home O2 at 3-4L/NC, CAMILA with CPap, enlarged heart, murmur, 2004 CVA-no residual, TIAs, IDDM type II, neuropathy bilateral hands at times and feet, difficulty swallowing and has had testing done-told d/t prior gastroplasty, CKD-has seen Dr. Meyer in the past, anemia, chronic venous and lymphagitis stasis arms/legs with recurrent cellulitis in legs-worse on R leg,-NONE AT THIS TIME ulcerative colitis, psoriaisis R scalp, migraines, constipation-takes Rx, past low back vertebral fracture, bilateral eye glaucoma with laser surgery. History of Any Multi-Drug Resistant Organisms: ESBL, MRSA Date of last positivie culture/infection: 02/24/19 ESBL MDRO Source:: ESBL URINE MRSA 01/09/18 URINE Past Surgical History: Bariatric Surgery, Cholecystectomy, Heart Catheterization, Hysterectomy, Orthopedic Surgery Additional Past Surgical History / Comment(s): Gastroplasty, then Arnaud-en-Y, cardiac cath-no intervention, laser eye surgery bilateral eyes for glaucoma, cat aracts removed with lens implants bilaterally, EGDs, colonoscopies-benign polypectomy, rectal fissure repair, D&C x2, R leg mole removal, L heel spur surgery, varicose vein stripping. Past Anesthesia/Blood Transfusion Reactions: No Reported Reaction Past Psychological History: Anxiety, Depression Additional Psychological History / Comment(s): Pt resides at [facility] at this time. Smoking Status: Former smoker Past Alcohol Use History: None Reported Additional Past Alcohol Use History / Comment(s): Pt started smoking in 1958 and quit in 1967. She was a very light smoker. Past Drug Use History: None Reported - Past Family History Sister(s) Family Medical History: Deep Vein Thrombosis (DVT) Father Family Medical History: CVA/TIA, Myocardial Infarction ([place]) Additional Family Medical History / Comment(s): Father of a [place] at the age of 59yrs. Mother Family Medical History: No Reported History Additional Family Medical History / Comment(s): AT AGE 85 Medications and Allergies Home Medications Medication Instructions Recorded Confirmed Type Clopidogrel [Plavix] 75 mg PO HS@2100 10/19/14 07/27/19 History Sennosides [Senna] 17.2 mg PO BID@0900,2100 04/09/17 07/27/19 History Allopurinol [Zyloprim] 200 mg PO DAILY@0900 03/29/18 07/27/19 History Fludrocortisone [Florinef] 0.1 mg PO BID@0900,1700 03/29/18 07/27/19 History Furosemide [Lasix] 40 mg PO BID@0600,1400 03/29/18 07/27/19 History Midodrine HCl [ProAmatine] 10 mg PO TID@0600,1400,2200 03/29/18 07/27/19 History Ondansetron [Zofran] 4 mg PO Q8H PRN 03/29/18 07/27/19 History Pregabalin [Lyrica] 75 mg PO BID@0900,2100 03/29/18 07/27/19 History Pyridoxine [Vitamin B-6] 50 mg PO DAILY@0900 03/29/18 07/27/19 History Spironolactone [Aldactone] 50 mg PO DAILY@0600 03/29/18 07/27/19 History INSULIN LISPRO (HumaLOG) [humaLOG] 4 unit SQ BID@1200,1700 06/15/18 07/27/19 History Levothyroxine Sodium [Synthroid] 125 mcg PO DAILY@0600 06/15/18 07/27/19 History rOPINIRole HCL [Requip] 1 mg PO HS@2100 06/15/18 07/27/19 History Famotidine [Pepcid] 20 mg PO DAILY@0600 07/11/18 07/27/19 History HYDROcodone/APAP 5-325MG [[place] 1 tab PO Q6HR PRN #10 tab 07/17/18 07/27/19 Rx 5-325] Albuterol Nebulized [Ventolin 2.5 mg INHALATION RT-TID PRN 07/31/19 01/17/20 History Nebulized] Cholecalciferol [Vitamin D3 (25 2,000 unit PO DAILY@0900 02/07/19 07/27/19 History Mcg = 1000 Iu)] DULoxetine HCL [Cymbalta] 30 mg PO BID@0900,1700 02/07/19 07/27/19 History Dulaglutide [Trulicity] 0.75 mg SQ TU 02/07/19 07/27/19 History Insulin Glargine,Hum.rec.anlog 18 unit SQ HS@209902/07/19 07/27/19 History [Lantus Solostar] Potassium Chloride ER [K-Dur 20] 20 meq PO TID@0900,1300,209902/07/19 07/27/19 History traZODone HCL 25 mg PO HS@209902/07/19 07/27/19 History Acetaminophen [Tylenol Arthritis] 1,300 mg PO Q6H PRN 07/18/19 07/27/19 History Ferrous Sulfate [Feosol] 325 mg PO DAILY 07/18/19 07/27/19 History Mirabegron [Myrbetriq] 50 mg PO HS 07/18/19 07/27/19 History Allergies Allergy/AdvReac Type Severity Reaction Status Date / Time Penicillins Allergy Rash/Hives Verified 07/27/19 08:31 metolazone [From Zaroxolyn] AdvReac Severe Vertigo Verified 07/27/19 08:31 celecoxib [From Celebrex] AdvReac Nausea & Verified 07/27/19 08:31 Vomiting colchicine AdvReac Nausea & Verified 07/27/19 08:31 Vomiting metoclopramide [From Reglan] AdvReac TREMORS Verified 07/27/19 08:31 FLEETS AdvReac Unknown Uncoded 07/27/19 08:31 Surgical - Exam Vital Signs Temp Pulse Resp BP Pulse Ox 97.3 F L 63 16 197/88 100 07/27/19 08:33 07/27/19 08:33 07/27/19 08:33 07/27/19 08:33 07/27/19 08:33 - General well developed, well nourished, no distress - Eyes PERRL - ENT normal pinna - Neck no masses - Respiratory normal expansion - Cardiovascular Rhythm: regular - Abdomen Abdomen: soft, non tender Results - Labs Abnormal Lab Results - Last 24 Hours (Table) 07/27/19 Range/Units 08:41 POC Glucose (mg/dL) 125 H (75-99) mg/dL Assessment and Plan Assessment: History of colon polyps. We'll perform colonoscopy.
--- NOTE | 2019-07-27 09:31 | P.OP ---
Date of Procedure: 07/27/19 Preoperative Diagnosis: History of colonic Polyps Postoperative Diagnosis: Right colon polyp Diverticulosis Hemorrhoids Procedure(s) Performed: Colonoscopy Anesthesia: MAC Surgeon: Mansoor Cunningham Pathology: other (Right colon polyp) Condition: stable Description of Procedure: The patient's placed on the endoscopy table in the lateral position. She received IV sedation. Digital rectal exam was performed which revealed internal/external hemorrhoids. The flexible colonoscope was then placed patient anus passed throughout the entire colon. The ileocecal valve visualized. The cecum appeared normal. In the right colon there was a small sessile polyp was removed with a cold forcep. The remainder of the ascending colon, transverse colon appeared normal. In the descending and sigmoid colon is mild diverticular changes. Scope summer back the rectum this appeared normal. Scope was withdrawn from patient.
[2019-07-27 10:00] VITALS: BP 156/80; PULSE 81; RESP 18
[2019-07-27 10:02] LABS: Glucose,Whole Blood 107 mg/dL (75-99)
== END 2019-07-27 10:37 ==
LOC: ORWHC2ENDO 07:55
PROVIDERS: ATTEND Surgery
DX: Z12.11 Encounter for screening for malignant neoplasm of colon (principal); K57.30 Diverticulosis of large intestine without perforation or abscess without bleeding; K63.5 Polyp of colon; K64.4 Residual hemorrhoidal skin tags; K64.8 Other hemorrhoids; I13.0 Hypertensive heart and chronic kidney disease with heart failure and stage 1 through stage 4 chronic kidney disease, or unspecified chronic kidney disease; I11.0 Hypertensive heart disease with heart failure; E11.22 Type 2 diabetes mellitus with diabetic chronic kidney disease; I50.9 Heart failure, unspecified; N18.9 Chronic kidney disease, unspecified; I48.91 Unspecified atrial fibrillation; E78.5 Hyperlipidemia, unspecified; J44.9 Chronic obstructive pulmonary disease, unspecified; Z86.73 Personal history of transient ischemic attack (TIA), and cerebral infarction without residual deficits; M79.7 Fibromyalgia; Z87.01 Personal history of pneumonia (recurrent); J96.10 Chronic respiratory failure, unspecified whether with hypoxia or hypercapnia; Z99.81 Dependence on supplemental oxygen; G47.33 Obstructive sleep apnea (adult) (pediatric); E11.42 Type 2 diabetes mellitus with diabetic polyneuropathy; L40.9 Psoriasis, unspecified; G43.909 Migraine, unspecified, not intractable, without status migrainosus; K59.00 Constipation, unspecified; F32.9 Major depressive disorder, single episode, unspecified; F41.9 Anxiety disorder, unspecified; M19.90 Unspecified osteoarthritis, unspecified site; K21.9 Gastro-esophageal reflux disease without esophagitis; E66.01 Morbid (severe) obesity due to excess calories; Z98.890 Other specified postprocedural states; Z86.14 Personal history of Methicillin resistant Staphylococcus aureus infection; Z90.49 Acquired absence of other specified parts of digestive tract; Z98.84 Bariatric surgery status; Z90.710 Acquired absence of both cervix and uterus; Z98.41 Cataract extraction status, right eye; Z98.42 Cataract extraction status, left eye; Z87.891 Personal history of nicotine dependence; Z82.49 Family history of ischemic heart disease and other diseases of the circulatory system; Z79.02 Long term (current) use of antithrombotics/antiplatelets; Z79.52 Long term (current) use of systemic steroids; Z79.4 Long term (current) use of insulin; Z79.890 Hormone replacement therapy; Z79.899 Other long term (current) drug therapy; Z88.0 Allergy status to penicillin; Z88.6 Allergy status to analgesic agent; Z88.8 Allergy status to other drugs, medicaments and biological substances; Z86.010 Personal history of colon polyps; Z87.19 Personal history of other diseases of the digestive system; Z68.41 Body mass index [BMI] 40.0-44.9, adult
CPT/HCPCS: 88305; 88313; 45380; J2001; J2704

== ENCOUNTER 2020-06-17 06:45 | Inpatient (IN) | payer MEDICARE, BC ==
--- NOTE | 2020-06-17 07:10 | ED ---
General Adult HPI - General Chief complaint: Psychiatric Symptoms Stated complaint: Altered Mental Status, +COVID Time Seen by Provider: 06/17/20 06:55 Source: patient, EMS, RN notes reviewed, old records reviewed Mode of arrival: EMS Limitations: altered mental status - History of Present Illness Initial comments: Patient is a 79-year-old female who presents from [facility] on the leg with complaints of altered mental status for the past 2 weeks. Patient was reportedly diagnosed with Covid 19 infection, and has declined in mental status since that time. Patient state name does not know year where she is. She has jumbled speech. Patient's history is obtained from EMS and [facility] chart. Patient is a DO NOT RESUSCITATE. - Related Data Home Medications Medication Instructions Recorded Confirmed Clopidogrel [Plavix] 75 mg PO HS@209910/19/14 06/17/20 Sennosides [Senna] 17.2 mg PO BID@0900,2100 04/09/17 06/17/20 Allopurinol [Zyloprim] 200 mg PO DAILY@0900 03/29/18 06/17/20 Fludrocortisone [Florinef] 0.1 mg PO BID@0900,1700 03/29/18 06/17/20 Furosemide [Lasix] 40 mg PO BID@0600,1200 03/29/18 06/17/20 Midodrine HCl [ProAmatine] 10 mg PO TID@0600,1200,1800 03/29/18 06/17/20 Pregabalin [Lyrica] 75 mg PO BID@0900,2100 03/29/18 06/17/20 Spironolactone [Aldactone] 50 mg PO DAILY@0600 03/29/18 06/17/20 INSULIN LISPRO (HumaLOG) [humaLOG] 3 unit SQ BID@1200,1800 06/15/18 06/17/20 Levothyroxine Sodium [Synthroid] 125 mcg PO SUTUTHSA 06/15/18 06/17/20 rOPINIRole HCL [Requip] 1 mg PO HS@209906/15/18 06/17/20 Famotidine [Pepcid] 20 mg PO DAILY@0600 07/11/18 06/17/20 Cholecalciferol [Vitamin D3 (25 2,000 unit PO DAILY@0900 02/07/19 06/17/20 Mcg = 1000 Iu)] DULoxetine HCL [Cymbalta] 30 mg PO BID@0900,1700 02/07/19 06/17/20 Insulin Glargine,Hum.rec.anlog 14 unit SQ HS@209902/07/19 06/17/20 [Lantus Solostar] Potassium Chloride ER [K-Dur 20] 20 meq PO QID 02/07/19 06/17/20 Ferrous Sulfate [Feosol] 325 mg PO DAILY@89907/18/19 06/17/20 Mirabegron [Myrbetriq] 50 mg PO HS@209907/18/19 06/17/20 Acetaminophen Tab [Tylenol] 650 mg PO Q6H PRN 06/17/20 06/17/20 Albuterol Nebulized [Ventolin 2.5 mg INHALATION RT-Q6H PRN 06/17/20 06/17/20 Nebulized] Ascorbic Acid [Vitamin C] 500 mg PO DAILY@0906/17/20 06/17/20 Calcitriol [Rocaltrol] 0.25 mcg PO MOTUWETH 06/17/20 06/17/20 HYDROcodone/APAP 5-325MG [Fontana 1 tab PO Q6H PRN 06/17/20 06/17/20 5-325] Levothyroxine Sodium [Synthroid] 112 mcg PO MOWEFR 06/17/20 06/17/20 Ondansetron [Zofran] 4 mg PO Q8H PRN 06/17/20 06/17/20 Sodium Polystyrene Sulfonate 15 gm PO ONCE 06/17/20 06/17/20 [Kayexalate] Zinc 50 mg PO DAILY@0906/17/20 06/17/20 carvediloL [Coreg] 3.125 mg PO BID@0900,1700 06/17/20 06/17/20 methylPREDNISolone Dose Pack See Taper PO DAILY 06/17/20 06/17/20 [Medrol Dose Pack] Allergies Allergy/AdvReac Type Severity Reaction Status Date / Time Penicillins Allergy Rash/Hives Verified 06/17/20 07:56 metolazone [From Zaroxolyn] AdvReac Severe Vertigo Verified 06/17/20 07:56 celecoxib [From Celebrex] AdvReac Nausea & Verified 06/17/20 07:56 Vomiting colchicine AdvReac Nausea & Verified 06/17/20 07:56 Vomiting metoclopramide [From Reglan] AdvReac TREMORS Verified 06/17/20 07:56 FLEETS AdvReac Unknown Uncoded 07/27/19 08:31 Review of Systems ROS Statement: Those systems with pertinent positive or pertinent negative responses have been documented in the HPI. ROS Other: All systems not noted in ROS Statement are negative. Past Medical History Past Medical History: Atrial Fibrillation, Asthma, Heart Failure, COPD, CVA/TIA, Diabetes Mellitus, Fibromyalgia, GERD/Reflux, Hyperlipidemia, Hypertension, Osteoarthritis (OA), Pneumonia, Renal Disease, Respiratory Disorder, Skin Disorder, Sleep Apnea/CPAP/BIPAP, Syncope, Thyroid Disorder Additional Past Medical History / Comment(s): Chronic respiratory failure with home O2 at 3-4L/NC, CAMILA with CPap, enlarged heart, murmur, 2004 CVA-no residual, TIAs, IDDM type II, neuropathy bilateral hands at times and feet, difficulty swallowing and has had testing done-told d/t prior gastroplasty, CKD-has seen Dr. Meyer in the past, anemia, chronic venous and lymphagitis stasis arms/legs with recurrent cellulitis in legs-worse on R leg,-NONE AT THIS TIME ulcerative colitis, psoriaisis R scalp, migraines, constipation-takes Rx, past low back vertebral fracture, bilateral eye glaucoma with laser surgery. History of Any Multi-Drug Resistant Organisms: ESBL, MRSA Date of last positivie culture/infection: 05/23/20 ESBL MDRO Source:: ESBL URINE MRSA 01/09/18 URINE Past Surgical History: Bariatric Surgery, Cholecystectomy, Heart Catheterization, Hysterectomy, Orthopedic Surgery Additional Past Surgical History / Comment(s): Gastroplasty, then Arnaud-en-Y, cardiac cath-no intervention, laser eye surgery bilateral eyes for glaucoma, cataracts removed with lens implants bilaterally, EGDs, colonoscopies-benign polypectomy, rectal fissure repair, D&C x2, R leg mole removal, L heel spur surgery, varicose vein stripping. Past Anesthesia/Blood Transfusion Reactions: No Reported Reaction Past Psychological History: Anxiety, Depression Smoking Status: Unknown if ever smoked Past Alcohol Use History: None Reported Past Drug Use History: None Reported - Past Family History Sister(s) Family Medical History: Deep Vein Thrombosis (DVT) Father Family Medical History: CVA/TIA, Myocardial Infarction (NH) Additional Family Medical History / Comment(s): Father of a NH at the age of 59yrs. Mother Family Medical History: No Reported History Additional Family Medical History / Comment(s): AT AGE 85 General Exam - General Exam Comments Initial Comments: 79-year-old female. Alert and oriented 1. States the year is 2021. Garbled speech describing where she has. Limitations: altered mental status General appearance: alert, in no apparent distress Head exam: Present: atraumatic, normocephalic, normal inspection Eye exam: Present: normal appearance, PERRL, EOMI. Absent: scleral icterus, conjunctival injection, periorbital swelling ENT exam: Present: normal exam, mucous membranes dry, mucous membranes moist. Absent: normal oropharynx Neck exam: Present: normal inspection. Absent: tenderness, meningismus, lymphadenopathy Respiratory exam: Present: normal lung sounds bilaterally. Absent: respiratory distress, wheezes, rales, rhonchi, stridor Cardiovascular Exam: Present: regular rate, normal rhythm, normal heart sounds. Absent: systolic murmur, diastolic murmur, rubs, gallop, clicks GI/Abdominal exam: Present: soft, normal bowel sounds. Absent: distended, tenderness, guarding, rebound, rigid Extremities exam: Present: normal inspection, full ROM, normal capillary refill, pedal edema (Bilateral pedal edema). Absent: tenderness, joint swelling, calf tenderness Back exam: Present: normal inspection Neurological exam: Present: alert, oriented X3, CN II-XII intact Psychiatric exam: Present: normal affect, normal mood Skin exam: Present: warm, dry, intact, normal color. Absent: rash Course Vital Signs 06/17/20 06/17/20 06/17/20 06:47 08:05 09:00 Temperature 98.9 F Pulse Rate 78 73 76 Respiratory 18 18 14 Rate Blood Pressure 145/84 132/68 132/68 O2 Sat by Pulse 98 97 98 Oximetry 06/17/20 10:00 Temperature Pulse Rate 71 Respiratory 18 Rate Blood Pressure 124/61 O2 Sat by Pulse 97 Oximetry Medical Decision Making - Medical Decision Making 79-year-old female presents emergency department today from [facility] in [facility] for 2 weeks of altered mental status. Patient was diagnosed with Covid and has a decline in mental status. Patient has some jar rolled incoherent speech. No other acute focal weakness or deficits. She is chronically debilitated with multiple comorbidities. Patient's chest x-ray today shows evidence of pneumonia and blood cultures were completed. Patient was started on Rocephin and azithromycin. Patient for concern for altered mental status changes had CT brain, which is negative for any acute intracranial process. Evidence of multiple chronic small vessel ischemic changes. Patient was, chart states that she is a DO NOT RESUSCITATE. With patient's diagnosis of Covid, decline in renal function, altered mental status, and pneumonia Patient will be admitted at this time. I discussed the case with Dr. Nunez discussed the case with Dr. gusman. He recommends consult to neurology and pulmonology. - Lab Data Result diagrams: 06/17/20 07:54 06/17/20 07:54 Lab Results 06/17/20 06/17/20 06/17/20 Range/Units 07:54 07:54 07:54 WBC 9.3 (3.8-10.6) k/uL RBC 5.14 (3.80-5.40) m/uL Hgb 15.5 (11.4-16.0) gm/dL Hct 48.0 H (34.0-46.0) % MCV 93.4 (80.0-100.0) fL MCH 30.2 (25.0-35.0) pg MCHC 32.3 (31.0-37.0) g/dL RDW 15.0 (11.5-15.5) % Plt Count 174 (150-450) k/uL MPV 9.2 Neutrophils % 77 % Lymphocytes % 13 % Monocytes % 7 % Eosinophils % 0 % Basophils % 1 % Neutrophils # 7.1 (1.3-7.7) k/uL Lymphocytes # 1.2 (1.0-4.8) k/uL Monocytes # 0.6 (0-1.0) k/uL Eosinophils # 0.0 (0-0.7) k/uL Basophils # 0.1 (0-0.2) k/uL PT 10.2 (9.0-12.0) sec INR 1.0 (<1.2) APTT 25.0 (22.0-30.0) sec Sodium 144 (137-145) mmol/L Potassium 4.0 (3.5-5.1) mmol/L Chloride 100 (98-107) mmol/L Carbon Dioxide 39 H (22-30) mmol/L Anion Gap 5 mmol/L BUN 57 H (7-17) mg/dL Creatinine 1.68 H (0.52-1.04) mg/dL Est GFR (CKD-EPI)AfAm 34 (>60 ml/min/1.73 sqM) Est GFR (CKD-EPI)NonAf 29 (>60 ml/min/1.73 sqM) Glucose 83 (74-99) mg/dL Calcium 9.3 (8.4-10.2) mg/dL Total Bilirubin 1.3 (0.2-1.3) mg/dL AST 31 (14-36) U/L ALT 19 (4-34) U/L Alkaline Phosphatase 131 H (38-126) U/L Ammonia (<30) umol/L Troponin I (0.000-0.034) ng/mL Total Protein 5.6 L (6.3-8.2) g/dL Albumin 2.5 L (3.5-5.0) g/dL 06/17/20 06/17/20 Range/Units 07:54 07:54 WBC (3.8-10.6) k/uL RBC (3.80-5.40) m/uL Hgb (11.4-16.0) gm/dL Hct (34.0-46.0) % MCV (80.0-100.0) fL MCH (25.0-35.0) pg MCHC (31.0-37.0) g/dL RDW (11.5-15.5) % Plt Count (150-450) k/uL MPV Neutrophils % % Lymphocytes % % Monocytes % % Eosinophils % % Basophils % % Neutrophils # (1.3-7.7) k/uL Lymphocytes # (1.0-4.8) k/uL Monocytes # (0-1.0) k/uL Eosinophils # (0-0.7) k/uL Basophils # (0-0.2) k/uL PT (9.0-12.0) sec INR (<1.2) APTT (22.0-30.0) sec Sodium (137-145) mmol/L Potassium (3.5-5.1) mmol/L Chloride (98-107) mmol/L Carbon Dioxide (22-30) mmol/L Anion Gap mmol/L BUN (7-17) mg/dL Creatinine (0.52-1.04) mg/dL Est GFR (CKD-EPI)AfAm (>60 ml/min/1.73 sqM) Est GFR (CKD-EPI)NonAf (>60 ml/min/1.73 sqM) Glucose (74-99) mg/dL Calcium (8.4-10.2) mg/dL Total Bilirubin (0.2-1.3) mg/dL AST (14-36) U/L ALT (4-34) U/L Alkaline Phosphatase (38-126) U/L Ammonia <9 (<30) umol/L Troponin I <0.012 (0.000-0.034) ng/mL Total Protein (6.3-8.2) g/dL Albumin (3.5-5.0) g/dL 06/17/20 07:35 Normal sinus rhythm with sinus arrhythmia. Inferior infarct term. Abnormal EKG. Ventricular rate of 73 beats were minute. Was 188 ms. QS jew is 86 ms. QT QTc is 386/425 ms. - Radiology Data Radiology results: report reviewed Chest x-ray shows correlate for pneumonia. Cardiomegaly. Stable elevated right hemidiaphragm. Disposition Clinical Impression: COVID-19, Pneumonia, Garbled speech, Altered mental status, TITO (acute kidney injury) Disposition: ADMITTED IP TO THIS HOSP Condition: Stable Is patient prescribed a controlled substance at d/c from ED?: No Referrals: Luke Davis MD [Primary Care Provider] - 1-2 days Time of Disposition: 11:09
[2020-06-17] MEDS ORDERED: SODIUM CHLORIDE 0.9% 1,000 ML IV STA (07:11)
[2020-06-17] MEDS ORDERED: SODIUM CHLORIDE 0.9% 1,000 ML IV ONE (07:11)
[2020-06-17 08:20] LABS: Albumin 2.5 g/dL (3.5-5.0); Calcium 9.3 mg/dL (8.4-10.2); Total Bilirubin 1.3 mg/dL (0.2-1.3); Total Protein 5.6 g/dL (6.3-8.2)
[2020-06-17 08:34] LABS: Prothrombin Time 10.2 sec (9.0-12.0)
[2020-06-17 08:42] LABS: Basophils # (A) 0.1 k/uL (0-0.2); Basophils % (A) 1 %; Eosinophils % (A) 0 %; HGB 15.5 gm/dL (11.4-16.0); Lymphocytes # (A) 1.2 k/uL (1.0-4.8); Lymphocytes % (A) 13 %; MCH 30.2 pg (25.0-35.0); MCHC 32.3 g/dL (31.0-37.0); MCV 93.4 fL (80.0-100.0); Mean Platelet Volume 9.2; Monocytes # (A) 0.6 k/uL (0-1.0); Monocytes % (A) 7 %; Neutrophils # (A) 7.1 k/uL (1.3-7.7); Neutrophils % (A) 77 %; Platelet Count 174 k/uL (150-450); RBC 5.14 m/uL (3.80-5.40); WBC 9.3 k/uL (3.8-10.6)
--- NOTE | 2020-06-17 08:59 | XR ---
EXAMINATION TYPE: XR chest 1V portable DATE OF EXAM: 06/17/2020 COMPARISON: Prior chest x-ray 07/14/2018 HISTORY: Altered mental status, Covid positive, abnormal chest x-ray TECHNIQUE: Single frontal view of the chest is obtained. FINDINGS: There is patchy bilateral airspace disease. No evident pneumothorax or pleural effusion. R ight hemidiaphragm is elevated. Heart remains enlarged. Aorta is dense. Patient is rotated. IMPRESSION: Correlate for pneumonia. Cardiomegaly. Stable elevated right hemidiaphragm.
[2020-06-17] MEDS ORDERED: AZITHROMYCIN 500 MG in SODIUM CHLORIDE 0.9% 250 ML IVPB STA (09:21)
--- NOTE | 2020-06-17 10:15 | CT ---
EXAMINATION TYPE: CT brain wo con DATE OF EXAM: 06/17/2020 HISTORY: Altered mental status CT DLP: 1098.4 mGycm. Automated Exposure Control for Dose Reduction was Utilized. TECHNIQUE: CT scan of the head is performed without contrast. COMPARISON: CT brain July 11, 2018. FINDINGS: There is no acute intracranial hemorrhage or midline shift identified. There is diffuse v entricular and sulcal prominence consistent with diffuse age-related cerebral atrophy. There is low- attenuation in the periventricular white matter consistent with chronic small vessel ischemic change. Expanded empty sella redemonstrated vascular calcification distal internal carotid arteries again se en. Persistent anterior metopic suture, normal variant . The globes are intact and the visualized sin uses are clear. IMPRESSION: No acute intracranial hemorrhage or midline shift. There is mild to moderate diffuse ag e-related cerebral atrophy and chronic small vessel ischemic change redemonstrated. No significant c hange from prior.
[2020-06-17] MEDS ORDERED: oxyCODONE-APAP 5-325MG 1 EACH TAB PO PRN (11:10)
[2020-06-17] MEDS ORDERED: KETOROLAC 15 MG/ML 1 ML VIAL IVP PRN (11:10)
[2020-06-17] MEDS ORDERED: ONDANSETRON 4 MG/2 ML VIAL IVP PRN (11:10)
[2020-06-17] MEDS ORDERED: ACETAMINOPHEN TAB 325 MG TAB PO PRN (11:10)
[2020-06-17] MEDS ORDERED: IBUPROFEN 400 MG TAB PO PRN (11:10)
[2020-06-17] MEDS ORDERED: NALOXONE 0.4 MG/ML 1 ML VIAL IV PRN (11:10)
[2020-06-17 11:32] LABS: C Reactive Protein 88.4 mg/L (<10.0); Magnesium 1.8 mg/dL (1.6-2.3)
[2020-06-17 12:07] LABS: Appearance,Urine Clear (Clear); Bacteria,Urine Few /hpf; Bilirubin,Urine Negative (Negative); Blood,Urine Negative (Negative); Color,Urine Yellow; Glucose,Urine (UA) Negative (Negative); Hyaline Casts,Urine 32 /lpf (0-2); Ketones,Urine Negative (Negative); Leukocyte Esterase,Urine Large (Negative); Mucus,Urine Rare /hpf; Nitrite,Urine Negative (Negative); PH, Urine 5.5 (5.0-8.0); Protein,Urine Negative (Negative); RBC,Urine 1 /hpf (0-5); Specific Gravity,Urine 1.014 (1.001-1.035); Squamous Epithelial Cell,Urine 2 /hpf (0-4); WBC,Urine 8 /hpf (0-5)
[2020-06-17] MEDS: SODIUM CHLORIDE 0.9% 1,000 ML IV SCH ×2 (13:57→23:34)
[2020-06-17] MEDS ORDERED: ONDANSETRON 4 MG TAB PO PRN (14:14)
[2020-06-17] MEDS ORDERED: HYDROcodone/APAP 5-325MG 1 EACH TAB PO PRN (14:14)
--- NOTE | 2020-06-17 14:14 | P.CNPUL ---
History of Present Illness Consult date: 06/17/20 Reason for consult: pneumonia History of present illness: 79-year-old female patient with thiamine to the hospital because of generalized weakness and some altered mentation. Apparently she's been having these issues for the past few weeks at a [facility]. She resides at [facility]. She was reportedly diagnosed having coronavirus COVID 19 infection. In fact, the patient was tested positive on 06/06/2020. The patient is a DNR/DNI CODE STATUS changes in the emergency department, the patient's became slightly hypoxic and currently she is on 2 L of oxygen by nasal cannula. She is hemodynamically stable. No significant tachycardia or respiratory distress. She looks lethargic and weak. She has multiple medical problems and comorbidities including history of morbid obesity and the patient has undergone a previous Arnaud-en-Y gastric bypass surgery, COPD, previous history of COPD, previous history of CVA, diabetes mellitus type 2, hypertension, hyperlipidemia, chronic kidney disease, obstructive sleep apnea, congestion heart failure, hypothyroidism, diabetic peripheral neuropathy, cardiac atrial fibrillation, and chronic venous stasis involving lower extremities, chronic migraines, psoriasis, ulcerative colitis and glucoma and previous history of lower vertebral fractures. The patient's electrolytes are all within normal limits. She has chronic metabolic alkalosis. Her creatinine is at 1.6 consistent with stage III chronic kidney disease, her CRP was 88, LDH [id number]. Chest x-ray showing bilateral pulmonary infiltrates consistent with Covid-related pneumonia. Review of Systems the patient is an extremely poor historian. Information was obtained from the [facility] resident. She is nonambulatory at this point in time. ROS unobtainable: due to mental status Past Medical History Past Medical History: Atrial Fibrillation, Asthma, Heart Failure, COPD, CVA/TIA, Diabetes Mellitus, Fibromyalgia, GERD/Reflux, Hyperlipidemia, Hypertension, Osteoarthritis (OA), Pneumonia, Renal Disease, Respiratory Disorder, Skin Disorder, Sleep Apnea/CPAP/BIPAP, Syncope, Thyroid Disorder Additional Past Medical History / Comment(s): Chronic respiratory failure with home O2 at 3-4L/NC, CAMILA with CPap, enlarged heart, murmur, 2004 CVA-no residual, TIAs, IDDM type II, neuropathy bilateral hands at times and feet, difficulty swallowing and has had testing done-told d/t prior gastroplasty, CKD-has seen Dr. Mitch in the past, anemia, chronic venous and lymphagitis stasis arms/legs with recurrent cellulitis in legs-worse on R leg,-NONE AT THIS TIME ulcerative colitis, psoriaisis R scalp, migraines, constipation-takes Rx, past low back vertebral fracture, bilateral eye glaucoma with laser surgery. History of Any Multi-Drug Resistant Organisms: ESBL, MRSA Date of last positivie culture/infection: 05/23/20 ESBL MDRO Source:: ESBL URINE MRSA 01/09/18 URINE Past Surgical History: Bariatric Surgery, Cholecystectomy, Heart Catheterization, Hysterectomy, Orthopedic Surgery Additional Past Surgical History / Comment(s): Gastroplasty, then Arnaud-en-Y, cardiac cath-no intervention, laser eye surgery bilateral eyes for glaucoma, cataracts removed with lens implants bilaterally, EGDs, colonoscopies-benign polypectomy, rectal fissure repair, D&C x2, R leg mole removal, L heel spur surgery, varicose vein stripping. Past Anesthesia/Blood Transfusion Reactions: No Reported Reaction Past Psychological History: Anxiety, Depression Smoking Status: Unknown if ever smoked Past Alcohol Use History: None Reported Past Drug Use History: None Reported - Past Family History Sister(s) Family Medical History: Deep Vein Thrombosis (DVT) Father Family Medical History: CVA/TIA, Myocardial Infarction (DC) Additional Family Medical History / Comment(s): Father of a DC at the age of 59yrs. Mother Family Medical History: No Reported History Additional Family Medical History / Comment(s): AT AGE 85 Medications and Allergies Home Medications Medication Instructions Recorded Confirmed Type Clopidogrel [Plavix] 75 mg PO HS@209910/19/14 06/17/20 History Sennosides [Senna] 17.2 mg PO BID@0900,2100 04/09/17 06/17/20 History Allopurinol [Zyloprim] 200 mg PO DAILY@0900 03/29/18 06/17/20 History Fludrocortisone [Florinef] 0.1 mg PO BID@0900,1700 03/29/18 06/17/20 History Furosemide [Lasix] 40 mg PO BID@0600,1200 03/29/18 06/17/20 History Midodrine HCl [ProAmatine] 10 mg PO TID@0600,1200,1800 03/29/18 06/17/20 History Pregabalin [Lyrica] 75 mg PO BID@0900,2100 03/29/18 06/17/20 History Spironolactone [Aldactone] 50 mg PO DAILY@0600 03/29/18 06/17/20 History INSULIN LISPRO (HumaLOG) [humaLOG] 3 unit SQ BID@1200,1800 06/15/18 06/17/20 History Levothyroxine Sodium [Synthroid] 125 mcg PO SUTUTHSA 06/15/18 06/17/20 History rOPINIRole HCL [Requip] 1 mg PO HS@209906/15/18 06/17/20 History Famotidine [Pepcid] 20 mg PO DAILY@0600 07/11/18 06/17/20 History Cholecalciferol [Vitamin D3 (25 2,000 unit PO DAILY@0902/07/19 06/17/20 History Mcg = 1000 Iu)] DULoxetine HCL [Cymbalta] 30 mg PO BID@0900,1700 02/07/19 06/17/20 History Insulin Glargine,Hum.rec.anlog 14 unit SQ HS@209902/07/19 06/17/20 History [Lantus Solostar] Potassium Chloride ER [K-Dur 20] 20 meq PO QID 02/07/19 06/17/20 History Ferrous Sulfate [Feosol] 325 mg PO DAILY@89907/18/19 06/17/20 History Mirabegron [Myrbetriq] 50 mg PO HS@209907/18/19 06/17/20 History Acetaminophen Tab [Tylenol] 650 mg PO Q6H PRN 06/17/20 06/17/20 History Albuterol Nebulized [Ventolin 2.5 mg INHALATION RT-Q6H PRN 06/17/20 06/17/20 History Nebulized] Ascorbic Acid [Vitamin C] 500 mg PO DAILY@0900 06/17/20 06/17/20 History Calcitriol [Rocaltrol] 0.25 mcg PO MOTUWETH 06/17/20 06/17/20 History HYDROcodone/APAP 5-325MG [[place] 1 tab PO Q6H PRN 06/17/20 06/17/20 History 5-325] Levothyroxine Sodium [Synthroid] 112 mcg PO MOWEFR 06/17/20 06/17/20 History Ondansetron [Zofran] 4 mg PO Q8H PRN 06/17/20 06/17/20 History Sodium Polystyrene Sulfonate 15 gm PO ONCE 06/17/20 06/17/20 History [Kayexalate] Zinc 50 mg PO DAILY@0900 06/17/20 06/17/20 History carvediloL [Coreg] 3.125 mg PO BID@0900,1700 06/17/20 06/17/20 History methylPREDNISolone Dose Pack See Taper PO DAILY 06/17/20 06/17/20 History [Medrol Dose Pack] Allergies Allergy/AdvReac Type Severity Reaction Status Date / Time Penicillins Allergy Rash/Hives Verified 06/17/20 07:56 metolazone [From Zaroxolyn] AdvReac Severe Vertigo Verified 06/17/20 07:56 celecoxib [From Celebrex] AdvReac Nausea & Verified 06/17/20 07:56 Vomiting colchicine AdvReac Nausea & Verified 06/17/20 07:56 Vomiting metoclopramide [From Reglan] AdvReac TREMORS Verified 06/17/20 07:56 FLEETS AdvReac Unknown Uncoded 07/27/19 08:31 Physical Exam Vitals: Vital Signs Temp Pulse Resp BP Pulse Ox 06/17/20 12:00 69 20 149/77 06/17/20 11:00 75 20 165/94 95 06/17/20 10:00 71 18 124/61 97 06/17/20 09:00 76 14 132/68 98 06/17/20 08:05 73 18 132/68 97 06/17/20 06:47 98.9 F 78 18 145/84 98 Intake and Output 06/16/20 06/17/20 06/17/20 22:59 06:59 14:59 Other: Weight 72.575 kg elderly female patient on acute distress currently on4 L of oxygen by nasal cannula. Head exam was generally normal. There was no scleral icterus or corneal arcus. Mucous membranes were moist. Neck was supple and without jugular venous distension, thyromegaly, or carotid bruits. Carotids were easily palpable bilaterally. There was no adenopathy.The patient has significant crowding of posterior pharynx and the patient has no neck stiffness. Lungs sounds are diminished and patient has some bibasilar crackles. Cardiac exam revealed the PMI to be normally situated and sized. The rhythm was regular and no extrasystoles were noted during several minutes of auscultation. The first and second heart sounds were normal and physiologic splitting of the second heart sound was noted. There were no murmurs, rubs, clicks, or gallops. Abdominal exam revealed normal bowel sounds. The abdomen was soft, non-tender, and without masses, organomegaly, or appreciable enlargement of the abdominal aorta. Extremities revealed atrophy of the muscles and there is no evidence of any cyanosis or clubbing. Neurologically, she is a poor historian. She has underlying dementia. She will go 4 extremities without any significant limitation. Unable to ambulate. Results - Laboratory Findings CBC and BMP: 06/17/20 07:54 06/17/20 07:54 ABG WBC 9.3 k/uL (3.8-10.6) 06/17/20 07:54 RBC 5.14 m/uL (3.80-5.40) 06/17/20 07:54 Hgb 15.5 gm/dL (11.4-16.0) 06/17/20 07:54 Hct 48.0 % (34.0-46.0) H 06/17/20 07:54 MCV 93.4 fL (80.0-100.0) 06/17/20 07:54 MCH 30.2 pg (25.0-35.0) 06/17/20 07:54 MCHC 32.3 g/dL (31.0-37.0) 06/17/20 07:54 RDW 15.0 % (11.5-15.5) 06/17/20 07:54 Plt Count 174 k/uL (150-450) 06/17/20 07:54 MPV 9.2 06/17/20 07:54 Neutrophils % 77 % 06/17/20 07:54 Lymphocytes % 13 % 06/17/20 07:54 Monocytes % 7 % 06/17/20 07:54 Eosinophils % 0 % 06/17/20 07:54 Basophils % 1 % 06/17/20 07:54 Neutrophils # 7.1 k/uL (1.3-7.7) 06/17/20 07:54 Lymphocytes # 1.2 k/uL (1.0-4.8) 06/17/20 07:54 Monocytes # 0.6 k/uL (0-1.0) 06/17/20 07:54 Eosinophils # 0.0 k/uL (0-0.7) 06/17/20 07:54 Basophils # 0.1 k/uL (0-0.2) 06/17/20 07:54 PT 10.2 sec (9.0-12.0) 06/17/20 07:54 INR 1.0 (<1.2) 06/17/20 07:54 APTT 25.0 sec (22.0-30.0) 06/17/20 07:54 D-Dimer 0.81 mg/L FEU (<0.60) H 06/17/20 07:54 Sodium 144 mmol/L (137-145) 06/17/20 07:54 Potassium 4.0 mmol/L (3.5-5.1) 06/17/20 07:54 Chloride 100 mmol/L (98-107) 06/17/20 07:54 Carbon Dioxide 39 mmol/L (22-30) H 06/17/20 07:54 Anion Gap 5 mmol/L 06/17/20 07:54 BUN 57 mg/dL (7-17) H 06/17/20 07:54 Creatinine 1.68 mg/dL (0.52-1.04) H 06/17/20 07:54 Est GFR (CKD-EPI)AfAm 34 (>60 ml/min/1.73 sqM) 06/17/20 07:54 Est GFR (CKD-EPI)NonAf 29 (>60 ml/min/1.73 sqM) 06/17/20 07:54 Glucose 83 mg/dL (74-99) 06/17/20 07:54 Plasma Lactic Acid Dionicio 1.1 mmol/L (0.7-2.0) 06/17/20 11:26 Calcium 9.3 mg/dL (8.4-10.2) 06/17/20 07:54 Magnesium 1.8 mg/dL (1.6-2.3) 06/17/20 07:54 Total Bilirubin 1.3 mg/dL (0.2-1.3) 06/17/20 07:54 AST 31 U/L (14-36) 06/17/20 07:54 ALT 19 U/L (4-34) 06/17/20 07:54 Alkaline Phosphatase 131 U/L (38-126) H 06/17/20 07:54 Ammonia <9 umol/L (<30) 06/17/20 07:54 Lactate Dehydrogenase 991 U/L (313-618) H 06/17/20 07:54 Troponin I <0.012 ng/mL (0.000-0.034) 06/17/20 07:54 C-Reactive Protein 88.4 mg/L (<10.0) H 06/17/20 07:54 Total Protein 5.6 g/dL (6.3-8.2) L 06/17/20 07:54 Albumin 2.5 g/dL (3.5-5.0) L 06/17/20 07:54 Urine Color Yellow 06/17/20 11:38 Urine Appearance Clear (Clear) 06/17/20 11:38 Urine pH 5.5 (5.0-8.0) 06/17/20 11:38 Ur Specific [place] 1.014 (1.001-1.035) 06/17/20 11:38 Urine Protein Negative (Negative) 06/17/20 11:38 Urine Glucose (UA) Negative (Negative) 06/17/20 11:38 Urine Ketones Negative (Negative) 06/17/20 11:38 Urine Blood Negative (Negative) 06/17/20 11:38 Urine Nitrite Negative (Negative) 06/17/20 11:38 Urine Bilirubin Negative (Negative) 06/17/20 11:38 Urine Urobilinogen 2.0 mg/dL (<2.0) 06/17/20 11:38 Ur Leukocyte Esterase Large (Negative) H 06/17/20 11:38 Urine RBC 1 /hpf (0-5) 06/17/20 11:38 Urine WBC 8 /hpf (0-5) H 06/17/20 11:38 Urine WBC Clumps Few /hpf (None) H 06/17/20 11:38 Ur Squamous Epith Cells 2 /hpf (0-4) 06/17/20 11:38 Urine Bacteria Few /hpf (None) H 06/17/20 11:38 Hyaline Casts 32 /lpf (0-2) H 06/17/20 11:38 Urine Mucus Rare /hpf (None) H 06/17/20 11:38 PT/INR, D-dimer PT 10.2 sec (9.0-12.0) 06/17/20 07:54 INR 1.0 (<1.2) 06/17/20 07:54 D-Dimer 0.81 mg/L FEU (<0.60) H 06/17/20 07:54 Abnormal lab findings: Abnormal Labs 06/17/20 06/17/20 06/17/20 07:54 07:54 07:54 Hct 48.0 H D-Dimer 0.81 H Carbon Dioxide 39 H BUN 57 H Creatinine 1.68 H Alkaline Phosphatase 131 H Lactate Dehydrogenase C-Reactive Protein Total Protein 5.6 L Albumin 2.5 L Ur Leukocyte Esterase Urine WBC Urine WBC Clumps Urine Bacteria Hyaline Casts Urine Mucus 06/17/20 06/17/20 07:54 11:38 Hct D-Dimer Carbon Dioxide BUN Creatinine Alkaline Phosphatase Lactate Dehydrogenase 991 H C-Reactive Protein 88.4 H Total Protein Albumin Ur Leukocyte Esterase Large H Urine WBC 8 H Urine WBC Clumps Few H Urine Bacteria Few H Hyaline Casts 32 H Urine Mucus Rare H - Diagnostic Findings Chest x-ray: image reviewed Assessment and Plan Plan: 1 acute infection with coronavirus Covid 19 on 06/06/2020 2 acute/subacute Covid 19 related pneumonia with secondary hypoxic respiratory failure currently on oxygen between 2 and 4 L 3 shortness of breath secondary to above. 4 morbid obesity with a previous history of very thick surgery 5 sleep apnea.patient wears a BiPAP overnight at the [facility]. 6 diabetes mellitus with secondary peripheral neuropathy 7 chronic 3 kidney disease and the patient has a creatinine of 1.6 8 paroxysmal atrial fibrillation 9 chronic diastolic heart failure 10 history of ulcerative colitis 11 history of compression fracture of the spine 12 history of depression 13 13 fibromyalgia 14 hyperlipidemia 15 hypothyroidism 16 history of CVA without any residual deficits second 2004 16 psoriasis 17 chronic constipation 18 glucoma 19 chronic venous stasis involving lower extremities 20 dementia 21 [facility] resident Plan Hydrate this patient with normal saline at 100 cc an hour Decadron 6 mg by mouth daily Lovenox for DVT prophylaxis Oxygen titrate the flow to maintain a saturation above 90% Resume all medications We'll follow
[2020-06-17] MEDS: ENOXAPARIN 40 MG/0.4 ML SYRINGE SQ SCH (15:22)
[2020-06-17] MEDS: dexAMETHasone 2 MG TAB PO SCH (15:22)
[2020-06-17] MEDS: ZINC SULFATE 220 MG CAP PO SCH (15:22)
[2020-06-17] MEDS: ASCORBIC ACID 500 MG TAB PO SCH (15:22)
[2020-06-17] MEDS: FLUDROCORTISONE 0.1 MG TAB PO SCH (15:23)
[2020-06-17] MEDS: INSULIN ASPART (NovoLOG) 100 UNIT/ML VIAL SQ SCH (18:55)
[2020-06-17] MEDS: MIDODRINE 5 MG TAB PO SCH (18:56)
[2020-06-17] MEDS: carvediloL 3.125 MG TAB PO SCH (18:56)
[2020-06-17] MEDS: DULoxetine HCL 30 MG CAPSULE.DR PO SCH (18:56)
[2020-06-17 18:59] LABS: Glucose,Whole Blood 125 mg/dL (75-99)
[2020-06-17] MEDS: SENNOSIDES 8.6 MG TAB PO SCH (21:46)
[2020-06-17] MEDS: CLOPIDOGREL 75 MG TAB PO SCH (21:47)
--- NOTE | 2020-06-17 22:23 | P.HPIM ---
History of Present Illness H&P Date: 06/17/20 Chief Complaint: Decreased consciousness History of presenting complaint: This is a 79-year-old patient of . Extensive medical history to include atrial fibrillation as well as CHF COPD diabetes fibromyalgia GERD hyperlipidemia hypertension osteoarthritis obstructive sleep apnea, home oxygen 3-4 L, uses CPAP, prior stroke with no residual, neuropathy to hands and feet, chronic kidney disease, venous to assist lower extremity, ulcerative colitis, vertebtall fractures. History of Arnaud-en-Y gastroplasty,. Patient is resident of [facility] in [facility]. Has had altered mental status about 2 weeks. She was diagnosed with COVID 19 infection. And since then has become decline. She's had a jumbled speech. CODE STATUS-DO NOT RESUSCITATE Review of systems: Could not be done as patient is noncommunicative Social history: Resident at [facility]. Smoked for 10 years stopping in 1967.-Light smoker. No alcohol. Physical examination: VITAL SIGNS: 98.9, 78, 18, 145/84, 98% on 2 L GENERAL: 26.6-BMI, laying in bed, lethargic. Bruising especially on the arms EYES: Pupils equal. Conjunctiva normal. HEENT: External appearance of nose and ears normal, oral cavity dry. NECK: JVD unable to assess; masses not palpable. HEART: First and second heart sounds are normal; some edema. LUNGS: Respiratory rate increased, decreased breath sounds. ABDOMEN: Soft, large pendulous nontender, liver spleen not palpable, no masses palpable. PSYCH: Lethargic - respond to stimulil. NEUROLOGICAL: [Cranial nerves grossly intact; no facial asymmetry, unable to follow commands LYMPHATICS: No lymph nodes palpable in the axilla and neck INVESTIGATIONS, reviewed in the clinical context: White count 9.3 hemoglobin 15.5 platelets 174 potassium 4.0 BUN 57 creatinine 1.68 LDH 991 CRP 88.4 pro-calcitonin 0.18 d-dimer 0.81 UA positive for leukoesterase, WBC EKG tracing personally reviewed by me-normal sinus rhythm nonspecific T-wave changes Computed tomography scan brain without contrast-mild to moderate diffuse age- related cerebral atrophy and chronic small vessel ischemic changes Chest x-ray film personally reviewed by me--portable-cardiomegaly, bilateral infiltrates Previous testing: Creatinine was 1.46 on June 05 Assessment: -Bilateral COVID 19 pneumonia -Acute hypoxic respiratory failure from above -Acute metabolic encephalopathy and delirium from above -Paroxysmal atrial fibrillation currently in sinus rhythm -Restless leg syndrome -Peripheral neuropathy -Chronic urinary incontinence -Hypothyroid -Diabetes mellitus type 2 on insulin -Intermittent asthma -Essential hypertension -Hyperlipidemia -Obstructive sleep apnea uses CPAP -Chronic hypoxic respiratory failure with home oxygen 3-4 L by nasal cannula -Chronic venous insufficiency -Chronic lower extremity lymphedema -Acute UTI with cystitis Plan: We will maintain aspiration precautions. All feeding with assistance. Patient is put on dexamethasone Accu-Cheks will be followed. Resume home medications. IV fluids. IV ceftriaxone. Prognosis guarded. Past Medical History Past Medical History: Atrial Fibrillation, Asthma, Heart Failure, COPD, CVA/TIA, Diabetes Mellitus, Fibromyalgia, GERD/Reflux, Hyperlipidemia, Hypertension, Osteoarthritis (OA), Pneumonia, Renal Disease, Respiratory Disorder, Skin Disorder, Sleep Apnea/CPAP/BIPAP, Syncope, Thyroid Disorder Additional Past Medical History / Comment(s): Chronic respiratory failure with home O2 at 3-4L/NC, CAMILA with CPap, enlarged heart, murmur, 2005 CVA-no residual, TIAs, IDDM type II, neuropathy bilateral hands at times and feet, difficulty swallowing and has had testing done-told d/t prior gastroplasty, CKD-has seen Dr. Meyer in the past, anemia, chronic venous and lymphagitis stasis arms/legs with recurrent cellulitis in legs-worse on R leg,-NONE AT THIS TIME ulcerative colitis, psoriaisis R scalp, migraines, constipation-takes Rx, past low back vertebral fracture, bilateral eye glaucoma with laser surgery. History of Any Multi-Drug Resistant Organisms: ESBL, MRSA Date of last positivie culture/infection: 05/23/20 ESBL MDRO Source:: ESBL URINE MRSA 01/09/18 URINE Past Surgical History: Bariatric Surgery, Cholecystectomy, Heart Catheter ization, Hysterectomy, Orthopedic Surgery Additional Past Surgical History / Comment(s): Gastroplasty, then Arnaud-en-Y, cardiac cath-no intervention, laser eye surgery bilateral eyes for glaucoma, cataracts removed with lens implants bilaterally, EGDs, colonoscopies-benign po lypectomy, rectal fissure repair, D&C x2, R leg mole removal, L heel spur surgery, varicose vein stripping. Past Anesthesia/Blood Transfusion Reactions: No Reported Reaction Past Psychological History: Anxiety, Depression Smoking Status: Unknown if ever smoked Past Alcohol Use History: None Reported Past Drug Use History: None Reported - Past Family History Sister(s) Family Medical History: Deep Vein Thrombosis (DVT) Father Family Medical History: CVA/TIA, Myocardial Infarction (HI) Additional Family Medical History / Comment(s): Father of a HI at the age of 59yrs. Mother Family Medical History: No Reported History Additional Family Medical History / Comment(s): AT AGE 85 Medications and Allergies Home Medications Medication Instructions Recorded Confirmed Type Clopidogrel [Plavix] 75 mg PO HS@209910/19/14 06/17/20 History Sennosides [Senna] 17.2 mg PO BID@0900,209904/09/17 06/17/20 History Allopurinol [Zyloprim] 200 mg PO DAILY@0900 03/29/18 06/17/20 History Fludrocortisone [Florinef] 0.1 mg PO BID@0900,1700 03/29/18 06/17/20 History Furosemide [Lasix] 40 mg PO BID@0600,1200 03/29/18 06/17/20 History Midodrine HCl [ProAmatine] 10 mg PO TID@0600,1200,1800 03/29/18 06/17/20 History Pregabalin [Lyrica] 75 mg PO BID@0900,2100 03/29/18 06/17/20 History Spironolactone [Aldactone] 50 mg PO DAILY@0600 03/29/18 06/17/20 History INSULIN LISPRO (HumaLOG) [humaLOG] 3 unit SQ BID@1200,1800 06/15/18 06/17/20 History Levothyroxine Sodium [Synthroid] 125 mcg PO SUTUTHSA 06/15/18 06/17/20 History rOPINIRole HCL [Requip] 1 mg PO HS@209906/15/18 06/17/20 History Famotidine [Pepcid] 20 mg PO DAILY@0600 07/11/18 06/17/20 History Cholecalciferol [Vitamin D3 (25 2,000 unit PO DAILY@0900 02/07/19 06/17/20 History Mcg = 1000 Iu)] DULoxetine HCL [Cymbalta] 30 mg PO BID@0900,1700 02/07/19 06/17/20 History Insulin Glargine,Hum.rec.anlog 14 unit SQ HS@209902/07/19 06/17/20 History [Lantus Solostar] Potassium Chloride ER [K-Dur 20] 20 meq PO QID 02/07/19 06/17/20 History Ferrous Sulfate [Feosol] 325 mg PO DAILY@0900 07/18/19 06/17/20 History Mirabegron [Myrbetriq] 50 mg PO HS@209907/18/19 06/17/20 History Acetaminophen Tab [Tylenol] 650 mg PO Q6H PRN 06/17/20 06/17/20 History Albuterol Nebulized [Ventolin 2.5 mg INHALATION RT-Q6H PRN 06/17/20 06/17/20 History Nebulized] Ascorbic Acid [Vitamin C] 500 mg PO DAILY@0900 06/17/20 06/17/20 History Calcitriol [Rocaltrol] 0.25 mcg PO MOTUWETH 06/17/20 06/17/20 History HYDROcodone/APAP 5-325MG [[place] 1 tab PO Q6H PRN 06/17/20 06/17/20 History 5-325] Levothyroxine Sodium [Synthroid] 112 mcg PO MOWEFR 06/17/20 06/17/20 History Ondansetron [Zofran] 4 mg PO Q8H PRN 06/17/20 06/17/20 History Sodium Polystyrene Sulfonate 15 gm PO ONCE 06/17/20 06/17/20 History [Kayexalate] Zinc 50 mg PO DAILY@0900 06/17/20 06/17/20 History carvediloL [Coreg] 3.125 mg PO BID@0900,1700 06/17/20 06/17/20 History methylPREDNISolone Dose Pack See Taper PO DAILY 06/17/20 06/17/20 History [Medrol Dose Pack] Allergies Allergy/AdvReac Type Severity Reaction Status Date / Time Penicillins Allergy Rash/Hives Verified 06/17/20 07:56 metolazone [From Zaroxolyn] AdvReac Severe Vertigo Verified 06/17/20 07:56 celecoxib [From Celebrex] AdvReac Nausea & Verified 06/17/20 07:56 Vomiting colchicine AdvReac Nausea & Verified 06/17/20 07:56 Vomiting metoclopramide [From Reglan] AdvReac TREMORS Verified 06/17/20 07:56 FLEETS AdvReac Unknown Uncoded 07/27/19 08:31 Physical Exam Vitals: Vital Signs Temp Pulse Resp BP Pulse Ox 06/17/20 21:50 98.7 F 78 18 151/103 98 06/17/20 21:06 80 18 139/90 98 06/17/20 20:05 82 19 126/65 97 06/17/20 18:00 82 16 139/90 98 06/17/20 14:44 98 F 06/17/20 14:00 72 16 132/79 96 06/17/20 12:00 69 20 149/77 06/17/20 11:00 75 20 165/94 95 06/17/20 10:00 71 18 124/61 97 06/17/20 09:00 76 14 132/68 98 06/17/20 08:05 73 18 132/68 97 06/17/20 06:47 98.9 F 78 18 145/84 98 Intake and Output 06/17/20 06/17/20 06/17/20 06:59 14:59 22:59 Other: Weight 72.575 kg Results CBC & Chem 7: 06/17/20 07:54 06/17/20 07:54 Labs: Abnormal Lab Results - Last 24 Hours (Table) 06/17/20 06/17/20 06/17/20 Range/Units 07:54 07:54 07:54 Hct 48.0 H (34.0-46.0) % D-Dimer 0.81 H (<0.60) mg/L FEU Carbon Dioxide 39 H (22-30) mmol/L BUN 57 H (7-17) mg/dL Creatinine 1.68 H (0.52-1.04) mg/dL POC Glucose (mg/dL) (75-99) mg/dL Alkaline Phosphatase 131 H (38-126) U/L Lactate Dehydrogenase (313-618) U/L C-Reactive Protein (<10.0) mg/L Total Protein 5.6 L (6.3-8.2) g/dL Albumin 2.5 L (3.5-5.0) g/dL Procalcitonin (0.02-0.09) ng/mL Ur Leukocyte Esterase (Negative) Urine WBC (0-5) /hpf Urine WBC Clumps (None) /hpf Urine Bacteria (None) /hpf Hyaline Casts (0-2) /lpf Urine Mucus (None) /hpf 06/17/20 06/17/20 06/17/20 Range/Units 07:54 07:54 11:38 Hct (34.0-46.0) % D-Dimer (<0.60) mg/L FEU Carbon Dioxide (22-30) mmol/L BUN (7-17) mg/dL Creatinine (0.52-1.04) mg/dL POC Glucose (mg/dL) (75-99) mg/dL Alkaline Phosphatase (38-126) U/L Lactate Dehydrogenase 991 H (313-618) U/L C-Reactive Protein 88.4 H (<10.0) mg/L Total Protein (6.3-8.2) g/dL Albumin (3.5-5.0) g/dL Procalcitonin 0.18 H (0.02-0.09) ng/mL Ur Leukocyte Esterase Large H (Negative) Urine WBC 8 H (0-5) /hpf Urine WBC Clumps Few H (None) /hpf Urine Bacteria Few H (None) /hpf Hyaline Casts 32 H (0-2) /lpf Urine Mucus Rare H (None) /hpf 06/17/20 Range/Units 18:53 Hct (34.0-46.0) % D-Dimer (<0.60) mg/L FEU Carbon Dioxide (22-30) mmol/L BUN (7-17) mg/dL Creatinine (0.52-1.04) mg/dL POC Glucose (mg/dL) 125 H (75-99) mg/dL Alkaline Phosphatase (38-126) U/L Lactate Dehydrogenase (313-618) U/L C-Reactive Protein (<10.0) mg/L Total Protein (6.3-8.2) g/dL Albumin (3.5-5.0) g/dL Procalcitonin (0.02-0.09) ng/mL Ur Leukocyte Esterase (Negative) Urine WBC (0-5) /hpf Urine WBC Clumps (None) /hpf Urine Bacteria (None) /hpf Hyaline Casts (0-2) /lpf Urine Mucus (None) /hpf
[2020-06-17] MEDS: NON FORMULARY DRUG (Mirabegron [Myrbetriq] 50 MG Tab.Er.24h) PO SCH (23:24)
[2020-06-17] MEDS: INSULIN DETEMIR (LEVEMIR) 100 UNIT/ML SYR SQ SCH (23:32)
[2020-06-17] MEDS: PREGABALIN 75 MG CAP PO SCH (23:33)
[2020-06-17 23:41] LABS: Glucose,Whole Blood 85 mg/dL (75-99)
[2020-06-18] MEDS: FAMOTIDINE 20 MG TAB PO SCH (06:15)
[2020-06-18] MEDS: SPIRONOLACTONE 25 MG TAB PO SCH (06:16)
[2020-06-18] MEDS: FUROSEMIDE 40 MG TAB PO SCH ×2 (06:16→12:26)
[2020-06-18] MEDS: MIDODRINE 5 MG TAB PO SCH ×3 (06:23→18:07)
[2020-06-18] MEDS: LEVOTHYROXINE 112 MCG TAB PO SCH (06:24)
[2020-06-18 08:04] LABS: Glucose,Whole Blood 98 mg/dL (75-99)
[2020-06-18] MEDS: INSULIN ASPART (NovoLOG) 100 UNIT/ML VIAL SQ SCH ×6 (08:24→20:43)
[2020-06-18] MEDS ORDERED: NON FORMULARY DRUG (Zinc [Zinc] 50 MG Tablet) PO SCH (09:00)
[2020-06-18] MEDS: SODIUM CHLORIDE 0.9% 1,000 ML IV SCH ×2 (09:24→17:55)
[2020-06-18] MEDS: DULoxetine HCL 30 MG CAPSULE.DR PO SCH ×2 (09:25→17:55)
[2020-06-18] MEDS: PANTOPRAZOLE 40 MG/10 ML VIAL IV SCH (09:25)
[2020-06-18] MEDS: dexAMETHasone 2 MG TAB PO SCH (09:25)
[2020-06-18] MEDS: ZINC SULFATE 220 MG CAP PO SCH (09:25)
[2020-06-18] MEDS: carvediloL 3.125 MG TAB PO SCH ×2 (09:25→17:54)
[2020-06-18] MEDS: allopurinoL 100 MG TAB PO SCH (09:25)
[2020-06-18] MEDS: ASCORBIC ACID 500 MG TAB PO SCH (09:26)
[2020-06-18] MEDS: CHOLECALCIFEROL 1,000 UNIT TAB PO SCH (09:26)
[2020-06-18] MEDS: FERROUS SULFATE 325 MG TAB PO SCH (09:26)
[2020-06-18] MEDS: ENOXAPARIN 40 MG/0.4 ML SYRINGE SQ SCH (09:26)
[2020-06-18] MEDS: PREGABALIN 75 MG CAP PO SCH ×2 (09:26→20:44)
[2020-06-18] MEDS: SENNOSIDES 8.6 MG TAB PO SCH ×2 (09:26→20:44)
[2020-06-18] MEDS: FLUDROCORTISONE 0.1 MG TAB PO SCH ×2 (09:35→18:07)
[2020-06-18 11:11] LABS: Glucose,Whole Blood 153 mg/dL (75-99)
--- NOTE | 2020-06-18 12:31 | P.PN ---
Subjective Progress Note Date: 06/18/20 79-year-old female patient with thiamine to the hospital because of generalized weakness and some altered mentation. Apparently she's been having these issues for the past few weeks at a alf. She resides at [facility]. She was reportedly diagnosed having coronavirus COVID 19 infection. In fact, the patient was tested positive on 06/06/2020. The patient is a DNR/DNI CODE STATUS changes in the emergency department, the patient's became slightly hypoxic and currently she is on 2 L of oxygen by nasal cannula. She is hemodynamically stable. No significant tachycardia or respiratory distress. She looks lethargic and weak. She has multiple medical problems and comorbidities including history of morbid obesity and the patient has undergone a previous Arnaud-en-Y gastric bypass surgery, COPD, previous history of COPD, previous history of CVA, diabetes mellitus type 2, hypertension, hyperlipidemia, chronic kidney disease, obstructive sleep apnea, congestion heart failure, hypothyroidism, diabetic peripheral neuropathy, cardiac atrial fibrillation, and chronic venous stasis involving lower extremities, chronic migraines, psoriasis, ulcerative colitis and glucoma and previous history of lower vertebral fractures. The patient's electrolytes are all within normal limits. She has chronic metabolic alkalosis. Her creatinine is at 1.6 consistent with stage III chronic kidney disease, her CRP was 88, LDH [id number]. Chest x-ray showing bilateral pulmonary infiltrates consistent with Covid-related pneumonia. on 06/18/2020, the patient is fatigued and tired. She is sleepy and she is able to converse with her over the phone. No signs of any respiratory distress. She is somewhat between 2 and 3 L of oxygen by nasal cannula. She is on Decadron. No other new complaints otherwise for now. Outpatient medication have been ordered resume. Objective - Vital Signs Vital signs: Vital Signs Temp 97.6 F 06/18/20 11:00 Pulse 85 06/18/20 11:00 Resp 17 06/18/20 11:00 BP 145/79 06/18/20 11:00 Pulse Ox 94 L 06/18/20 11:00 Intake & Output 06/17/20 06/18/20 06/18/20 18:59 06:59 18:59 Intake Total 1140 Balance 1140 Weight 72.575 kg Intake: Intake, IV Titration 700 Amount Sodium Chloride 0.9% 1, 700 000 ml @ 100 mls/hr IV . Q10H [facility] Rx#:[id number] Oral 440 Other: Voiding Method Diaper Diaper Incontinent Incontinent # Voids 1 # Bowel Movements 1 - Exam elderly female patient on acute distress currently on4 L of oxygen by nasal cannula. Head exam was generally normal. There was no scleral icterus or corneal arcus. Mucous membranes were moist. Neck was supple and without jugular venous distension, thyromegaly, or carotid bruits. Carotids were easily palpable bilaterally. There was no adenopathy.The patient has significant crowding of posterior pharynx and the patient has no neck stiffness. Lungs sounds are diminished and patient has some bibasilar crackles. Cardiac exam revealed the PMI to be normally situated and sized. The rhythm was regular and no extrasystoles were noted during several minutes of auscultation. The first and second heart sounds were normal and physiologic splitting of the second heart sound was noted. There were no murmurs, rubs, clicks, or gallops. Abdominal exam revealed normal bowel sounds. The abdomen was soft, non-tender, and without masses, organomegaly, or appreciable enlargement of the abdominal aorta. Extremities revealed atrophy of the muscles and there is no evidence of any cyanosis or clubbing. Neurologically, she is a poor historian. She has underlying dementia. She will go 4 extremities without any significant limitation. Unable to ambulate. Results - Labs CBC & Chem 7: 06/17/20 07:54 06/17/20 07:54 Labs: Abnormal Lab Results - Last 24 Hours (Table) 06/17/20 06/17/20 06/18/20 Range/Units 07:54 18:53 10:48 POC Glucose (mg/dL) 125 H 153 H (75-99) mg/dL Procalcitonin 0.18 H (0.02-0.09) ng/mL Microbiology - Last 24 Hours (Table) 06/17/20 07:54 Blood Culture - Preliminary Blood No Growth after 24 hours Assessment and Plan Plan: 1 acute infection with coronavirus Covid 19 on 06/06/2020 2 acute/subacute Covid 19 related pneumonia with secondary hypoxic respiratory failure currently on oxygen between 2 and 4 L 3 shortness of breath secondary to above. 4 morbid obesity with a previous history of very thick surgery 5 sleep apnea.patient wears a BiPAP overnight at the alf. 6 diabetes mellitus with secondary peripheral neuropathy 7 chronic 3 kidney disease and the patient has a creatinine of 1.6 8 paroxysmal atrial fibrillation 9 chronic diastolic heart failure 10 history of ulcerative colitis 11 history of compression fracture of the spine 12 history of depression 13 13 fibromyalgia 14 hyperlipidemia 15 hypothyroidism 16 history of CVA without any residual deficits second 2004 16 psoriasis 17 chronic constipation 18 glucoma 19 chronic venous stasis involving lower extremities 20 dementia 21 alf resident Plan Hydrate this patient with normal saline at 50 cc an hour Decadron 6 mg by mouth daily Lovenox for DVT prophylaxis Oxygen titrate the flow to maintain a saturation above 90% Eliseo clinically. Her condition is stable for now. We'll follow
--- NOTE | 2020-06-18 17:53 | P.CNNES ---
History of Present Illness Consult date: 06/18/20 Requesting physician: Laxmi Bell Reason for Consult: Altered mental status History of Present Illness: Patient is a 79-year-old female came to the hospital yesterday at 6:45 AM by ambulance from [facility] for altered mental status the past 2 weeks. Patient was reportedly diagnosed with COVID-19 infection subsequently has decline in mental status since that time. Patient had jumbled speech. According to the EMS flow sheet patient was in the bed at [facility] on the industry. It was reported to the transitional kindergarten teacher, that she has Covid 19. She also has decreased level of consciousness and has been hallucinating for the past 2 weeks. Patient was transferred to [facility] last week and was diagnosed with hypoglycemia. Her blood glucose was 99. Patient's vital signs at the scene was 149/83 pulse rate 81, saturation 95%, temperature 97.8. Vital signs on arrival was blood pressure 145/84, pulse rate 78, temperature 98.9. CT head showed no acute intracranial hemorrhage or midline shift. There is mild to moderate diffuse age-related cerebral atrophy and chronic small vessel ischemic change redemonstrated. No significant change from prior. EKG shows sinus rhythm with sinus arrhythmia. Chest x-ray showed correlate for pneumonia. Cardiomegaly. Stable elevated right hemidiaphragm. Patient had a previous EEG on 07/23/2014 which was normal. Occasional random sharp waves noted may denote mild cortical irritability. Patient's UA shows large amount of leukocyte Estrace, few WBC clumps. Few bacteria. Patient's last hemoglobin A1c 7.1 on 08/08/2019. Hepatic panel normal. Ammonia normal <9. Patient has paroxysmal atrial fibrillation, currently not on any anticoagulation. She is only on Plavix. Patient also has chronic diastolic heart failure, history of ulcerative colitis, history of compression fracture of the spine. Patient at present is alert and awake, denies headache. She states that she came to the hospital because she was "seriously ill". She does not know what was happening to her. Review of Systems Very limited review of systems. Patient denies headache. Others she would not answer. ROS unobtainable: due to mental status Past Medical History Past Medical History: Atrial Fibrillation, Asthma, Heart Failure, COPD, CVA/TIA, Diabetes Mellitus, Fibromyalgia, GERD/Reflux, Hyperlipidemia, Hypertension, Osteoarthritis (OA), Pneumonia, Renal Disease, Respiratory Disorder, Skin D isorder, Sleep Apnea/CPAP/BIPAP, Syncope, Thyroid Disorder Additional Past Medical History / Comment(s): Chronic respiratory failure with home O2 at 3-4L/NC, CAMILA with CPap, enlarged heart, murmur, 2004 CVA-no residual, TIAs, IDDM type II, neuropathy bilateral hands at times and feet, difficulty swallowing and has had testing done-told d/t prior gastroplasty, CKD-has seen Sonu Meyer in the past, anemia, chronic venous and lymphagitis stasis arms/legs with recurrent cellulitis in legs-worse on R leg,-NONE AT THIS TIME ulcerative colitis, psoriaisis R scalp, migraines, constipation-takes Rx, past low back vertebral fracture, bilateral eye glaucoma with laser surgery. History of Any Multi-Drug Resistant Organisms: ESBL, MRSA Date of last positivie culture/infection: 05/23/20 ESBL MDRO Source:: ESBL URINE MRSA 01/09/18 URINE Past Surgical History: Bariatric Surgery, Cholecystectomy, Heart Catheterization, Hysterectomy, Orthopedic Surgery Additional Past Surgical History / Comment(s): Gastroplasty, then Arnaud-en-Y, cardiac cath-no intervention, laser eye surgery bilateral eyes for glaucoma, cataracts removed with lens implants bilaterally, EGDs, colonoscopies-benign polypectomy, rectal fissure repair, D&C x2, R leg mole removal, L heel spur surgery, varicose vein stripping. Past Anesthesia/Blood Transfusion Reactions: No Reported Reaction Past Psychological History: Anxiety, Depression Additional Psychological History / Comment(s): Pt resides at [facility] at this time. Smoking Status: Unknown if ever smoked Past Alcohol Use History: None Reported Additional Past Alcohol Use History / Comment(s): Pt started smoking in 1958 and quit in 1967. She was a very light smoker. Past Drug Use History: None Reported - Past Family History Sister(s) Family Medical History: Deep Vein Thrombosis (DVT) Father Family Medical History: CVA/TIA, Myocardial Infarction (PA) Additional Family Medical History / Comment(s): Father of a PA at the age of 59yrs. Mother Family Medical History: No Reported History Additional Family Medical History / Comment(s): AT AGE 85 Medications and Allergies Home Medications Medication Instructions Recorded Confirmed Type Clopidogrel [Plavix] 75 mg PO HS@2100 15 12/08/20 History Sennosides [Senna] 17.2 mg PO BID@0900,209904/09/17 06/17/20 History Allopurinol [Zyloprim] 200 mg PO DAILY@0903/29/18 06/17/20 History Fludrocortisone [Florinef] 0.1 mg PO BID@0900,1700 03/29/18 06/17/20 History Furosemide [Lasix] 40 mg PO BID@0600,1200 03/29/18 06/17/20 History Midodrine HCl [ProAmatine] 10 mg PO TID@0600,1200,1800 03/29/18 06/17/20 History Pregabalin [Lyrica] 75 mg PO BID@0900,209903/29/18 06/17/20 History Spironolactone [Aldactone] 50 mg PO DAILY@0600 03/29/18 06/17/20 History INSULIN LISPRO (HumaLOG) [humaLOG] 3 unit SQ BID@1200,1800 06/15/18 06/17/20 History Levothyroxine Sodium [Synthroid] 125 mcg PO SUTUTHSA 06/15/18 06/17/20 History rOPINIRole HCL [Requip] 1 mg PO HS@209906/15/18 06/17/20 History Famotidine [Pepcid] 20 mg PO DAILY@0607/11/18 06/17/20 History Cholecalciferol [Vitamin D3 (25 2,000 unit PO DAILY@89902/07/19 06/17/20 History Mcg = 1000 Iu)] DULoxetine HCL [Cymbalta] 30 mg PO BID@0900,1700 02/07/19 06/17/20 History Insulin Glargine,Hum.rec.anlog 14 unit SQ HS@209902/07/19 06/17/20 History [Lantus Solostar] Potassium Chloride ER [K-Dur 20] 20 meq PO QID 02/07/19 06/17/20 History Ferrous Sulfate [Feosol] 325 mg PO DAILY@0900 07/18/19 06/17/20 History Mirabegron [Myrbetriq] 50 mg PO HS@209907/18/19 06/17/20 History Acetaminophen Tab [Tylenol] 650 mg PO Q6H PRN 06/17/20 06/17/20 History Albuterol Nebulized [Ventolin 2.5 mg INHALATION RT-Q6H PRN 06/17/20 06/17/20 History Nebulized] Ascorbic Acid [Vitamin C] 500 mg PO DAILY@0900 06/17/20 06/17/20 History Calcitriol [Rocaltrol] 0.25 mcg PO MOTUWETH 06/17/20 06/17/20 History HYDROcodone/APAP 5-325MG [[place] 1 tab PO Q6H PRN 06/17/20 06/17/20 History 5-325] Levothyroxine Sodium [Synthroid] 112 mcg PO MOWEFR 06/17/20 06/17/20 History Ondansetron [Zofran] 4 mg PO Q8H PRN 06/17/20 06/17/20 History Sodium Polystyrene Sulfonate 15 gm PO ONCE 06/17/20 06/17/20 History [Kayexalate] Zinc 50 mg PO DAILY@0900 06/17/20 06/17/20 History carvediloL [Coreg] 3.125 mg PO BID@0900,1700 06/17/20 06/17/20 History methylPREDNISolone Dose Pack See Taper PO DAILY 06/17/20 06/17/20 History [Medrol Dose Pack] Allergies Allergy/AdvReac Type Severity Reaction Status Date / Time Penicillins Allergy Rash/Hives Verified 06/17/20 07:56 metolazone [From Zaroxolyn] AdvReac Severe Vertigo Verified 06/17/20 07:56 celecoxib [From Celebrex] AdvReac Nausea & Verified 06/17/20 07:56 Vomiting colchicine AdvReac Nausea & Verified 06/17/20 07:56 Vomiting metoclopramide [From Reglan] AdvReac TREMORS Verified 06/17/20 07:56 FLEETS AdvReac Unknown Uncoded 07/27/19 08:31 Physical Examination - Vital Signs Vital Signs: Vital Signs Temp Pulse Pulse Resp BP BP Pulse Ox 06/18/20 11:00 97.6 F 85 17 145/79 94 L 06/18/20 04:46 98.2 F 79 18 135/83 3 L 06/17/20 23:18 97.5 F L 79 20 145/79 97 06/17/20 21:50 98.7 F 78 18 151/103 98 06/17/20 21:06 80 18 139/90 98 06/17/20 20:05 82 19 126/65 97 06/17/20 18:00 82 16 139/90 98 Intake and Output 06/18/20 06/18/20 06/18/20 06:59 14:59 22:59 Intake Total 1140 Balance 1140 Intake: Intake, IV Titration 700 Amount Sodium Chloride 0.9% 1, 700 000 ml @ 100 mls/hr IV . Q10H [facility] Rx#:[id number] Oral 440 Other: Voiding Method Diaper Diaper Incontinent Incontinent # Voids 1 # Bowel Movements 1 Weight 72.575 kg On examination patient is an elderly female, very pleasant in no acute distress. She is coughing slightly. She is otherwise alert and awake. Patient knows her name. She could not tell what month is it and states the year is 2003 and then changed to 2001. Patient does not know the name of this building, although she knows that it is [facility]. Patient denies headache. She could not name the current president. Speech is slow, but clear. No obvious aphasia or dysarthria. On cranial examination pupils are round and reacting to light, visual obrien are full on confrontation, extraocular muscles are intact with no nystagmus. Face is symmetric, tongue protrudes to the midline. Palatal elevation and sensation normal hearing is slightly decreased, shoulder shrug normal. Facial sensation is normal. On muscle strength testing her strength is normal in the biceps, triceps and apron cleaner for her age. Deltoids are weak probably from arthritis. Patient's ankles and knees are normal. Hip flexion is 4+. Reflexes are diminished and plantars are withdrawal. Patient has mild peripheral edema. Some skin discoloration in the hernandez bilaterally. Sensory touch is equal with no neglect. No ataxia for [id number] testing. Tone and bulk of muscles normal. Gait deferred. Chest is clear. Abdomen soft nontender. S1 and S2 audible. Results - Laboratory Findings CBC and BMP: 06/17/20 07:54 06/17/20 07:54 Abnormal Lab Findings: Abnormal Labs 06/17/20 06/17/20 06/17/20 07:54 07:54 07:54 Hct 48.0 H D-Dimer 0.81 H Carbon Dioxide 39 H BUN 57 H Creatinine 1.68 H POC Glucose (mg/dL) Alkaline Phosphatase 131 H Lactate Dehydrogenase C-Reactive Protein Total Protein 5.6 L Albumin 2.5 L Procalcitonin Ur Leukocyte Esterase Urine WBC Urine WBC Clumps Urine Bacteria Hyaline Casts Urine Mucus 06/17/20 06/17/20 06/17/20 07:54 07:54 11:38 Hct D-Dimer Carbon Dioxide BUN Creatinine POC Glucose (mg/dL) Alkaline Phosphatase Lactate Dehydrogenase 991 H C-Reactive Protein 88.4 H Total Protein Albumin Procalcitonin 0.18 H Ur Leukocyte Esterase Large H Urine WBC 8 H Urine WBC Clumps Few H Urine Bacteria Few H Hyaline Casts 32 H Urine Mucus Rare H 06/17/20 06/18/20 18:53 10:48 Hct D-Dimer Carbon Dioxide BUN Creatinine POC Glucose (mg/dL) 125 H 153 H Alkaline Phosphatase Lactate Dehydrogenase C-Reactive Protein Total Protein Albumin Procalcitonin Ur Leukocyte Esterase Urine WBC Urine WBC Clumps Urine Bacteria Hyaline Casts Urine Mucus Assessment and Plan Assessment: * Altered mental status, likely due to toxic metabolic encephalopathy, due to reasons mentioned as below. * Patient has Covid 19 with pneumonia, likely the cause. * Acute on chronic renal insufficiency * Morbid obesity * Diabetes mellitus with peripheral neuropathy. * Paroxysmal atrial fibrillation * History of compression fracture of spine. * Reported history of CVA in 2004 without any residual deficits. Plan: * Patient altered mental status is likely due to toxic metabolic encephalopathy. Her mentation appears to be quite stable. I'm not sure about what her baseline mental functioning is related to cognitive functioning. * Continue medical management as per IM and pulmonary. * Patient has atrial fibrillation, but currently not on anticoagulation. Will defer to primary physician/IM. * Patient's examination is nonfocal. No other neurological workup indicated. We will check B12, folate and TSH. * Please reconsult neurology if any other concerns. We will sign off.
[2020-06-18 18:05] LABS: Glucose,Whole Blood 127 mg/dL (75-99)
[2020-06-18] MEDS: NON FORMULARY DRUG (Mirabegron [Myrbetriq] 50 MG Tab.Er.24h) PO SCH (20:35)
[2020-06-18 20:39] LABS: Glucose,Whole Blood 163 mg/dL (75-99)
[2020-06-18] MEDS: INSULIN DETEMIR (LEVEMIR) 100 UNIT/ML SYR SQ SCH (20:43)
[2020-06-18] MEDS: CLOPIDOGREL 75 MG TAB PO SCH (20:44)
[2020-06-19] MEDS: FUROSEMIDE 40 MG TAB PO SCH ×2 (05:43→13:07)
[2020-06-19] MEDS: MIDODRINE 5 MG TAB PO SCH ×3 (05:43→17:15)
[2020-06-19] MEDS: FAMOTIDINE 20 MG TAB PO SCH (05:43)
[2020-06-19] MEDS: LEVOTHYROXINE 112 MCG TAB PO SCH (05:43)
[2020-06-19] MEDS: SPIRONOLACTONE 25 MG TAB PO SCH (05:43)
[2020-06-19] MEDS: SODIUM CHLORIDE 0.9% 1,000 ML IV SCH ×2 (06:00→08:06)
[2020-06-19] MEDS ORDERED: LEVOTHYROXINE 125 MCG TAB PO SCH (06:30)
[2020-06-19 07:18] LABS: Glucose,Whole Blood 117 mg/dL (75-99)
[2020-06-19] MEDS: INSULIN ASPART (NovoLOG) 100 UNIT/ML VIAL SQ SCH ×6 (07:35→20:11)
[2020-06-19] MEDS: ENOXAPARIN 40 MG/0.4 ML SYRINGE SQ SCH (08:06)
[2020-06-19] MEDS: PANTOPRAZOLE 40 MG/10 ML VIAL IV SCH (08:07)
[2020-06-19] MEDS: dexAMETHasone 2 MG TAB PO SCH (08:08)
[2020-06-19] MEDS: FERROUS SULFATE 325 MG TAB PO SCH (08:08)
[2020-06-19] MEDS: PREGABALIN 75 MG CAP PO SCH ×2 (08:08→20:17)
[2020-06-19] MEDS: CHOLECALCIFEROL 1,000 UNIT TAB PO SCH (08:08)
[2020-06-19] MEDS: allopurinoL 100 MG TAB PO SCH (08:08)
[2020-06-19] MEDS: SENNOSIDES 8.6 MG TAB PO SCH ×2 (08:08→20:16)
[2020-06-19] MEDS: ASCORBIC ACID 500 MG TAB PO SCH (08:08)
[2020-06-19] MEDS: ZINC SULFATE 220 MG CAP PO SCH (08:08)
[2020-06-19] MEDS: DULoxetine HCL 30 MG CAPSULE.DR PO SCH ×2 (08:08→17:21)
[2020-06-19] MEDS: carvediloL 3.125 MG TAB PO SCH ×2 (08:09→17:21)
[2020-06-19] MEDS: FLUDROCORTISONE 0.1 MG TAB PO SCH ×2 (09:05→18:02)
[2020-06-19 11:24] LABS: Glucose,Whole Blood 126 mg/dL (75-99)
--- NOTE | 2020-06-19 11:42 | P.PN ---
Progress Note - Text Progress Note Date: 06/18/20 Chief Complaint: Decreased consciousness History of presenting complaint: This is a 79-year-old patient of . Extensive medical history to include atrial fibrillation as well as CHF COPD diabetes fibromyalgia GERD hyperlipidemia hypertension osteoarthritis obstructive sleep apnea, home oxygen 3-4 L, uses CPAP, prior stroke with no residual, neuropathy to hands and feet, chronic kidney disease, venous to assist lower extremity, ulcerative colitis, vertebtall fractures. History of Arnaud-en-Y gastroplasty,. Patient is resident of [facility] in the [facility]. Has had altered mental status about 2 weeks. She was diagnosed with COVID 19 infection. And since then has become decline. She's had a jumbled speech. CODE STATUS-DO NOT RESUSCITATE Today-more awake. Answering questions. Oral intake fair. Review of systems: Was done for constitutional, cardiovascular, GI, pulmonary. relevant finding as above Current medications reviewed in today's electronic records Physical examination: VITAL SIGNS: 97 8, 75, 18, 145/76, 93% on 3 L GENERAL: Laying in bed, more awake. Bruising especially on the arms EYES: Pupils equal. Conjunctiva normal. HEENT: External appearance of nose and ears normal, oral cavity dry. NECK: JVD unable to assess; masses not palpable. HEART: First and second heart sounds are normal; some edema. LUNGS: Respiratory rate increased, decreased breath sounds. ABDOMEN: Soft, large pendulous nontender, liver spleen not palpable, no masses palpable. PSYCH: Answering occasional questions NEUROLOGICAL: follow commands INVESTIGATIONS, reviewed in the clinical context: White count 9.3 hemoglobin 15.5 platelets 174 potassium 4.0 BUN 57 creatinine 1.68 LDH 991 CRP 88.4 pro-calcitonin 0.18 d-dimer 0.81 UA positive for leukoesterase, WBC EKG tracing personally reviewed by me-normal sinus rhythm nonspecific T-wave changes Computed tomography scan brain without contrast-mild to moderate diffuse age- related cerebral atrophy and chronic small vessel ischemic changes Chest x-ray film personally reviewed by me--portable-cardiomegaly, bilateral infiltrates Previous testing: Creatinine was 1.46 on June 05 Assessment: -Bilateral COVID 19 pneumonia -Acute hypoxic respiratory failure from above -Acute metabolic encephalopathy and delirium from above-improving -Paroxysmal atrial fibrillation currently in sinus rhythm -Restless leg syndrome -Peripheral neuropathy -Chronic urinary incontinence -Hypothyroid -Diabetes mellitus type 2 on insulin -Intermittent asthma -Essential hypertension -Hyperlipidemia -Obstructive sleep apnea uses CPAP -Chronic hypoxic respiratory failure with home oxygen 3-4 L by nasal cannula -Chronic venous insufficiency -Chronic lower extremity lymphedema -Acute UTI with cystitis Plan: Continue current medication treatment plan. Including dexamethasone Lovenox subcu. Follow
[2020-06-19 12:45] LABS: HCT 40.9 % (34.0-46.0); HGB 13.6 gm/dL (11.4-16.0); MCH 31.3 pg (25.0-35.0); MCHC 33.3 g/dL (31.0-37.0); MCV 93.9 fL (80.0-100.0); Mean Platelet Volume 8.9; Platelet Count 125 k/uL (150-450); RBC 4.36 m/uL (3.80-5.40); RDW 14.7 % (11.5-15.5); WBC 11.5 k/uL (3.8-10.6)
[2020-06-19 12:57] LABS: African American GFR (CKD) 47 (>60 ml/min/1.73 sqM); Anion Gap 4 mmol/L; Blood Urea Nitrogen 41 mg/dL (7-17); C Reactive Protein 31.7 mg/L (<10.0); Calcium 8.9 mg/dL (8.4-10.2); Carbon Dioxide 29 mmol/L (22-30); Chloride 103 mmol/L (98-107); Glucose 130 mg/dL (74-99); Non-African American GFR(CKD) 41 (>60 ml/min/1.73 sqM); Potassium 3.5 mmol/L (3.5-5.1); Sodium 136 mmol/L (137-145)
[2020-06-19] MEDS: CEPHALEXIN 250 MG CAP PO SCH ×3 (13:07→21:25)
--- NOTE | 2020-06-19 16:04 | P.PN ---
Subjective Progress Note Date: 06/19/20 79-year-old female patient with thiamine to the hospital because of generalized weakness and some altered mentation. Apparently she's been having these issues for the past few weeks at a alf. She resides at [facility]. She was reportedly diagnosed having coronavirus COVID 19 infection. In fact, the patient was tested positive on 06/06/2020. The patient is a DNR/DNI CODE STATUS changes in the emergency department, the patient's became slightly hypoxic and currently she is on 2 L of oxygen by nasal cannula. She is hemodynamically stable. No significant tachycardia or respiratory distress. She looks lethargic and weak. She has multiple medical problems and comorbidities including history of morbid obesity and the patient has undergone a previous Arnaud-en-Y gastric bypass surgery, COPD, previous history of COPD, previous history of CVA, diabetes mellitus type 2, hypertension, hyperlipidemia, chronic kidney disease, obstructive sleep apnea, congestion heart failure, hypothyroidism, diabetic peripheral neuropathy, cardiac atrial fibrillation, and chronic venous stasis involving lower extremities, chronic migraines, psoriasis, ulcerative colitis and glucoma and previous history of lower vertebral fractures. The patient's electrolytes are all within normal limits. She has chronic metabolic alkalosis. Her creatinine is at 1.6 consistent with stage III chronic kidney disease, her CRP was 88, LDH [id number]. Chest x-ray showing bilateral pulmonary infiltrates consistent with Covid-related pneumonia. on 06/18/2020, the patient is fatigued and tired. She is sleepy and she is able to converse with her over the phone. No signs of any respiratory distress. She is somewhat between 2 and 3 L of oxygen by nasal cannula. She is on Decadron. No other new complaints otherwise for now. Outpatient medication have been ordered resume. On 06/19/2020, the patient is stable , a bit confused still. No new complaints. I will see her condition is essentially the same. She is afebrile. No worsening in shortness of breath. D-dimer is at 1.28. Her renal function is improving and creatinine is down to 1.27. Electrodes are all within normal limits. CRP is down to 31. She is currently on oxygen at 3 L per minute and his saturations are 97%. No other significant events otherwise for now. Objective - Vital Signs Vital signs: Vital Signs Temp 98.5 F 06/19/20 11:00 Pulse 67 06/19/20 11:00 Resp 17 06/19/20 11:00 BP 117/74 06/19/20 11:00 Pulse Ox 97 06/19/20 11:00 Intake & Output 06/18/20 06/19/20 06/19/20 18:59 06:59 18:59 Intake Total 600 Balance 600 Intake: Intake, IV Titration 600 Amount Sodium Chloride 0.9% 1, 600 000 ml @ 100 mls/hr IV . Q10H [facility] Rx#:[id number] Other: Voiding Method Diaper Diaper Diaper Incontinent Incontinent Incontinent # Voids 2 - Exam elderly female patient on acute distress currently on4 L of oxygen by nasal cannula. Head exam was generally normal. There was no scleral icterus or corneal arcus. Mucous membranes were moist. Neck was supple and without jugular venous distension, thyromegaly, or carotid bruits. Carotids were easily palpable bilaterally. There was no adenopathy.The patient has significant crowding of posterior pharynx and the patient has no neck stiffness. Lungs sounds are diminished and patient has some bibasilar crackles. Cardiac exam revealed the PMI to be normally situated and sized. The rhythm was regular and no extrasystoles were noted during several minutes of auscultation. The first and second heart sounds were normal and physiologic splitting of the second heart sound was noted. There were no murmurs, rubs, clicks, or gallops. Abdominal exam revealed normal bowel sounds. The abdomen was soft, non-tender, and without masses, organomegaly, or appreciable enlargement of the abdominal aorta. Extremities revealed atrophy of the muscles and there is no evidence of any cyanosis or clubbing. Neurologically, she is a poor historian. She has underlying dementia. She will go 4 extremities without any significant limitation. Unable to ambulate. Results - Labs CBC & Chem 7: 06/19/20 12:28 06/19/20 12:28 Labs: Abnormal Lab Results - Last 24 Hours (Table) 06/18/20 06/18/20 06/19/20 Range/Units 18:02 20:37 07:16 WBC (3.8-10.6) k/uL Plt Count (150-450) k/uL D-Dimer (<0.60) mg/L FEU Sodium (137-145) mmol/L BUN (7-17) mg/dL Creatinine (0.52-1.04) mg/dL Glucose (74-99) mg/dL POC Glucose (mg/dL) 127 H 163 H 117 H (75-99) mg/dL C-Reactive Protein (<10.0) mg/L 06/19/20 06/19/20 06/19/20 Range/Units 11:23 12:28 12:28 WBC 11.5 H (3.8-10.6) k/uL Plt Count 125 L (150-450) k/uL D-Dimer 1.28 H (<0.60) mg/L FEU Sodium (137-145) mmol/L BUN (7-17) mg/dL Creatinine (0.52-1.04) mg/dL Glucose (74-99) mg/dL POC Glucose (mg/dL) 126 H (75-99) mg/dL C-Reactive Protein (<10.0) mg/L 06/19/20 Range/Units 12:28 WBC (3.8-10.6) k/uL Plt Count (150-450) k/uL D-Dimer (<0.60) mg/L FEU Sodium 136 L (137-145) mmol/L BUN 41 H (7-17) mg/dL Creatinine 1.27 H (0.52-1.04) mg/dL Glucose 130 H (74-99) mg/dL POC Glucose (mg/dL) (75-99) mg/dL C-Reactive Protein 31.7 H (<10.0) mg/L Microbiology - Last 24 Hours (Table) 06/17/20 07:54 Blood Culture - Preliminary Blood No Growth after 48 hours Assessment and Plan Plan: 1 acute infection with coronavirus Covid 19 on 06/06/2020 2 acute/subacute Covid 19 related pneumonia with secondary hypoxic respiratory failure currently on oxygen between 2 and 4 L, currently she is on 3 L of oxygen by nasal cannula 3 shortness of breath secondary to above, stable for now 4 morbid obesity with a previous history of very thick surgery 5 sleep apnea.patient wears a BiPAP overnight at the alf. 6 diabetes mellitus with secondary peripheral neuropathy 7 chronic 3 kidney disease and the patient has some improvement in the creatinine the creatinine is down to 1.3 8 paroxysmal atrial fibrillation 9 chronic diastolic heart failure 10 history of ulcerative colitis 11 history of compression fracture of the spine 12 history of depression 13 13 fibromyalgia 14 hyperlipidemia 15 hypothyroidism 16 history of CVA without any residual deficits second 2004 16 psoriasis 17 chronic constipation 18 glucoma 19 chronic venous stasis involving lower extremities 20 dementia 21 alf resident Plan Hydrate this patient with normal saline at KVO Decadron 6 mg by mouth daily Lovenox for DVT prophylaxis Oxygen titrate the flow to maintain a saturation above 90%, currently on 2 L of oxygen by nasal cannula Stable clinically. Her condition is stable for now. We'll follow
[2020-06-19 17:20] LABS: Glucose,Whole Blood 181 mg/dL (75-99)
[2020-06-19 20:13] LABS: Glucose,Whole Blood 121 mg/dL (75-99)
[2020-06-19] MEDS: CLOPIDOGREL 75 MG TAB PO SCH (20:17)
[2020-06-19] MEDS: NON FORMULARY DRUG (Mirabegron [Myrbetriq] 50 MG Tab.Er.24h) PO SCH (21:22)
[2020-06-19] MEDS: INSULIN DETEMIR (LEVEMIR) 100 UNIT/ML SYR SQ SCH (21:25)
--- NOTE | 2020-06-19 23:32 | P.PN ---
Progress Note - Text Progress Note Date: 06/19/20 Chief Complaint: Decreased consciousness History of presenting complaint: This is a 79-year-old patient of . Extensive medical history to include atrial fibrillation as well as CHF COPD diabetes fibromyalgia GERD hyperlipidemia hypertension osteoarthritis obstructive sleep apnea, home oxygen 3-4 L, uses CPAP, prior stroke with no residual, neuropathy to hands and feet, chronic kidney disease, venous insufficiency lower extremity, ulcerative colitis, vertebral fractures. History of Arnaud-en-Y gastroplasty,. Patient is resident of [facility] on [facility]. Has had altered mental status about 2 weeks. She was diagnosed with COVID 19 infection. And since then has decline. She's had a jumbled speech. CODE STATUS-DO NOT RESUSCITATE Today-looking and feeling better. Oral intake better. Slight cough. Review of systems: Was done for constitutional, cardiovascular, GI, pulmonary. relevant finding as above Active Medications Acetaminophen (Acetaminophen Tab 325 Mg Tab) 650 mg PO Q6HR PRN PRN Reason: Mild Pain or Fever > 100.5 Allopurinol (Allopurinol 100 Mg Tab) 200 mg PO DAILY@0900 [facility] Last Admin: 06/19/20 08:08 Dose: 200 mg Documented by: Ascorbic Acid (Ascorbic Acid 500 Mg Tab) 1,000 mg PO DAILY [facility] Last Admin: 06/19/20 08:08 Dose: 1,000 mg Documented by: Calcitriol (Calcitriol 0.25 Mcg Cap) 0.25 mcg PO MoTuWeTh@0900 [facility] Last Admin: 06/19/20 08:11 Dose: 0.25 mcg Documented by: Carvedilol (Carvedilol 3.125 Mg Tab) 3.125 mg PO BID@0900,1700 [facility] Last Admin: 06/19/20 17:21 Dose: 3.125 mg Documented by: Cephalexin (Cephalexin 250 Mg Cap) 250 mg PO TID [facility] Last Admin: 06/19/20 21:25 Dose: 250 mg Documented by: Cholecalciferol (Cholecalciferol 1,000 Unit Tab) 2,000 unit PO DAILY@0900 [facility] Last Admin: 06/19/20 08:08 Dose: 2,000 unit Documented by: Clopidogrel Bisulfate (Clopidogrel 75 Mg Tab) 75 mg PO HS@2100 [facility] Last Admin: 06/19/20 20:17 Dose: 75 mg Documented by: Dexamethasone (Dexamethasone 2 Mg Tab) 6 mg PO DAILY [facility] Last Admin: 06/19/20 08:08 Dose: 6 mg Documented by: Duloxetine HCl (Duloxetine Hcl 30 Mg Capsule.Dr) 30 mg PO BID@0900,1700 [facility] Last Admin: 06/19/20 17:21 Dose: 30 mg Documented by: Enoxaparin Sodium (Enoxaparin 40 Mg/0.4 Ml Syringe) 40 mg SQ DAILY [facility] Last Admin: 06/19/20 08:06 Dose: 40 mg Documented by: Famotidine (Famotidine 20 Mg Tab) 20 mg PO DAILY@0600 [facility] Last Admin: 06/19/20 05:43 Dose: 20 mg Documented by: Ferrous Sulfate (Ferrous Sulfate 325 Mg Tab) 325 mg PO DAILY@0900 [facility] Last Admin: 06/19/20 08:08 Dose: 325 mg Documented by: Fludrocortisone Acetate (Fludrocortisone 0.1 Mg Tab) 0.1 mg PO BID@0900,1700 S Last Admin: 06/19/20 18:02 Dose: 0.1 mg Documented by: Furosemide (Furosemide 40 Mg Tab) 40 mg PO BID@0600,1200 [facility] Last Admin: 06/19/20 13:07 Dose: 40 mg Documented by: Sodium Chloride (Saline 0.9%) 1,000 mls @ 100 mls/hr IV .Q10H [facility] Last Admin: 06/19/20 08:06 Dose: 100 mls/hr Documented by: Ibuprofen (Ibuprofen 400 Mg Tab) 400 mg PO Q6HR PRN PRN Reason: Mild Pain or Fever > 100.5 Insulin Aspart (Insulin Aspart (Novolog) 100 Unit/Ml Vial) 3 unit SQ BID@1200,1800 [facility] Last Admin: 06/19/20 17:23 Dose: 3 unit Documented by: Insulin Aspart (Insulin Aspart (Novolog) 100 Unit/Ml Vial) 0 unit SQ ACHS [facility]; Protocol Last Admin: 06/19/20 20:11 Dose: Not Given Documented by: Insulin Detemir (Insulin Detemir (Levemir) 100 Unit/Ml Syr) 14 unit SQ HS@2100 [facility] Last Admin: 06/19/20 21:25 Dose: 14 unit Documented by: Ketorolac Tromethamine (Ketorolac 15 Mg/Ml 1 Ml Vial) 15 mg IVP Q6HR PRN PRN Reason: Moderate Pain Stop: 06/20/20 11:13 Levothyroxine Sodium (Levothyroxine 112 Mcg Tab) 112 mcg PO MoWeFr@0630 [facility] Last Admin: 06/19/20 05:43 Dose: 112 mcg Documented by: Levothyroxine Sodium (Levothyroxine 125 Mcg Tab) 125 mcg PO SuTuThSa@0630 [facility] Last Admin: 06/19/20 05:46 Dose: 125 mcg Documented by: Midodrine (Midodrine 5 Mg Tab) 10 mg PO TID@0600,1200,1800 [facility] Last Admin: 06/19/20 17:15 Dose: 10 mg Documented by: Naloxone HCl (Naloxone 0.4 Mg/Ml 1 Ml Vial) 0.2 mg IV Q2M PRN PRN Reason: Opioid Reversal Non-Formulary Medication (Mirabegron [Myrbetriq]) 50 mg PO HS@2100 [facility] Last Admin: 06/19/20 21:22 Dose: Not Given Documented by: Ondansetron HCl (Ondansetron 4 Mg/2 Ml Vial) 4 mg IVP Q8HR PRN PRN Reason: Nausea And Vomiting Ondansetron HCl (Ondansetron 4 Mg Tab) 4 mg PO Q8H PRN PRN Reason: Nausea Oxycodone/Acetaminophen (Oxycodone-Apap 5-325mg 1 Each Tab) 1 each PO Q4HR PRN PRN Reason: Severe Pain Last Admin: 06/18/20 06:15 Dose: 1 each Documented by: Pantoprazole Sodium (Pantoprazole 40 Mg/10 Ml Vial) 40 mg IV DAILY [facility] Last Admin: 06/19/20 08:07 Dose: 40 mg Documented by: Pregabalin (Pregabalin 75 Mg Cap) 75 mg PO BID@0900,2100 [facility] Last Admin: 06/19/20 20:17 Dose: 75 mg Documented by: Ropinirole HCl (Ropinirole Hcl 1 Mg Tab) 1 mg PO HS@2100 [facility] Last Admin: 06/19/20 20:17 Dose: 1 mg Documented by: Senna (Sennosides 8.6 Mg Tab) 17.2 mg PO BID@0900,2100 [facility] Last Admin: 06/19/20 20:16 Dose: 17.2 mg Documented by: Spironolactone (Spironolactone 25 Mg Tab) 50 mg PO DAILY@0600 [facility] Last Admin: 06/19/20 05:43 Dose: 50 mg Documented by: Zinc Sulfate (Zinc Sulfate 220 Mg Cap) 220 mg PO DAILY [facility] Last Admin: 06/19/20 08:08 Dose: 220 mg Documented by: Physical examination: VITAL SIGNS: 98.5, 67, 17, 111/74, 97% on 3 L GENERAL: awake. Bruising especially on the arms LUNGS: Respiratory rate increased, decreased breath sounds. PSYCH: Answering questions NEUROLOGICAL: follow commands Breast exam as per nursing INVESTIGATIONS, reviewed in the clinical context: June 19: White count 11.5 hemoglobin 13.6 d-dimer 1.28 BUN 41 and creatinine 1.27 CRP 31.7 White count 9.3 hemoglobin 15.5 platelets 174 potassium 4.0 BUN 57 creatinine 1.68 LDH 991 CRP 88.4 pro-calcitonin 0.18 d-dimer 0.81 UA positive for leukoesterase, WBC EKG tracing personally reviewed by me-normal sinus rhythm nonspecific T-wave changes Computed tomography scan brain without contrast-mild to moderate diffuse age- related cerebral atrophy and chronic small vessel ischemic changes Chest x-ray film personally reviewed by me--portable-cardiomegaly, bilateral infiltrates Previous testing: Creatinine was 1.46 on June 05 Assessment: -Bilateral COVID 19 pneumonia -Acute hypoxic respiratory failure from above-3 L -Acute metabolic encephalopathy and delirium from above-improving -Paroxysmal atrial fibrillation currently in sinus rhythm -Restless leg syndrome -Peripheral neuropathy -Chronic urinary incontinence -Hypothyroid -Diabetes mellitus type 2 on insulin -Intermittent asthma -Essential hypertension -Hyperlipidemia -Obstructive sleep apnea uses CPAP -Chronic hypoxic respiratory failure with home oxygen 3-4 L by nasal cannula -Chronic venous insufficiency -Chronic lower extremity lymphedema -Acute UTI with cystitis Plan: Continue current medication treatment plan. Including dexamethasone Lovenox subcu. improving slowly. Encourage oral intake.
[2020-06-20] MEDS: SODIUM CHLORIDE 0.9% 1,000 ML IV SCH ×2 (01:30→15:41)
[2020-06-20] MEDS: FAMOTIDINE 20 MG TAB PO SCH (06:06)
[2020-06-20] MEDS: SPIRONOLACTONE 25 MG TAB PO SCH (06:06)
[2020-06-20] MEDS: MIDODRINE 5 MG TAB PO SCH ×2 (06:06→11:34)
[2020-06-20] MEDS: FUROSEMIDE 40 MG TAB PO SCH ×2 (06:06→11:34)
[2020-06-20 07:13] LABS: Glucose,Whole Blood 105 mg/dL (75-99)
[2020-06-20] MEDS: INSULIN ASPART (NovoLOG) 100 UNIT/ML VIAL SQ SCH ×3 (07:45→12:04)
[2020-06-20] MEDS: SENNOSIDES 8.6 MG TAB PO SCH (08:27)
[2020-06-20] MEDS: CEPHALEXIN 250 MG CAP PO SCH (08:28)
[2020-06-20] MEDS: DULoxetine HCL 30 MG CAPSULE.DR PO SCH (08:28)
[2020-06-20] MEDS: ZINC SULFATE 220 MG CAP PO SCH (08:28)
[2020-06-20] MEDS: PREGABALIN 75 MG CAP PO SCH (08:28)
[2020-06-20] MEDS: dexAMETHasone 2 MG TAB PO SCH (08:28)
[2020-06-20] MEDS: FLUDROCORTISONE 0.1 MG TAB PO SCH (08:29)
[2020-06-20] MEDS: allopurinoL 100 MG TAB PO SCH (08:29)
[2020-06-20] MEDS: PANTOPRAZOLE 40 MG/10 ML VIAL IV SCH (08:29)
[2020-06-20] MEDS: CHOLECALCIFEROL 1,000 UNIT TAB PO SCH (08:29)
[2020-06-20] MEDS: ASCORBIC ACID 500 MG TAB PO SCH (08:29)
[2020-06-20] MEDS: carvediloL 3.125 MG TAB PO SCH (08:29)
[2020-06-20] MEDS: ENOXAPARIN 40 MG/0.4 ML SYRINGE SQ SCH (08:30)
[2020-06-20] MEDS: FERROUS SULFATE 325 MG TAB PO SCH (08:30)
[2020-06-20 10:50] LABS: Glucose,Whole Blood 80 mg/dL (75-99)
[2020-06-20 10:59] VITALS: BP 137/83; PULSE 68; RESP 17; TEMP 96.8
--- NOTE | 2020-06-20 14:17 | P.DS ---
Providers Date of admission: 06/17/20 11:10 Expected date of discharge: 06/20/20 Attending physician: Roger Morales Consults: 06/17/20 11:10 Consult Physician Stat Consulting Provider: Mercedes Lagos Consult Reason/Comments: COVID, Pneumonia, AMS Do you want consulting provider notified?: Yes Consult Physician Stat Consulting Provider: Herson Ivy Consult Reason/Comments: AMS Do you want consulting provider notified?: Yes Primary care physician: Luke Davis Hospital Course: Chief Complaint: Decreased consciousness History of presenting complaint: This is a 79-year-old patient of . Extensive medical history to include atrial fibrillation as well as CHF COPD diabetes fibromyalgia GERD hyperlipidemia hypertension osteoarthritis obstructive sleep apnea, home oxygen 3-4 L, uses CPAP, prior stroke with no residual, neuropathy to hands and feet, chronic kidney disease, venous insufficiency lower extremity, ulcerative colitis, vertebral fractures. History of Arnaud-en-Y gastroplasty,. Patient is resident of [facility] on the [facility]. Has had altered mental status about 2 weeks. She was diagnosed with COVID 19 infection. And since then has decline. She's had a jumbled speech. CODE STATUS-DO NOT RESUSCITATE Admitted with bilateral COVID 19 pneumonia, acute hypoxicischemic failure, acute metabolic encephalopathy and delirium. Today-improved. Eating better. Was on 98% on 2 L this morning. Answering questions. Foreign Languages Professor: Dr. Fong from neurology Dr. Lagos from pulmonary Physical examination: VITAL SIGNS: 98.5, 67, 17, 111/74, 97% on 3 L GENERAL: awake. Bruising especially on the arms LUNGS: Respiratory rate increased, decreased breath sounds. PSYCH: Answering questions NEUROLOGICAL: follow commands Breast exam as per nursing INVESTIGATIONS, reviewed in the clinical context: June 19: White count 11.5 hemoglobin 13.6 d-dimer 1.28 BUN 41 and creatinine 1.27 CRP 31.7 White count 9.3 hemoglobin 15.5 platelets 174 potassium 4.0 BUN 57 creatinine 1.68 LDH 991 CRP 88.4 pro-calcitonin 0.18 d-dimer 0.81 UA positive for leukoesterase, WBC EKG tracing personally reviewed by me-normal sinus rhythm nonspecific T-wave changes Computed tomography scan brain without contrast-mild to moderate diffuse age- related cerebral atrophy and chronic small vessel ischemic changes Chest x-ray film personally reviewed by me--portable-cardiomegaly, bilateral infiltrates Previous testing: Creatinine was 1.46 on June 05 Assessment: -Bilateral COVID 19 pneumonia-improved -Acute hypoxic respiratory failure from above-3 L-improved -Acute metabolic encephalopathy and delirium from improved -Paroxysmal atrial fibrillation currently in sinus rhythm -Restless leg syndrome -Peripheral neuropathy -Chronic urinary incontinence -Hypothyroid -Diabetes mellitus type 2 on insulin -Intermittent asthma -Essential hypertension -Hyperlipidemia -Obstructive sleep apnea uses CPAP -Chronic hypoxic respiratory failure with home oxygen 3-4 L by nasal cannula -Chronic venous insufficiency -Chronic lower extremity lymphedema -Acute UTI with cystitis Disposition: F/[facility] on [facility] Patient Condition at Discharge: Stable Plan - Discharge Summary Discharge Rx Participant: No New Discharge Prescriptions: New dexAMETHasone [Hexadrol] 6 mg PO DAILY #15 tab Cephalexin [Keflex] 250 mg PO TID #6 cap Rivaroxaban [Xarelto] 2.5 mg PO DAILY #28 tablet Continue Clopidogrel [Plavix] 75 mg PO HS@2100 Sennosides [Senna] 17.2 mg PO BID@0900,2100 Midodrine HCl [ProAmatine] 10 mg PO TID@0600,1200,1800 Furosemide [Lasix] 40 mg PO BID@0600,1200 Spironolactone [Aldactone] 50 mg PO DAILY@0600 Allopurinol [Zyloprim] 200 mg PO DAILY@0900 Fludrocortisone [Florinef] 0.1 mg PO BID@0900,1700 INSULIN LISPRO (HumaLOG) [humaLOG] 3 unit SQ BID@1200,1800 rOPINIRole HCL [Requip] 1 mg PO HS@2100 Levothyroxine Sodium [Synthroid] 125 mcg PO SUTUTHSA Potassium Chloride ER [K-Dur 20] 20 meq PO QID DULoxetine HCL [Cymbalta] 30 mg PO BID@0900,1700 Insulin Glargine,Hum.rec.anlog [Lantus Solostar] 14 unit SQ HS@2100 Cholecalciferol [Vitamin D3 (25 Mcg = 1000 Iu)] 2,000 unit PO DAILY@0900 Mirabegron [Myrbetriq] 50 mg PO HS@2100 Ferrous Sulfate [Iron (65 MG Elemental)] 325 mg PO DAILY@0900 Ascorbic Acid [Vitamin C] 500 mg PO DAILY@0900 Calcitriol [Rocaltrol] 0.25 mcg PO MOTUWETH carvediloL [Coreg] 3.125 mg PO BID@0900,1700 Levothyroxine Sodium [Synthroid] 112 mcg PO MOWEFR Zinc 50 mg PO DAILY@0900 Ondansetron [Zofran] 4 mg PO Q8H PRN PRN Reason: Nausea Acetaminophen Tab [Tylenol] 650 mg PO Q6H PRN PRN Reason: Pain Albuterol Nebulized [Ventolin Nebulized] 2.5 mg INHALATION RT-Q6H PRN PRN Reason: sob Pregabalin [Lyrica] 75 mg PO BID@0900,2100 #6 cap HYDROcodone/APAP 5-325MG [Stryker 5-325] 1 tab PO Q6H PRN #12 tab PRN Reason: Pain Changed Famotidine [Pepcid] 20 mg PO BID #0 Discontinued methylPREDNISolone Dose Pack [Medrol Dose Pack] See Taper PO DAILY Sodium Polystyrene Sulfonate [Kayexalate] 15 gm PO ONCE Discharge Medication List Clopidogrel [Plavix] 75 mg PO HS@209910/19/14 [History] Sennosides [Senna] 17.2 mg PO BID@0900,2100 04/09/17 [History] Allopurinol [Zyloprim] 200 mg PO DAILY@0900 03/29/18 [History] Fludrocortisone [Florinef] 0.1 mg PO BID@0900,1700 03/29/18 [History] Furosemide [Lasix] 40 mg PO BID@0600,1200 03/29/18 [History] Midodrine HCl [ProAmatine] 10 mg PO TID@0600,1200,1800 03/29/18 [History] Spironolactone [Aldactone] 50 mg PO DAILY@0600 03/29/18 [History] INSULIN LISPRO (HumaLOG) [humaLOG] 3 unit SQ BID@1200,1800 06/15/18 [History] Levothyroxine Sodium [Synthroid] 125 mcg PO SUTUTHSA 06/15/18 [History] rOPINIRole HCL [Requip] 1 mg PO HS@209906/15/18 [History] Cholecalciferol [Vitamin D3 (25 Mcg = 1000 Iu)] 2,000 unit PO DAILY@0900 02/07/19 [History] DULoxetine HCL [Cymbalta] 30 mg PO BID@0900,1700 02/07/19 [History] Insulin Glargine,Hum.rec.anlog [Lantus Solostar] 14 unit SQ HS@209902/07/19 [History] Potassium Chloride ER [K-Dur 20] 20 meq PO QID 02/07/19 [History] Ferrous Sulfate [Iron (65 MG Elemental)] 325 mg PO DAILY@89907/18/19 [History] Mirabegron [Myrbetriq] 50 mg PO HS@209907/18/19 [History] Acetaminophen Tab [Tylenol] 650 mg PO Q6H PRN 06/17/20 [History] Albuterol Nebulized [Ventolin Nebulized] 2.5 mg INHALATION RT-Q6H PRN 06/17/20 [History] Ascorbic Acid [Vitamin C] 500 mg PO DAILY@0906/17/20 [History] Calcitriol [Rocaltrol] 0.25 mcg PO MOTUWETH 06/17/20 [History] Levothyroxine Sodium [Synthroid] 112 mcg PO MOWEFR 06/17/20 [History] Ondansetron [Zofran] 4 mg PO Q8H PRN 06/17/20 [History] Zinc 50 mg PO DAILY@89906/17/20 [History] carvediloL [Coreg] 3.125 mg PO BID@0900,1700 06/17/20 [History] Cephalexin [Keflex] 250 mg PO TID #6 cap 06/20/20 [Rx] Famotidine [Pepcid] 20 mg PO BID #0 06/20/20 [Rx] HYDROcodone/APAP 5-325MG [Stryker 5-325] 1 tab PO Q6H PRN #12 tab 06/20/20 [Rx] Pregabalin [Lyrica] 75 mg PO BID@899,2099 #6 cap 06/20/20 [Rx] Rivaroxaban [Xarelto] 2.5 mg PO DAILY #28 tablet 06/20/20 [Rx] dexAMETHasone [Hexadrol] 6 mg PO DAILY #15 tab 06/20/20 [Rx] Follow up Appointment(s)/Referral(s): Luke Davis MD [Primary Care Provider] - 1-2 days Patient Instructions/Handouts: Cephalexin (By mouth), Hydrocodone/Acetaminophen (By mouth), Pregabalin (By mouth), Rivaroxaban (By mouth) Activity/Diet/Wound Care/Special Instructions: DIET TOLERATED activity limited until seen by
--- NOTE | 2020-06-20 16:52 | P.PN ---
Subjective Progress Note Date: 06/20/20 Principal diagnosis: Acute CoVID 19 pneumonitis 79-year-old female patient with thiamine to the hospital because of generalized weakness and some altered mentation. Apparently she's been having these issues for the past few weeks at a long term. She resides at [facility]. She was reportedly diagnosed having coronavirus COVID 19 infection. In fact, the patient was tested positive on 06/06/2020. The patient is a DNR/DNI CODE STATUS changes in the emergency department, the patient's became slightly hypoxic and currently she is on 2 L of oxygen by nasal cannula. She is hemodynamically stable. No significant tachycardia or respiratory distress. She looks lethargic and weak. She has multiple medical problems and comorbidities including history of morbid obesity and the patient has undergone a previous Arnaud-en-Y gastric bypass surgery, COPD, previous history of COPD, previous history of CVA, diabetes mellitus type 2, hypertension, hyperlipidemia, chronic kidney disease, obstructive sleep apnea, congestion heart failure, hypothyroidism, diabetic peripheral neuropathy, cardiac atrial fibrillation, and chronic venous stasis involving lower extremities, chronic migraines, psoriasis, ulcerative colitis and glucoma and previous history of lower vertebral fracture s. The patient's electrolytes are all within normal limits. She has chronic metabolic alkalosis. Her creatinine is at 1.6 consistent with stage III chronic kidney disease, her CRP was 88, LDH [id number]. Chest x-ray showing bilateral pulmonary infiltrates consistent with Covid-related pneumonia. on 06/18/2020, the patient is fatigued and tired. She is sleepy and she is able to converse with her over the phone. No signs of any respiratory distress. She is somewhat between 2 and 3 L of oxygen by nasal cannula. She is on Decadron. No other new complaints otherwise for now. Outpatient medication have been ordered resume. On 06/19/2020, the patient is stable , a bit confused still. No new complaints. I will see her condition is essentially the same. She is afebrile. No wors ening in shortness of breath. D-dimer is at 1.28. Her renal function is improving and creatinine is down to 1.27. Electrodes are all within normal limits. CRP is down to 31. She is currently on oxygen at 3 L per minute and his saturations are 97%. No other significant events otherwise for now. The patient is seen today 06/20/2020 in follow-up in the regular medical floor. She was so weak and alert. Confused to time and place. She is currently maintaining O2 saturations in the 90s on 4 L/m per nasal cannula. She's been afebrile. Hemodynamically stable. Glucose 80. She is continued on Lovenox, dexamethasone, vitamin supplements. Objective - Vital Signs Vital signs: Vital Signs Temp 96.8 F L 06/20/20 10:28 Pulse 68 06/20/20 10:28 Resp 17 06/20/20 10:28 BP 137/83 06/20/20 10:28 Pulse Ox 95 06/20/20 10:28 Intake & Output 06/19/20 06/20/20 06/20/20 18:59 06:59 18:59 Intake Total 1250 Balance 1250 Intake: Intake, IV Titration 1250 Amount Sodium Chloride 0.9% 1, 1250 000 ml @ 100 mls/hr IV . Q[facility] Rx#:[id number] Other: Voiding Method Diaper Diaper Diaper Incontinent Incontinent Incontinent # Voids 4 1 - Exam Pleasant 79-year-old female patient no acute distress currently on 4 L of oxygen by nasal cannula. Head exam was generally normal. There was no scleral icterus or corneal arcus. Mucous membranes were moist. Neck was supple and without jugular venous distension, thyromegaly, or carotid bruits. Carotids were easily palpable bilaterally. There was no adenopathy.The patient has significant crowding of posterior pharynx and the patient has no neck stiffness. Lungs sounds are diminished and patient has some bibasilar crackles. Cardiac exam revealed the PMI to be normally situated and sized. The rhythm was regular and no extrasystoles were noted during several minutes of auscultation. The first and second heart sounds were normal and physiologic splitting of the second heart sound was noted. There were no murmurs, rubs, clicks, or gallops. Abdominal exam revealed normal bowel sounds. The abdomen was soft, non-tender, and without masses, organomegaly, or appreciable enlargement of the abdominal aorta. Extremities revealed atrophy of the muscles and there is no evidence of any cyanosis or clubbing. Neurologically, she is a poor historian. She has underlying dementia. She will go 4 extremities without any significant limitation. Unable to ambulate. - Labs CBC & Chem 7: 06/19/20 12:28 06/19/20 12:28 Labs: Abnormal Lab Results - Last 24 Hours (Table) 06/19/20 06/19/20 06/20/20 Range/Units 17:19 20:10 07:11 POC Glucose (mg/dL) 181 H 121 H 105 H (75-99) mg/dL Microbiology - Last 24 Hours (Table) 06/17/20 07:54 Blood Culture - Preliminary Blood No Growth after 72 hours Assessment and Plan Assessment: 1 acute infection with coronavirus Covid 19 on 06/06/2020 2 acute/subacute Covid 19 related pneumonia with secondary hypoxic respiratory failure currently on oxygen between 2 and 4 L, currently she is on 3 L of oxygen by nasal cannula 3 shortness of breath secondary to above, stable for now 4 morbid obesity with a previous history of very thick surgery 5 sleep apnea.patient wears a BiPAP overnight at the long term. 6 diabetes mellitus with secondary peripheral neuropathy 7 chronic 3 kidney disease and the patient has some improvement in the creatinine the creatinine is down to 1.3 8 paroxysmal atrial fibrillation 9 chronic diastolic heart failure 10 history of ulcerative colitis 11 history of compression fracture of the spine 12 history of depression 13 13 fibromyalgia 14 hyperlipidemia 15 hypothyroidism 16 history of CVA without any residual deficits second 2004 16 psoriasis 17 chronic constipation 18 glucoma 19 chronic venous stasis involving lower extremities 20 dementia 21 long term resident Plan The patient was seen and evaluated by Dr. Lagos The plan is to transfer back [facility] today. Complete a ten-day course of dexamethasone Continue with home oxygen I, the cosigning physician, performed a history & physical examination of the patient. Lungs sounds basilar crackles. Maintaining good O2 saturations in the 90s on 4 liters per minute per nasal cannula. I discussed the assessment and plan of care with my nurse practitioner, Radha Lundberg. I attest to the above note as dictated by her.
== END 2020-06-20 17:58 | DRG 177 ==
LOC: EC 06:45 → 4SSUR 11:10 → 6NMEDSUR 21:09
PROVIDERS: ADMIT Hospitalist; ATTEND Hospitalist
DX: U07.1 COVID-19 (principal); J12.89 Other viral pneumonia; J96.21 Acute and chronic respiratory failure with hypoxia; G92 Toxic encephalopathy; N17.9 Acute kidney failure, unspecified; J44.0 Chronic obstructive pulmonary disease with (acute) lower respiratory infection; K51.90 Ulcerative colitis, unspecified, without complications; E87.3 Alkalosis; F05 Delirium due to known physiological condition; I13.0 Hypertensive heart and chronic kidney disease with heart failure and stage 1 through stage 4 chronic kidney disease, or unspecified chronic kidney disease; I50.32 Chronic diastolic (congestive) heart failure; Z66 Do not resuscitate; N18.30 Chronic kidney disease, stage 3 unspecified; M79.7 Fibromyalgia; Z96.1 Presence of intraocular lens; K59.09 Other constipation; I48.0 Paroxysmal atrial fibrillation; I89.0 Lymphedema, not elsewhere classified; Z79.4 Long term (current) use of insulin; I87.8 Other specified disorders of veins; E66.01 Morbid (severe) obesity due to excess calories; E78.5 Hyperlipidemia, unspecified; N30.90 Cystitis, unspecified without hematuria; F17.200 Nicotine dependence, unspecified, uncomplicated; F41.9 Anxiety disorder, unspecified; F32.9 Major depressive disorder, single episode, unspecified; G25.81 Restless legs syndrome; G47.33 Obstructive sleep apnea (adult) (pediatric); E03.9 Hypothyroidism, unspecified; R13.10 Dysphagia, unspecified; R53.81 Other malaise; F03.90 Unspecified dementia, unspecified severity, without behavioral disturbance, psychotic disturbance, mood disturbance, and anxiety; J45.20 Mild intermittent asthma, uncomplicated; I87.2 Venous insufficiency (chronic) (peripheral); E11.649 Type 2 diabetes mellitus with hypoglycemia without coma; I89.1 Lymphangitis; H40.9 Unspecified glaucoma; H42 Glaucoma in diseases classified elsewhere; E11.39 Type 2 diabetes mellitus with other diabetic ophthalmic complication; E11.42 Type 2 diabetes mellitus with diabetic polyneuropathy; E11.22 Type 2 diabetes mellitus with diabetic chronic kidney disease; E11.51 Type 2 diabetes mellitus with diabetic peripheral angiopathy without gangrene; L40.9 Psoriasis, unspecified; Z79.890 Hormone replacement therapy; Z79.899 Other long term (current) drug therapy; Z88.6 Allergy status to analgesic agent; Z88.0 Allergy status to penicillin; Z88.8 Allergy status to other drugs, medicaments and biological substances; Z90.710 Acquired absence of both cervix and uterus; Z86.73 Personal history of transient ischemic attack (TIA), and cerebral infarction without residual deficits; Z82.49 Family history of ischemic heart disease and other diseases of the circulatory system; Z98.84 Bariatric surgery status; Z90.49 Acquired absence of other specified parts of digestive tract; Z98.890 Other specified postprocedural states; Z98.42 Cataract extraction status, left eye; Z98.41 Cataract extraction status, right eye; Z86.14 Personal history of Methicillin resistant Staphylococcus aureus infection; Z68.26 Body mass index [BMI] 26.0-26.9, adult
CPT/HCPCS: 36415; 70450; 71045; 80048; 80053; 81001; 81003; 82140; 83605; 83615; 83735; 84145; 84484; 85025; 85027; 85379; 85610; 85730; 86140; 87040; 87086; 93005; 96361; 96365; 96366; 96367; 96372; 99285